=== PATIENT | female | born 1955 | race Caucasian/White ===

== ENCOUNTER 2020-07-07 05:54 | Emergency (ER) | payer OTHER, SELFPAY ==
[2020-07-07 06:03] VITALS: BP 133/83; PULSE 80; RESP 16; TEMP 36.9; O2SAT 100; BMI 29.0
--- NOTE | 2020-07-07 06:27 | ED.WEAKNESS ---
HPI - Weakness General Chief complaint: Weakness Stated complaint: Weakness Time Seen by Provider: 07/07/20 06:27 Source: patient Mode of arrival: ambulatory Limitations: no limitations History of Present Illness HPI Narrative: 64 yo female with hx of gastric bypass 3.5 years ago was treated for ulcer on carafate/protonix for 6 weeks notes during that time she feels weak and shaky and constantly thirsty - she does not she did well with carafate but did cheat with foods and coffee has appointment at 345pm with bariatric service MD Complaint: generalized weakness and lack of energy Onset (ago): week(s) (6) Duration: constant Location: generalized Migration: none Severity: moderate Quality: dull Relieving factors: movement and exertion Exacerbating factors: none Context: recent illness Associated symptoms: other (polydipsia, weakness, shaking chills) Related Data Home Medications Medication Instructions Recorded Confirmed alprazolam 0.5 mg tablet 0.5 mg PO BID 03/09/20 04/13/20 ascorbate calcium (vitamin C) 500 500 mg PO DAILY 03/09/20 04/13/20 mg tablet brexpiprazole 0.5 mg tablet 0.5 mg PO DAILY 03/09/20 04/13/20 desvenlafaxine succinate 100 mg 100 mg PO DAILY 03/09/20 04/13/20 tablet,extended release 24 hr diclofenac potassium 25 mg capsule 25 mg PO DAILY cap 03/09/20 04/13/20 lamotrigine 150 mg tablet 75 mg PO BID 03/09/20 04/13/20 linaclotide 145 mcg capsule 145 mcg PO DAILY 03/09/20 04/13/20 multivitamin 1 tab PO DAILY 03/09/20 04/13/20 trazodone 50 mg tablet 50 mg PO BEDTIME PRN 03/09/20 04/13/20 Previous Rx's Medication Instructions Recorded calcium carbonate-vitamin D3 600 1 tab PO BID #60 tab 01/08/20 mg (1,500 mg)-800 unit tablet hydrocodone 10 mg-acetaminophen 1 tab PO BID PRN 10 Days #20 tab 03/09/20 300 mg tablet doxycycline hyclate 100 mg tablet 100 mg PO BID 5 Days #10 tab 04/11/20 pantoprazole 40 mg tablet,delayed 40 mg PO DAILY #90 tab 04/13/20 release sucralfate 100 mg/mL oral 10 ml PO BID #420 ml 05/26/20 suspension ciprofloxacin HCl 500 mg tablet 500 mg PO BID 5 Days #10 tab 05/27/20 sucralfate 100 mg/mL oral 10 ml PO QID 30 Days #1200 ml 06/08/20 suspension Allergies Allergy/AdvReac Type Severity Reaction Status Date / Time vancomycin [VANCOMYCIN] Allergy Severe ITCHING Verified 07/07/20 06:13 SEVERE, pruritus clindamycin [CLINDAMYCIN] Allergy Intermediate ITCHING Verified 07/07/20 06:13 Penicillins [PENICILLINS] Allergy Intermediate HIVES Verified 07/07/20 06:13 Sulfa (Sulfonamide Allergy Intermediate RASH/SWELLING, Verified 07/07/20 06:13 Antibiotics) rash, swelling ibuprofen Allergy Unknown abdominal Verified 07/07/20 06:13 pain nitrofurantoin Allergy Unknown abdominal Verified 07/07/20 06:13 pain penicillin V Allergy Unknown vomiting, Verified 07/07/20 06:13 hives venlafaxine [From EFFEXOR] AdvReac Severe WORSENING Verified 07/07/20 06:13 DEPRESSION STEROID INJECTIONS Allergy Severe ANGER AND Uncoded 12/19/19 17:06 AGGITATION Butrans patch Allergy Unknown depression Uncoded 10/30/19 00:00 clindamycin Allergy Unknown severe Uncoded 10/31/19 00:00 itching Herbal medicines/teas Allergy Unknown headaches, Uncoded 10/31/19 00:00 stuffiness PCN Allergy Unknown rash/projectile Uncoded 10/31/19 00:00 vomiting steroids Allergy Unknown hot Uncoded 10/31/19 00:00 flashes, anger/anxiety sulfa Allergy Unknown rash/hives Uncoded 10/31/19 00:00 vancomycin Allergy Unknown itching, Uncoded 10/31/19 00:00 oral itching HERBAL MEDICATIONS AdvReac Intermediate SINUS Uncoded 12/19/19 17:06 HEADACHES SOME HERBAL TEAS AdvReac Intermediate SINUS Uncoded 12/19/19 17:06 HEADACHES Review of Systems Review of Systems: Constitutional : No Weight loss, No Fever, No Chills, pos Fatigue, pos Malaise ENT/Mouth : No sore throat, No Rhinorrhea Eyes: No Eye Pain, No Swelling, No Redness Cardiovascular : No Chest Pain, No SOB, No Dyspnea on Exertion, No Orthopnea, No Edema, No Palpitations Respiratory : No Cough, No Sputum, No Wheezing Gastrointestinal : No Nausea, No Vomiting, No Diarrhea, No Constipation, No abdominal Pain, No Hematochezia, No Melena Genitourinary : No Dysuria, No Urinary Frequency, No Hematuria, Musculoskeletal : No joint pain, No Myalgias, No Joint Swelling Skin : No Skin Lesions, No rash Neuro : pos Weakness, No Numbness, No Dizziness, No Headache Psych : No Anxiety/Panic, No Depression Heme/Lymph: No Bruising, No Bleeding,No Lymphadenopathy Endocrine : No Polyuria, pos Polydipsia All other systems reviewed and are negative [facility] Past Medical History Attestation statement: The following information was validated with the patient. Medical History Arthritis Chronic GERD Neck pain Sciatica Surgical History History of pubovaginal sling History of sleeve gastrectomy Hx of bilateral oophorectomy Hx of breast lump removal Hx of cholecystectomy Hx of colonoscopy Hx of cystostomy Hx of hernia repair Hx of tubal ligation Family History Family History Father Heart disease Mother Diabetes mellitus Brother Prostate cancer Pancreatic cancer BRCA positive Sister Breast cancer BRCA positive Son No problems noted. Social History Social History Household Members: Significant Other Housing: House Are you a primary nurse healthcare manager to a significant other at home: No Do you presently have visiting nurse or other home services: No Alcohol intake: never Smoking Status: Never smoker Substance Use Type: Marijuana Substance Use Frequency: Occasionally Have you been hit, kicked, punched, or otherwise hurt by someone within the past year? If so, by whom?: No Do you feel safe in your current relationship?: Yes Is there a partner from a previous relationship who is making you feel unsafe now?: No Are you made to feel afraid or neglected: No Advance Directives: No Access to Firearms: No Do you have thoughts of harming others: None Do you have a plan to hurt others: No Plan Do you have the means to hurt others: No Physical Exam Vital Signs: Vital Signs: Last Vital Signs Temp 98.4 F 07/07/20 06:03 Pulse 70 07/07/20 07:03 Resp 14 07/07/20 07:03 BP 115/67 07/07/20 07:03 Pulse Ox 98 07/07/20 07:03 Body Mass Index 29.0 Appearance: Alert. Oriented X3. No acute distress. Eyes: Pupils equal, round and reactive to light. ENT: Pharynx normal. Neck: Normal inspection. Neck supple. CVS: Normal heart rate and rhythm. Pulses normal. Respiratory: No respiratory distress. Breath sounds normal. Abdomen: Soft and nontender. Skin: Skin warm and dry. Normal skin color. Normal skin turgor. Extremities: No lower extremity edema. No calf ttp Neuro: Oriented X 3. No motor deficit. No sensory deficit. Course Course Course Narrative: weakness x 6 weeks with normal labs other than Vit D - she has Rx at home, has appointment with bariatric surgery wants to leave prior to results, no abdominal pain no headaches to suggest mass no weight loss, protein is fine, has close outpatient follow up MDM - Weakness MDM Narrative Medical decision making narrative: 64 yo female s/p bariatric surgery here with 6 weeks of weakness, malaise, polyuria after being on antibiotics for tooth infection then possibly resulting in ulcer that responded well to protonix and carafate - did cheat during that time with foods and stopped taking her vitamins at this time c/o multiple vague symptoms - labs, lytes ordered as well as EKG and fluids, has close follow up today with bariatric surgery if no significant acute findings given duration will DC to outpatient follow up. Lab Data Result diagrams: 07/07/20 07:29 07/07/20 07:29 Labs: Lab Results 07/07/20 07/07/20 07/07/20 Range/Units 06:27 07:29 07:29 WBC 5.8 (4.8-10.8) X10*3/uL RBC 4.27 (4.20-5.50) X10*6/uL Hgb 12.9 (12.0-16.0) g/dl Hct 39.9 (37-47) % MCV 93.4 (80-98) fL MCH 30.2 (27.0-33.0) pg MCHC 32.3 (31.0-35.0) g/dl RDW 12.1 (11.0-16.0) % Plt Count 359 (160-400) X10*3/uL MPV 9.9 (9.4-12.3) fL Immature Gran % (Auto) 0.3 (0.0-0.4) % Neut % (Auto) 68.5 (45-73) % Lymph % (Auto) 21.8 (20-40) % [place] % (Auto) 6.7 (2-11) % Eos % (Auto) 1.7 (0-4) % Baso % (Auto) 1.0 (0-2) % Lymph # (Auto) 1.3 (1.2-4.9) X10*3/uL [place] # (Auto) 0.4 (0.1-1.2) X10*3/uL Eos # (Auto) 0.1 (0.0-0.4) X10*3/uL Baso # (Auto) 0.1 (0.0-0.2) X10*3/uL Abs Immat Gran (auto) 0.02 (0.00-0.03) X10*3/uL Absolute Neuts (auto) 4.0 (2.0-8.3) X10*3/uL Absolute Nucleated RBC 0.000 (0.0-0.012) X10*3/uL Nucleated RBC % (auto) 0.0 (0.0-0.2) /100WBC Hold Blue Top SEE NOTE Sodium (135-145) mmol/L Potassium (3.3-5.1) mmol/L Chloride (96-108) mmol/L Carbon Dioxide (22-29) mmol/L Anion Gap (12-20) BUN (9-16) mg/dL Creatinine (0.5-1.4) mg/dL Estim Creat Clear Calc Estimated GFR Random Glucose (60-115) mg/dL Calcium (8.4-10.2) mg/dL Magnesium (1.6-2.6) mg/dL Total Bilirubin (0.0-1.0) mg/dL Direct Bilirubin (0.0-0.5) mg/dL AST (5-31) U/L ALT (0-31) U/L Alkaline Phosphatase (39-117) U/L Total Protein (6.5-8.0) g/dL Albumin (3.5-5.0) g/dL Lipase (8-78) U/L 25-OH Vitamin D Total (>30) ng/mL Urine Color YELLOW Urine Appearance CLEAR Urine pH 5.5 (5.0-8.0) Ur Specific [place] 1.010 (1.005-1.025) Urine Protein NEG (NEG-TRACE) MG/DL Urine Glucose (UA) NEG (NEG) MG/DL Urine Ketones NEG (NEG) MG/DL Urine Blood TRACE (NEG) Urine Nitrite NEG (NEG) Ur Leukocyte Esterase NEG (NEG) Urine RBC 0-2 (0) /HPF Urine WBC 0-2 (0-4) /HPF Ur Squamous Epith Cells TRACE /LPF Urine Bacteria NONE /LPF Urine Mucus TRACE /LPF 07/07/20 07/07/20 Range/Units 07:29 07:29 WBC (4.8-10.8) X10*3/uL RBC (4.20-5.50) X10*6/uL Hgb (12.0-16.0) g/dl Hct (37-47) % MCV (80-98) fL MCH (27.0-33.0) pg MCHC (31.0-35.0) g/dl RDW (11.0-16.0) % Plt Count (160-400) X10*3/uL MPV (9.4-12.3) fL Immature Gran % (Auto) (0.0-0.4) % Neut % (Auto) (45-73) % Lymph % (Auto) (20-40) % [place] % (Auto) (2-11) % Eos % (Auto) (0-4) % Baso % (Auto) (0-2) % Lymph # (Auto) (1.2-4.9) X10*3/uL [place] # (Auto) (0.1-1.2) X10*3/uL Eos # (Auto) (0.0-0.4) X10*3/uL Baso # (Auto) (0.0-0.2) X10*3/uL Abs Immat Gran (auto) (0.00-0.03) X10*3/uL Absolute Neuts (auto) (2.0-8.3) X10*3/uL Absolute Nucleated RBC (0.0-0.012) X10*3/uL Nucleated RBC % (auto) (0.0-0.2) /100WBC Hold Blue Top Sodium 141 (135-145) mmol/L Potassium 4.0 (3.3-5.1) mmol/L Chloride 107 (96-108) mmol/L Carbon Dioxide 25 (22-29) mmol/L Anion Gap 13 (12-20) BUN 17 H (9-16) mg/dL Creatinine 0.95 (0.5-1.4) mg/dL Estim Creat Clear Calc 58.5 Estimated GFR 59 Random Glucose 82 (60-115) mg/dL Calcium 9.2 (8.4-10.2) mg/dL Magnesium 2.7 H (1.6-2.6) mg/dL Total Bilirubin 0.5 (0.0-1.0) mg/dL Direct Bilirubin 0.2 (0.0-0.5) mg/dL AST 17 (5-31) U/L ALT 14 (0-31) U/L Alkaline Phosphatase 108 (39-117) U/L Total Protein 7.3 (6.5-8.0) g/dL Albumin 4.2 (3.5-5.0) g/dL Lipase 42 (8-78) U/L 25-OH Vitamin D Total 14.9 Cancelled (>30) ng/mL Urine Color Urine Appearance Urine pH (5.0-8.0) Ur Specific [place] (1.005-1.025) Urine Protein (NEG-TRACE) MG/DL Urine Glucose (UA) (NEG) MG/DL Urine Ketones (NEG) MG/DL Urine Blood (NEG) Urine Nitrite (NEG) Ur Leukocyte Esterase (NEG) Urine RBC (0) /HPF Urine WBC (0-4) /HPF Ur Squamous Epith Cells /LPF Urine Bacteria /LPF Urine Mucus /LPF ECG Data Attestation: I personally reviewed and interpreted this ECG as follows: ECG interpretation date: 07/07/20 ECG interpretation time: 07:07 Interpretation: Rate: 73 Rhythm: NSR [place]: left, LVH Normal P waves. Normal SOTERO. Normal QRS complex. ST T wave : normal no KALYN qTC: normal prior studies: no acute ischemia The study has been interpreted contemporaneously by me. . Discharge Plan Discharge Clinical Impression: Weakness, Vitamin D deficiency Patient Disposition: Home, Self-Care Instructions: Vitamin D Deficiency (ED), Weakness (ED) Additional Instructions: return to ED for any worsening symptoms or concerns please take your vitamin D follow up at your appointment today, your hemoglobin A1C will be resulted by then Prescriptions: No Action calcium carbonate-vitamin D3 600 mg(1,500mg) -800 unit tablet 1 tab PO BID Qty: 60 RF: 11 doxycycline hyclate 100 mg tablet 100 mg PO BID 5 Days Qty: 10 RF: 0 sucralfate 100 mg/mL suspension 10 ml PO BID Qty: 420 RF: 2 ciprofloxacin HCl [Cipro] 500 mg tablet 500 mg PO BID 5 Days Qty: 10 RF: 0 sucralfate [Carafate] 100 mg/mL suspension 10 ml PO QID 30 Days Qty: 1200 RF: 1 pantoprazole 40 mg tablet,delayed release (DR/EC) 40 mg PO DAILY Qty: 90 RF: 8 multivitamin Tablet 1 tab PO DAILY RF: 0 diclofenac potassium 25 mg capsule 25 mg PO DAILY RF: 0 ascorbate calcium (vitamin C) 500 mg tablet 500 mg PO DAILY RF: 0 lamotrigine 150 mg tablet 75 mg PO BID RF: 0 desvenlafaxine succinate [Pristiq] 100 mg tablet extended release 24 hr 100 mg PO DAILY RF: 0 alprazolam [Xanax] 0.5 mg tablet 0.5 mg PO BID RF: 0 trazodone 50 mg tablet 50 mg PO BEDTIME PRNRF: 0 Rexulti 0.5 mg tablet 0.5 mg PO DAILY RF: 0 Linzess 145 mcg capsule 145 mcg PO DAILY RF: 0 hydrocodone-acetaminophen [Vicodin HP] 10-300 mg tablet 1 tab PO BID PRN (Reason: pain) 10 Days Qty: 20 RF: 0
[2020-07-07 06:39] LABS: Glucose Urine UA NEG (NEG); Leukocyte Esterase Urine NEG (NEG); Nitrite Urine NEG (NEG); PH 5.5 (5.0-8.0); Urine Blood TRACE (NEG); Urine Ketones NEG (NEG); Urine Protein NEG (NEG-TRACE)
--- NOTE | 2020-07-07 06:41 | ECG_ITS ---
Test Reason : WEAKNESS Blood Pressure : / mmHG Vent. Rate : 073 BPM Atrial Rate : 073 BPM P-R Int : 158 ms QRS Dur : 074 ms QT Int : 408 ms P-R-T Axes : 043 -13 002 degrees QTc Int : 449 ms Normal sinus rhythm Minimal voltage criteria for LVH, may be normal variant Borderline ECG No previous ECGs available Referred By: Naz Leal Electronically Signed By:ELENITA SHELLEY MD
[2020-07-07 06:47] LABS: Appearance Urine CLEAR; Color Urine YELLOW
[2020-07-07 06:51] LABS: Mucus Urine TRACE /LPF; RBC Urine 0-2 /HPF (0); Squamous Epithelial Cell Urine TRACE /LPF; WBC Urine 0-2 /HPF (0-4)
[2020-07-07 07:03] VITALS: BP 115/67; PULSE 70; RESP 14; O2SAT 98
[2020-07-07 07:32] LABS: MANUAL DIFF FLAG NO
[2020-07-07 07:36] LABS: Basophils Absolute Auto 0.1 X10*3/uL (0.0-0.2); Eosinophils Absolute Auto 0.1 X10*3/uL (0.0-0.4); Eosinophils Percent Auto 1.7 % (0-4); Hematocrit 39.9 % (37-47); Hemoglobin 12.9 g/dl (12.0-16.0); Imm Gran Abs Auto 0.02 X10*3/uL (0.00-0.03); Imm Gran Pct Auto 0.3 % (0.0-0.4); Lymphocytes Absolute Auto 1.3 X10*3/uL (1.2-4.9); Lymphocytes Percent Auto 21.8 % (20-40); Mean Corpuscular HGB Conc 32.3 g/dl (31.0-35.0); Mean Corpuscular Hemoglobin 30.2 pg (27.0-33.0); Mean Corpuscular Volume 93.4 fL (80-98); Mean Platelet Volume 9.9 fL (9.4-12.3); Monocytes Absolute Auto 0.4 X10*3/uL (0.1-1.2); Monocytes Percent Auto 6.7 % (2-11); Neutrophils Percent Auto 68.5 % (45-73); Platelet Count 359 X10*3/uL (160-400); Red Blood Count 4.27 X10*6/uL (4.20-5.50); Red Cell Distribution Width 12.1 % (11.0-16.0); White Blood Count 5.8 X10*3/uL (4.8-10.8)
[2020-07-07] MEDS: 0.9 % Sodium Chloride 1,000 ML 999 ML IVCONT (07:45)
[2020-07-07 08:00] LABS: Alanine Aminotransferase 14 U/L (0-31); Albumin Level 4.2 g/dL (3.5-5.0); Alkaline Phosphatase 108 U/L (39-117); Anion Gap 13 (12-20); Aspartate Amino Transferase 17 U/L (5-31); Bilirubin Direct 0.2 mg/dL (0.0-0.5); Bilirubin Total 0.5 mg/dL (0.0-1.0); Blood Urea Nitrogen 17 mg/dL (9-16); Calcium 9.2 mg/dL (8.4-10.2); Carbon Dioxide 25 mmol/L (22-29); Chloride 107 mmol/L (96-108); Creatinine Clr Calc Pharmacy 58.5; Estimated Glomerular Filt Rate 59; Glucose Random 82 mg/dL (60-115); Lipase 42 U/L (8-78); Magnesium 2.7 mg/dL (1.6-2.6); Sodium 141 mmol/L (135-145); Total Protein 7.3 g/dL (6.5-8.0)
[2020-07-07 08:19] LABS: Vitamin D 25-OH Total 14.9 ng/mL (>30)
[2020-07-07 08:31] LABS: Estimated Average Glucose 97 mg/dL
[2020-07-07 09:16] VITALS: BP 138/83; PULSE 104; RESP 14; TEMP 36.5; O2SAT 98
== END 2020-07-07 09:17 | disposition home or self-care (01) ==
PROVIDERS: Emergency Provider Emergency Medicine; PCP Internal Medicine
DX: E55.9 Vitamin D deficiency, unspecified (principal); R53.1 Weakness; Z79.899 Other long term (current) drug therapy
CPT/HCPCS: 36415; 80048; 80076; 81001; 82306; 83036; 83690; 83735; 85025; 93005; 96360; 99212; 99283; 99284

== ENCOUNTER → 2020-07-14 12:23 | Outpatient (BNVA) | payer OTHER, SELFPAY | PROVIDERS: PCP Internal Medicine; Visit Provider Dietitian, Registered ==

== ENCOUNTER 2020-07-15 10:45 | Outpatient (REF) | payer OTHER, SELFPAY ==
--- NOTE | ~2020-07-15 | MM_ITS ---
EXAMINATION: MM DIAGNOSTIC DIGITAL BREAST TOMOSYNTHESIS, BILATERAL CLINICAL INFORMATION: Due for yearly. Prior history bilateral breast cancer, right 2012 and left 2004. Also follow-up probable benign calcifications right breast. COMPARISON: Mammography: 10/08/2019, 10/03/2019 (BI-RADS 0), 07/12/2018, 05/24/2017. TECHNIQUE: Digital breast tomosynthesis is performed in both the craniocaudal and mediolateral oblique views along with computer-aided detection (CAD). Synthesized 2D images are generated from the tomosynthesis. Additional magnification right CC and magnification right ML views are obtained. FINDINGS: There are scattered areas of fibroglandular density (ACR BI-RADS breast composition Category b). There is minor bilateral scarring similar to prior studies consistent with the prior bilateral breast surgeries. There is no developing density or interval mass or architectural abnormality. Surgical clips again noted right anterior breast and right axilla. There are scattered bilateral benign coarse calcifications. The finding calcifications suggested on screening 2019 are not clearly visualized on the magnification views. Given the prior breast cancer history, continued follow-up will be performed with right magnification views at next bilateral annual mammography in one year to conclude long-term surveillance. Results are provided to the patient at time of visit by the technologist. MM/MM tomosynthesis diagnostic BI IMPRESSION: No significant changes from prior studies. No suspicious calcifications. ASSESSMENT: BI-RADS 3: Probably Benign RECOMMENDATION: Diagnostic mammography at time of next annual exam, due in 12 months. This patient's information was entered into a reminder system with a target due date for their next mammogram.
== END 2020-07-15 10:46 | disposition home or self-care (01) ==
LOC: HO.MAMMO 10:45
PROVIDERS: Visit Provider Internal Medicine
DX: R92.1 Mammographic calcification found on diagnostic imaging of breast (principal)
CPT/HCPCS: 77062; 77066

== ENCOUNTER → 2020-08-19 14:08 | Outpatient (BNVA) | payer OTHER, SELFPAY | PROVIDERS: PCP Internal Medicine; Visit Provider Physician Assistant ==

== ENCOUNTER 2020-09-04 11:45 | Outpatient (RCR) | payer OTHER, SELFPAY ==
[2020-08-21 11:47] VITALS: BMI 27.4
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
[2020-08-21 13:05] VITALS: BMI 27.4
--- NOTE | 2020-08-21 13:27 | PC.ADMIT ---
Patient is a 64 year old female who self referred to the [facility] program d/t increased depression and mood dis regulation. Patient reports depression with passive SI wishing she was however denied plan or intent to kill herself. Patient reports she relapsed after 8 years sobriety on Adderall starting last February up until 2 weeks ago when she stopped. Reports she was taking 30mg tab or 60 mg tab a few times a month. Patient feeling guilty and ashamed about use. Patient reports that she is planning on telling her prescriber Meli during her next appointment with her as she wants to tell her in person. Patient is alert and oriented x4. Presents with depressed mood and anxious affect. Denied current SI or thoughts to harm herself. Reports that she has had thoughts wishing she was however denied plan or intent. Patient gave verbal permission to email her a copy of her safety plan. Medications reconciled with patient and patient's pharmacy.
--- NOTE | 2020-08-24 15:03 | PC.NURSE ---
case opened in treatment team
--- NOTE | 2020-08-26 14:44 | HO.PHPPROGNO ---
Subjective Subjective Date of Service: 08/26/20 Reason For Visit: PTSD,MDD, Bipolar II Interim History: NO SHOW Diagnostics Vital Signs (24Hr): Body Mass Index 27.4 Assessment & Plan Assessment & Plan (1) Mood disorder: Status: Acute Code(s): F39 - Unspecified mood [affective] disorder Assessment and Plan: no show Certification I certify that partial hospital treatment is medically necessary due to the symptoms and problems resulting from the patient's mental illness and the failure to treat the patient at the partial hospital level of care would likely result in the patient requiring inpatient psychiatric care which could not be prevented at a less intensive level of care. Greater than 50% of the session was spent on counseling and/or coordination of care Discharge Plan Discharge Attending provider: Yovany Burgos Primary Care Provider: Rabia Sim Medications: No Action calcium carbonate-vitamin D3 600 mg(1,500mg) -800 unit tablet 1 tab PO BID Qty: 60 RF: 11 lamotrigine 150 mg Tablet 150 mg PO BID RF: 0 topiramate 50 mg Tablet 50 mg PO BEDTIME RF: 0 topiramate [Topamax] 50 mg Tablet 100 mg PO DAILY RF: 0 multivitamin Tablet 1 tab PO DAILY RF: 0 diclofenac potassium 25 mg capsule 25 mg PO DAILY RF: 0 desvenlafaxine succinate [Pristiq] 100 mg tablet extended release 24 hr 100 mg PO DAILY RF: 0 alprazolam [Xanax] 0.5 mg tablet 0.5 - 1 mg PO BEDTIME PRN (Reason: Insomnia) RF: 0 trazodone 50 mg tablet 50 - 100 mg PO BEDTIME PRN (Reason: Insomnia) RF: 0 Referrals: Rabia Sim MD [Primary Care Provider] - 1 Week
--- NOTE | 2020-08-27 12:15 | PC.NURSE ---
Patient left message on my voice mail stating she is taking the rest of the day off from the program as she is unable to sit anymore as she is having bilateral pain in her legs d/t sciatica. Stated she is going to lay down and take a nap to relieve the pain and has Physical Therapy tonight. Plans on returning the the program tomorrow. Staff is aware.
--- NOTE | 2020-08-27 14:25 | PC.NURSE ---
The client called and stated that she is experiencing severe back pain and needs to take to rest of the day off. She states that she will be in tomorrow
--- NOTE | 2020-09-01 16:48 | HO.PHPPROGNO ---
Subjective Subjective Date of Service: 09/01/20 Reason For Visit: PTSD,MDD, Bipolar II Medical Problems Affecting Mental Status: No Interim History: Patient reports current med regimen working well. She reports she discussed her topiramate dosing with outpatient provider, and it was increased by 50mg daily, ith it now being ordered as 100mg in am, 50mg at night. This increase was due to her assessment last week with Dr. Burgos, and his suggestion that topirimate can also assist with cravings. She reports she has experienced cravings of adderall, and hopes that this dose increase will help to alleviate them. Currently have increased sciatica pain, has contacted her medical provider, to ask for a musle relaxant. She is awaiting a call back. She states that the PHP program is helping, and she feels she is learning from the program. She is working on setting boundaries. Medication Compliance: Yes Side effects from medications: No Attending Groups: Yes Review of Systems Review of Systems Yes all other systems are reviewed and are negative Musculoskeletal: Reports back pain Comments: sciatica pain Mental Status Exam Mental Status Exam Narrative: Patient alert and oriented, no mood lability or constriction noted. Patient Appearance: Well Grooomed and Appropriate Patient Orientation: Person, Place, Time and Situation Level of Consciousness: Awake Patient Behavior: Appropriate and Cooperative Mood Description: Appropriate Affect Description: Appropriate Patient Cognition Impaired: No Ability to Follow Directions: Excellent Speech Pattern: Clear Memory Description: Intact Hallucinations: None Delusions: Not Present Thought Content: positive for Intact Depressive Symptoms: Diff. Making Decisions and Feelings of Guilt Judgement: Good Diagnostics Vital Signs (24Hr): Body Mass Index 27.4 Assessment & Plan Patient educated on: diagnosis, medication risk/benefits and substance abuse Reason for contiued partial hosp. stay Substantial Risk for: inability to function Certification I certify that partial hospital treatment is medically necessary due to the symptoms and problems resulting from the patient's mental illness and the failure to treat the patient at the partial hospital level of care would likely result in the patient requiring inpatient psychiatric care which could not be prevented at a less intensive level of care. Greater than 50% of the session was spent on counseling and/or coordination of care Discharge Plan Discharge Attending provider: Yovany Burgos Primary Care Provider: Rabia Sim Medications: No Action calcium carbonate-vitamin D3 600 mg(1,500mg) -800 unit tablet 1 tab PO BID Qty: 60 RF: 11 tizanidine 4 mg tablet 4 mg PO BEDTIME PRN (Reason: muscle spasticity) 14 Days Qty: 14 RF: 0 lamotrigine 150 mg Tablet 150 mg PO BID RF: 0 topiramate 50 mg Tablet 50 mg PO BEDTIME RF: 0 topiramate [Topamax] 50 mg Tablet 100 mg PO DAILY RF: 0 multivitamin Tablet 1 tab PO DAILY RF: 0 diclofenac potassium 25 mg capsule 25 mg PO DAILY RF: 0 desvenlafaxine succinate [Pristiq] 100 mg tablet extended release 24 hr 100 mg PO DAILY RF: 0 alprazolam [Xanax] 0.5 mg tablet 0.5 - 1 mg PO BEDTIME PRN (Reason: Insomnia) RF: 0 trazodone 50 mg tablet 50 - 100 mg PO BEDTIME PRN (Reason: Insomnia) RF: 0 Referrals: Rabia Sim MD [Primary Care Provider] - 1 Week Telehealth Telehealth Location of provider rendering services: practice address Location of patient: address on file Patient Identification confirmed using: Name, : Yes Telehealth method: video Patient verbally consented to treatment: Yes Patient verbally consented to billing insurance company: Yes Patient informed of any privacy concerns related to visit: Yes Time spent with patient (mins): 25
--- NOTE | 2020-09-02 07:36 | PC.NURSE ---
Client called out because she is experiencing severe back pain that prevents her from sitting for long periods.
--- NOTE | 2020-09-07 09:42 | PC.NURSE ---
Patient having issues with her computer this morning and unable to work her camera. Plans on calling her son to help her fix it and if fixed will attend groups on Monday. Staff is aware.
--- NOTE | 2020-09-08 08:36 | PC.NURSE ---
Client called to say that she couldn't continue tx because she does not have a camera and no means to get one. We went over her discharge plans
--- NOTE | 2020-09-08 14:18 | PC.NURSE ---
I called and spoke with Mary Patton to inform her of clients discharge
--- NOTE | 2020-09-10 12:57 | PC.NURSE ---
Patient discharged from the program as she was having computer issues thus unable to complete the program. Left messages with patient to call me back to review medications however we were not able to connect until today. Reviewed patient medication list with patient. Patient reports taking medications as prescribed. Stated she stopped Tizanidine after 3 days as she did not like the way the medication made her feel.
== END 2020-09-09 07:30 | disposition home or self-care (01) ==
LOC: HO.PHPA 11:45
PROVIDERS: PCP Internal Medicine; Visit Provider Psychiatry & Neurology Psychiatry
DX: F32.9 Major depressive disorder, single episode, unspecified (principal); F31.81 Bipolar II disorder; F43.10 Post-traumatic stress disorder, unspecified; Z79.899 Other long term (current) drug therapy
CPT/HCPCS: 90791; 90853; 99213

== ENCOUNTER 2020-09-17 18:09 | Outpatient (REF) | payer OTHER, SELFPAY ==
--- NOTE | ~2020-09-17 | MR_ITS ---
EXAMINATION: MR LUMBAR SPINE WITHOUT CONTRAST CLINICAL INFORMATION: Radiculopathy, lumbar region. COMPARISON: Lumbar spine MRI 08/12/2016. TECHNIQUE: MRI of the lumbar spine was obtained using routine sequences without contrast. FINDINGS: The lumbar vertebral bodies maintain normal heights. There is mild retrolisthesis of L3 on L4 and grade 1 anterolisthesis of L4 on L5 and L5 on S1. The alignment appears stable compared with 2017. No significant disc height loss is noted. The distal spinal cord appears normal. Conus medullaris terminates normally at the L1-L2 level. The visualized paraspinal muscles and intra-abdominal and pelvic contents are within normal limits. SPINAL LEVELS: L1-L2: Left subarticular protrusion. No spinal canal or neural foraminal stenosis. No change. L2-L3: No posterior disc abnormality. Mild facet arthropathy. No spinal canal or neural foraminal stenosis. No change. L3-L4: Disc bulging with ligamentum flavum infolding and moderate to severe facet arthropathy. Progressive mild to moderate right more than left neural foraminal stenosis with mild mass effect on the exiting right L3 nerve root. No spinal canal stenosis. L4-L5: Postoperative findings of right hemilaminectomy. Disc bulging with severe facet arthropathy. Central annular fissuring again seen. No spinal canal stenosis. Mild to moderate left and moderate right neural foraminal stenosis with mild mass effect on the exiting right L4 nerve root, similar to prior. L5-S1: Disc bulging with severe facet arthropathy. No spinal canal stenosis. No foraminal nerve root compression. MR/MR lumbar spine wo con IMPRESSION: Multilevel degenerative spondylotic changes again demonstrated. At L3-L4 there is progressive mild to moderate right more than left neural foraminal stenosis with mild mass effect on the exiting right L3 nerve root. At L4-L5 there is stable grade 1 anterolisthesis related to severe facet arthropathy resulting in mild to moderate left and moderate right neural foraminal stenosis with mild mass effect on the exiting right L4 nerve root.
== END 2020-09-17 18:10 | disposition home or self-care (01) ==
LOC: HO.MRI 18:09
PROVIDERS: Visit Provider Internal Medicine
DX: M54.16 Radiculopathy, lumbar region (principal)
CPT/HCPCS: 72148

== ENCOUNTER 2020-09-26 06:00 | Emergency (ER) | payer OTHER, SELFPAY ==
[2020-09-26 06:04] VITALS: BP 114/67; PULSE 90; RESP 20; TEMP 37; O2SAT 95; BMI 30.9
--- NOTE | 2020-09-26 06:35 | ED.BACK ---
HPI - Back Pain/Injury General Chief Complaint: Back Pain/Injury Stated Complaint: CHRONIC BACK PAIN Time Seen by Provider: 09/26/20 06:35 Source: patient and EMS Mode of arrival: EMS Limitations: no limitations History of Present Illness MD elicited complaint: back pain Pertinent past history: prior back pain Onset (ago): month(s) Timing: progressively worsening Severity: moderate Similar Symptoms Previously: Yes Quality: aching, spasming and throbbing Location: lumbar spine Radiation: none Exacerbating factors: movement Relieving factors: immobilization Context: unknown Associated symptoms: denies other symptoms Treatments prior to arrival: other medications and prescription analgesics Work related injury: No Related Data Home Medications Medication Instructions Recorded Confirmed alprazolam 0.5 mg tablet 0.5 - 1 mg PO BEDTIME PRN 03/09/20 08/21/20 desvenlafaxine succinate 100 mg 100 mg PO DAILY 03/09/20 08/21/20 tablet,extended release 24 hr multivitamin 1 tab PO DAILY 03/09/20 08/21/20 trazodone 50 mg tablet 50 - 100 mg PO BEDTIME PRN 03/09/20 08/21/20 lamotrigine 150 mg PO BID 08/21/20 08/21/20 topiramate 50 mg PO BEDTIME 08/24/20 08/24/20 topiramate [Topamax] 100 mg PO DAILY 08/24/20 08/24/20 Previous Rx's Medication Instructions Recorded calcium carbonate-vitamin D3 600 1 tab PO BID #60 tab 01/08/20 mg (1,500 mg)-800 unit tablet gabapentin 100 mg capsule 200 mg PO BEDTIME 30 Days #60 cap 09/21/20 gabapentin 300 mg PO BID 30 Days #60 cap 09/26/20 hydrocodone-acetaminophen 1 tab PO Q6H PRN #12 tab 09/26/20 Allergies Allergy/AdvReac Type Severity Reaction Status Date / Time vancomycin [VANCOMYCIN] Allergy Severe ITCHING Verified 09/26/20 06:18 SEVERE, pruritus clindamycin [CLINDAMYCIN] Allergy Intermediate ITCHING Verified 09/26/20 06:18 ibuprofen Allergy Intermediate abdominal Verified 09/26/20 06:18 pain nitrofurantoin Allergy Intermediate abdominal Verified 09/26/20 06:18 pain Penicillins [PENICILLINS] Allergy Intermediate HIVES Verified 09/26/20 06:18 Sulfa (Sulfonamide Allergy Intermediate RASH/SWELLING, Verified 09/26/20 06:18 Antibiotics) rash, swelling venlafaxine [From EFFEXOR] AdvReac Severe WORSENING Verified 09/26/20 06:18 DEPRESSION Butrans patch Allergy Severe depression Uncoded 09/26/20 06:18 STEROID INJECTIONS Allergy Severe ANGER AND Uncoded 09/26/20 06:18 AGGITATION Herbal medicines/teas Allergy Intermediate headaches, Uncoded 09/26/20 06:18 stuffiness Review of Systems Review of Systems: Constitutional : No Weight loss, No Fever, No Chills, ENT/Mouth : No Hearing loss, No Ear Pain, No Nasal Congestion, No Sinus Pain, No Hoarseness, No sore throat, No Rhinorrhea, No Swallowing Difficulty Cardiovascular : No Chest Pain, No SOB Respiratory : No Cough, No Dyspnea Gastrointestinal : No Nausea, No Vomiting, No Diarrhea, No abdominal Pain, No Hematochezia, No Melena Genitourinary : No Dysuria, No Urinary Frequency, No Hematuria, No Urinary Incontinence, Musculoskeletal : positive back pain Skin : No Skin Lesions, No rash Neuro : No Weakness, No Numbness, No Paresthesias, no loss of bowel or bladder incontinence, no saddle anesthesia PMFSH Past Medical History Attestation statement: The following information was validated with the patient. Medical History Arthritis Back pain BRCA gene mutation positive Chronic constipation Chronic GERD Depression Fatigue Herniated disc History of bronchitis History of left breast cancer History of right breast cancer Irritable bowel syndrome Left sided sciatica Lumbar radiculopathy Neck pain PTSD (post-traumatic stress disorder) Retinal lesion Sciatica Urine incontinence Surgical History History of esophagogastroduodenoscopy (EGD) History of pubovaginal sling History of repair of hiatal hernia History of Lashay-en-Y gastric bypass History of sinus surgery Hx of bilateral oophorectomy Hx of breast lump removal Hx of cholecystectomy Hx of colonoscopy Hx of cystostomy Hx of hernia repair Hx of tubal ligation Family History Family History Father Heart disease Mother Diabetes mellitus Brother Prostate cancer Pancreatic cancer BRCA positive Sister Breast cancer BRCA positive Son No problems noted. Social History Social History Household Members: Significant Other Housing: House Are you a primary animal care service worker to a significant other at home: No Do you presently have visiting nurse or other home services: No Alcohol intake: never Substance Use Type: Marijuana Advance Directives: No Advance Directives Information Provided: No Patient : No Current occupational status: disabled Physical Exam Vital Signs: Vital Signs: Last Vital Signs Temp 98.6 F 09/26/20 06:04 Pulse 90 09/26/20 06:04 Resp 20 09/26/20 06:04 BP 114/67 09/26/20 06:04 Pulse Ox 95 09/26/20 06:04 Body Mass Index 30.9 Appearance: Alert. Oriented X3. No acute distress. able to rotate in bed and stand up on her own without much difficulty at all Eyes: Pupils equal, round and reactive to light. ENT: Pharynx normal. Neck: Normal inspection. Neck supple. CVS: Normal heart rate and rhythm. Pulses normal. Respiratory: No respiratory distress. Breath sounds normal. Abdomen: Soft and nontender. normal rectal tone Skin: Skin warm and dry. Normal skin color. Normal skin turgor. Extremities: No lower extremity edema. No calf ttp Neuro: Oriented X 3. No motor deficit. No sensory deficit. SILT inner thigh Course Course Course Narrative: patient refusing medications in the ED and now wants to go home, up and walking in the ED MDM - Back Pain/Injury MDM Narrative Medical decision making narrative: 64 yo female with a hx of chronic back pain had recent MRI which showed compression of L3/L4 nerve roots, she is not on AC therapy, has no saddle anesthesia, she is NV intact on exam today, no incontinence at this time, she is moving around quite well on the bed rotating without issue then standing up, she is requesting if we can increase her gabapentin from 100mg - will increase to 300mg BID and give very limited narcotic Rx for the weekend, she plans to see Dr. Melgar Discharge Plan Discharge Clinical Impression: Lumbar radiculopathy Patient Disposition: Home, Self-Care Instructions: Lumbar Radiculopathy (ED) Additional Instructions: return to ED for any worsening symptoms or concerns please keep your appointment with neurosurgery, return for numbness in your genital area or loss of bowel/bladder control that is new Prescriptions: New gabapentin 300 mg capsule 300 mg PO BID 30 Days Qty: 60 RF: 0 hydrocodone-acetaminophen 5-325 mg tablet 1 tab PO Q6H PRN (Reason: pain) Qty: 12 RF: 0 No Action calcium carbonate-vitamin D3 600 mg(1,500mg) -800 unit tablet 1 tab PO BID Qty: 60 RF: 11 gabapentin 100 mg capsule 200 mg PO BEDTIME 30 Days Qty: 60 RF: 0 lamotrigine 150 mg Tablet 150 mg PO BID RF: 0 topiramate 50 mg Tablet 50 mg PO BEDTIME RF: 0 topiramate [Topamax] 50 mg Tablet 100 mg PO DAILY RF: 0 multivitamin Tablet 1 tab PO DAILY RF: 0 desvenlafaxine succinate [Pristiq] 100 mg tablet extended release 24 hr 100 mg PO DAILY RF: 0 alprazolam [Xanax] 0.5 mg tablet 0.5 - 1 mg PO BEDTIME PRN (Reason: Insomnia) RF: 0 trazodone 50 mg tablet 50 - 100 mg PO BEDTIME PRN (Reason: Insomnia) RF: 0
--- NOTE | 2020-09-26 07:07 | PC.NURSE ---
PT REFUSING ORDERED MEDS, STS ILL BE TOO SLEEPY . PT REPOSITIONING SELF IN STRETCHER EASILY W NO ASSISTANCE, AMBULATING IN ROOM W STEADY GAIT, NAD.
== END 2020-09-26 07:07 | disposition home or self-care (01) ==
PROVIDERS: Emergency Provider Emergency Medicine; PCP Internal Medicine
DX: M54.16 Radiculopathy, lumbar region (principal)
CPT/HCPCS: 99283

== ENCOUNTER 2020-09-27 12:10 | Emergency (ER) | payer OTHER, SELFPAY ==
[2020-09-27 12:25] VITALS: BP 125/77; PULSE 73; RESP 16; TEMP 36.6; O2SAT 97; BMI 28.3
--- NOTE | 2020-09-27 13:23 | ED.BACK ---
HPI - Back Pain/Injury General Chief Complaint: Dental/Oral Stated Complaint: DENTAL PAIN Time Seen by Provider: 09/27/20 13:13 Source: patient Mode of arrival: ambulatory Limitations: no limitations History of Present Illness HPI Narrative: 64-year-old female with a past medical history of L3/L4 nerve roots confirmed by recent MRI presenting to the ED with complaints of acute on chronic lower back pain radiating to her anterior lower extremities bilaterally. Reports that she was seen here yesterday and her gabapentin was increased to 300 mg b.i.d. and she was given Vicodin although she is not having any symptomatic relief and is requesting higher dose pain medications. Reports she is also having left lower dental pain as well. Reports she has the follow-up with the neurosurgeon Dr. Melgar and a dentist soon. CHATMAN elicited complaint: back pain Pertinent past history: prior back pain Onset (ago): day(s) ( Few days worse today) Timing: constant and progressively worsening Severity: severe Pain scale (0-10): 10 Similar Symptoms Previously: Yes Quality: aching, spasming and throbbing Location: lumbar spine Radiation: left upper leg and right upper leg Exacerbating factors: movement, sitting upright and walking Relieving factors: immobilization and supine ( on abdomen) Associated symptoms: denies other symptoms Treatments prior to arrival: other ( has tried her gabapentin and Vicodin) Work related injury: No Related Data Home Medications Medication Instructions Recorded Confirmed alprazolam 0.5 mg tablet 0.5 - 1 mg PO BEDTIME PRN 03/09/20 08/21/20 desvenlafaxine succinate 100 mg 100 mg PO DAILY 03/09/20 08/21/20 tablet,extended release 24 hr multivitamin 1 tab PO DAILY 03/09/20 08/21/20 trazodone 50 mg tablet 50 - 100 mg PO BEDTIME PRN 03/09/20 08/21/20 lamotrigine 150 mg PO BID 08/21/20 08/21/20 topiramate 50 mg PO BEDTIME 08/24/20 08/24/20 topiramate [Topamax] 100 mg PO DAILY 08/24/20 08/24/20 Previous Rx's Medication Instructions Recorded calcium carbonate-vitamin D3 600 1 tab PO BID #60 tab 01/08/20 mg (1,500 mg)-800 unit tablet gabapentin 100 mg capsule 200 mg PO BEDTIME 30 Days #60 cap 09/21/20 gabapentin 300 mg PO BID 30 Days #60 cap 09/26/20 hydrocodone-acetaminophen 1 tab PO Q6H PRN #12 tab 09/26/20 acetaminophen [Tylenol Extra 1,000 mg PO QID PRN #14 tab 09/27/20 Strength] azithromycin See Rx Instructions .ROUTE 09/27/20 .COMPLEX #6 tab lidocaine HCl [Aspercreme 1 appl TOPICAL BID PRN #120 g 09/27/20 (lidocaine HCl)] oxycodone 5 mg PO BID PRN #15 tab 09/27/20 prednisone 40 mg PO DAILY 5 Days #10 tab 09/27/20 Allergies Allergy/AdvReac Type Severity Reaction Status Date / Time vancomycin [VANCOMYCIN] Allergy Severe ITCHING Verified 09/26/20 06:18 SEVERE, pruritus clindamycin [CLINDAMYCIN] Allergy Intermediate ITCHING Verified 09/26/20 06:18 ibuprofen Allergy Intermediate abdominal Verified 09/26/20 06:18 pain nitrofurantoin Allergy Intermediate abdominal Verified 09/26/20 06:18 pain Penicillins [PENICILLINS] Allergy Intermediate HIVES Verified 09/26/20 06:18 Sulfa (Sulfonamide Allergy Intermediate RASH/SWELLING, Verified 09/26/20 06:18 Antibiotics) rash, swelling venlafaxine [From EFFEXOR] AdvReac Severe WORSENING Verified 09/26/20 06:18 DEPRESSION Butrans patch Allergy Severe depression Uncoded 09/26/20 06:18 STEROID INJECTIONS Allergy Severe ANGER AND Uncoded 09/26/20 06:18 AGGITATION Herbal medicines/teas Allergy Intermediate headaches, Uncoded 09/26/20 06:18 stuffiness Review of Systems Review of Systems: Constitutional : No trauma, No Weight loss, No Fever, No Chills, ENT/Mouth : positive left lower dental pain, No Hearing loss, No Ear Pain, No Nasal Congestion, No Sinus Pain, No Hoarseness, No sore throat, No Rhinorrhea, No Swallowing Difficulty Cardiovascular : No Chest Pain, No SOB Respiratory : No Cough, No Dyspnea Gastrointestinal : No Nausea, No Vomiting, No Diarrhea, No abdominal Pain, No Hematochezia, No Melena Genitourinary : No Dysuria, No Urinary Frequency, No Hematuria, No Urinary or Bowel Incontinence/retention Musculoskeletal : Positive Back pain, No neck pain, No joint stiffness, No joint swelling Skin : No Skin Lesions, No rash or signs of infection Neuro : No Weakness, No radiation, No Numbness, No Paresthesias, No headache, no loss of bowel or bladder incontinence, no saddle anesthesia, Focal weakness, No radiation Denies history of IV drug usage. Yes all other systems are reviewed and are negative [facility] Past Medical History Attestation statement: The following information was validated with the patient. Medical History Arthritis Back pain BRCA gene mutation positive Chronic constipation Chronic GERD Depression Fatigue Herniated disc History of bronchitis History of left breast cancer History of right breast cancer Irritable bowel syndrome Left sided sciatica Lumbar radiculopathy Neck pain PTSD (post-traumatic stress disorder) Retinal lesion Sciatica Urine incontinence Surgical History History of esophagogastroduodenoscopy (EGD) History of pubovaginal sling History of repair of hiatal hernia History of Lashay-en-Y gastric bypass History of sinus surgery Hx of bilateral oophorectomy Hx of breast lump removal Hx of cholecystectomy Hx of colonoscopy Hx of cystostomy Hx of hernia repair Hx of tubal ligation Family History Family History Father Heart disease Mother Diabetes mellitus Brother Prostate cancer Pancreatic cancer BRCA positive Sister Breast cancer BRCA positive Son No problems noted. Social History Social History Household Members: Significant Other Housing: House Are you a primary child care assistant to a significant other at home: No Do you presently have visiting nurse or other home services: No Alcohol intake: never Substance Use Type: Marijuana Advance Directives: Yes Advance Directives Information Provided: Yes Advance Directives on File: No Patient : No Current occupational status: disabled Physical Exam Vital Signs: Vital Signs: Last Vital Signs Temp 98 F 09/27/20 12:25 Pulse 73 09/27/20 12:25 Resp 16 09/27/20 12:25 BP 125/77 09/27/20 12:25 Pulse Ox 97 09/27/20 12:25 Body Mass Index 28.3 vital signs have been reviewed as normal and appeared to be correct. Blood pressure normal. Heart rate normal. Respiration rate normal. Temperature normal. Oxygen saturation normal. Appearance: Alert. Oriented X3. No acute distress. Head: Normal external exam. Normocephalic. Atraumatic. No Núñez signs noted. No raccoon eyes noted Eyes: PERRLA. EOMI. Conjunctiva and sclera normal. Eyelids normal. ENT: EAC normal. TM's Normal. Pharynx normal. Uvula midline. Moist mucous membranes. No trismus noted. No drooling noted. No muffled voice noted. Dentition: Patient with poor dentition throughout with multiple old fractured teeth with multiple dental caries. Gingival within normal limits. No fluctuance. Not consistent with peritonsillar abscess. Not consistent with dental abscess. No salivary duct obstruction noted. Neck: Normal inspection. Neck supple. FROM. No adenopathy. Thyroid Normal. No meningeal signs. No neck mass noted. CVS: Normal heart rate and rhythm. Heart sound normal. No murmurs noted. Pulses normal throughout. Respiratory: No respiratory distress. Painless inspiration. Breath sounds normal. No wheezes/rales/rhonchi noted. Chest nontender. No accessory muscle usage noted or decreased air movement noted. Abdomen: Soft and nontender. Bowel sounds normal in all 4 quadrants. No distention noted. No organomegaly noted. No visible injury noted. Back: No CVA tenderness. Full range of motion noted. No obvious deformities, or edema. Mild para-spinal muscular tenderness from lumbar region to coccyx. Full ROM in back and lower extremities. 5/5 strength hip extension/flexion, abduction, adduction. Mild Lumbar pain with hip flexion against resistance. Straight leg raise test negative on right; Straight leg raise test negative on left; Reflexes normal ankle and knee bilaterally; EHL motor strength normal bilaterally. No rashes/lesion/induration/fluctuance or signs infection noted. Skin: Skin warm and dry. Normal skin color. Normal skin turgor. No rashes/lesions/lacerations noted. Extremities: No lower extremity edema. Extremities exhibit normal range of motion. Extremities nontender. Neuro: Oriented X 3. No motor deficit. No sensory deficit. Reflexes normal. Patient has a normal steady gait. Course Course Course Narrative: 64-year-old female with a past medical history of chronic back pain with recent MRI which showed compression of L3/L4 compression was presenting to the ED with complaints of acute on chronic lower back pain over the past few days worse today. Was seen here yesterday given increase in gabapentin and then Vicodin and no symptomatic relief. Also complaining of dental pain. Has follow-up with neurosurgeon and dentist by next month. Neuro exam shows no deficits. Not c/w AAA/epidural abscess/dissection.No high risk Hx (Incont, fever, immunosupp, recent surgery/LP, coag, signif trauma, wt loss, puls mass, hx/o Ca, TB, or IVDU) to warrant MRI/CT today. Not c/w Pyelo/UTI/kidney stone/spinal fx. Not cauda equina syndrome. Imaging not currently indicated. DC c meds and f/u MDM - Back Pain/Injury Medical Records Attestation: I reviewed the patient's medical records. Discharge Plan Discharge Clinical Impression: Lumbar radiculopathy, Toothache, Dental caries Patient Disposition: Home, Self-Care Instructions: Toothache (ED), Chronic Back Pain (DC), Lower Back Exercises (ED) Prescriptions: New azithromycin 250 mg tablet See Rx Instructions .ROUTE .COMPLEX Qty: 6 RF: 0 oxycodone 5 mg tablet 5 mg PO BID PRN (Reason: pain) Qty: 15 RF: 0 prednisone 20 mg tablet 40 mg PO DAILY 5 Days Qty: 10 RF: 0 acetaminophen [Tylenol Extra Strength] 500 mg tablet 1,000 mg PO QID PRN (Reason: fever or pain) Qty: 14 RF: 0 lidocaine HCl [Aspercreme (lidocaine HCl)] 4 % cream 1 appl topical BID PRN (Reason: pain) Qty: 120 RF: 0 No Action calcium carbonate-vitamin D3 600 mg(1,500mg) -800 unit tablet 1 tab PO BID Qty: 60 RF: 11 gabapentin 100 mg capsule 200 mg PO BEDTIME 30 Days Qty: 60 RF: 0 lamotrigine 150 mg Tablet 150 mg PO BID RF: 0 topiramate 50 mg Tablet 50 mg PO BEDTIME RF: 0 topiramate [Topamax] 50 mg Tablet 100 mg PO DAILY RF: 0 gabapentin 300 mg capsule 300 mg PO BID 30 Days Qty: 60 RF: 0 hydrocodone-acetaminophen 5-325 mg tablet 1 tab PO Q6H PRN (Reason: pain) Qty: 12 RF: 0 multivitamin Tablet 1 tab PO DAILY RF: 0 desvenlafaxine succinate [Pristiq] 100 mg tablet extended release 24 hr 100 mg PO DAILY RF: 0 alprazolam [Xanax] 0.5 mg tablet 0.5 - 1 mg PO BEDTIME PRN (Reason: Insomnia) RF: 0 trazodone 50 mg tablet 50 - 100 mg PO BEDTIME PRN (Reason: Insomnia) RF: 0 Referrals: Rabia Sim MD [Primary Care Provider] - 2 days Print Language: Irish
== END 2020-09-27 13:46 | disposition home or self-care (01) ==
PROVIDERS: Emergency Provider Emergency Medicine; PCP Internal Medicine
DX: M54.16 Radiculopathy, lumbar region (principal); K02.9 Dental caries, unspecified
CPT/HCPCS: 99283

== ENCOUNTER → 2020-10-02 06:49 | Outpatient (REF) | payer OTHER, SELFPAY ==
--- NOTE | 2020-10-02 06:56 | ECG_ITS ---
Test Reason : ANESTHESIA DENTAL Blood Pressure : / mmHG Vent. Rate : 086 BPM Atrial Rate : 086 BPM P-R Int : 162 ms QRS Dur : 078 ms QT Int : 394 ms P-R-T Axes : 053 -13 028 degrees QTc Int : 471 ms Normal sinus rhythm Normal ECG When compared with ECG of 07-JUL-2020 06:59, No significant change was found Referred By: Rabia Grider Electronically Signed By:ELENITA SHELLEY MD
== END ==
LOC: HO.CARD 06:49
PROVIDERS: PCP Internal Medicine; Visit Provider Internal Medicine
DX: Z01.818 Encounter for other preprocedural examination (principal)
CPT/HCPCS: 93005

== ENCOUNTER 2020-10-03 09:03 | Outpatient (REF) | payer OTHER, SELFPAY ==
[2020-10-03 09:38] LABS: MANUAL DIFF FLAG NO
[2020-10-03 09:44] LABS: Basophils Absolute Auto 0.1 X10*3/uL (0.0-0.2); Basophils Percent Auto 1.1 % (0-2); Eosinophils Absolute Auto 0.2 X10*3/uL (0.0-0.4); Eosinophils Percent Auto 3.4 % (0-4); Hematocrit 43.5 % (37-47); Imm Gran Abs Auto 0.02 X10*3/uL (0.00-0.03); Imm Gran Pct Auto 0.4 % (0.0-0.4); Lymphocytes Absolute Auto 1.5 X10*3/uL (1.2-4.9); Lymphocytes Percent Auto 26.9 % (20-40); Mean Corpuscular HGB Conc 32.2 g/dl (31.0-35.0); Mean Corpuscular Hemoglobin 30.8 pg (27.0-33.0); Mean Corpuscular Volume 95.8 fL (80-98); Mean Platelet Volume 10.2 fL (9.4-12.3); Monocytes Absolute Auto 0.3 X10*3/uL (0.1-1.2); Monocytes Percent Auto 6.2 % (2-11); Neutrophils Absolute Auto 3.4 X10*3/uL (2.0-8.3); Platelet Count 278 X10*3/uL (160-400); Red Blood Count 4.54 X10*6/uL (4.20-5.50); Red Cell Distribution Width 12.1 % (11.0-16.0); White Blood Count 5.5 X10*3/uL (4.8-10.8)
[2020-10-03 10:13] LABS: Alanine Aminotransferase 23 U/L (0-31); Alkaline Phosphatase 101 U/L (39-117); Anion Gap 15 (12-20); Aspartate Amino Transferase 23 U/L (5-31); Bilirubin Total 0.5 mg/dL (0.0-1.0); Blood Urea Nitrogen 10 mg/dL (9-16); Calcium 9.4 mg/dL (8.4-10.2); Carbon Dioxide 24 mmol/L (22-29); Chloride 106 mmol/L (96-108); Estimated Glomerular Filt Rate > 60; Glucose Fasting 93 mg/dL (60-99); Sodium 140 mmol/L (135-145); Total Protein 6.9 g/dL (6.5-8.0)
[2020-10-03 10:34] LABS: Free T4 (Free Thyroxine) 0.79 ng/dL (0.71-1.85); Thyroid Stimulating Hormone 1.26 uIU/mL (0.32-4.0)
[2020-10-07 21:06] LABS: Vitamin D 25-OH, D2 <4 ng/mL; Vitamin D 25-OH, D3 24 ng/mL; Vitamin D 25-OH, Total 24 ng/mL (30-100)
== END 2020-10-03 09:04 | disposition home or self-care (01) ==
LOC: HO.LAB 09:03
PROVIDERS: PCP Internal Medicine; Visit Provider Internal Medicine
DX: Z01.818 Encounter for other preprocedural examination (principal); R53.83 Other fatigue; E55.9 Vitamin D deficiency, unspecified; D64.9 Anemia, unspecified
CPT/HCPCS: 36415; 80053; 82306; 84439; 84443; 85025

== ENCOUNTER 2020-10-05 10:09 | Emergency (ER) | payer OTHER, SELFPAY ==
--- NOTE | ~2020-10-05 | CT_ITS ---
EXAMINATION: CT SOFT TISSUE NECK WITH CONTRAST CLINICAL INFORMATION: Throat swelling. Clinical concern for Дмитрий's angina. Possible pharyngeal abscess COMPARISON: None TECHNIQUE: Following the intravenous administration of 85 mL of Omnipaque 350 intravenous contrast, helical imaging was performed in the axial plane with generation of coronal and sagittal reformatted images. This CT examination was performed using dose optimization techniques as appropriate, variously including the following: *Automated exposure control *Adjustment of mA and/or kV according to patient size (this includes techniques or standardized protocols for targeted exams where dose is matched to indication/reason for exam; i.e. extremities or head) *Use of iterative reconstruction technique DLP: 379 mGy-cm FINDINGS: Dental metal artifact obscures the anatomy at the level of the oropharynx and limits the exam. There is no evidence of retropharyngeal abscess. The nasopharyngeal airway is patent. The fossae of Rosenmuller are well visualized and symmetric. There is no collection in the prevertebral soft tissues. Although there is marked artifact at the level of the oropharynx I suspect some edema in the region of the base of tongue and tonsillar pillars slightly greater on right than left. There is no convincing evidence of a drainable collection although dental metal artifact limits assessment. The parapharyngeal tissue planes are maintained. The epiglottis is not enlarged. The piriform sinuses and valleculae are partially aerated. There is no abnormality at the level of the vocal cords. The subglottic trachea is normal. There is no abnormality in the infratemporal fossae. The parotid glands are within normal limits. There is no enlargement or asymmetry of the submandibular glands. The thyroid is within normal limits. The jugular veins are patent. The carotids are patent. There is no significant cervical adenopathy. There is no abnormality in the visualized portions of the brain or orbits. Chronic opacification with wall thickening in a small left maxillary sinus. There is degenerative change in the visualized spine with some osteophytes. The lowest images include portions of the upper lungs. No dense consolidation or suspicious mass. CT/CT soft tissue neck w con IMPRESSION: There is no ectopic gas or drainable abscess. Dental metal artifact limits assessment of the oropharynx but I suspect at least some swelling/edema. The epiglottis is not enlarged
--- NOTE | ~2020-10-05 | CT_ITS ---
EXAMINATION: CT ABDOMEN AND PELVIS WITH CONTRAST CLINICAL INFORMATION: Epigastric pain. COMPARISON: CT of the abdomen and pelvis done on 12/23/2019. TECHNIQUE: Multidetector volumetric images were obtained from the superior aspect of the liver through the pubic symphysis following administration 85 mL of Omnipaque 350 intravenous contrast. Sagittal and coronal reformatted images were obtained on the technologist's workstation. Oral contrast: No This CT examination was performed using dose optimization techniques as appropriate, variously including the following: *Automated exposure control *Adjustment of mA and/or kV according to patient size (this includes techniques or standardized protocols for targeted exams where dose is matched to indication/reason for exam; i.e. extremities or head) *Use of iterative reconstruction technique DLP: 993.49 mGy-cm FINDINGS: LUNG BASES: Hypoventilatory changes are present at both lung bases. LIVER, GALLBLADDER, AND BILIARY TREE: Diffuse hepatic hypodensity consistent with hepatic steatosis is present. The left lobe of the liver is diminutive. No focal liver lesion. The gallbladder is surgically absent. PANCREAS: Unremarkable. SPLEEN: Unremarkable. ADRENAL GLANDS: Unremarkable. KIDNEYS AND URETERS: The kidneys are normal in size, shape, and attenuation. No hydronephrosis, hydroureter, or calculi seen. No perinephric stranding. BLADDER: Suboptimally distended. GASTROINTESTINAL TRACT: Previously documented colitis related changes involving the sigmoid colon and descending colon shows interval resolution. No new abnormalities. Postsurgical changes are noted at the GE junction in the form of gastric bypass, unchanged. The small bowel loops are decompressed. ABDOMINAL WALL: No significant hernia is appreciated. LYMPH NODES: Normal. VASCULAR: Unremarkable. PELVIC VISCERA: There is no pelvic mass present. There is no free fluid and/or free air present. OSSEOUS STRUCTURES: No suspicious focal lesion. CT/CT abdomen pelvis w con IMPRESSION: 1. Interval resolution of colitis involving the descending and sigmoid colon. 2. No other significant change since prior study dated 12/23/2019.
[2020-10-05 10:19] VITALS: BP 147/89; PULSE 86; RESP 16; TEMP 36.4; O2SAT 97; BMI 28.8
--- NOTE | 2020-10-05 10:39 | ECG_ITS ---
Test Reason : NAUSEA Blood Pressure : / mmHG Vent. Rate : 073 BPM Atrial Rate : 073 BPM P-R Int : 164 ms QRS Dur : 076 ms QT Int : 414 ms P-R-T Axes : 049 -15 014 degrees QTc Int : 456 ms Artifact in tracing Normal sinus rhythm Normal ECG When compared with ECG of 02-OCT-2020 07:00, No significant change was found Referred By: Avery Lomeli Electronically Signed By:RODRIGO BASHIR
--- NOTE | 2020-10-05 11:17 | ED_ITS ---
HPI - General Adult General Chief complaint: Nausea/Vomiting/Diarrhea Stated complaint: THORAT SWELLING SWEATS CHILLS NAUSEA Time Seen by Provider: 10/05/20 10:12 Source: patient Mode of arrival: ambulatory Limitations: no limitations History of Present Illness HPI narrative: Patient presents to ED sensation of tongue swelling and epigastric abdominal pain with burning acid sensation. Patient denies itchy sensation of throat, shortness of breath, drooling, coughing, fever, or chills. Patient admits nausea. Related Data Home Medications Medication Instructions Recorded Confirmed alprazolam 0.5 mg tablet 0.5 - 1 mg PO BEDTIME PRN 03/09/20 08/21/20 desvenlafaxine succinate 100 mg 100 mg PO DAILY 03/09/20 08/21/20 tablet,extended release 24 hr multivitamin 1 tab PO DAILY 03/09/20 08/21/20 trazodone 50 mg tablet 50 - 100 mg PO BEDTIME PRN 03/09/20 08/21/20 lamotrigine 150 mg PO BID 08/21/20 08/21/20 topiramate 50 mg PO BEDTIME 08/24/20 08/24/20 topiramate [Topamax] 100 mg PO DAILY 08/24/20 08/24/20 Previous Rx's Medication Instructions Recorded calcium carbonate-vitamin D3 600 1 tab PO BID #60 tab 01/08/20 mg (1,500 mg)-800 unit tablet gabapentin 100 mg capsule 200 mg PO BEDTIME 30 Days #60 cap 09/21/20 gabapentin 300 mg PO BID 30 Days #60 cap 09/26/20 hydrocodone-acetaminophen 1 tab PO Q6H PRN #12 tab 09/26/20 acetaminophen [Tylenol Extra 1,000 mg PO QID PRN #14 tab 09/27/20 Strength] azithromycin See Rx Instructions .ROUTE 09/27/20 .COMPLEX #6 tab lidocaine HCl [Aspercreme 1 appl TOPICAL BID PRN #120 g 09/27/20 (lidocaine HCl)] prednisone 40 mg PO DAILY 5 Days #10 tab 09/27/20 oxycodone 5 mg tablet 5 mg PO BID PRN #15 tab 10/01/20 lidocaine HCl [Lidocaine Viscous] 1 appl MUCOUS MEMBRANE BID PRN 5 10/05/20 Days #100 ml Allergies Allergy/AdvReac Type Severity Reaction Status Date / Time vancomycin [VANCOMYCIN] Allergy Severe ITCHING Verified 09/26/20 06:18 SEVERE, pruritus clindamycin [CLINDAMYCIN] Allergy Intermediate ITCHING Verified 09/26/20 06:18 ibuprofen Allergy Intermediate abdominal Verified 09/26/20 06:18 pain nitrofurantoin Allergy Intermediate abdominal Verified 09/26/20 06:18 pain Penicillins [PENICILLINS] Allergy Intermediate HIVES Verified 09/26/20 06:18 Sulfa (Sulfonamide Allergy Intermediate RASH/SWELLING, Verified 09/26/20 06:18 Antibiotics) rash, swelling venlafaxine [From EFFEXOR] AdvReac Severe WORSENING Verified 09/26/20 06:18 DEPRESSION Butrans patch Allergy Severe depression Uncoded 09/26/20 06:18 STEROID INJECTIONS Allergy Severe ANGER AND Uncoded 09/26/20 06:18 AGGITATION Herbal medicines/teas Allergy Intermediate headaches, Uncoded 09/26/20 06:18 stuffiness Review of Systems Review of Systems: Yes all other systems are reviewed and are negative Constitutional: Constitutional: Reports as per HPI and Reports no additional constitutional complaints Eyes: Eyes: Reports as per HPI and Reports no additional eye complaints ENT: Reports system reviewed and no additional complaints, except as documented and Reports as per HPI Comments: Tongue feels swollen and red. Cardiovascular: Cardiovascular: Reports as per HPI and Reports no additional cardiovascular complaints Respiratory: Respiratory: Reports as per HPI and Reports no additional respiratory complaints Gastrointestinal: Gastrointestinal: Reports as per HPI, Reports no additional gastrointestinal complaints, Reports abdominal pain ( Epigastric) and Reports nausea Genitourinary: Genitourinary: Reports no additional female genitourinary complaints and Reports as per HPI Musculoskeletal: Musculoskeletal: Reports no additional musculoskeletal complaints and Reports as per HPI Neurologic: Reports system reviewed and no additional complaints, except as documented and Reports as per HPI Psychiatric: Psychiatric: Reports no additional psychiatric complaints and Reports as per HPI PMFSH Past Medical History Medical History Arthritis Back pain BRCA gene mutation positive Chronic constipation Chronic GERD Depression Fatigue Herniated disc History of bronchitis History of left breast cancer History of right breast cancer Irritable bowel syndrome Left sided sciatica Lumbar radiculopathy Neck pain PTSD (post-traumatic stress disorder) Retinal lesion Sciatica Urine incontinence Surgical History History of esophagogastroduodenoscopy (EGD) History of pubovaginal sling History of repair of hiatal hernia History of Lashay-en-Y gastric bypass History of sinus surgery Hx of bilateral oophorectomy Hx of breast lump removal Hx of cholecystectomy Hx of colonoscopy Hx of cystostomy Hx of hernia repair Hx of tubal ligation Family History Family History Father Heart disease Mother Diabetes mellitus Brother Prostate cancer Pancreatic cancer BRCA positive Sister Breast cancer BRCA positive Son No problems noted. Social History Social History Household Members: Significant Other Housing: House Are you a primary career services coordinator to a significant other at home: No Do you presently have visiting nurse or other home services: No Alcohol intake: never Patient Tobacco Use Status: Never used Tobacco Use of substances other than those prescribed or required for medical reasons: No Substance Use Type: Marijuana Advance Directives: No Advance Directives Information Provided: No Patient : No Current occupational status: disabled Physical Exam Vital Signs: Vital Signs: Last Vital Signs Temp 98.0 F 10/05/20 12:58 Pulse 85 10/05/20 14:49 Resp 18 10/05/20 14:49 BP 149/87 H 10/05/20 14:49 Pulse Ox 97 10/05/20 14:49 Body Mass Index 28.8 Const: General: cooperative, healthy appearing, comfortable, no acute distress, well developed, alert, awake and Physically active Orientation/consciousness: patient oriented x3 HENMT: Other: negative for any signs of any oral abscess or tonsillitis. tongue negative for any swelling. Negative for uvular swelling. Tongue is red with papular lesions in the back. Indicating glossitis. * Head: Yes normal to inspection, Yes No palpable skull fracture present, Yes normocephalic and Yes atraumatic Throat image: 1. Tongue is red, but not be feel swollen. Uvula is not swollen. Patient is not drooling negative for any tooth infection 2. papular lesions. Neck: Other: Neck negative for swollen Neck: Yes normal visual inspection, Yes full ROM, Yes no lymphadenopathy, Yes no meningeal signs, Yes trachea midline, Yes supple, No anterior neck swelling and No tender Chest: Chest palpation & inspection: normal inspection of the chest and normal palpation of entire chest wall Resp: Effort & Inspection: normal respiratory effort and able to speak in complete sentences Auscultation: clear to auscultation bilaterally Cardio: Jugular venous distension: no JVD Heart sounds: S1 normal heart sound present and S2 normal heart sound present GI: Inspection: Yes normal to inspection and No abdominal wall ecchymosis Palpation (GI): Soft to palpation, not firm, Tenderness to palpation present (GI) in the epigastrum; not in the LLQ, not in the RLQ, not in the LUQ, not in the RUQ, not at McBurney's point, not periumbilically, not suprapubicly, Resendiz's sign negative, obturator sign negative, psoas sign negative, with no rebound tenderness and Rovsing's sign negative, no guarding and not rigid : General: No CVA tenderness and Yes no CVA tenderness Back/Spine/Pelvis: Back: no CVA tenderness, No CVA tenderness and No back tenderness Skin: General skin exam: no rashes or lesions noted and elasticity normal Neuro: General: patient oriented x3, gait normal, no meningeal signs and CN's II-XI intact bilaterally Cranial nerves: Yes CN's II-XII intact bilaterally Extrem: Other: Lower extremity negative for swelling, calf tenderness or pitting edema. General: Yes normal to inspection and Yes full ROM Course Course Course Narrative: Patient have a cardiac evaluation due to her state epigastric pain and sensation of acid burning going up to throat. oral exam indicate glossitis. Picture of oral cavity showed to Dr. Leal who states this is glossitis and patient had before in the past. Due to patient stating recent tooth infection and feeling her throat and tongue feels swollen patient will be sent for soft tissue neck to make sure there is no Carlos Enrique angina or retro pharyngeal abscess of althoug very unlikely. Patient speaking in full sentences negative for any drooling, change in voice,or hoarseness. Reevaluation(s) Reevaluation #1: EKG negative for STEMI. First troponin negative. Patient given GI cocktail of Pepcid. no need for allergic reaction meds. Tongue is not swollen, uvula is not swollen, negative for any rash or itchiness. Exam indicate glossitis as stated by Dr. Leal. plan is to repeat troponin and waiting for soft tissue neck CT results. Will also send patient for abdominal CT scan due to patient stating slight epigastric pain with history of gastric bypass surgery. Not suspect any PE. patient denies any chest pain or shortness of breath. Patient asks for sucralfate which she states helps with her great abdominal pain. Time: 17:06 Reevaluation #2: abdominal CT scan does not show any acute abdominal processes. Shows resolution of colitis. Soft tissue CT scan negative for any retropharyngeal abscess or carlos enrique infection. Epiglottitis normal. diagnosis glossitis. 2nd troponin negative. patient is not having angioedema. patient is not on any blood pressure medication. Patient is not having an allergic reaction. Patient just having glossitis. Patient discharged with lidocaine viscous and informed to use the smallest does for pain relief. Time: 17:27 Medical Decision Making MDM Narrative Medical decision making narrative: glossitis. GERD exacerbation Lab Data Result diagrams: 10/05/20 11:41 10/05/20 11:41 Labs: Lab Results 10/05/20 10/05/20 10/05/20 Range/Units 11:05 11:05 11:41 WBC 4.8 (4.8-10.8) X10*3/uL RBC 4.41 (4.20-5.50) X10*6/uL Hgb 13.6 (12.0-16.0) g/dl Hct 41.9 (37-47) % MCV 95.0 (80-98) fL MCH 30.8 (27.0-33.0) pg MCHC 32.5 (31.0-35.0) g/dl RDW 12.0 (11.0-16.0) % Plt Count 264 (160-400) X10*3/uL MPV 10.1 (9.4-12.3) fL Immature Gran % (Auto) 0.4 (0.0-0.4) % Neut % (Auto) 67.5 (45-73) % Lymph % (Auto) 22.8 (20-40) % Toombs % (Auto) 5.4 (2-11) % Eos % (Auto) 3.1 (0-4) % Baso % (Auto) 0.8 (0-2) % Lymph # (Auto) 1.1 L (1.2-4.9) X10*3/uL Toombs # (Auto) 0.3 (0.1-1.2) X10*3/uL Eos # (Auto) 0.2 (0.0-0.4) X10*3/uL Baso # (Auto) 0.0 (0.0-0.2) X10*3/uL Abs Immat Gran (auto) 0.02 (0.00-0.03) X10*3/uL Absolute Neuts (auto) 3.3 (2.0-8.3) X10*3/uL Absolute Nucleated RBC 0.000 (0.0-0.012) X10*3/uL Nucleated RBC % (auto) 0.0 (0.0-0.2) /100WBC PT (9.9-13.0) SEC INR (0.9-1.1) APTT (24.1-38.0) SEC Sodium (135-145) mmol/L Potassium (3.3-5.1) mmol/L Chloride (96-108) mmol/L Carbon Dioxide (22-29) mmol/L Anion Gap (12-20) BUN (9-16) mg/dL Creatinine (0.5-1.4) mg/dL Estim Creat Clear Calc Estimated GFR Random Glucose (60-115) mg/dL Calcium (8.4-10.2) mg/dL Total Bilirubin (0.0-1.0) mg/dL Direct Bilirubin (0.0-0.5) mg/dL AST (5-31) U/L ALT (0-31) U/L Alkaline Phosphatase (39-117) U/L Troponin I High Sens (<3.5-17.0) ng/L Total Protein (6.5-8.0) g/dL Albumin (3.5-5.0) g/dL Lipase (8-78) U/L Vitamin B12 (200-900) pg/mL Folate (> or = 4.0) ng/mL COVID-19 ([facility]IE) Negative (Negative) COVID-19 Clin Com See Note S. pyogenes GrpA ALKA Negative (Negative) 10/05/20 10/05/20 10/05/20 Range/Units 11:41 11:41 11:41 WBC (4.8-10.8) X10*3/uL RBC (4.20-5.50) X10*6/uL Hgb (12.0-16.0) g/dl Hct (37-47) % MCV (80-98) fL MCH (27.0-33.0) pg MCHC (31.0-35.0) g/dl RDW (11.0-16.0) % Plt Count (160-400) X10*3/uL MPV (9.4-12.3) fL Immature Gran % (Auto) (0.0-0.4) % Neut % (Auto) (45-73) % Lymph % (Auto) (20-40) % Toombs % (Auto) (2-11) % Eos % (Auto) (0-4) % Baso % (Auto) (0-2) % Lymph # (Auto) (1.2-4.9) X10*3/uL Toombs # (Auto) (0.1-1.2) X10*3/uL Eos # (Auto) (0.0-0.4) X10*3/uL Baso # (Auto) (0.0-0.2) X10*3/uL Abs Immat Gran (auto) (0.00-0.03) X10*3/uL Absolute Neuts (auto) (2.0-8.3) X10*3/uL Absolute Nucleated RBC (0.0-0.012) X10*3/uL Nucleated RBC % (auto) (0.0-0.2) /100WBC PT 10.8 (9.9-13.0) SEC INR 1.0 (0.9-1.1) APTT 35.1 (24.1-38.0) SEC Sodium 141 (135-145) mmol/L Potassium 4.3 (3.3-5.1) mmol/L Chloride 108 (96-108) mmol/L Carbon Dioxide 24 (22-29) mmol/L Anion Gap 13 (12-20) BUN 12 (9-16) mg/dL Creatinine 0.78 (0.5-1.4) mg/dL Estim Creat Clear Calc 71.1 Estimated GFR > 60 Random Glucose 83 (60-115) mg/dL Calcium 9.4 (8.4-10.2) mg/dL Total Bilirubin 0.5 (0.0-1.0) mg/dL Direct Bilirubin 0.2 (0.0-0.5) mg/dL AST 27 (5-31) U/L ALT 22 (0-31) U/L Alkaline Phosphatase 96 (39-117) U/L Troponin I High Sens < 3.5 (<3.5-17.0) ng/L Total Protein 7.1 (6.5-8.0) g/dL Albumin 4.1 (3.5-5.0) g/dL Lipase 119 H (8-78) U/L Vitamin B12 (200-900) pg/mL Folate (> or = 4.0) ng/mL COVID-19 ([facility]) (Negative) COVID-19 Clin Com S. pyogenes GrpA ALKA (Negative) 10/05/20 10/05/20 Range/Units 11:41 16:22 WBC (4.8-10.8) X10*3/uL RBC (4.20-5.50) X10*6/uL Hgb (12.0-16.0) g/dl Hct (37-47) % MCV (80-98) fL MCH (27.0-33.0) pg MCHC (31.0-35.0) g/dl RDW (11.0-16.0) % Plt Count (160-400) X10*3/uL MPV (9.4-12.3) fL Immature Gran % (Auto) (0.0-0.4) % Neut % (Auto) (45-73) % Lymph % (Auto) (20-40) % Toombs % (Auto) (2-11) % Eos % (Auto) (0-4) % Baso % (Auto) (0-2) % Lymph # (Auto) (1.2-4.9) X10*3/uL Toombs # (Auto) (0.1-1.2) X10*3/uL Eos # (Auto) (0.0-0.4) X10*3/uL Baso # (Auto) (0.0-0.2) X10*3/uL Abs Immat Gran (auto) (0.00-0.03) X10*3/uL Absolute Neuts (auto) (2.0-8.3) X10*3/uL Absolute Nucleated RBC (0.0-0.012) X10*3/uL Nucleated RBC % (auto) (0.0-0.2) /100WBC PT (9.9-13.0) SEC INR (0.9-1.1) APTT (24.1-38.0) SEC Sodium (135-145) mmol/L Potassium (3.3-5.1) mmol/L Chloride (96-108) mmol/L Carbon Dioxide (22-29) mmol/L Anion Gap (12-20) BUN (9-16) mg/dL Creatinine (0.5-1.4) mg/dL Estim Creat Clear Calc Estimated GFR Random Glucose (60-115) mg/dL Calcium (8.4-10.2) mg/dL Total Bilirubin (0.0-1.0) mg/dL Direct Bilirubin (0.0-0.5) mg/dL AST (5-31) U/L ALT (0-31) U/L Alkaline Phosphatase (39-117) U/L Troponin I High Sens < 3.5 (<3.5-17.0) ng/L Total Protein (6.5-8.0) g/dL Albumin (3.5-5.0) g/dL Lipase (8-78) U/L Vitamin B12 395 (200-900) pg/mL Folate 13.4 (> or = 4.0) ng/mL COVID-19 ([facility]) (Negative) COVID-19 Clin Com S. pyogenes GrpA ALKA (Negative) ECG Data Interpretation: normal sinus rhythm. Normal EKG. normal EKG. Ventricular rate 73. Pr interval 164 QRS 76. QTC 456. negative stemi Discharge Plan Discharge Clinical Impression: Glossitis, Gastroesophageal reflux disease Patient Disposition: Home, Self-Care Instructions: Gastroesophageal Reflux Disease (ED), Geographic Tongue (ED) Additional Instructions: CT scan of the neck was negative for any abscess in her throat or abscess in your oral cavity. Abdominal CT scan was negative for any acute abdominal processes. Please follow-up with your PCP or referred to ENT. Return to the ED immediately for sensation of shortness of breath, chest pain, profuse tongue swelling, sensation of throat closing, itchy rash, itchy skin, itchy sensation of throat, or any other concerning symptoms. Your EKG was normal. Blood test for your heart troponin were negative. The kidney function was normal. Prescriptions: New lidocaine HCl [Lidocaine Viscous] 2 % solution 1 appl mucous membrane BID PRN (Reason: pain) 5 Days Qty: 100 RF: 0 No Action calcium carbonate-vitamin D3 600 mg(1,500mg) -800 unit tablet 1 tab PO BID Qty: 60 RF: 11 gabapentin 100 mg capsule 200 mg PO BEDTIME 30 Days Qty: 60 RF: 0 oxycodone 5 mg tablet 5 mg PO BID PRN (Reason: pain) Qty: 15 RF: 0 lamotrigine 150 mg Tablet 150 mg PO BID RF: 0 topiramate 50 mg Tablet 50 mg PO BEDTIME RF: 0 topiramate [Topamax] 50 mg Tablet 100 mg PO DAILY RF: 0 gabapentin 300 mg capsule 300 mg PO BID 30 Days Qty: 60 RF: 0 hydrocodone-acetaminophen 5-325 mg tablet 1 tab PO Q6H PRN (Reason: pain) Qty: 12 RF: 0 azithromycin 250 mg tablet See Rx Instructions .ROUTE .COMPLEX Qty: 6 RF: 0 prednisone 20 mg tablet 40 mg PO DAILY 5 Days Qty: 10 RF: 0 acetaminophen [Tylenol Extra Strength] 500 mg tablet 1,000 mg PO QID PRN (Reason: fever or pain) Qty: 14 RF: 0 lidocaine HCl [Aspercreme (lidocaine HCl)] 4 % cream 1 appl topical BID PRN (Reason: pain) Qty: 120 RF: 0 multivitamin Tablet 1 tab PO DAILY RF: 0 desvenlafaxine succinate [Pristiq] 100 mg tablet extended release 24 hr 100 mg PO DAILY RF: 0 alprazolam [Xanax] 0.5 mg tablet 0.5 - 1 mg PO BEDTIME PRN (Reason: Insomnia) RF: 0 trazodone 50 mg tablet 50 - 100 mg PO BEDTIME PRN (Reason: Insomnia) RF: 0 Referrals: Garrison Caldwell [Physician] - 2 days ( Glossitis) Rabia Sim MD [Primary Care Provider] - 2 days ( Glossitis. GERD exacerbation. Troponin and EKG normal. Soft tissue CT scan negative for any retropharyngeal abscess or Carlos Enrique angina. Abdominal CT scan negative for any acute abdominal processes.) Interventions: ED Discharge Assessment Last Done: 10/05/20 18:05 Discharge Date/Time: 10/05/20 18:06 Print Language: Hebrew
[2020-10-05 11:37] LABS: IDNOW Serial# 08D9AD1C; Strep A Nucleic Acid Negative (Negative)
[2020-10-05] MEDS: Famotidine/PF 20 MG/2 ML VIAL IVPUSH (11:43)
[2020-10-05] MEDS: 0.9 % Sodium Chloride 1,000 ML 999 ML IV (11:43)
[2020-10-05 11:47] LABS: COVID-19 Test Negative (Negative)
[2020-10-05 11:49] LABS: MANUAL DIFF FLAG NO
[2020-10-05 11:52] LABS: Basophils Percent Auto 0.8 % (0-2); Eosinophils Absolute Auto 0.2 X10*3/uL (0.0-0.4); Eosinophils Percent Auto 3.1 % (0-4); Hematocrit 41.9 % (37-47); Hemoglobin 13.6 g/dl (12.0-16.0); Imm Gran Abs Auto 0.02 X10*3/uL (0.00-0.03); Imm Gran Pct Auto 0.4 % (0.0-0.4); Lymphocytes Absolute Auto 1.1 X10*3/uL (1.2-4.9); Lymphocytes Percent Auto 22.8 % (20-40); Mean Corpuscular HGB Conc 32.5 g/dl (31.0-35.0); Mean Corpuscular Hemoglobin 30.8 pg (27.0-33.0); Mean Platelet Volume 10.1 fL (9.4-12.3); Monocytes Absolute Auto 0.3 X10*3/uL (0.1-1.2); Monocytes Percent Auto 5.4 % (2-11); Neutrophils Absolute Auto 3.3 X10*3/uL (2.0-8.3); Neutrophils Percent Auto 67.5 % (45-73); Platelet Count 264 X10*3/uL (160-400); Red Blood Count 4.41 X10*6/uL (4.20-5.50); White Blood Count 4.8 X10*3/uL (4.8-10.8)
[2020-10-05 12:02] LABS: Prothrombin Time 10.8 SEC (9.9-13.0)
[2020-10-05 12:05] LABS: Partial Thromboplastin Time 35.1 SEC (24.1-38.0)
[2020-10-05 12:25] LABS: Alanine Aminotransferase 22 U/L (0-31); Albumin Level 4.1 g/dL (3.5-5.0); Alkaline Phosphatase 96 U/L (39-117); Anion Gap 13 (12-20); Aspartate Amino Transferase 27 U/L (5-31); Bilirubin Direct 0.2 mg/dL (0.0-0.5); Bilirubin Total 0.5 mg/dL (0.0-1.0); Blood Urea Nitrogen 12 mg/dL (9-16); Calcium 9.4 mg/dL (8.4-10.2); Carbon Dioxide 24 mmol/L (22-29); Chloride 108 mmol/L (96-108); Creatinine Clr Calc Pharmacy 71.1; Estimated Glomerular Filt Rate > 60; Glucose Random 83 mg/dL (60-115); Potassium 4.3 mmol/L (3.3-5.1); Sodium 141 mmol/L (135-145); Total Protein 7.1 g/dL (6.5-8.0)
[2020-10-05 12:26] LABS: Troponin-I High Sensitivity < 3.5 ng/L (<3.5-17.0)
[2020-10-05 12:37] LABS: Lipase 119 U/L (8-78)
[2020-10-05 12:55] LABS: Folate 13.4 ng/mL (> or = 4.0); Vitamin B12 395 pg/mL (200-900)
[2020-10-05 12:58] VITALS: BP 147/93; PULSE 69; RESP 18; TEMP 36.7
--- NOTE | 2020-10-05 14:00 | PC.NURSE ---
Pt alert and oriented x3, vss, LSCTA. Pt reports nausea and throat pain starting a few days ago. She states she is unsure of what started it and denies eating/drinking anything different from what she usually have. BS + x4, denies abd pain, no facial swelling noted, no facial swelling noted. IV line established, labs drawn, meds given as documented. Pt resting quietly, no apparent distress noted.
[2020-10-05] MEDS: Sucralfate Oral Suspension 1 GM/10 ML ORAL.SUSP PO (14:44)
[2020-10-05] MEDS: Lidocaine HCl Viscous 2 % 15 ML SOLUTION MUCOUS MEM (14:44)
[2020-10-05 14:49] VITALS: BP 149/87; PULSE 85; RESP 18; O2SAT 97
[2020-10-05] MEDS: iohexoL 350 MG/ML 100 ML INFUS..BTL IV (15:53)
[2020-10-05 17:05] LABS: Troponin-I High Sensitivity < 3.5 ng/L (<3.5-17.0)
== END 2020-10-05 18:06 | disposition home or self-care (01) ==
PROVIDERS: Physician Assistant; Emergency Provider Emergency Medicine; PCP Internal Medicine
DX: K14.0 Glossitis (principal); K21.9 Gastro-esophageal reflux disease without esophagitis; Z20.822 Contact with and (suspected) exposure to COVID-19
CPT/HCPCS: 36415; 70491; 74177; 80053; 80076; 82248; 82607; 82746; 83690; 84484; 85025; 85610; 85730; 87635; 87651; 93005; 96361; 96374; 99284; 99285; Q9967

== ENCOUNTER 2020-10-15 08:04 | Outpatient (REF) | payer OTHER, SELFPAY ==
--- NOTE | ~2020-10-15 | XR_ITS ---
EXAMINATION: XR LUMBAR SPINE XR HIP, LEFT CLINICAL INFORMATION: Instability. Mechanical testing. COMPARISON: Multiple priors, most recent CT abdomen/pelvis dated 10/05/2020. TECHNIQUE: AP, lateral, coned-down, flexion, and extension views of the lumbar spine. AP and frog-leg lateral views of the left hip. FINDINGS: Lumbar Spine: Grade 1 anterolisthesis of L4 on L5 is unchanged. No significant change in alignment with flexion or extension. Prominent bilateral facet arthropathy at L4-L5 and L5-S1. No loss of vertebral body or intervertebral disc height. No lytic or blastic osseous lesion. No abnormal soft tissue calcification. Left Hip: Severe superior joint space narrowing with subchondral sclerosis, subchondral cystic change, and prominent marginal osteophytes. No fracture or dislocation. Left pelvic surgical clips. XR/XR hip LT min 2V IMPRESSION: Lumbar Spine: Grade 1 anterolisthesis of L4 on L5 without and alignment on flexion or extension. Prominent bilateral facet arthropathy at L4-L5 and L5-S1. Left Hip: Severe osteoarthritis.
--- NOTE | ~2020-10-15 | XR_ITS ---
EXAMINATION: XR LUMBAR SPINE XR HIP, LEFT CLINICAL INFORMATION: Instability. Mechanical testing. COMPARISON: Multiple priors, most recent CT abdomen/pelvis dated 10/05/2020. TECHNIQUE: AP, lateral, coned-down, flexion, and extension views of the lumbar spine. AP and frog-leg lateral views of the left hip. FINDINGS: Lumbar Spine: Grade 1 anterolisthesis of L4 on L5 is unchanged. No significant change in alignment with flexion or extension. Prominent bilateral facet arthropathy at L4-L5 and L5-S1. No loss of vertebral body or intervertebral disc height. No lytic or blastic osseous lesion. No abnormal soft tissue calcification. Left Hip: Severe superior joint space narrowing with subchondral sclerosis, subchondral cystic change, and prominent marginal osteophytes. No fracture or dislocation. Left pelvic surgical clips. XR/XR lumbar spine 6V w bending IMPRESSION: Lumbar Spine: Grade 1 anterolisthesis of L4 on L5 without and alignment on flexion or extension. Prominent bilateral facet arthropathy at L4-L5 and L5-S1. Left Hip: Severe osteoarthritis.
== END 2020-10-15 08:05 | disposition home or self-care (01) ==
LOC: HO.XRAY 08:04
PROVIDERS: PCP Internal Medicine; Visit Provider Neurological Surgery
DX: M53.2X6 Spinal instabilities, lumbar region (principal); M25.352 Other instability, left hip
CPT/HCPCS: 72114; 73502

== ENCOUNTER 2020-11-11 07:16 | Outpatient (REF) | payer OTHER, SELFPAY ==
--- NOTE | 2020-11-11 07:26 | ECG_ITS ---
Test Reason : ANESTH HIP REPLACEME Blood Pressure : / mmHG Vent. Rate : 076 BPM Atrial Rate : 076 BPM P-R Int : 154 ms QRS Dur : 076 ms QT Int : 404 ms P-R-T Axes : 047 -11 008 degrees QTc Int : 454 ms Normal sinus rhythm Normal ECG When compared with ECG of 05-OCT-2020 11:03, No significant change was found Referred By: Rabia Grider Electronically Signed By:ELENITA SHELLEY MD
[2020-11-11 07:53] LABS: MANUAL DIFF FLAG NO
[2020-11-11 07:57] LABS: Basophils Absolute Auto 0.1 X10*3/uL (0.0-0.2); Basophils Percent Auto 0.9 % (0-2); Eosinophils Absolute Auto 0.2 X10*3/uL (0.0-0.4); Eosinophils Percent Auto 3.3 % (0-4); Hematocrit 40.1 % (37-47); Hemoglobin 12.8 g/dl (12.0-16.0); Imm Gran Abs Auto 0.01 X10*3/uL (0.00-0.03); Imm Gran Pct Auto 0.2 % (0.0-0.4); Lymphocytes Absolute Auto 1.1 X10*3/uL (1.2-4.9); Lymphocytes Percent Auto 19.6 % (20-40); Mean Corpuscular HGB Conc 31.9 g/dl (31.0-35.0); Mean Corpuscular Hemoglobin 30.8 pg (27.0-33.0); Mean Corpuscular Volume 96.4 fL (80-98); Mean Platelet Volume 9.6 fL (9.4-12.3); Monocytes Absolute Auto 0.6 X10*3/uL (0.1-1.2); Monocytes Percent Auto 10.2 % (2-11); Neutrophils Absolute Auto 3.6 X10*3/uL (2.0-8.3); Neutrophils Percent Auto 65.8 % (45-73); Platelet Count 257 X10*3/uL (160-400); Red Blood Count 4.16 X10*6/uL (4.20-5.50); White Blood Count 5.5 X10*3/uL (4.8-10.8)
[2020-11-11 08:22] LABS: Alanine Aminotransferase 16 U/L (0-31); Albumin Level 3.9 g/dL (3.5-5.0); Alkaline Phosphatase 96 U/L (39-117); Anion Gap 12 (12-20); Aspartate Amino Transferase 19 U/L (5-31); Bilirubin Total 0.3 mg/dL (0.0-1.0); Blood Urea Nitrogen 11 mg/dL (9-16); Carbon Dioxide 24 mmol/L (22-29); Chloride 110 mmol/L (96-108); Estimated Glomerular Filt Rate > 60; Glucose Fasting 87 mg/dL (60-99); Sodium 142 mmol/L (135-145); Total Protein 6.8 g/dL (6.5-8.0)
== END 2020-11-11 07:17 | disposition home or self-care (01) ==
LOC: HO.LAB 07:16
PROVIDERS: PCP Internal Medicine; Visit Provider Internal Medicine
DX: Z01.818 Encounter for other preprocedural examination (principal); D64.9 Anemia, unspecified; M16.12 Unilateral primary osteoarthritis, left hip
CPT/HCPCS: 36415; 80053; 85025; 93005

== ENCOUNTER 2020-11-28 09:21 | Outpatient (REF) | payer OTHER, SELFPAY ==
[2020-11-28 10:00] LABS: Glucose Urine UA NEG (NEG); Leukocyte Esterase Urine NEG (NEG); Nitrite Urine NEG (NEG); Specific Gravity - Urine 1.015 (1.005-1.025); Urine Blood NEG (NEG); Urine Ketones NEG (NEG); Urine Protein NEG (NEG-TRACE)
[2020-11-28 10:05] LABS: Appearance Urine CLEAR; Color Urine YELLOW
[2020-11-28 10:52] LABS: Estimated Average Glucose 97 mg/dL
== END 2020-11-28 09:22 | disposition home or self-care (01) ==
LOC: HO.LAB 09:21
PROVIDERS: PCP Internal Medicine; Visit Provider Orthopaedic Surgery Orthopaedic Trauma
DX: M16.12 Unilateral primary osteoarthritis, left hip (principal)
CPT/HCPCS: 36415; 81003; 83036

== ENCOUNTER → 2021-03-15 07:58 | Outpatient (BNVA) | payer OTHER, SELFPAY | PROVIDERS: PCP Internal Medicine; Visit Provider Physician Assistant Surgical ==

== ENCOUNTER 2021-05-12 12:09 | Emergency (ER) | payer OTHER, SELFPAY ==
--- NOTE | ~2021-05-12 | CT_ITS ---
EXAMINATION: CT ABDOMEN AND PELVIS WITH CONTRAST CLINICAL INFORMATION: Bilateral lower quadrant pain COMPARISON: Previous CT of the abdomen and pelvis October 2020 TECHNIQUE: Multidetector volumetric images were obtained from the superior aspect of the liver through the pubic symphysis following administration 85 mL of Omnipaque 350 intravenous contrast. Sagittal and coronal reformatted images were obtained on the technologist's workstation. Oral contrast: Yes This CT examination was performed using dose optimization techniques as appropriate, variously including the following: *Automated exposure control *Adjustment of mA and/or kV according to patient size (this includes techniques or standardized protocols for targeted exams where dose is matched to indication/reason for exam; i.e. extremities or head) *Use of iterative reconstruction technique DLP: 668 mGy-cm FINDINGS: LUNG BASES: The visualized lung bases are unremarkable. LIVER, GALLBLADDER, AND BILIARY TREE: The liver is normal in size, shape, and attenuation. No focal hepatic lesion or biliary ductal dilatation is present. The gallbladder has been removed. PANCREAS: Unremarkable. SPLEEN: Unremarkable. ADRENAL GLANDS: Unremarkable. KIDNEYS AND URETERS: There are left renal cysts. There is a small 4 mm fatty lesion in the lower pole right kidney probably representing a benign angiomyolipoma. There is cortical thinning or scarring in the lower pole of the left kidney. BLADDER: Unremarkable. GASTROINTESTINAL TRACT: There is diverticulosis of the colon. There is wall thickening of the sigmoid colon and stranding of the surrounding fat suggestive of mild sigmoid diverticulitis. No evidence of obstruction, perforation or abscess is seen. There is stool throughout the colon suggestive of constipation. The appendix is is not seen. No inflammatory changes are seen in the right lower quadrant. There are postsurgical changes to the stomach/Gastric bypass. ABDOMINAL WALL: No significant hernia is appreciated. LYMPH NODES: Normal. VASCULAR: Unremarkable. PELVIC VISCERA: Unremarkable. OSSEOUS STRUCTURES: There is a left hip replacement. There are degenerative changes of the spine. CT/CT abdomen pelvis w con IMPRESSION: Mild sigmoid diverticulitis. Constipation. Postsurgical changes from gastric bypass. Left renal cysts. 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 Fleischner guidelines were followed.
--- NOTE | 2021-05-12 12:13 | ED_ITS ---
HPI - Abdominal Pain General Chief Complaint: Abdominal Pain Stated Complaint: ABD PAIN Time Seen by Provider: 05/12/21 12:12 Source: patient, EMS and old records reviewed Mode of arrival: EMS Limitations: no limitations History of Present Illness HPI narrative: 65 y/o female with history of diverticulitis, GERD, IBS, gastritis, PTSD, Bipolar II, depression, lumbar radiculopathy w/ sciatica, hx cholecystectomy, hx oopherectomy, s/p tubal ligation who presents to the ER from home via EMS c/o LLQ abdominal pain for the last 5 days. She reports the pain was intermittent and started in the RLQ and now radiated and persisted in the LLQ. She last had a BM 4 days ago and it was loose, nonbloody diarrhea. She called her GI Dr. Lara who said they couldnt get her in for a CT scan for another week so they advised her to come to the ER for further evaluation. She denies nausea, vomiting, fever, chills or urinary symptoms aside from her chronic urinary frequency from stress incontinence. She reports last colonoscopy 2-3 years ago and she had polyps. MD elicited complaint: abdominal pain Pertinent past history: diverticulitis Onset (ago): day(s) (5) Pain Consistency: constant Location: LLQ Severity: moderate Pain scale (0-10): 7 Quality: stabbing Radiation: none Migration to: RLQ Exacerbating factors: nothing Relieving factors: nothing Context: history of similar episodes Associated symptoms: diarrhea and constipation Related Data Home Medications Medication Instructions Recorded Confirmed alprazolam 0.5 mg tablet (Xanax) 0.5 - 1 mg PO BEDTIME PRN 03/09/20 03/15/21 desvenlafaxine succinate 100 mg 100 mg PO DAILY 03/09/20 03/15/21 tablet,extended release 24 hr (Pristiq) trazodone 50 mg tablet 50 - 100 mg PO BEDTIME PRN 03/09/20 03/15/21 lamotrigine 150 mg tablet 150 mg PO BID 08/21/20 03/15/21 acetaminophen 500 mg tablet 500 mg PO QID PRN tab 01/06/21 03/15/21 (Tylenol Extra Strength) aspirin 81 mg tablet,delayed 81 mg PO tab 01/06/21 03/15/21 release ([place] Aspirin) sennosides 8.6 mg-docusate sodium tab PO 01/06/21 03/15/21 50 mg tablet (Stimulant Laxative Plus) Previous Rx's Medication Instructions Recorded pantoprazole 40 mg tablet,delayed 40 mg PO BID #60 tab 11/10/20 release calcium carbonate 600 mg-vitamin 1 tab PO BID #60 tab 01/14/21 D3 20 mcg (800 unit) tablet potassium chloride 20 mEq 20 meq PO DAILY #30 tab 01/14/21 tablet,extended release ciprofloxacin HCl 500 mg tablet 500 mg PO BID #20 tab 05/12/21 metronidazole 500 mg tablet 500 mg PO BID 10 Days #20 tab 05/12/21 tramadol 50 mg tablet 50 mg PO Q8H PRN #7 tab 05/12/21 Allergies Allergy/AdvReac Type Severity Reaction Status Date / Time vancomycin [VANCOMYCIN] Allergy Severe ITCHING Verified 02/03/21 11:36 SEVERE, pruritus clindamycin [CLINDAMYCIN] Allergy Intermediate ITCHING Verified 02/03/21 11:36 ibuprofen Allergy Intermediate abdominal Verified 02/03/21 11:36 pain nitrofurantoin Allergy Intermediate abdominal Verified 02/03/21 11:36 pain Penicillins [PENICILLINS] Allergy Intermediate HIVES Verified 02/03/21 11:36 Sulfa (Sulfonamide Allergy Intermediate RASH/SWELLING, Verified 02/03/21 11:36 Antibiotics) rash, swelling venlafaxine [From EFFEXOR] AdvReac Severe WORSENING Verified 02/03/21 11:36 DEPRESSION Butrans patch Allergy Severe depression Uncoded 02/03/21 11:36 STEROID INJECTIONS Allergy Severe ANGER AND Uncoded 02/03/21 11:36 AGGITATION Herbal medicines/teas Allergy Intermediate headaches, Uncoded 02/03/21 11:36 stuffiness Review of Systems Review of Systems Constitutional: No Fever, No Chills ENT/Mouth: No sore throat, No Rhinorrhea, No Swallowing Difficulty Cardiovascular: No Chest Pain, No SOB, No Orthopnea, No Edema Respiratory: No Cough, No Sputum, No Wheezing, No dyspnea Gastrointestinal: No Nausea, No Vomiting, + Diarrhea, + abdominal Pain, No Hematochezia, No Melena Genitourinary: No Dysuria, + Urinary Frequency, No Hematuria Musculoskeletal: No joint pain, No Myalgias Skin: No Skin Lesions, No rash Neuro: No Weakness, No Numbness, No Dizziness, No Headache Psych: No Anxiety/Panic, No Depression Heme/Lymph: No Bruising, No Lymphadenopathy Endocrine: No Polyuria, No Polydipsia Physical Exam Vital Signs: Vital Signs: Last Vital Signs Temp 98.5 F 05/12/21 12:28 Pulse 82 05/12/21 12:28 Resp 79 H 05/12/21 12:28 BP 154/86 H 05/12/21 12:28 Pulse Ox 97 05/12/21 12:28 BMI result Body Mass Index 26.9 Appearance: Alert. Oriented X3. No acute distress. Eyes: Pupils equal, round and reactive to light. ENT: Pharynx normal. Neck: Normal inspection. Neck supple. CVS: Normal heart rate and rhythm. Pulses normal. Respiratory: No respiratory distress. Breath sounds normal. Abdomen: Obese, well healed surgical scars in RUQ, Soft with LLQ tenderness and guarding, no rebound, normal +BS x4 Skin: Skin warm and dry. Normal skin color. Normal skin turgor. No rashes. Extremities: No lower extremity edema. Neuro: Oriented X 3. No motor deficit. No sensory deficit. Ambulates with steady gait Course Course Course Narrative: 65 y/o female presenting with LLQ pain x5 days. Concern for possible diverticulitis given her history and exam findings. Will get labs and CT scan for further evaluation. Reevaluation(s) Reevaluation #1: Labs show mild leukopenia 4.5. Other lab work is unremarkable. Her CT scan is showing mild diverticulitis without abscess or perforation. She also has constipation. Results were discussed with the patient. Her pain is improved after a dose of oral tramadol. She is comfortable with discharge home with oral antibiotics and oral pain medication. She will follow-up with her GI doctor. Return precautions were discussed. Diverticulitis diet reviewed. Stable for discharge home w/ close outpatient follow up. MDM - Abdominal Pain Lab Data Result diagrams: 05/12/21 13:23 05/12/21 13:23 Labs: Lab Results 05/12/21 05/12/21 05/12/21 Range/Units 13:22 13:23 13:23 WBC 4.5 L (4.8-10.8) X10*3/uL RBC 3.78 L (4.20-5.50) X10*6/uL Hgb 10.9 L (12.0-16.0) g/dl Hct 34.9 L (37.0-47.0) % MCV 92.3 (80.0-98.0) fL MCH 28.8 (27.0-33.0) pg MCHC 31.2 (31.0-35.0) g/dl RDW 14.9 (11.0-16.0) % Plt Count 240 (160-400) X10*3/uL MPV 10.5 (9.4-12.3) fL Immature Gran % (Auto) 0.2 (0.0-0.4) % Neut % (Auto) 63.2 (45-73) % Lymph % (Auto) 27.7 (20-40) % Letcher % (Auto) 6.4 (2-11) % Eos % (Auto) 1.8 (0-4) % Baso % (Auto) 0.7 (0-2) % Lymph # (Auto) 1.3 (1.2-4.9) X10*3/uL Letcher # (Auto) 0.3 (0.1-1.2) X10*3/uL Eos # (Auto) 0.1 (0.0-0.4) X10*3/uL Baso # (Auto) 0.0 (0.0-0.2) X10*3/uL Abs Immat Gran (auto) 0.01 (0.00-0.03) X10*3/uL Absolute Neuts (auto) 2.9 (2.0-8.3) x10*3/uL Absolute Nucleated RBC 0.000 (0.0-0.012) X10*3/uL Nucleated RBC % (auto) 0.0 (0.0-0.2) /100WBC Sodium 139 (135-145) mmol/L Potassium 4.2 (3.3-5.1) mmol/L Chloride 104 (96-108) mmol/L Carbon Dioxide 26 (22-29) mmol/L Anion Gap 13 (12-20) BUN 13 (9-16) mg/dL Creatinine 0.71 (0.5-1.4) mg/dL Estim Creat Clear Calc 74.5 Estimated GFR > 60 Random Glucose 81 (60-115) mg/dL Lactic Acid 1.1 (0.5-2.0) mmol/L Calcium 9.5 (8.4-10.2) mg/dL Magnesium 2.1 (1.6-2.6) mg/dL Total Bilirubin 0.6 (0.0-1.0) mg/dL Direct Bilirubin 0.2 (0.0-0.5) mg/dL AST 27 D (5-31) U/L ALT 21 (0-31) U/L Alkaline Phosphatase 79 (39-117) U/L Total Protein 7.0 (6.5-8.0) g/dL Albumin 4.0 (3.5-5.0) g/dL Urine Color Urine Appearance Urine pH (5.0-8.0) Ur Specific [place] (1.005-1.025) Urine Protein (NEG-TRACE) MG/DL Urine Glucose (UA) (NEG) MG/DL Urine Ketones (NEG) MG/DL Urine Blood (NEG) Urine Nitrite (NEG) Ur Leukocyte Esterase (NEG) Urine RBC (0) /HPF Urine WBC (0-4) /HPF Ur Squamous Epith Cells /LPF Urine Bacteria /LPF COVID-19 ([facility]) (Negative) COVID-19 Clin Com 05/12/21 05/12/21 Range/Units 13:24 13:25 WBC (4.8-10.8) X10*3/uL RBC (4.20-5.50) X10*6/uL Hgb (12.0-16.0) g/dl Hct (37.0-47.0) % MCV (80.0-98.0) fL MCH (27.0-33.0) pg MCHC (31.0-35.0) g/dl RDW (11.0-16.0) % Plt Count (160-400) X10*3/uL MPV (9.4-12.3) fL Immature Gran % (Auto) (0.0-0.4) % Neut % (Auto) (45-73) % Lymph % (Auto) (20-40) % Letcher % (Auto) (2-11) % Eos % (Auto) (0-4) % Baso % (Auto) (0-2) % Lymph # (Auto) (1.2-4.9) X10*3/uL Letcher # (Auto) (0.1-1.2) X10*3/uL Eos # (Auto) (0.0-0.4) X10*3/uL Baso # (Auto) (0.0-0.2) X10*3/uL Abs Immat Gran (auto) (0.00-0.03) X10*3/uL Absolute Neuts (auto) (2.0-8.3) x10*3/uL Absolute Nucleated RBC (0.0-0.012) X10*3/uL Nucleated RBC % (auto) (0.0-0.2) /100WBC Sodium (135-145) mmol/L Potassium (3.3-5.1) mmol/L Chloride (96-108) mmol/L Carbon Dioxide (22-29) mmol/L Anion Gap (12-20) BUN (9-16) mg/dL Creatinine (0.5-1.4) mg/dL Estim Creat Clear Calc Estimated GFR Random Glucose (60-115) mg/dL Lactic Acid (0.5-2.0) mmol/L Calcium (8.4-10.2) mg/dL Magnesium (1.6-2.6) mg/dL Total Bilirubin (0.0-1.0) mg/dL Direct Bilirubin (0.0-0.5) mg/dL AST (5-31) U/L ALT (0-31) U/L Alkaline Phosphatase (39-117) U/L Total Protein (6.5-8.0) g/dL Albumin (3.5-5.0) g/dL Urine Color YELLOW Urine Appearance CLEAR Urine pH 6.5 (5.0-8.0) Ur Specific [place] 1.010 (1.005-1.025) Urine Protein NEG (NEG-TRACE) MG/DL Urine Glucose (UA) NEG (NEG) MG/DL Urine Ketones NEG (NEG) MG/DL Urine Blood TRACE (NEG) Urine Nitrite NEG (NEG) Ur Leukocyte Esterase TRACE H (NEG) Urine RBC 0-2 (0) /HPF Urine WBC 1-4 (0-4) /HPF Ur Squamous Epith Cells 1+ /LPF Urine Bacteria NONE /LPF COVID-19 ([facility]) Negative (Negative) COVID-19 Clin Com See Note Discharge Plan Discharge Clinical Impression: Diverticulitis, Constipation Patient Disposition: Home, Self-Care Instructions: Diverticulitis (ED), Diverticulitis Diet (ED) Additional Instructions: Your CT scan today showed mild sigmoid diverticulitis. This can be treated with the prescribed antibiotics and pain medication See the attached diet for diverticulitis. Increase your oral hydration, drink plenty of water. Your CT scan also showed constipation. Recommend adding stool softener and [id number] MiraLax. Recommend following up with your GI doctor. If you develop new or worsening symptoms call 911 or come back to the ER for further evaluation. Prescriptions: New metronidazole 500 mg tablet 500 mg PO BID 10 Days Qty: 20 0RF ciprofloxacin HCl 500 mg tablet 500 mg PO BID Qty: 20 0RF tramadol 50 mg tablet 50 mg PO Q8H PRN (Reason: pain) Qty: 7 0RF No Action pantoprazole 40 mg tablet,delayed release (DR/EC) 40 mg PO BID Qty: 60 12RF calcium carbonate-vitamin D3 600 mg(1,500mg) -800 unit tablet 1 tab PO BID Qty: 60 1RF potassium chloride 20 mEq tablet extended release 20 meq PO DAILY Qty: 30 3RF lamotrigine 150 mg Tablet 150 mg PO BID 0RF desvenlafaxine succinate [Pristiq] 100 mg tablet extended release 24 hr 100 mg PO DAILY 0RF alprazolam [Xanax] 0.5 mg tablet 0.5 - 1 mg PO BEDTIME PRN (Reason: Insomnia) 0RF Rx Instructions: Xanax 1-2 tabs at HS PRN trazodone 50 mg tablet 50 - 100 mg PO BEDTIME PRN (Reason: Insomnia) 0RF Rx Instructions: take 1-2 tabs at HS PRN insomnia acetaminophen [Tylenol Extra Strength] 500 mg tablet 500 mg PO QID PRN (Reason: fever or pain) 0RF aspirin [[place] Aspirin] 81 mg tablet,delayed release (DR/EC) 81 mg PO 0RF sennosides-docusate sodium [Stimulant Laxative Plus] 8.6-50 mg tablet PO 0RF Referrals: Jamal Lara MD [Physician] - 1 week (Recurrent diverticulitis) [facility], [facility] Past Medical History Medical History Arthritis Back pain BRCA gene mutation positive Chronic constipation Chronic GERD Depression Ear discomfort Fatigue Glossitis Herniated disc History of bronchitis History of left breast cancer History of right breast cancer Irritable bowel syndrome Left sided sciatica Lumbar radiculopathy Neck pain Pre-op evaluation Primary osteoarthritis of left hip PTSD (post-traumatic stress disorder) Retinal lesion Sciatica Urine incontinence Surgical History History of esophagogastroduodenoscopy (EGD) History of pubovaginal sling History of repair of hiatal hernia History of Lashay-en-Y gastric bypass History of sinus surgery Hx of bilateral oophorectomy Hx of breast lump removal Hx of cholecystectomy Hx of colonoscopy Hx of cystostomy Hx of hernia repair Hx of tubal ligation Family History Family History Father Heart disease Mother Diabetes mellitus Brother Prostate cancer Pancreatic cancer BRCA positive Sister Breast cancer BRCA positive Son No problems noted. Social History Social History Household Members: Significant Other Housing: House Are you a primary post acute care nurse to a significant other at home: No Do you presently have visiting nurse or other home services: No Alcohol intake: never Patient Tobacco Use Status: Never used Tobacco e-Cigarette/Vaping Use: Never Used Second Hand Smoke Exposure: No Substance Use Type: Marijuana Advance Directives: Yes Advance Directives Information Provided: No Advance Directives on File: No service: No Current occupational status: disabled
[2021-05-12 12:28] VITALS: BP 154/86; PULSE 82; RESP 79; TEMP 36.9; O2SAT 97; BMI 26.9
[2021-05-12 13:30] LABS: MANUAL DIFF FLAG NO
[2021-05-12 13:32] LABS: Appearance Urine CLEAR; Color Urine YELLOW; Glucose Urine UA NEG (NEG); Leukocyte Esterase Urine TRACE (NEG); Nitrite Urine NEG (NEG); PH 6.5 (5.0-8.0); UACC Culture Trigger YES; Urine Blood TRACE (NEG); Urine Ketones NEG (NEG); Urine Protein NEG (NEG-TRACE)
[2021-05-12 13:38] LABS: Basophils Percent Auto 0.7 % (0-2); Eosinophils Absolute Auto 0.1 X10*3/uL (0.0-0.4); Eosinophils Percent Auto 1.8 % (0-4); Hematocrit 34.9 % (37.0-47.0); Hemoglobin 10.9 g/dl (12.0-16.0); Imm Gran Abs Auto 0.01 X10*3/uL (0.00-0.03); Imm Gran Pct Auto 0.2 % (0.0-0.4); Lymphocytes Absolute Auto 1.3 X10*3/uL (1.2-4.9); Lymphocytes Percent Auto 27.7 % (20-40); Mean Corpuscular HGB Conc 31.2 g/dl (31.0-35.0); Mean Corpuscular Hemoglobin 28.8 pg (27.0-33.0); Mean Corpuscular Volume 92.3 fL (80.0-98.0); Mean Platelet Volume 10.5 fL (9.4-12.3); Monocytes Absolute Auto 0.3 X10*3/uL (0.1-1.2); Monocytes Percent Auto 6.4 % (2-11); Neutrophils Absolute Auto 2.9 x10*3/uL (2.0-8.3); Neutrophils Percent Auto 63.2 % (45-73); Platelet Count 240 X10*3/uL (160-400); Red Blood Count 3.78 X10*6/uL (4.20-5.50); Red Cell Distribution Width 14.9 % (11.0-16.0); White Blood Count 4.5 X10*3/uL (4.8-10.8)
[2021-05-12 13:41] LABS: RBC Urine 0-2 /HPF (0); Squamous Epithelial Cell Urine 1+ /LPF
[2021-05-12 13:42] LABS: Lactic Acid 1.1 mmol/L (0.5-2.0)
[2021-05-12 13:48] LABS: COVID-19 Test Negative (Negative)
[2021-05-12 14:03] LABS: Alanine Aminotransferase 21 U/L (0-31); Alkaline Phosphatase 79 U/L (39-117); Anion Gap 13 (12-20); Aspartate Amino Transferase 27 U/L (5-31); Bilirubin Direct 0.2 mg/dL (0.0-0.5); Bilirubin Total 0.6 mg/dL (0.0-1.0); Carbon Dioxide 26 mmol/L (22-29); Chloride 104 mmol/L (96-108); Creatinine Clr Calc Pharmacy 74.5; Estimated Glomerular Filt Rate > 60; Glucose Random 81 mg/dL (60-115); Magnesium 2.1 mg/dL (1.6-2.6); Potassium 4.2 mmol/L (3.3-5.1); Sodium 139 mmol/L (135-145)
[2021-05-12] MEDS: iohexoL 350 MG/ML 100 ML INFUS..BTL IV (14:39)
[2021-05-12] MEDS: traMADoL HCL 50 MG TABLET 25 MG PO (14:46)
[2021-05-12 14:58] LABS: Blood Urea Nitrogen 13 mg/dL (9-16); Calcium 9.5 mg/dL (8.4-10.2)
== END 2021-05-12 15:46 | disposition home or self-care (01) ==
PROVIDERS: Physician Assistant; Emergency Provider Emergency Medicine; PCP Internal Medicine
DX: K57.92 Diverticulitis of intestine, part unspecified, without perforation or abscess without bleeding (principal); K59.00 Constipation, unspecified; Z20.822 Contact with and (suspected) exposure to COVID-19; Z90.49 Acquired absence of other specified parts of digestive tract; Z98.84 Bariatric surgery status; Z98.51 Tubal ligation status
CPT/HCPCS: 74177; 80048; 80076; 81001; 83605; 83735; 85025; 87086; 87088; 87186; 87635; 99283; 99284; Q9967

== ENCOUNTER 2021-05-27 13:46 | Outpatient (REF) | payer OTHER, SELFPAY ==
[2021-05-27 15:24] LABS: MANUAL DIFF FLAG NO
[2021-05-27 16:39] LABS: Basophils Absolute Auto 0.1 X10*3/uL (0.0-0.2); Basophils Percent Auto 1.2 % (0-2); Eosinophils Absolute Auto 0.1 X10*3/uL (0.0-0.4); Eosinophils Percent Auto 1.4 % (0-4); Hematocrit 41.9 % (37.0-47.0); Hemoglobin 13.1 g/dl (12.0-16.0); Imm Gran Abs Auto 0.01 X10*3/uL (0.00-0.03); Imm Gran Pct Auto 0.2 % (0.0-0.4); Lymphocytes Absolute Auto 1.5 X10*3/uL (1.2-4.9); Lymphocytes Percent Auto 29.8 % (20-40); Mean Corpuscular HGB Conc 31.3 g/dl (31.0-35.0); Mean Corpuscular Hemoglobin 29.2 pg (27.0-33.0); Mean Corpuscular Volume 93.5 fL (80.0-98.0); Mean Platelet Volume 10.9 fL (9.4-12.3); Monocytes Absolute Auto 0.3 X10*3/uL (0.1-1.2); Monocytes Percent Auto 6.9 % (2-11); Neutrophils Percent Auto 60.5 % (45-73); Platelet Count 344 X10*3/uL (160-400); Red Blood Count 4.48 X10*6/uL (4.20-5.50); Red Cell Distribution Width 15.1 % (11.0-16.0)
[2021-05-27 17:00] LABS: Iron 69 mcg/dL (30-160); Percent Iron Saturation 16 % (15-50); Total Iron Binding Capacity 425 mcg/dL (228-428); Unsaturated Iron Binding 356 ug/dL
[2021-05-27 17:18] LABS: Ferritin 21 ng/mL (10-250); Thyroid Stimulating Hormone 1.06 uIU/mL (0.32-4.0)
== END 2021-05-27 13:47 | disposition home or self-care (01) ==
LOC: HO.LAB 13:46
PROVIDERS: PCP Internal Medicine; Referring Provider Internal Medicine; Visit Provider Physician Assistant
DX: K57.92 Diverticulitis of intestine, part unspecified, without perforation or abscess without bleeding (principal); D64.9 Anemia, unspecified; K59.09 Other constipation; F32.9 Major depressive disorder, single episode, unspecified; R19.7 Diarrhea, unspecified; F39 Unspecified mood [affective] disorder
CPT/HCPCS: 36415; 82728; 83540; 84443; 85025; 99212

== ENCOUNTER 2021-07-09 08:18 | Outpatient (REF) | payer OTHER, SELFPAY ==
[2021-07-09 09:15] LABS: Iron 69 mcg/dL (30-160); Percent Iron Saturation 17 % (15-50); Total Iron Binding Capacity 403 mcg/dL (228-428); Unsaturated Iron Binding 334 ug/dL
[2021-07-09 09:30] LABS: Ferritin 23 ng/mL (10-250); Vitamin D 25-OH Total 21.2 ng/mL (>30)
[2021-07-09 09:48] LABS: Vitamin B12 327 pg/mL (200-900)
[2021-07-14 00:57] LABS: Zinc 74 mcg/dL (60-130)
[2021-07-15 16:16] LABS: Vitamin A 58 mcg/dL (38-98)
[2021-07-17 08:12] LABS: Vitamin B1 46 nmol/L (8-30)
== END 2021-07-09 08:19 | disposition home or self-care (01) ==
LOC: HO.LAB 08:18
PROVIDERS: Physician Assistant Surgical; PCP Internal Medicine; Visit Provider Internal Medicine
DX: E66.3 Overweight (principal); Z68.29 Body mass index [BMI] 29.0-29.9, adult; E53.8 Deficiency of other specified B group vitamins
CPT/HCPCS: 36415; 82306; 82607; 82728; 82746; 83540; 84425; 84590; 84630

== ENCOUNTER 2021-07-16 13:49 | Outpatient (REF) | payer OTHER, SELFPAY ==
--- NOTE | ~2021-07-16 | MM_ITS ---
EXAMINATION: MM DIAGNOSTIC DIGITAL BREAST TOMOSYNTHESIS, BILATERAL CLINICAL INFORMATION: Due for yearly. Prior history bilateral breast cancer, right 2012 and left 2004. Also follow-up probable benign calcifications right breast. COMPARISON: Mammography: 07/15/2020, 10/08/2019, 10/03/2019 (BI-RADS 0), 07/12/2018 TECHNIQUE: Digital breast tomosynthesis is performed in both the craniocaudal and mediolateral oblique views along with computer-aided detection (CAD). Synthesized 2D images are generated from the tomosynthesis. Additional views are provided: Right MLO, magnification right CC, magnification right ML x2. FINDINGS: There are scattered areas of fibroglandular density (ACR BI-RADS breast composition Category b). There is bilateral scarring consistent with the prior bilateral breast surgery similar to prior studies. There is no interval mass or architectural abnormality or developing density. There is surgical clips anterior right breast and right axilla. There are scattered bilateral benign coarse calcifications. The calcifications initially prompting recall and no longer clearly seen with certainty. There are no increasing calcifications or interval suspicious changes. The calcifications are now considered to be benign. Results are provided to the patient at time of visit by the technologist. MM/MM tomosynthesis diagnostic BI IMPRESSION: No mammographic evidence of malignancy. No significant changes from prior exams. ASSESSMENT: BI-RADS 2: Benign RECOMMENDATION: Routine annual mammography screening. This patient's information was entered into a reminder system with a target due date for their next mammogram.
== END 2021-07-16 13:50 | disposition home or self-care (01) ==
LOC: HO.MAMMO 13:49
PROVIDERS: Visit Provider Internal Medicine
DX: R92.1 Mammographic calcification found on diagnostic imaging of breast (principal)
CPT/HCPCS: 77062; 77066

== ENCOUNTER 2021-07-31 07:21 | Outpatient (REF) | payer OTHER, SELFPAY ==
[2021-07-31 07:57] LABS: Cholesterol 220 mg/dL; HDL Cholesterol 63 mg/dL; LDL Cholesterol Calculated 134 mg/dl; Triglycerides 117 mg/dL
== END 2021-07-31 07:22 | disposition home or self-care (01) ==
LOC: HO.LAB 07:21
PROVIDERS: PCP Internal Medicine; Visit Provider Internal Medicine
DX: E66.3 Overweight (principal)
CPT/HCPCS: 36415; 80061

== ENCOUNTER 2021-08-06 07:15 | Outpatient (REF) | payer OTHER, SELFPAY ==
--- NOTE | ~2021-08-06 | MR_ITS ---
EXAMINATION: MR ABDOMEN WITHOUT CONTRAST CLINICAL INFORMATION: Other specified diseases of pancreas. Slightly dilated main pancreatic duct on outside of the abdomen and pelvis July 2021 COMPARISON: Previous CT of the abdomen and pelvis most recent May and July 2021 TECHNIQUE: MR abdomen is performed without gadolinium contrast. MRCP sequences were performed. FINDINGS: LUNG BASES: The visualized lung bases are unremarkable. LIVER, GALLBLADDER, AND BILIARY TREE: The liver is normal in size, smooth in contour, and normal in signal. No focal hepatic lesion or biliary ductal dilatation is present. Common bile duct measures 3 mm. No filling defect is seen. The gallbladder has been removed. PANCREAS: There may be a bifid main pancreatic duct or persistent duct of Santorini. The main pancreatic duct is upper normal in size measuring 3 mm. There may be a tiny cyst in the tail of the pancreas adjacent to the main pancreatic duct measuring 3 mm. Pancreas is otherwise normal SPLEEN: Unremarkable. ADRENAL GLANDS: Unremarkable. KIDNEYS AND URETERS: The kidneys are normal in size and shape. There is a small probable cyst in the lower pole the left kidney. No hydronephrosis. No perinephric stranding. GASTROINTESTINAL TRACT: There are postsurgical changes to the stomach. No bowel obstruction. No ascites or fluid collection. ABDOMINAL WALL: No significant hernia is appreciated. LYMPH NODES: No lymphadenopathy. VASCULAR: Unremarkable. OSSEOUS STRUCTURES: Marrow signal normal. MR/MR MRCP IMPRESSION: Normal caliber main pancreatic duct. Small 3 mm cyst in the tail the pancreas adjacent to the main pancreatic duct. Probable small left renal cyst. Postsurgical changes to the stomach. Cholecystectomy.
== END 2021-08-06 07:16 | disposition home or self-care (01) ==
LOC: HO.MRI 07:15
PROVIDERS: Visit Provider Internal Medicine
DX: K86.89 Other specified diseases of pancreas (principal)
CPT/HCPCS: 74181

== ENCOUNTER → 2021-08-16 08:02 | Outpatient (BNVA) | payer OTHER, SELFPAY | PROVIDERS: PCP Internal Medicine; Visit Provider Physician Assistant Surgical | DX: K57.92 Diverticulitis of intestine, part unspecified, without perforation or abscess without bleeding (principal); E66.3 Overweight; Z68.27 Body mass index [BMI] 27.0-27.9, adult | CPT/HCPCS: 99202 ==

== ENCOUNTER 2021-12-18 16:46 | Outpatient (REF) | payer MEDICARE, MEDICAID, SELFPAY ==
[2021-12-18 16:54] LABS: Appearance Urine Clear; Color Urine Yellow; Glucose Urine UA Negative (Negative); Leukocyte Esterase Urine Negative (Negative); Nitrite Urine Negative (Negative); Specific Gravity - Urine <= 1.005 (1.005-1.025); Urine Blood Negative (Negative); Urine Ketones Negative (Negative); Urine Protein Negative (Neg-Trace)
== END 2021-12-18 16:47 | disposition home or self-care (01) ==
LOC: HO.LNP 16:46
PROVIDERS: Visit Provider Physician Assistant Medical
DX: R30.0 Dysuria (principal)
CPT/HCPCS: 81003

== ENCOUNTER 2022-10-29 07:29 | Outpatient (REF) | payer MEDICARE, MEDICAID, SELFPAY | END 2022-10-29 07:30 | disposition home or self-care (01) | LOC: HO.LAB 07:29 | PROVIDERS: PCP Internal Medicine; Visit Provider Internal Medicine | DX: Z13.89 Encounter for screening for other disorder (principal) ==

== ENCOUNTER 2022-11-08 07:09 | Outpatient (REF) | payer MEDICARE, MEDICAID, SELFPAY ==
[2022-11-08 07:30] LABS: MANUAL DIFF FLAG NO
[2022-11-08 09:01] LABS: Eosinophils Absolute Auto 0.2 X10*3/uL (0.0-0.4); Eosinophils Percent Auto 4.1 % (0-4); Hematocrit 41.5 % (37.0-47.0); Imm Gran Abs Auto 0.01 X10*3/uL (0.00-0.03); Imm Gran Pct Auto 0.2 % (0.0-0.4); Lymphocytes Absolute Auto 1.1 X10*3/uL (1.2-4.9); Lymphocytes Percent Auto 26.5 % (20-40); Mean Corpuscular HGB Conc 31.3 g/dl (31.0-35.0); Mean Corpuscular Hemoglobin 30.1 pg (27.0-33.0); Mean Corpuscular Volume 96.1 fL (80.0-98.0); Monocytes Absolute Auto 0.3 X10*3/uL (0.1-1.2); Monocytes Percent Auto 7.3 % (2-11); Neutrophils Absolute Auto 2.5 x10*3/uL (2.0-8.3); Neutrophils Percent Auto 60.9 % (45-73); Platelet Count 274 X10*3/uL (160-400); Red Blood Count 4.32 X10*6/uL (4.20-5.50); Red Cell Distribution Width 13.3 % (11.0-16.0); White Blood Count 4.1 X10*3/uL (4.8-10.8)
[2022-11-08 10:44] LABS: Alanine Aminotransferase 29 U/L (0-31); Alkaline Phosphatase 89 U/L (39-117); Anion Gap 12 (12-20); Aspartate Amino Transferase 36 U/L (5-31); Bilirubin Total 0.5 mg/dL (0.0-1.0); Blood Urea Nitrogen 10 mg/dL (9-16); Calcium 9.3 mg/dL (8.4-10.2); Carbon Dioxide 28 mmol/L (22-29); Chloride 104 mmol/L (96-108); Cholesterol 211 mg/dL; Estimated Glomerular Filt Rate > 60; Glucose Fasting 86 mg/dL (60-99); HDL Cholesterol 65 mg/dL; LDL Cholesterol Calculated 121 mg/dl; Potassium 4.3 mmol/L (3.3-5.1); Sodium 140 mmol/L (135-145); Total Protein 6.9 g/dL (6.5-8.0); Triglycerides 129 mg/dL
[2022-11-08 10:48] LABS: Vitamin D 25-OH Total 21.1 ng/mL (>30)
[2022-11-08 11:05] LABS: Folate 12.2 ng/mL (> or = 4.0); Vitamin B12 342 pg/mL (200-900)
== END 2022-11-08 07:10 | disposition home or self-care (01) ==
LOC: HO.LAB 07:09
PROVIDERS: PCP Internal Medicine; Visit Provider Internal Medicine
DX: G57.10 Meralgia paresthetica, unspecified lower limb (principal); E53.8 Deficiency of other specified B group vitamins; E55.9 Vitamin D deficiency, unspecified; E78.5 Hyperlipidemia, unspecified
CPT/HCPCS: 36415; 80053; 80061; 82306; 82607; 82746; 85025

== ENCOUNTER 2022-11-08 07:49 | Outpatient (AMB) | payer MEDICARE, MEDICAID, SELFPAY ==
[2022-11-08 08:37] VITALS: BP 124/82; PULSE 92; O2SAT 97; BMI 26.9
--- NOTE | 2022-11-08 08:37 | A.OFFPC_ITS ---
Vital Signs 11/08/22 08:37 Height 5 ft 3 in Weight 152 lb BMI 26.9 BP 124/82 Blood Pressure Location Lt brachial Position Sitting Pulse 92 Pulse Source Pulse Oximeter Pulse Oximetry (%) 97 Oxygen Delivery Method Room Air Intake Visit Reasons: Physical Exam Etl Data Architect Required: No Accompanied by: Self / Same As Patient Allergies vancomycin [VANCOMYCIN] Allergy (Severe, Verified 11/08/22 08:44) ITCHING SEVERE, pruritus clindamycin [CLINDAMYCIN] Allergy (Intermediate, Verified 11/08/22 08:44) ITCHING ibuprofen Allergy (Intermediate, Verified 11/08/22 08:44) abdominal pain nitrofurantoin Allergy (Intermediate, Verified 11/08/22 08:44) abdominal pain Penicillins [PENICILLINS] Allergy (Intermediate, Verified 11/08/22 08:44) HIVES Sulfa (Sulfonamide Antibiotics) Allergy (Intermediate, Verified 11/08/22 08:44) RASH/SWELLING, rash, swelling venlafaxine [From EFFEXOR] Adverse Reaction (Severe, Verified 11/08/22 08:44) WORSENING DEPRESSION Butrans patch Allergy (Severe, Uncoded 11/08/22 08:44) depression STEROID INJECTIONS Allergy (Severe, Uncoded 11/08/22 08:44) ANGER AND AGGITATION Herbal medicines/teas Allergy (Intermediate, Uncoded 11/08/22 08:44) headaches, stuffiness Medication List - Last Reconciled 11/08/22 by Rabia Grider MD acetaminophen (Tylenol Extra Strength) 500 mg PO QID PRN alprazolam (Xanax) 0.5 - 1 mg PO BEDTIME PRN bupropion HCl mg PO cetirizine 10 mg PO DAILY PRN 30 days desvenlafaxine succinate ER (Pristiq) 100 mg PO DAILY gabapentin 200 mg (2 x 100 mg) PO TID 30 days lamotrigine 150 mg PO BID methocarbamol 500 mg PO Q8H PRN 30 days nystatin 1 appl topical DAILY PRN 30 days omeprazole 20 mg PO DAILY 90 days ondansetron 8 mg PO Q12H PRN 30 days oxycodone 10 mg PO Q8H PRN 14 days polyethylene glycol 3350 (Miralax) 17 grams PO DAILY sennosides-docusate sodium 8.6-50 mg (Stimulant Laxative Plus) tabs PO sucralfate (Carafate) 10 mL PO BID PRN 30 days trazodone 50 - 100 mg PO BEDTIME PRN Tobacco use date assessed: 09/29/22 Fall risk assessment: No Falls in past year Last assessed Fall Risk: 11/08/22 Dental Screening Dental Screen Date: 11/08/22 Did you have a dental visit in the last 12 months?: Yes Did you have a dental problem in the last 6 months where you did not have access to dental care?: No Was dental information given to patient?: Patient has dentist HPI HPI Comments History of Present Illness Details This is a 66-year-old female with mild recurrent major depression and mood disorder that comes for her physical exam. Depression and mood disorder are follow by Psychiatry and has been stable. Last mammogram was 2020 and she will call [facility] to get another mammogram. She is BRCA positive. Last Pap smear was 2019 and was normal with HPV negative. Last colonoscopy was August 2022 at [facility] showing no polyps. Denies any chest pain or shortness of breath. Complains of chronic left hip pain aggravated by sitting control with opiates as needed. 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 PTSD (post-traumatic stress disorder) Retinal lesion Sciatica Urine incontinence Surgical History (Updated 11/08/22 @ 08:53 by Rabia Grider MD) History of esophagogastroduodenoscopy (EGD) History of pubovaginal sling History of repair of hiatal hernia History of Lashay-en-Y gastric bypass History of sinus surgery Hx of bilateral oophorectomy Hx of breast lump removal Hx of cholecystectomy Hx of colonoscopy Hx of cystostomy Hx of hernia repair Hx of tubal ligation Family History Father Heart disease Mother Diabetes mellitus Brother Prostate cancer Pancreatic cancer BRCA positive Sister Breast cancer BRCA positive Son No problems noted. Social History Household Members: Significant Other Housing: House Are you a primary personal care aide to a significant other at home: No Do you presently have visiting nurse or other home services: No Alcohol intake: never Patient Tobacco Use Status: Never used Tobacco e-Cigarette/Vaping Use: Never Used Second Hand Smoke Exposure: No Substance Use Type: Marijuana service: No Current occupational status: disabled Cognitive needs: No Hearing needs: No Vision needs: Yes Questionnaire PHQ-9 Over the last 2 weeks, how often have you been bothered by any of the following problems? 1. Little interest or pleasure in doing things: not at all 2. Feeling down, depressed, or hopeless: nearly every day 3. Trouble falling or staying asleep, or sleeping too much: not at all 4. Feeling tired or having little energy: not at all 5. Poor appetite or overeating: several days 6. Feeling bad about yourself - or that you are a failure or have let yourself or your family down: not at all 7. Trouble concentrating on things, such as reading the newspaper or watching television: not at all 8. Moving or speaking so slowly that other people could have noticed. Or the opposite - being so fidgety or restless that you have been moving around a lot more than usual: not at all 9. Thoughts that you would be better off or of hurting yourself in some way: not at all Total score: 4 Depression Screening Interpretation: Positive Depression Screening Follow-up: Existing condition and Community Mental Health Worker F/U 94853 - PHQ-9 Billing: Yes Source: Developed by Drs. Matt Diehl, Kulwinder Arredondo and colleagues, with an educational giovanna from [employer]. Thrive Questionnaire Date Thrive assessed: 09/29/22 AUDIT C Alcohol Use Questionnaire (AUDIT-C) 1. How often do you have a drink containing alcohol?: Never Total Score: 0 VIOLETA-7 AMB Questionnaire VIOLETA-7 Date VIOLETA - 7 assessed: 09/29/22 Source: Developed by Drs. Matt Diehl, Kulwinder Arredondo and colleagues, with an educational giovanna from [employer]. Review of Systems Const All systems reviewed & are unremarkable except as noted in HPI and below Eyes Reports no additional complaints, Denies change in vision and Denies other visual disturbances Card Denies chest pain at rest, Denies chest pain with activity, Denies edema, Denies irregular heart rhythm, Denies claudication, Denies dyspnea, Denies dyspnea on exertion, Denies orthopnea, Denies paroxysmal nocturnal dyspnea and Denies slow heart rate Resp Denies cough, Denies dyspnea and Denies dyspnea on exertion GI Denies abdominal pain, Denies change in bowel habits, Denies excessive flatus, Denies nausea and Denies vomiting Denies urinary incontinence, Denies urinary hesitancy and Denies urinary urgency Musc Denies abnormal gait, Reports back pain, Denies atrophy, Denies deformity, Reports arthralgias and Denies limited range of motion Skin/Breast Denies bleeding lesions, Denies changing lesions and Denies rash Neuro Denies abnormal gait and Denies lack of coordination Physical exam (Primary Care) Vital Signs: Last Vital Signs Pulse 92 11/08/22 08:37 BP 124/82 11/08/22 08:37 Pulse Ox 97 11/08/22 08:37 Oxygen Delivery Method Room Air 11/08/22 08:37 BMI result Body Mass Index 26.9 Tobacco/Smoking Status: Tobacco use Status Tobacco use date assessed 09/29/22 11/08/22 08:42 Patient Tobacco Use Status Never used Tobacco 11/08/22 08:42 e-Cigarette/Vaping Use Never Used 11/08/22 08:42 PHQ-9: PHQ-9 Score PHQ-9: Total score 4 11/08/22 08:42 Depression Screening Interpretation: Positive Depression Screening Follow-up: Existing condition and Community Mental Health Worker F/U Thrive Assessment: Date of Thrive Assessment Date Thrive assessed 09/29/22 11/08/22 08:42 Const Orientation/consciousness: patient oriented x3 HENMT Head: Yes normal to inspection, Yes normocephalic and Yes atraumatic Ears: external ears normal Eyes General: appearance normal, both eyes and all related structures Eyelids: Yes eyelids normal Conjunctivae: conjunctivae normal Neck Neck: Yes normal visual inspection and Yes supple Resp Effort & Inspection: normal respiratory effort Auscultation: clear to auscultation bilaterally Cardio Jugular venous distension: no JVD Rate: regular rate Rhythm: regular rhythm Heart sounds: S1 normal heart sound present and S2 normal heart sound present GI Inspection: Yes normal to inspection Palpation (GI): Soft to palpation and nontender Auscultation: normal bowel sounds Skin General skin exam: no rashes or lesions noted Neuro General: patient oriented x3 and no focal motor deficits Extrem General: Yes full ROM Psych Appearance: grossly normal Assessment and Plan Assessment & Plan (1) Physical exam: Code(s): Z00.00 - Encounter for general adult medical examination without abnormal findings Plan: Repeat in a year (2) Mild recurrent major depression: Code(s): F33.0 - Major depressive disorder, recurrent, mild Plan: Continue bupropion. Follow-up with psychiatry. (3) Mood disorder: Comment: ptsd, lonely, -no S/ H I- support offered. Details-lifes struggles-has live-in partner, who works-feels isolated at times Code(s): F39 - Unspecified mood [affective] disorder Plan: Continue Lamictal. Follow-up with psychiatry. Coding Level of Care Code Est Pt Prev Care >65y(57059) Diagnoses Physical exam Z00.00 Mild recurrent major depression F33.0 Mood disorder F39 Time Spent (min) 31
== END 2022-11-08 09:03 | disposition home or self-care (01) ==
PROVIDERS: Visit Provider Internal Medicine
DX: Z00.00 Encounter for general adult medical examination without abnormal findings (principal); F33.0 Major depressive disorder, recurrent, mild; F39 Unspecified mood [affective] disorder
CPT/HCPCS: 99397

== ENCOUNTER 2023-02-27 11:36 | Emergency (ER) | payer MEDICARE, MEDICAID, SELFPAY ==
--- NOTE | ~2023-02-27 | CT_ITS ---
EXAMINATION: CT HEAD WITHOUT CONTRAST CLINICAL INFORMATION: Seizure-like activity. Weakness. COMPARISON: Correlation made with CT soft tissue neck performed 10/05/2020 TECHNIQUE: Contiguous axial imaging was performed from the skull base to vertex without intravenous administration of contrast. This CT examination was performed using dose optimization techniques as appropriate, variously including the following: *Automated exposure control *Adjustment of mA and/or kV according to patient size (this includes techniques or standardized protocols for targeted exams where dose is matched to indication/reason for exam; i.e. extremities or head) *Use of iterative reconstruction technique DLP: 544 mGy-cm FINDINGS: The lateral, third and the fourth ventricles are normally outlined. The cortical sulci and basal cisterns are normally outlined as well. There is no acute territorial defect, hemorrhage or midline shift. The extra-axial spaces are unremarkable. Calvarium: Intact. Maxillofacial sinuses and mastoids: There is a partially imaged left maxillary sinus opacity with left maxillary sinus sclerosis. CT/CT head/brain wo IV con IMPRESSION: No acute intracranial pathology. Left maxillary sinus opacity likely chronic. Similar finding was seen on CT soft tissue neck performed 10/05/2022
[2023-02-27 11:41] VITALS: BP 154/85; BP 160/92; PULSE 76; PULSE 80; RESP 18; TEMP 37.1; O2SAT 96; O2SAT 97; BMI 23.7
--- NOTE | 2023-02-27 11:53 | ED_ITS ---
HPI - Weakness General Chief complaint: Weakness Stated complaint: FATIGUE,SHAKING X1 WK PER EMS Time Seen by Provider: 02/27/23 11:43 Source: patient and EMS Mode of arrival: EMS Limitations: no limitations History of Present Illness HPI Narrative: Patient comes in for weakness, dizziness and occaisional twitching that she feels is secondary to her medications. She is under a lot of family stress and is crying MD Complaint: generalized weakness and lack of energy Onset (ago): week(s) Duration: constant Related Data Home Medications Medication Instructions Recorded Confirmed desvenlafaxine succinate 100 mg 100 mg PO DAILY 03/09/20 11/08/22 tablet,extended release 24 hr (Pristiq) trazodone 50 mg tablet 50 - 100 mg PO BEDTIME PRN Insomnia 03/09/20 11/08/22 lamotrigine 150 mg tablet 150 mg PO BID 08/21/20 11/08/22 acetaminophen 500 mg tablet 500 mg PO QID PRN fever or pain 01/06/21 11/08/22 (Tylenol Extra Strength) sennosides 8.6 mg-docusate sodium tab PO 01/06/21 11/08/22 50 mg tablet (Stimulant Laxative Plus) polyethylene glycol 3350 17 17 g PO DAILY 05/14/21 11/08/22 gram/dose oral powder (Miralax) bupropion HCl 150 mg 24 hr tablet, mg PO 09/29/22 11/08/22 extended release Previous Rx's Medication Instructions Recorded omeprazole 20 mg capsule,delayed 20 mg PO DAILY 90 days #90 caps 09/29/22 release cetirizine 10 mg tablet 10 mg PO DAILY PRN allergy 10/17/22 symptoms 30 days #30 tabs ondansetron 8 mg disintegrating 8 mg PO Q12H PRN nausea and 10/23/22 tablet vomiting 30 days #60 tabs sucralfate 100 mg/mL oral 10 ml PO BID PRN abdominal pain 30 10/23/22 suspension (Carafate) days #420 mL nystatin 100,000 unit/gram topical 1 appl topical DAILY PRN rash 30 10/26/22 cream days #30 grams cholecalciferol (vitamin D3) 50 50 mcg PO .every other day 90 days 11/08/22 mcg (2,000 unit) tablet #45 tabs diclofenac sodium 1 % topical gel 2 g topical QID 30 days #100 grams 12/06/22 (Arthritis Pain (diclofenac)) methocarbamol 500 mg tablet 500 mg PO Q8H PRN muscle pain 30 12/08/22 days #90 tabs gabapentin 300 mg capsule 300 mg PO TID 30 days #90 caps 01/05/23 oxycodone 10 mg tablet 10 mg PO Q8H PRN pain 14 days #42 01/23/23 tabs ciprofloxacin HCl 500 mg tablet 500 mg PO BID 7 days #14 tabs 02/01/23 metronidazole 500 mg tablet 500 mg PO BID 7 days #14 tabs 02/01/23 alprazolam 0.5 mg tablet (Xanax) 0.5 - 1 mg (1 - 2 x 0.5 mg) PO 02/19/23 BEDTIME Insomnia 3 days #6 tabs Allergies Allergy/AdvReac Type Severity Reaction Status Date / Time vancomycin [VANCOMYCIN] Allergy Severe ITCHING Verified 02/27/23 11:50 SEVERE, pruritus clindamycin [CLINDAMYCIN] Allergy Intermediate ITCHING Verified 02/27/23 11:50 ibuprofen Allergy Intermediate abdominal Verified 02/27/23 11:50 pain nitrofurantoin Allergy Intermediate abdominal Verified 02/27/23 11:50 pain Penicillins [PENICILLINS] Allergy Intermediate HIVES Verified 02/27/23 11:50 Sulfa (Sulfonamide Allergy Intermediate RASH/SWELLING, Verified 02/27/23 11:50 Antibiotics) rash, swelling venlafaxine [From EFFEXOR] AdvReac Severe WORSENING Verified 02/27/23 11:50 DEPRESSION Butrans patch Allergy Severe depression Uncoded 02/27/23 11:50 STEROID INJECTIONS Allergy Severe ANGER AND Uncoded 02/27/23 11:50 AGGITATION Herbal medicines/teas Allergy Intermediate headaches, Uncoded 02/27/23 11:50 stuffiness Review of Systems 2 Review of Systems: Yes all other systems are reviewed and are negative Neurologic: Denies Sensory deficit (Neuro) PMFSH Past Medical History Medical History Meralgia paraesthetica Obese Obesity Hospital discharge follow-up Dilation of pancreatic duct B12 deficiency Mild recurrent major depression Left hip pain Diarrhea 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 Pre-op evaluation Glossitis Ear discomfort Lumbar radiculopathy Chronic constipation Urine incontinence Left sided sciatica Fatigue Back pain Herniated disc PTSD (post-traumatic stress disorder) History of right breast cancer History of left breast cancer BRCA gene mutation positive Retinal lesion History of bronchitis Depression Irritable bowel syndrome Sciatica Arthritis Chronic GERD Neck pain Surgical History History of sinus surgery History of repair of hiatal hernia History of Lashay-en-Y gastric bypass History of esophagogastroduodenoscopy (EGD) Hx of hernia repair Hx of cholecystectomy Hx of cystostomy Hx of tubal ligation Hx of colonoscopy History of pubovaginal sling Hx of breast lump removal Hx of bilateral oophorectomy Family History Family History Father Heart disease Mother Diabetes mellitus Brother Prostate cancer Pancreatic cancer BRCA positive Sister Breast cancer BRCA positive Son No problems noted. Social History Household Members: Significant Other Housing: House Are you a primary caregiver services home to a significant other at home: No Do you presently have visiting nurse or other home services: No Alcohol intake: never Patient Tobacco Use Status: Never used Tobacco e-Cigarette/Vaping Use: Never Used Second Hand Smoke Exposure: No Substance Use Type: Marijuana Advance Directives: No Advance Directives Information Provided: Yes service: No Current occupational status: disabled Cognitive needs: No Hearing needs: No Vision needs: Yes Physical Exam 2 Vital Signs: Vital Signs: Last Vital Signs Temp 98.2 F 02/27/23 13:56 Pulse 65 02/27/23 13:56 Resp 15 02/27/23 13:56 BP 140/77 H 02/27/23 13:56 Pulse Ox 98 02/27/23 13:56 O2 Del Method Room Air 02/27/23 13:56 BMI result Body Mass Index 23.7 Const: Other: anxious tearful Nutritional Appearance: average body habitus Orientation/consciousness: oriented to person and patient oriented x3 Limitations: no limitations HEENT: Head: Yes normal to inspection Ears: external ears normal General nose exam: Normal external nose present Mouth: Normal oral and palatal mucosa present and oropharynx normal Throat: Yes posterior oropharynx normal Eyes: General: appearance normal, both eyes and all related structures Neck: Other: supple Neck: Yes normal visual inspection Chest: Chest palpation & inspection: normal inspection of the chest Resp: Auscultation: clear to auscultation bilaterally Cardio: Jugular venous distension: no JVD Rate: regular rate Rhythm: r egular rhythm Heart sounds: S1 normal heart sound present and S2 normal heart sound present GI: Inspection: Yes normal to inspection Palpation (GI): Soft to palpation, nontender and No hepatosplenomegaly present Auscultation: normal bowel sounds : General: Yes no CVA tenderness Back/Spine/Pelvis: Back: no CVA tenderness Skin: General skin exam: no rashes or lesions noted Neuro: General: oriented to person and patient oriented x3 Cranial nerves: Yes CN's II-XII intact bilaterally Motor exam (neuro): 5/5 motor strength present throughout Sensory Exam: No Sensory deficit (Neuro) Extrem: General: Yes normal to inspection Psych: Other: anxious and tearful Course Reevaluation(s) Reevaluation #1: head CT and labs normal, will have patient reconcile her medication with her pMD Time: 14:44 Medical Decision Making Differential Diagnosis Differential Diagnoses: The differential diagnosis associated with the presentation includes (brain mass, MS, cerebral bleed, electrolyte abnormality were all considered) Admission/Observation Consideration of admission/observation: Escalation of care including admission/observation considered (upon arrival patient was considered for admission) Lab Data 02/27/23 12:55 02/27/23 12:55 Labs: Lab Results 02/27/23 Range/Units 12:55 WBC 3.9 L (4.8-10.8) X10*3/uL RBC 4.04 L (4.20-5.50) X10*6/uL Hgb 12.4 (12.0-16.0) g/dl Hct 39.3 (37.0-47.0) % MCV 97.3 (80.0-98.0) fL MCH 30.7 (27.0-33.0) pg MCHC 31.6 (31.0-35.0) g/dl RDW 12.0 (11.0-16.0) % Plt Count 224 (160-400) X10*3/uL MPV 10.0 (9.4-12.3) fL Immature Gran % (Auto) 0.3 (0.0-0.4) % Neut % (Auto) 60.4 (45-73) % Lymph % (Auto) 25.9 (20-40) % [place] % (Auto) 7.7 (2-11) % Eos % (Auto) 4.4 H (0-4) % Baso % (Auto) 1.3 (0-2) % Lymph # (Auto) 1.0 L (1.2-4.9) X10*3/uL [place] # (Auto) 0.3 (0.1-1.2) X10*3/uL Eos # (Auto) 0.2 (0.0-0.4) X10*3/uL Baso # (Auto) 0.1 (0.0-0.2) X10*3/uL Abs Immat Gran (auto) 0.01 (0.00-0.03) X10*3/uL Absolute Neuts (auto) 2.4 (2.0-8.3) x10*3/uL Absolute Nucleated RBC 0.000 (0.0-0.012) X10*3/uL Nucleated RBC % (auto) 0.0 (0.0-0.2) /100WBC Sodium 140 (135-145) mmol/L Potassium 5.0 (3.3-5.1) mmol/L Chloride 105 (96-108) mmol/L Carbon Dioxide 27 (22-29) mmol/L Anion Gap 13 (12-20) BUN 9 (9-16) mg/dL Creatinine 0.75 (0.5-1.4) mg/dL Estim Creat Clear Calc 69.0 Estimated GFR > 60 Random Glucose 82 (60-115) mg/dL Calcium 9.4 (8.4-10.2) mg/dL Magnesium 2.3 (1.6-2.6) mg/dL Total Bilirubin 0.4 (0.0-1.0) mg/dL AST 25 (5-31) U/L ALT 13 (0-31) U/L Alkaline Phosphatase 80 (39-117) U/L Total Protein 7.0 (6.5-8.0) g/dL Albumin 3.8 (3.5-5.0) g/dL Independent Interpretation I performed an independent interpretation of an: CT Scan (brain: no bleed, no mass no edema) Independent Historian Clinical information obtained from an independent historian. History obtained from or confirmed by: EMS Tests considered The following testing was considered but not selected: MRI of brain considered but CT negative and patient is non focal Chronic Conditions Patient?s care impacted by: Other (psychiatric) Discharge Plan Discharge Clinical Impression: Weakness Patient Disposition: Home, Self-Care Instructions: Weakness (ED) Prescriptions: No Action cetirizine 10 mg tablet 10 mg PO DAILY PRN (Reason: allergy symptoms) 30 Days Qty: 30 0RF sucralfate [Carafate] 100 mg/mL suspension 10 ml PO BID PRN (Reason: abdominal pain) 30 Days Qty: 420 0RF ondansetron 8 mg tablet,disintegrating 8 mg PO Q12H PRN (Reason: nausea and vomiting) 30 Days Qty: 60 0RF nystatin 100,000 unit/gram cream 1 appl topical DAILY PRN (Reason: rash) 30 Days Qty: 30 1RF cholecalciferol (vitamin D3) 50 mcg (2,000 unit) tablet 50 mcg PO .every other day 90 Days Qty: 45 3RF diclofenac sodium [Arthritis Pain (diclofenac)] 1 % gel 2 g topical QID 30 Days Qty: 100 0RF Rx Instructions: apply to single elbow, wrist or hand; for hand includes palm/fingers/back of hand methocarbamol 500 mg tablet 500 mg PO Q8H PRN (Reason: muscle pain) 30 Days Qty: 90 0RF gabapentin 300 mg capsule 300 mg PO TID 30 Days Qty: 90 1RF oxycodone 10 mg tablet 10 mg PO Q8H PRN (Reason: pain) 14 Days Qty: 42 0RF Rx Instructions: Partial Fill upon patient request. metronidazole 500 mg tablet 500 mg PO BID 7 Days Qty: 14 0RF ciprofloxacin HCl 500 mg tablet 500 mg PO BID 7 Days Qty: 14 0RF alprazolam [Xanax] 0.5 mg tablet 0.5 - 1 mg PO BEDTIME 3 Days Qty: 6 0RF Rx Instructions: Xanax 1-2 tabs at HS PRN lamotrigine 150 mg Tablet 150 mg PO BID desvenlafaxine succinate [Pristiq] 100 mg tablet extended release 24 hr 100 mg PO DAILY trazodone 50 mg tablet 50 - 100 mg PO BEDTIME PRN (Reason: Insomnia) Rx Instructions: take 1-2 tabs at HS PRN insomnia acetaminophen [Tylenol Extra Strength] 500 mg tablet 500 mg PO QID PRN (Reason: fever or pain) sennosides-docusate sodium [Stimulant Laxative Plus] 8.6-50 mg tablet PO polyethylene glycol 3350 [Miralax] 17 gram/dose powder 17 g PO DAILY bupropion HCl 150 mg tablet extended release 24 hr PO omeprazole 20 mg capsule,delayed release(DR/EC) 20 mg PO DAILY 90 Days Qty: 90 1RF Referrals: Rabia Sim MD [Primary Care Provider] - 3 days
--- OUTSIDE RECORDS SUMMARY | 2023-02-27 12:10 | XMS_ITS | Patient Health Record ---
Author Name Unknown Organization Matt Chino III, MD Address [address] [place] [place] [address] Care Team Providers Care Production Staff Worker Name Role Phone MARLENY CHATMAN, SHEYLA Primary Care Provider UnavailMatt Cueva Unavailable [phone] Julian CHATMAN, Sheyla Unavailable Unavailable ALLERGIES Allergen (clinical drug ingredient) Drug/Non Drug Allergy documented on EMR Reaction Allergy Type Onset Date Status sulfa rash Drug Allergy Active Penicillin nausea and vomiting Drug Allergy Active Cortisone rash Drug Allergy Active Vancocin HCl itch Drug Allergy Acti ve metformin Metformin HCl nausea Drug Allergy Act leticia REASON FOR REFERRAL No Information MEDICATIONS Medication SIG (Take, Route, Fr equency, Duration) Notes Start Date End Date Status Abilify 2 MG 1 tablet Orally Once a day Active Wellbutrin 300 MG 1 tablet Orally once a day Active Anastrozole 1 MG 1 tablet Orally Once a day Active PROzac 20 MG 1 capsule in the mor adriane Orally Once a day Active LaMICtal 200 MG 1 tablet Orally Once a day Active SOCIAL HISTORY Sex Assigned At : Social History Observation Description Sex Assigned At Unknown PROBLEMS Problem Type ICD Code Onset Dates Problem Status W/U Status Risk SNOMED Code Notes Problem mole (631.8) Active confirmed Problem Episodic low back pain (724.2) Active confirmed Low back pain (668759621) Problem Lobular carcinoma in situ (233.0) Active confirmed Lobular carcinoma in situ (04764461) No additional therapy is recommended for this diagnosis. Annual mammography will continue. 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 She is on adjuvant endocrine therapy with no relapse. 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 She continues on adjuvant endocrine therapy. Problem BRCA2 positive (V84.01) Active confirmed Problem Depression (311) Active confirmed Depression (798615933) Problem Obesity (278.00) Active confirmed Obesity (702072675) We discussed strategies for weight reduction and a healthy diet and regular exercise. PLAN OF TREATMENT Pending Test Test Name Order Date PROFILE, RANDOM (COMPREHENSIVE METABOLIC ) 10/14/2013 CBC w DIFF 10/14/2013 CA 27.29 10/14/2013 Insurance Providers Payer Name Payer Address Payer Phone Subscriber Number Group Number Insured Name Patient Relationship to Insured Coverage Start Date Coverage End Date [employer] [address] [address] [place] [address] [id number] CASSIE WARD Self - patient is the insured MEDICAL (GENERAL) HISTORY Medical History History ICD Code DCIS left breast DCIS, right breast LCIS left breast esophagitis hiatal hernia depression with anxiety molar low back pain last mammogram 06/2012 @ [facility] christine BRCA2 positive anastrozole quit date January 2018 Surgical History Surgery Date(Month/Year) tubal ligation breast biopsy breast biopsy, right 06/2012 bladder suspension lumbosacral spine surgery 2008 lumpectomy, sentinel node biopsy, dcis
[2023-02-27 13:01] LABS: MANUAL DIFF FLAG NO
[2023-02-27 13:05] LABS: Basophils Absolute Auto 0.1 X10*3/uL (0.0-0.2); Basophils Percent Auto 1.3 % (0-2); Eosinophils Absolute Auto 0.2 X10*3/uL (0.0-0.4); Eosinophils Percent Auto 4.4 % (0-4); Hematocrit 39.3 % (37.0-47.0); Hemoglobin 12.4 g/dl (12.0-16.0); Imm Gran Abs Auto 0.01 X10*3/uL (0.00-0.03); Imm Gran Pct Auto 0.3 % (0.0-0.4); Lymphocytes Percent Auto 25.9 % (20-40); Mean Corpuscular HGB Conc 31.6 g/dl (31.0-35.0); Mean Corpuscular Hemoglobin 30.7 pg (27.0-33.0); Mean Corpuscular Volume 97.3 fL (80.0-98.0); Monocytes Absolute Auto 0.3 X10*3/uL (0.1-1.2); Monocytes Percent Auto 7.7 % (2-11); Neutrophils Absolute Auto 2.4 x10*3/uL (2.0-8.3); Neutrophils Percent Auto 60.4 % (45-73); Platelet Count 224 X10*3/uL (160-400); Red Blood Count 4.04 X10*6/uL (4.20-5.50); White Blood Count 3.9 X10*3/uL (4.8-10.8)
[2023-02-27 13:38] LABS: Alanine Aminotransferase 13 U/L (0-31); Albumin Level 3.8 g/dL (3.5-5.0); Alkaline Phosphatase 80 U/L (39-117); Anion Gap 13 (12-20); Aspartate Amino Transferase 25 U/L (5-31); Bilirubin Total 0.4 mg/dL (0.0-1.0); Blood Urea Nitrogen 9 mg/dL (9-16); Calcium 9.4 mg/dL (8.4-10.2); Carbon Dioxide 27 mmol/L (22-29); Chloride 105 mmol/L (96-108); Estimated Glomerular Filt Rate > 60; Glucose Random 82 mg/dL (60-115); Magnesium 2.3 mg/dL (1.6-2.6); Sodium 140 mmol/L (135-145)
[2023-02-27 13:56] VITALS: BP 140/77; PULSE 65; RESP 15; TEMP 36.8; O2SAT 98
--- NOTE | 2023-02-27 15:25 | PC.NURSE ---
aox4.calm, coop. no distress. talks well. pt states can pick up driver from ER/getride from family member who lives near hospital. walked out w steady gait to [facility]. iv removed given sandwich/h20 on departure per request. declined bus pass
== END 2023-02-27 15:25 | disposition home or self-care (01) ==
PROVIDERS: Emergency Provider Emergency Medicine; PCP Internal Medicine
DX: R53.1 Weakness (principal); F33.9 Major depressive disorder, recurrent, unspecified; Z85.3 Personal history of malignant neoplasm of breast; Z79.899 Other long term (current) drug therapy
CPT/HCPCS: 36415; 70450; 80053; 83735; 85025; 99283; 99284

== ENCOUNTER 2023-03-21 14:23 | Outpatient (AMB) | payer MEDICARE, MEDICAID, SELFPAY ==
--- NOTE | 2023-03-21 14:34 | A.OFFPC_ITS ---
Vital Signs 03/21/23 14:39 Height 5 ft 3 in Weight 146 lb BMI 25.9 BP 126/82 Blood Pressure Location Lt brachial Position Sitting Intake Visit Reasons: depression,chronic pain Intake Note: Patient here for a follow up depression, chronic pain Pelletizer Tender Required: No Accompanied by: Self / Same As Patient Allergies vancomycin [VANCOMYCIN] Allergy (Severe, Verified 03/21/23 14:55) ITCHING SEVERE, pruritus clindamycin [CLINDAMYCIN] Allergy (Intermediate, Verified 03/21/23 14:55) ITCHING ibuprofen Allergy (Intermediate, Verified 03/21/23 14:55) abdominal pain nitrofurantoin Allergy (Intermediate, Verified 03/21/23 14:55) abdominal pain Penicillins [PENICILLINS] Allergy (Intermediate, Verified 03/21/23 14:55) HIVES Sulfa (Sulfonamide Antibiotics) Allergy (Intermediate, Verified 03/21/23 14:55) RASH/SWELLING, rash, swelling venlafaxine [From EFFEXOR] Adverse Reaction (Severe, Verified 03/21/23 14:55) WORSENING DEPRESSION Butrans patch Allergy (Severe, Uncoded 03/21/23 14:55) depression STEROID INJECTIONS Allergy (Severe, Uncoded 03/21/23 14:55) ANGER AND AGGITATION Herbal medicines/teas Allergy (Intermediate, Uncoded 03/21/23 14:55) headaches, stuffiness Medication List - Last Reconciled 03/21/23 by Rabia Grider MD acetaminophen (Tylenol Extra Strength) 500 mg PO QID PRN alprazolam (Xanax) 0.5 - 1 mg (1 - 2 x 0.5 mg) PO BEDTIME 3 days bupropion HCl 300 mg PO DAILY cholecalciferol (vitamin D3) 50 mcg PO .every other day 90 days desvenlafaxine succinate ER (Pristiq) 100 mg PO DAILY diclofenac sodium 1% (Arthritis Pain (diclofenac)) 2 grams topical QID 30 days gabapentin 300 mg PO .four times a day 30 days lamotrigine 150 mg PO BID nystatin 1 appl topical DAILY PRN 30 days omeprazole 20 mg PO DAILY 90 days polyethylene glycol 3350 (Miralax) 17 grams PO DAILY sennosides-docusate sodium 8.6-50 mg (Stimulant Laxative Plus) tabs PO trazodone 50 - 100 mg PO BEDTIME PRN Tobacco use date assessed: 09/29/22 Fall risk assessment: No Falls in past year Last assessed Fall Risk: 03/21/23 Dental Screening Dental Screen Date: 03/21/23 Did you have a dental visit in the last 12 months?: No Did you have a dental problem in the last 6 months where you did not have access to dental care?: No Was dental information given to patient?: Patient has dentist HPI HPI Comments History of Present Illness Details This is a 67-year-old female with chronic constipation, mild recurrent major depression, chronic GERD and mood disorder that comes today for follow-up on her conditions. She also has left sciatica on physical therapy and gabapentin for relieved. Constipation has been stable with medications. Still has depression with Pristiq and follows with psychiatry. GERD also stable with PPIs. Mood disorder well controlled with lamotrigine. No chest pain or shortness of breath. Walks without assistive device. [facility] Medical History (Updated 03/21/23 @ 15:08 by Rabia Grider MD) Meralgia paraesthetica Obese Obesity Hospital discharge follow-up Dilation of pancreatic duct B12 deficiency Mild recurrent major depression Left hip pain Diarrhea 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 Pre-op evaluation Glossitis Ear discomfort Lumbar radiculopathy Chronic constipation Urine incontinence Left sided sciatica Fatigue Back pain Herniated disc PTSD (post-traumatic stress disorder) History of right breast cancer History of left breast cancer BRCA gene mutation positive Retinal lesion History of bronchitis Depression Irritable bowel syndrome Sciatica Arthritis Chronic GERD Neck pain Surgical History History of sinus surgery History of repair of hiatal hernia History of Lashay-en-Y gastric bypass History of esophagogastroduodenoscopy (EGD) Hx of hernia repair Hx of cholecystectomy Hx of cystostomy Hx of tubal ligation Hx of colonoscopy History of pubovaginal sling Hx of breast lump removal Hx of bilateral oophorectomy Family History Father Heart disease Mother Diabetes mellitus Brother Prostate cancer Pancreatic cancer BRCA positive Sister Breast cancer BRCA positive Son No problems noted. Social History Household Members: Significant Other Housing: House Are you a primary foster care worker to a significant other at home: No Do you presently have visiting nurse or other home services: No Alcohol intake: never Patient Tobacco Use Status: Never used Tobacco e-Cigarette/Vaping Use: Never Used Second Hand Smoke Exposure: No Substance Use Type: Marijuana service: No Current occupational status: disabled Cognitive needs: No Hearing needs: No Vision needs: Yes Questionnaire Thrive Questionnaire Date Thrive assessed: 09/29/22 VIOLETA-7 AMB Questionnaire VIOLETA-7 Date VIOLETA - 7 assessed: 09/29/22 Source: Developed by Drs. Matt Diehl, Harriet Cardona, Kulwinder Martin and colleagues, with an educational giovanna from [employer]. Review of Systems Const All systems reviewed & are unremarkable except as noted in HPI and below Eyes Reports no additional complaints, Denies change in vision and Denies other visual disturbances Card Denies chest pain at rest, Denies chest pain with activity, Denies edema, Denies irregular heart rhythm, Denies claudication, Denies dyspnea, Denies dyspnea on exertion, Denies orthopnea, Denies paroxysmal nocturnal dyspnea and Denies slow heart rate Resp Denies cough, Denies dyspnea and Denies dyspnea on exertion GI Denies abdominal pain, Denies change in bowel habits, Denies excessive flatus, Denies nausea and Denies vomiting Denies urinary incontinence, Denies urinary hesitancy and Denies urinary urgency Musc Denies abnormal gait, Denies atrophy, Denies deformity and Denies limited range of motion Skin/Breast Denies bleeding lesions, Denies changing lesions and Denies rash Neuro Denies abnormal gait and Denies lack of coordination Physical exam (Primary Care) Vital Signs: Last Vital Signs BP 126/82 03/21/23 14:39 BMI result Body Mass Index 23.6 Tobacco/Smoking Status: Tobacco use Status Tobacco use date assessed 09/29/22 03/21/23 14:36 Patient Tobacco Use Status Never used Tobacco 03/21/23 14:36 e-Cigarette/Vaping Use Never Used 03/21/23 14:36 Thrive Assessment: Date of Thrive Assessment Date Thrive assessed 09/29/22 03/21/23 14:36 Eyes General: appearance normal, both eyes and all related structures Eyelids: Yes eyelids normal Conjunctivae: conjunctivae normal Neck Neck: Yes normal visual inspection and Yes supple Resp Effort & Inspection: normal respiratory effort Auscultation: clear to auscultation bilaterally Cardio Jugular venous distension: no JVD Rate: regular rate Rhythm: regular rhythm Heart sounds: S1 normal heart sound present and S2 normal heart sound present Extrem General: Yes full ROM Office Procedures Flu Questionnaire Does the patient have a severe egg allergy?: No Immunizations flu vacc [id number] 6mos up(PF) 60 mcg(15 mcgx4)/0.5 mL IM syringe Performing Provider: Rabia Grider MD [facility] Documented (not given) by: RAFAEL Olivares on 03/21/23 14:45 Reason Not Given: Patient Refused Assessment and Plan Assessment & Plan (1) Mild recurrent major depression: Code(s): F33.0 - Major depressive disorder, recurrent, mild Plan: Continue Pristiq. Follow-up with psychiatry (2) Mood disorder: Comment: ptsd, lonely, -no S/ H I- support offered. Details-lifes struggles-has live-in partner, who works-feels isolated at times Code(s): F39 - Unspecified mood [affective] disorder Plan: Continue lamotrigine. Follow-up with psychiatry. (3) Left sided sciatica: Code(s): M54.32 - Sciatica, left side Plan: Continue gabapentin. Continue physical therapy. (4) Chronic GERD: Comment: add new med; 20 min reviewing chart, evaluating patient and documenting Code(s): K21.9 - Gastro-esophageal reflux disease without esophagitis Plan: Continue PPIs. (5) Chronic constipation: Comment: Maintain high-fiber diet continue Linzess Code(s): K59.09 - Other constipation Plan: Continue senna as needed. Orders: Orders Influenza [id number] Immunization Today Z23 - Encounter for immunization XR DEXA axial skeleton Today N95.9 - Unspecified menopausal and perimenopausal disorder Referrals Urology Referral R82.90 - Unspecified abnormal findings in urine Coding Level of Care Code Est Pt Level 4 (35318) Diagnoses Mild recurrent major depression F33.0 Mood disorder F39 Left sided sciatica M54.32 Chronic GERD K21.9 Chronic constipation K59.09 Time Spent (min) 24
[2023-03-21 14:39] VITALS: BP 126/82; BMI 25.9
== END 2023-03-21 15:13 | disposition home or self-care (01) ==
PROVIDERS: PCP Internal Medicine; Visit Provider Internal Medicine
DX: K21.9 Gastro-esophageal reflux disease without esophagitis (principal); F39 Unspecified mood [affective] disorder; F33.0 Major depressive disorder, recurrent, mild; M54.32 Sciatica, left side; K59.09 Other constipation
CPT/HCPCS: 99214

== ENCOUNTER 2023-04-19 12:41 | Outpatient (REF) | payer MEDICARE, MEDICAID, SELFPAY ==
--- NOTE | ~2023-04-19 | MM_ITS ---
EXAMINATION: BONE DENSITOMETRY CLINICAL INDICATION: Unspecified menopausal and perimenopausal disorder. COMPARISON: Previous BD dated 08/01/2013, spine and baseline BD dated 08/01/2013. TECHNIQUE: Using a [employer] DXA System (software version: 13.1) manufactured by [employer], dual-energy x-ray absorptiometry was performed of the lumbar spine and right hip. The images are of good technical quality. Summary results are attached. FINDINGS: RIGHT FEMUR, NECK: Current: BMD 0.785 g/cm2, Z-score -0.3, T-score -1.8, osteopenia. Baseline: BMD 0.923 g/cm2. RIGHT FEMUR, TOTAL: Current: BMD 0.767 g/cm2, Z-score -0.7, T-score -1.9, osteopenia, 22.5% decrease from baseline (<5% change is not significant). Baseline: BMD 0.990 g/cm2. AP SPINE L1-L3 (excluding L4): The data of L1-L4 has been changed to exclude the L4 vertebral body, because degenerative sclerosis at this level may cause overestimation of lumbar spine density. Current: BMD 1.065 g/cm2, Z-score 0.7, T-score -0.9, normal, 11.5% decrease from previous, 14.6% decrease from baseline (<5% change is not significant). Prior: BMD 1.203 g/cm2. Baseline: BMD 1.247 g/cm2. IDENTIFIED RISK FACTORS: Early menopause, secondary osteoporosis, intestinal or bowel disease, bilateral oophorectomy, low calcium intake. HISTORY OF FRACTURE: None listed. MEDICATIONS: Vitamin D. MM/XR DEXA axial skeleton IMPRESSION: 1. DIAGNOSIS: Osteopenia based on the lowest T-score value of -1.9 in the total femur applying World Health Organization criteria. 2. 10-YEAR FRACTURE RISK PREDICTION, FRAX: Major osteoporotic fracture (clinical spine, forearm, hip or shoulder) 10.5%. Hip fracture 1.5%. 3. Treatment Recommendations: NOF guidelines recommend consideration for treatment in postmenopausal women and men age 50 and older presenting with the following: -A hip or vertebral (clinical or morphometric) fracture. -T-score less than or equal to -2.5 at the femoral neck or spine after appropriate evaluation to exclude secondary causes. -Low bone mass at the hip or spine and a 10-year fracture probability by FRAX of greater than or equal to 3% for hip fracture or greater than or equal to 20% for major osteoporotic fracture based on the [place] adapted WHO algorithm. 4. Other Recommendations: All treatment decisions require clinical judgment and consideration of individual patient factors, including patient preferences, comorbidities, previous drug use, risk factors not captured in the FRAX model (e.g. frailty, falls, vitamin D deficiency, increased bone turnover, interval significant decline in bone density) and possible under or overestimation of fracture risk by FRAX. Additional medical evaluation for secondary cause of low bone mineral density may be appropriate. FUTURE SCAN RECOMMENDATION: People with diagnosed cases of osteoporosis or at high risk for fracture should have regular bone mineral density tests. For patients eligible for Medicare, routine testing is allowed once every 2 years. The testing frequency can be increased to one year for patients who have rapidly progressing disease, those who are receiving or discontinuing medical therapy to restore bone mass, or have additional risk factors.
== END 2023-04-19 12:42 | disposition home or self-care (01) ==
LOC: HO.MAMMO 12:41
PROVIDERS: PCP Internal Medicine; Visit Provider Internal Medicine
DX: Z13.820 Encounter for screening for osteoporosis (principal); Z78.0 Asymptomatic menopausal state
CPT/HCPCS: 77080

== ENCOUNTER 2023-05-29 14:43 | Outpatient (REF) | payer MEDICARE, MEDICAID, SELFPAY | END 2023-05-29 14:44 | disposition home or self-care (01) | LOC: HO.LAB 14:43 | PROVIDERS: PCP Internal Medicine; Visit Provider Urology | DX: D17.71 Benign lipomatous neoplasm of kidney (principal); Q64.31 Congenital bladder neck obstruction; R32 Unspecified urinary incontinence; N28.1 Cyst of kidney, acquired | CPT/HCPCS: 81003; 87086; 99202 ==

== ENCOUNTER 2023-05-29 14:43 | Outpatient (AMB) | payer MEDICARE, MEDICAID, SELFPAY ==
--- NOTE | 2023-05-29 14:56 | A.OFFVIS_ITS ---
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 Intake Note: NEW Patient presents today to established treatment for urinary incontinence Meds- None Allergies to Antibiotic- Vancomycin,Clindamycin, Penicillins,Sulfa, Nitrofurantoin, Blood Thinner- None Bowl Sander Required: No Accompanied by: Self / Same As Patient Allergies vancomycin [VANCOMYCIN] Allergy (Severe, Verified 05/29/23 15:15) ITCHING SEVERE, pruritus clindamycin [CLINDAMYCIN] Allergy (Intermediate, Verified 05/29/23 15:15) ITCHING ibuprofen Allergy (Intermediate, Verified 05/29/23 15:15) abdominal pain nitrofurantoin Allergy (Intermediate, Verified 05/29/23 15:15) abdominal pain Penicillins [PENICILLINS] Allergy (Intermediate, Verified 05/29/23 15:15) HIVES Sulfa (Sulfonamide Antibiotics) Allergy (Intermediate, Verified 05/29/23 15:15) RASH/SWELLING, rash, swelling venlafaxine [From EFFEXOR] Adverse Reaction (Severe, Verified 05/29/23 15:15) WORSENING DEPRESSION Butrans patch Allergy (Severe, Uncoded 05/29/23 15:15) depression STEROID INJECTIONS Allergy (Severe, Uncoded 05/29/23 15:15) ANGER AND AGGITATION Herbal medicines/teas Allergy (Intermediate, Uncoded 05/29/23 15:15) headaches, stuffiness HPI HPI Comments History of Present Illness Details Nancy is a 67-year-old female who is here with complaints of having to push to empty as well as times where she has urgency and may leak. She denies leakage with coughing. She notes during intercourse she may leak. She denies recent urinary tract infections. The patient gives a history of bladder procedure for prolapse and incontinence at [facility] [place] about 20 years ago she states they placed a mesh at that time. History of lumbar radiculopathy, the patient states she notes that when her back is aggravated she tends to have more urine leakage. Patient states also has colitis which causes constipation and diarrhea intermittently. Examination--no significant prolapse noted, there was resistance in placing the 14 Barb[place] catheter. Catheterized PVR 60 mL No leakage with cough or Valsalva. I have discussed avoiding dietary bladder irritants, including to cut back on caffeine usage. I have reviewed chart she had a CT scan abdomen pelvis in May 12, 2021 noting left kidney cysts and a possible right kidney angiomyolipoma. 05/29/2023--Plan Discussed that symptoms of hesitancy may be due to urethral stenosis, discussed possible treatments to include an alpha-evelio, urethral dilation, as well as observe for now as she is emptying adequately. Discussed urine leakage episodes may be associated with bladder spasms, instructed to avoid dietary bladder irritants such as caffeinated beverages. Renal ultrasound to re-evaluate kidney cysts and angiomyolipoma [facility] Medical History Meralgia paraesthetica Obese Obesity Hospital discharge follow-up Dilation of pancreatic duct B12 deficiency Mild recurrent major depression Left hip pain Diarrhea 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 Pre-op evaluation Glossitis Ear discomfort Lumbar radiculopathy Chronic constipation Urine incontinence Left sided sciatica Fatigue Back pain Herniated disc PTSD (post-traumatic stress disorder) History of right breast cancer History of left breast cancer BRCA gene mutation positive Retinal lesion History of bronchitis Depression Irritable bowel syndrome Sciatica Arthritis Chronic GERD Neck pain Surgical History History of sinus surgery History of repair of hiatal hernia History of Lashay-en-Y gastric bypass History of esophagogastroduodenoscopy (EGD) Hx of hernia repair Hx of cholecystectomy Hx of cystostomy Hx of tubal ligation Hx of colonoscopy History of pubovaginal sling Hx of breast lump removal Hx of bilateral oophorectomy Family History Father Heart disease Mother Diabetes mellitus Brother Prostate cancer Pancreatic cancer BRCA positive Sister Breast cancer BRCA positive Son No problems noted. Social History Household Members: Significant Other Housing: House Are you a primary healthcare sales representative to a significant other at home: No Do you presently have visiting nurse or other home services: No Alcohol intake: never Patient Tobacco Use Status: Never used Tobacco e-Cigarette/Vaping Use: Never Used Second Hand Smoke Exposure: No Substance Use Type: Marijuana service: No Current occupational status: disabled Cognitive needs: No Hearing needs: No Vision needs: Yes Review of Systems Const All systems reviewed & are unremarkable except as noted in HPI and below Reports no additional complaints Eyes Reports no additional complaints ENT Reports no additional complaints Card Denies dyspnea Resp Denies cough and Denies dyspnea GI Reports no additional complaints Reports no additional complaints Musc Reports no additional complaints Skin/Breast Denies rash and Denies unusual bruising Neuro Reports no additional complaints Psych Reports no additional complaints Endo Reports no additional complaints Rubén/Lymph Reports no additional complaints Aller/Immun Reports no additional complaints Physical Exam Const General: cooperative, healthy appearing and no acute distress Orientation/consciousness: patient oriented x3 HEENT Head: Yes normal to inspection, Yes normocephalic and Yes atraumatic Eyes Conjunctivae: conjunctivae normal Neck Neck: Yes normal visual inspection and Yes trachea midline Chest Chest palpation & inspection: normal inspection of the chest Resp Effort & Inspection: normal respiratory effort Cardio Rate: regular rate GI Inspection: Yes normal to inspection Palpation (GI): Soft to palpation General: No no CVA tenderness External Female Exam: normal external appearance Speculum Exam - Vagina: vagina atrophic Back/Spine/Pelvis Back: No no CVA tenderness Skin General skin exam: no rashes or lesions noted Neuro General: patient oriented x3 Extrem General: No edema Psych Appearance: grossly normal Results AMB Urinalysis, Automated UA Leukoctes 0 Svitlana/uL Last Edit by Diana Matthews [facility] on 05/29/23 15 :11 UA Nitrite Negative Last Edit by Diana Matthewsjolanta Matthews [facility] on 05/29/23 15: 11 UA Urobilinogen 0.2 mg/dL Last Edit by Diana Matthewsjolanta Matthews CMA on 4 15:11 UA Protein 15 mg/dL Last Edit by Diana Matthewsjolanta Matthews [facility] on 05/29/23 15:1 1 UA pH 5.5 Last Edit by Diana Matthewsjolanta Matthews CMA on 05/29/23 15:11 UA Blood 0 Richard/uL Last Edit by Diana Matthews [facility] on 05/29/23 15:11 UA Specific [place] 1.030 Last Edit by Diana Matthews CMA on 15:11 UA Ketone Negative Last Edit by Diana Matthews CMA on 05/29/23 15:1 1 UA Bilirubin 0 mg/dL Last Edit by Diana Matthews CMA on 05/29/23 15: 11 UA Glucose 0 mg/dL Last Edit by Diana Matthews CMA on 05/29/23 15:11 Results Reviewed Results Reviewed: Laboratory Last Values Urine pH (Auto) 5.5 05/29/23 15:09 Specific [place] (Auto) 1.030 05/29/23 15:09 Urine Protein (Auto) 15 mg/dL 05/29/23 15:09 Glucose (UA)(Auto) 0 mg/dL 05/29/23 15:09 Urine Ketones (Auto) Negative 05/29/23 15:09 Urine Blood (Auto) 0 Richard/uL 05/29/23 15:09 Urine Nitrite (Auto) Negative 05/29/23 15:09 Urine Bilirubin (Auto) 0 mg/dL 05/29/23 15:09 Urine Urobilinogen (Auto) 0.2 mg/dL 05/29/23 15:09 Leukocyte Esterase (Auto) 0 Svitlana/uL 05/29/23 15:09 Date of Service: 05/12/21 EXAMINATION: CT ABDOMEN AND PELVIS WITH CONTRAST CLINICAL INFORMATION: Bilateral lower quadrant pain COMPARISON: Previous CT of the abdomen and pelvis October 2020 TECHNIQUE: Multidetector volumetric images were obtained from the superior aspect of the liver through the pubic symphysis following administration 85 mL of Omnipaque 350 intravenous contrast. Sagittal and coronal reformatted images were obtained on the technologist's workstation. Oral contrast: Yes This CT examination was performed using dose optimization techniques as appropriate, variously including the following: *Automated exposure control *Adjustment of mA and/or kV according to patient size (this includes techniques or standardized protocols for targeted exams where dose is matched to indication/reason for exam; i.e. extremities or head) *Use of iterative reconstruction technique DLP: 668 mGy-cm FINDINGS: LUNG BASES: The visualized lung bases are unremarkable. LIVER, GALLBLADDER, AND BILIARY TREE: The liver is normal in size, shape, and attenuation. No focal hepatic lesion or biliary ductal dilatation is present. The gallbladder has been removed. PANCREAS: Unremarkable. SPLEEN: Unremarkable. ADRENAL GLANDS: Unremarkable. KIDNEYS AND URETERS: There are left renal cysts. There is a small 4 mm fatty lesion in the lower pole right kidney probably representing a benign angiomyolipoma. There is cortical thinning or scarring in the lower pole of the left kidney. BLADDER: Unremarkable. GASTROINTESTINAL TRACT: There is diverticulosis of the colon. There is wall thickening of the sigmoid colon and stranding of the surrounding fat suggestive of mild sigmoid diverticulitis. No evidence of obstruction, perforation or abscess is seen. There is stool throughout the colon suggestive of constipation. The appendix is is not seen. No inflammatory changes are seen in the right lower quadrant. There are postsurgical changes to the stomach/Gastric bypass. ABDOMINAL WALL: No significant hernia is appreciated. LYMPH NODES: Normal. VASCULAR: Unremarkable. PELVIC VISCERA: Unremarkable. OSSEOUS STRUCTURES: There is a left hip replacement. There are degenerative changes of the spine. IMPRESSION: Mild sigmoid diverticulitis. Constipation. Postsurgical changes from gastric bypass. Left renal cysts. 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 Renal ultrasound to re-evaluate kidney cysts and angiomyolipoma Orders: Orders AMB Urinalysis Automated Today R33.9 - Retention of urine, unspecified Urine Culture Today N39.0 - Urinary tract infection, site not specified Patient Instructions: The patient had an opportunity to ask questions regarding treatment plan. All questions were answered. Imaging, Laboratory studies and physical exam results were discussed and reviewed in detail. No major barriers to understanding were identified. The patient expressed understanding and agreement with the above treatment plan. The patient is aware they should contact our office by phone for worsening of their current condition or the appearance of new symptoms. Compliance is encouraged with any medications and followup testing that is ordered. It is a privilege to be allowed the opportunity to participate in the urologic care of your patient. If you have any questions or concerns regarding treatment for the above conditions please do not hesitate to contact me. The office telephone contact is [phone]. This note is constructed in part using voice recognition software. While every effort has been made to ensure accuracy prosthodontist/owner errors may have been included. 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
== END 2023-05-29 16:19 | disposition home or self-care (01) ==
PROVIDERS: PCP Internal Medicine; Visit Provider Urology
DX: Q64.31 Congenital bladder neck obstruction (principal); R32 Unspecified urinary incontinence; N28.1 Cyst of kidney, acquired; D17.71 Benign lipomatous neoplasm of kidney; R33.9 Retention of urine, unspecified
CPT/HCPCS: 99204

== ENCOUNTER 2023-07-14 08:20 | Outpatient (REF) | payer MEDICARE, MEDICAID, SELFPAY ==
--- NOTE | ~2023-07-14 | US_ITS ---
EXAMINATION: US RETROPERITONEAL LIMITED (RENAL ONLY) CLINICAL INFORMATION: Cyst of kidney, acquired. COMPARISON: MRCP 08/06/2021. CT abdomen and pelvis 05/12/2021. X-ray KUB 01/11/2019. X-ray abdomen 06/14/2018. Ultrasound abdomen complete 10/27/2016. TECHNIQUE: Real-time imaging of the kidneys. FINDINGS: RIGHT KIDNEY: 11.5 x 4.6 x 4.5 cm (SAG x AP x TRV). The kidney is normal in size, contour, and echogenicity. Renal cortical thickness is normal. No hydronephrosis. At the lower pole, a 3 mm nonobstructing calculus is seen. At the lower pole, a 7 x 8 x 7 mm hyperechoic, circumscribed mass is seen. This is consistent with angiomyolipoma, as was seen on the CT abdomen and pelvis dated 05/12/2021 (5:39 4:344). LEFT KIDNEY: 10.6 x 4.9 x 4.1 cm (SAG x AP x TRV). The kidney is normal in size, contour, and echogenicity. There is focal interpolar and lower pole cortical thinning, consistent with CT findings (05/12/2021; 5:44). At the interpolar aspect, a 4 mm nonobstructing calculus is seen, with twinkle artifact. No hydronephrosis. At the lower pole, a 9 mm benign, simple exophytic cyst is seen, for which no imaging follow-up is recommended. US/US renal BI IMPRESSION: 1. There are nonobstructing bilateral renal calculi, as detailed. No hydronephrosis is seen. 2. An 8 mm benign right renal lower pole angiomyolipoma is redemonstrated. 3. There is again focal left renal interpolar and lower pole cortical thinning.
== END 2023-07-14 08:21 | disposition home or self-care (01) ==
LOC: HO.HMGCX 08:20
PROVIDERS: PCP Internal Medicine; Visit Provider Urology
DX: N28.1 Cyst of kidney, acquired (principal); D17.71 Benign lipomatous neoplasm of kidney; R82.90 Unspecified abnormal findings in urine
CPT/HCPCS: 76775

== ENCOUNTER 2023-07-24 14:07 | Outpatient (AMB) | payer MEDICARE, MEDICAID, SELFPAY ==
--- NOTE | 2023-07-24 14:09 | MHC.OFFVIS ---
Intake Visit Reasons: 8w/US Intake Note: Patient is Present for Follow Up Urology Medication: None Antibiotic Allergies: Vanomycin, Clindamycin, Nitrofuratoin, Penicillins, Sulfa Blood Thinners: None PVR: 56ml Allergies vancomycin [VANCOMYCIN] Allergy (Severe, Verified 08/09/23 15:16) ITCHING SEVERE, pruritus clindamycin [CLINDAMYCIN] Allergy (Intermediate, Verified 08/09/23 15:16) ITCHING ibuprofen Allergy (Intermediate, Verified 08/09/23 15:16) abdominal pain nitrofurantoin Allergy (Intermediate, Verified 08/09/23 15:16) abdominal pain Penicillins [PENICILLINS] Allergy (Intermediate, Verified 08/09/23 15:16) HIVES Sulfa (Sulfonamide Antibiotics) Allergy (Intermediate, Verified 08/09/23 15:16) RASH/SWELLING, rash, swelling venlafaxine [From EFFEXOR] Adverse Reaction (Severe, Verified 08/09/23 15:16) WORSENING DEPRESSION Butrans patch Allergy (Severe, Uncoded 08/09/23 15:16) depression STEROID INJECTIONS Allergy (Severe, Uncoded 08/09/23 15:16) ANGER AND AGGITATION Herbal medicines/teas Allergy (Intermediate, Uncoded 08/09/23 15:16) headaches, stuffiness HPI Comments Details: 07/24/2023--Nancy is a 67-year-old female, she has had urinary symptoms of hesitancy from urethral stenosis. She is here in follow-up to discuss renal ultrasound results. Reviewed results with the patient-07/12/2023-nonobstructing renal stone, subcentimeter lesion consistent with renal angiomyolipoma unchanged. Bladder scan PVR - 56 mL is acceptable. We will continue to monitor. Review of chart: 05/29/23--Nancy is a 67-year-old female who is here with complaints of having to push to empty as well as times where she has urgency and may leak. She denies leakage with coughing. She notes during intercourse she may leak. She denies recent urinary tract infections. The patient gives a history of bladder procedure for prolapse and incontinence at [facility] about 20 years ago she states they placed a mesh at that time. History of lumbar radiculopathy, the patient states she notes that when her back is aggravated she tends to have more urine leakage. Patient states also has colitis which causes constipation and diarrhea intermittently. Examination--no significant prolapse noted, there was resistance in placing the 14 Swiss catheter. Catheterized PVR 60 mL No leakage with cough or Valsalva. I have discussed avoiding dietary bladder irritants, including to cut back on caffeine usage. Discussed that symptoms of hesitancy may be due to urethral stenosis, discussed possible treatments to include an alpha-evelio, urethral dilation, as well as observe for now as she is emptying adequately. Discussed urine leakage episodes may be associated with bladder spasms, instructed to avoid dietary bladder irritants such as caffeinated beverages. Renal ultrasound to re-evaluate kidney cysts and angiomyolipoma CT scan abdomen pelvis in May 12, 2021 noting left kidney cysts and a possible right kidney angiomyolipoma. [facility] Medical History Meralgia paraesthetica Obese Obesity Hospital discharge follow-up Dilation of pancreatic duct B12 deficiency Mild recurrent major depression Left hip pain Diarrhea 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 Pre-op evaluation Glossitis Ear discomfort Lumbar radiculopathy Chronic constipation Urine incontinence Left sided sciatica Fatigue Back pain Herniated disc PTSD (post-traumatic stress disorder) History of right breast cancer History of left breast cancer BRCA gene mutation positive Retinal lesion History of bronchitis Depression Irritable bowel syndrome Sciatica Arthritis Chronic GERD Neck pain Surgical History History of sinus surgery History of repair of hiatal hernia History of Lashay-en-Y gastric bypass History of esophagogastroduodenoscopy (EGD) Hx of hernia repair Hx of cholecystectomy Hx of cystostomy Hx of tubal ligation Hx of colonoscopy History of pubovaginal sling Hx of breast lump removal Hx of bilateral oophorectomy Family History Father Heart disease Mother Diabetes mellitus Brother Prostate cancer Pancreatic cancer BRCA positive Sister Breast cancer BRCA positive Son No problems noted. Social History Household Members: Significant Other Housing: House Are you a primary manager progressive care to a significant other at home: No Do you presently have visiting nurse or other home services: No Alcohol intake: never Patient Tobacco Use Status: Never used Tobacco e-Cigarette/Vaping Use: Never Used Second Hand Smoke Exposure: No Substance Use Type: Marijuana service: No Current occupational status: disabled Cognitive needs: No Hearing needs: No Vision needs: Yes Review of Systems Const All systems reviewed & are unremarkable except as noted in HPI and below Reports no additional complaints Eyes Reports no additional complaints ENT Reports no additional complaints Card Reports no additional complaints Resp Reports no additional complaints GI Reports no additional complaints Reports as per HPI Musc Reports no additional complaints Skin/Breast Reports system reviewed and no additional complaints, except as documented Neuro Reports no additional complaints Psych Reports no additional complaints Endo Reports no additional complaints Rubén/Lymph Reports no additional complaints Aller/Immun Reports no additional complaints Office Procedures Post Void Residual Post Residual Void Post Void Residual (PVR): 56 [id number] Void Residual by ultrasound Results Reviewed Results Reviewed: Date of Service: 07/14/23 EXAMINATION: US RETROPERITONEAL LIMITED (RENAL ONLY) CLINICAL INFORMATION: Cyst of kidney, acquired. COMPARISON: MRCP 08/06/2021. CT abdomen and pelvis 05/12/2021. X-ray KUB 01/11/2019. X-ray abdomen 06/14/2018. Ultrasound abdomen complete 10/27/2016. TECHNIQUE: Real-time imaging of the kidneys. FINDINGS: RIGHT KIDNEY: 11.5 x 4.6 x 4.5 cm (SAG x AP x TRV). The kidney is normal in size, contour, and echogenicity. Renal cortical thickness is normal. No hydronephrosis. At the lower pole, a 3 mm nonobstructing calculus is seen. At the lower pole, a 7 x 8 x 7 mm hyperechoic, circumscribed mass is seen. This is consistent with angiomyolipoma, as was seen on the CT abdomen and pelvis dated 05/12/2021 (5:39 4:344). LEFT KIDNEY: 10.6 x 4.9 x 4.1 cm (SAG x AP x TRV). The kidney is normal in size, contour, and echogenicity. There is focal interpolar and lower pole cortical thinning, consistent with CT findings (05/12/2021; 5:44). At the interpolar aspect, a 4 mm nonobstructing calculus is seen, with twinkle artifact. No hydronephrosis. At the lower pole, a 9 mm benign, simple exophytic cyst is seen, for which no imaging follow-up is recommended. IMPRESSION: 1. There are nonobstructing bilateral renal calculi, as detailed. No hydronephrosis is seen. 2. An 8 mm benign right renal lower pole angiomyolipoma is redemonstrated. 3. There is again focal left renal interpolar and lower pole cortical thinning. Date of Service: 05/12/21 EXAMINATION: CT ABDOMEN AND PELVIS WITH CONTRAST CLINICAL INFORMATION: Bilateral lower quadrant pain COMPARISON: Previous CT of the abdomen and pelvis October 2020 TECHNIQUE: Multidetector volumetric images were obtained from the superior aspect of the liver through the pubic symphysis following administration 85 mL of Omnipaque 350 intravenous contrast. Sagittal and coronal reformatted images were obtained on the technologist's workstation. Oral contrast: Yes This CT examination was performed using dose optimization techniques as appropriate, variously including the following: *Automated exposure control *Adjustment of mA and/or kV according to patient size (this includes techniques or standardized protocols for targeted exams where dose is matched to indication/reason for exam; i.e. extremities or head) *Use of iterative reconstruction technique DLP: 668 mGy-cm FINDINGS: LUNG BASES: The visualized lung bases are unremarkable. LIVER, GALLBLADDER, AND BILIARY TREE: The liver is normal in size, shape, and attenuation. No focal hepatic lesion or biliary ductal dilatation is present. The gallbladder has been removed. PANCREAS: Unremarkable. SPLEEN: Unremarkable. ADRENAL GLANDS: Unremarkable. KIDNEYS AND URETERS: There are left renal cysts. There is a small 4 mm fatty lesion in the lower pole right kidney probably representing a benign angiomyolipoma. There is cortical thinning or scarring in the lower pole of the left kidney. BLADDER: Unremarkable. GASTROINTESTINAL TRACT: There is diverticulosis of the colon. There is wall thickening of the sigmoid colon and stranding of the surrounding fat suggestive of mild sigmoid diverticulitis. No evidence of obstruction, perforation or abscess is seen. There is stool throughout the colon suggestive of constipation. The appendix is is not seen. No inflammatory changes are seen in the right lower quadrant. There are postsurgical changes to the stomach/Gastric bypass. ABDOMINAL WALL: No significant hernia is appreciated. LYMPH NODES: Normal. VASCULAR: Unremarkable. PELVIC VISCERA: Unremarkable. OSSEOUS STRUCTURES: There is a left hip replacement. There are degenerative changes of the spine. IMPRESSION: Mild sigmoid diverticulitis. Constipation. Postsurgical changes from gastric bypass. Left renal cysts. 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 Renal ultrasound prior. Patient to call for change in urinary symptoms. 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
== END 2023-07-24 14:46 | disposition home or self-care (01) ==
LOC: HO.HUSH 14:07
PROVIDERS: PCP Internal Medicine; Visit Provider Urology
DX: Q64.31 Congenital bladder neck obstruction (principal); D17.71 Benign lipomatous neoplasm of kidney
CPT/HCPCS: 99213

== ENCOUNTER → 2023-07-24 14:07 | Outpatient (BNVA) | payer MEDICARE, MEDICAID, SELFPAY | PROVIDERS: PCP Internal Medicine; Visit Provider Urology | DX: R32 Unspecified urinary incontinence (principal); Q64.31 Congenital bladder neck obstruction; D17.71 Benign lipomatous neoplasm of kidney | CPT/HCPCS: 51798; 99212 ==

== ENCOUNTER 2023-08-09 15:11 | Outpatient (REF) | payer MEDICARE, MEDICAID, SELFPAY ==
[2023-08-18 02:24] LABS: HPV mRNA E6/E7 rflx Not Detected (Not Detected)
== END 2023-08-09 15:12 | disposition home or self-care (01) ==
LOC: HO.LNP 15:11
PROVIDERS: PCP Internal Medicine; Visit Provider Obstetrics & Gynecology
DX: Z01.419 Encounter for gynecological examination (general) (routine) without abnormal findings (principal); N76.0 Acute vaginitis; R68.82 Decreased libido; F32.A Depression, unspecified; Z79.899 Other long term (current) drug therapy
CPT/HCPCS: 87624; 88142; 99202

== ENCOUNTER 2023-08-09 15:11 | Outpatient (AMB) | payer MEDICARE, MEDICAID, SELFPAY ==
--- OUTSIDE RECORDS SUMMARY | 2023-08-09 15:14 | XMS_ITS | Patient Health Record ---
Author Organization Matt Chino III, MD Address [address] [place] [address] Care Team Providers Care Charge Loader Name Role Phone MARLENY CHATMAN, SHEYLA Primary Care Provider UnavailMatt Cueva Unavailable [phone] Julian CHATMAN, Sheyla Unavailable Unavailable ALLERGIES Allergen [...] pain (724.2) Active confirmed Low back pain (846814336) Problem Lobular carcinoma in situ (233.0) Active confirmed Lobular carcinoma in situ (98094356) No additional therapy is recommended for this diagnosis. Annual mammography will continue. 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 She is on adjuvant endocrine therapy with no relapse. 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 She continues on adjuvant endocrine therapy. Problem BRCA2 positive (V84.01) Active confirmed Problem Depression (311) Active confirmed Depression (095878537) Problem Obesity (278.00) Active confirmed Obesity (318576321) We discussed strategies for weight reduction and a healthy diet and regular exercise. PLAN OF TREATMENT Pending Test Test Name Order Date PROFILE, RANDOM (COMPREHENSIVE METABOLIC ) 10/14/2013 CBC w DIFF 10/14/2013 CA 27.29 10/14/2013 Insurance Providers Payer Name Payer Address Payer Phone Subscriber Number Group Number Insured Name Patient Relationship to Insured Coverage Start Date Coverage End Date [employer] [address] [address] [place] [address] [id number] CASSIE WARD Self - patient is the insured MEDICAL (GENERAL) HISTORY Medical History History ICD Code DCIS left breast DCIS, right breast LCIS left breast esophagitis hiatal hernia depression with anxiety molar low back pain last mammogram 06/2012 @ [facility] christine BRCA2 positive anastrozole quit date January 2018 Surgical History Surgery Date(Month/Year) tubal ligation breast biopsy breast biopsy, right 06/2012 bladder suspension lumbosacral spine surgery 2008 lumpectomy, sentinel node biopsy, dcis
--- OUTSIDE RECORDS SUMMARY | 2023-08-09 15:14 | XMS_ITS | Continuity of Care Document ---
Author Organization [facility] Address [address], [address] Floor, [address] [place] [address]- Care Team Providers Care Retort Loader Name Role Phone Clayton Grider MD, Rabia Mancini Primary Care Physician [phone] Encounter [facility] Date(s): 12/26/22 - 01/25/23 [facility] [address], [address], [address] [place] [id number] Allergies, Adverse Reactions, Alerts Substance Reaction Severity Status clindamycin SEVERE ITCHING Active sulfamethoxazole Active metFORMIN nausea and vomiting Active penicillin vomiting/hives Active vancomycin Active levothyroxine nausea Active sulfa drugs hives/swelling Active Immunizations Given and Recorded Vaccine Date Status Refusal Reason tetanus/diphtheria/pertussis, acel(Tdap) 1 11/21/11 Given FluLaval (oldterm) 2 02/09/10 Given Tetanus Toxoid Vaccine (oldterm) 04/03/04 Given 1Admin Note: vis given 2Admin Note: [employer] [facility] Medications Abilify 2 mg oral tablet 1 tablet = 2 mg, By Mouth, Daily, # 30 tablet, 0 Refills, Maintenance Start Date: 02/03/11 Status: Ordered acetaminophen-HYDROcodone 325 mg-5 mg oral tablet 1 tablet, By Mouth, Every 4 hours, PRN as needed for pain, 0 Refills, Maintenance, 02/13/22 15:15:00 EST, Tablet, Partial fill upon patient request if the prescription is for a schedule II opioid drug. Start Date: 02/13/22 Status: Ordered ALPRAZolam 0.5 mg oral tablet 0.5 mg, 1, tablet, By Mouth, 2 times a day, Refills 0, Maintenance, 02/13/22 15:15:00 EST, Partial fill upon patient request if the prescription is for a schedule II opioid drug. Start Date: 02/13/22 Status: Ordered Anastrozole = 1 mg, By Mouth, Daily, 0 Refills, Maintenance, 06/11/13 10:44:33 Start Date: 06/11/13 Status: Ordered Contour Next EZ Test Strips See Instructions, # 1 box, Refills 5, Tot. Refills 5, Maintenance, USE 3-4 S DAILY FOR LOW BLOOD SUGAR, 10/03/12 14:34:32 Start Date: 10/03/12 Stop Date: 04/01/13 Status: Ordered fluoxetine 20 mg oral capsule 1 capsule = 20 mg, By Mouth, Daily, # 14 capsule, 0 Refills, Maintenance, 07/18/13 10:57:04, Capsule, 1 capsule By Mouth Daily,x14 days Start Date: 07/18/13 Stop Date: 08/01/13 Status: Ordered Freestyle Lite Lancets See Instructions, # 200 each, Refills 5, Tot. Refills 5, Maintenance, TEST 3-4 X DAILY FOR LOW BLOOD SUGAR, 10/03/12 16:16:06 Start Date: 10/03/12 Stop Date: 04/01/13 Status: Ordered Freestyle Lite Monitor See Instructions, # 1 each, Refills 0, Tot. Refills 0, Maintenance, USE FOR LOW BLOOD SUGAR 3-4 X DAILY, 10/03/12 16:11:32 Start Date: 10/03/12 Stop Date: 04/01/13 Status: Ordered gabapentin 100 mg oral capsule 100 mg, 1, capsule, By Mouth, 3 times a day, # 90 capsule, Refills 5, Maintenance, 02/13/22 15:16:00 EST, Partial fill upon patient request if the prescription is for a schedule II opioid drug. Start Date: 02/13/22 Status: Ordered hydroxyzine hydrochloride 25 mg oral tablet 1 tablet = 25 mg, By Mouth, 4 times a day, PRN for anxiety, # 40 tablet, 0 Refills, Maintenance, 07/23/13 10:27:12, Tablet, 1 tablet By Mouth 4 times a day,PRN:for anxiety Start Date: 07/23/13 Status: Ordered Klonopin 0.5 mg oral tablet 1 tablet = 0.5 mg, By Mouth, Daily at bedtime, PRN Sleep, # 8 tablet, 0 Refills, Maintenance, 05/17/13 15:53:53, Tablet Start Date: 05/17/13 Status: Ordered lamotrigine 150 mg oral tablet 1 tablet = 150 mg, By Mouth, 2 times a day, # 180 tablet, 0 Refills, Maintenance, 02/13/22 15:15:00EST, Tablet, Partial fill upon patient request if the prescription is for a schedule II opioid drug. Start Date: 02/13/22 Status: Ordered lamotrigine 150 mg oral tablet By Mouth, Daily at bedtime, 0 Refills, Maintenance, 07/18/13 10:57:24, Tablet Start Date: 07/18/13 Status: Ordered Meloxicam By Mouth, Daily, 0 Refills, Maintenance, 06/11/13 10:41:38 Start Date: 06/11/13 Status: Ordered Vyvanse = 60 mg, By Mouth, Daily in AM, 0 Refills, Maintenance Start Date: 11/21/11 Status: Ordered Wellbutrin XL 300 mg/24 hours oral tablet, extended release 1 tablet = 300 mg, By Mouth, Every 24 hours, # 30 tablet, 0 Refills, Maintenance Start Date: 02/03/11 Status: Ordered Problem List Condition Confirmation Course Effective Dates Status H ealth Status Informant [D]Insomnia Confirmed 12/04/08 Active ADHD (attention deficit hyperactivity disorder) Confirmed Active Back pain Confirmed Active Bipolar Confirmed Active BRCA2 genetic carrier Confirmed Active Breast cancer Confirmed Active Cystocele Confirmed Active DCIS (ductal carcinoma in situ) of breast - right Confirmed Active Depression Confirmed Active Epigastric discomfort Confirmed Active Hyperlipidemia Confirmed Active HYPERTENSION Confirmed 12/04/08 Active IBS - Irritable bowel syndrome Confirmed Active Incontinence Confirmed Active Increased appetite Confirmed Active Lobular carcinoma in situ Confirmed Active Mixed Incontinence (Female) (Male) Confirmed Active Nausea Confirmed Active Obese class I Confirmed Active Seasonal allergic rhinitis Confirmed Active Spontaneous hypoglycemia Confirmed Active Patient Care team information Care Team Personnel Name: Clayton Grider MD , Rabia Mancini Position: Reference Physician Member Role: PCP Address: Address: [address] [place] [address]- Name: Annika PHILIP, Karolyn Kent Position: S Onco RN Member Role: Primary Care Nurse Care Team Related Persons Name: PRISCILLA WARD Address: home [address] [place] [id number] Name: ARTI SPANN Address: home [address] [place] [id number]
--- OUTSIDE RECORDS SUMMARY | 2023-08-09 15:14 | XMS_ITS | Continuity of Care Document ---
Author Organization [facility] ter Address [address] [place] [address]- Care Team Providers Care Ear Nose Throat Physician Name Role Phone Clayton Grider MD, Rabia Mancini Primary Care Physician Encounter [facility] [place] Date(s): 02/13/22 - 02/16/[address] [address]- Encounter Diagnosis Depression(Final) - 02/14/22 Hip pain(Final) - 02/14/22 Discharge Disposition: A-D/C Home Attending Physician: Any Jarvis MD Admitting Physician: Any Jarvis MD Referring Physician: Not on Staff, Referring MD Allergies, Adverse Reactions, Alerts Substance Reaction Severity Status clindamycin SEVERE ITCHING Active penicillin vomiting/hives Active sulfamethoxazole Active vancomycin Active levothyroxine nausea Active sulfa drugs hives/swelling Active metFORMIN nausea and vomiting Active Immunizations Given and Recorded Vaccine Date Status Refusal Reason tetanus/diphtheria/pertussis, acel(Tdap) 1 11/21/11 Given FluLaval (oldterm) 2 02/09/10 Given Tetanus Toxoid Vaccine (oldterm) 04/03/04 Given 1Admin Note: vis given 2Admin Note: [employer] [facility] Medications Abilify 2 mg oral tablet 1 [...] Status: Ordered gabapentin 100 mg oral capsule 200 mg, Capsule, By Mouth, 02/15/22 21:00:00 EST Start Date: 02/15/22 Stop Date: 02/15/22 Status: Completed gabapentin 100 mg oral capsule 100 mg, [...] 06/11/13 10:41:38 Start Date: 06/11/13 Status: Ordered oxyCODONE 5 mg oral tablet 5 mg, Tablet, By Mouth, 02/15/22 21:00:00 EST Start Date: 02/15/22 Stop Date: 02/15/22 Status: Completed Vyvanse = 60 mg, By Mouth, Daily [...] rhinitis Confirmed Active Spontaneous hypoglycemia Confirmed Active Vital Signs Most recent to oldest [Reference Range]: 1 2 3 Height 160 cm (02/15/22 7:31 PM) 160 cm (02/15/22 4:14 AM) 160 cm (02/14/22 12:11 AM) Weight 77 kg (02/15/22 7:31 PM) 77 kg (02/15/22 4:14 AM) 77 kg (02/14/22 12:11 AM) Oxygen Saturation [94-100 %] 98 % (02/15/22 7:31 PM) 98 % (02/15/22 11:47 AM) 96 % (02/15/22 4:14 AM) Pulse Rate [55-90 bpm] 88 bpm (02/15/22 7:31 PM) 90 bpm (02/15/22 11:47 AM) 91 bpm *H* (02/15/22 4:14 AM) Body Mass Index [18.5-24.99 kg/m2] 30.08 kg/m2 *>HHI* (02/15/22 7:31 PM) 30.08 kg/m2 *>HHI* (02/15/22 4:14 AM) 30.08 kg/m2 *>HHI* (02/14/22 12:11 AM) Blood Pressure [90-138/55-84 mm Hg] 135/76mm Hg (02/15/22 7:31 PM) 144/82mm Hg *H* (02/15/22 11:47 AM) 125/68mm Hg (02/15/22 4:14 AM) Respiratory Rate [16-30 br/min] 18 br/min (02/15/22 8:31 PM) 18 br/min (02/15/22 8:31 PM) 18 br/min (02/15/22 7:31 PM) Temperature [96.8-100.4 DegF] 97.9 DegF (02/15/22 7:31 PM) 98.3 DegF (02/15/22 11:47 AM) 98.5 DegF (02/14/22 8:29 PM) Mode of Delivery (Oxygen) Room air (02/15/22 7:31 PM) Room air (02/15/22 11:47 AM) Room air (02/15/22 4:14 AM) Blood pressure sites Arm, left (02/13/22 6:33 PM) Arm, left (02/13/22 6:28 PM) Arm, left (02/13/22 4:31 PM) Temperature Route Oral (02/15/22 7:31 PM) Oral (02/15/22 11:47 AM) Oral (02/14/22 8:29 PM) Dry Weight 77 kg (02/15/22 7:31 PM) 77 kg (02/15/22 4:14 AM) 77 kg (02/14/22 12:11 AM) Note * Bravo Harris DO: PERFORM, SIGN, VERIFY Event Display: Patient Education Handout Authored Date: [id number] * Bravo Harris DO: PERFORM Event Display: Patient Education Leaflets Authored Date: [id number] OUD Narcan Nasal Weir ?? 556 ? QUICK START GUIDE Opioid Overdose Response Instructions ?? Use NARCAN Nasal Weir (naloxone hydrochloride) for known or suspected opioid overdose in adults and children. Important: For use in the nose only. Do not remove or test the NARCAN Nasal Weir until ready to use. ?? 1 - Identify Opioid Overdose and Check for Response? -?? Ask person if he or she is okay and shout name.? - Shake shoulders and firmly rub the middle of their chest ? - Check for signs of opioid overdose: ? - Will not wake up or respond to your voice or touch ? - Breathing is very slow, irregular, or has stopped ? - Center part of their eye is very small, sometimes called ???pinpoint pupils? - Lay the person on their back to receive a dose of NARCAN Nasal Weir. ?? 2 - Give NARCAN Nasal Weir? - Remove NARCAN Nasal Weir from the box. ? - Peel back the tab with the galena to open the ?NARCAN Nasal Weir. ? - Hold the NARCAN nasal spray with your thumb on the bottom of the? plunger and your first and middle fingers on either side of the nozzle.? -?? Gently insert the tip of the nozzle into either nostril. ? - Tilt the person???s head back and provide support under the neck with your hand.? Gently insert the tip of the nozzle into one nostril, until your fingers ? on either side of the nozzle are against the bottom of the ? person???s nose. ? - Press the plunger firmly to give the dose of NARCAN Nasal Weir.? - Remove the NARCAN Nasal Weir from the nostril ? after giving the dose. ? 3 - Call for emergency medical help, Evaluate, and Support? - Get emergency medical help right away. ? - Move the person on their side (recovery position)? after giving NARCAN Nasal Weir. ? - Watch the person closely. ? - If the person does not respond by waking up, to voice or touch, or breathing normally ? another dose may be given. NARCAN Nasal Weir may be dosed every 2 to 3 minutes, ? if available. ? - Repeat Step 2 using a new NARCAN Nasal Weir to give another dose in the? other nostril . If additional NARCAN Nasal Sprays are available, repeat step 2 every2 ? to 3 minutes until the person responds or emergency medical help is received. ? Patient Care team information Care Team Personnel Name: Clayton Grider MD , Rabia Mancini Position: Reference Physician Member Role: PCP Address: Address: [address] [place] [address]- Name: Annika PHILIP, Karolyn Kent Position: [facility] Onco RN Member Role: Primary Care Nurse Name: *[facility], ED Attending Position: [facility] ED Attendings Patient Name: Simona CHATMAN, Any Lopez Position: [facility] ED Medicine MD Member Role: ED Attending Physician Address: Address: [address] [place] [address] [place] [address]- Name: Laurita PHILIP, Kashif Position: [facility] ED RN W/OE and Tasks Member Role: Patient Care Provider Name: Chiara Tran Position: [facility] ED TA [facility] Member Role: Compliance Spec Care Team Related Persons Name: NENAPRISCILLA HOLLAND Address: home [address] [place] [id number] Name: ARTI SPANN Address: home [address] [address]
[2023-08-09 15:15] VITALS: BP 122/74; BMI 23.4
--- NOTE | 2023-08-09 15:15 | MHC.OFFVIS ---
Vital Signs 08/09/23 15:15 Height 5 ft 3 in Weight 132 lb BMI 23.4 BP 122/74 Intake Visit Reasons: New patient Decreased libido Track Inspector Required: No Information Interpreted: non-clinical & clinical Director Special Education: Director Special Education Present (Anabel John RAFAEL) Accompanied by: Self / Same As Patient Allergies vancomycin [VANCOMYCIN] Allergy (Severe, Verified 08/09/23 15:16) ITCHING SEVERE, pruritus clindamycin [CLINDAMYCIN] Allergy (Intermediate, Verified 08/09/23 15:16) ITCHING ibuprofen Allergy (Intermediate, Verified 08/09/23 15:16) abdominal pain nitrofurantoin Allergy (Intermediate, Verified 08/09/23 15:16) abdominal pain Penicillins [PENICILLINS] Allergy (Intermediate, Verified 08/09/23 15:16) HIVES Sulfa (Sulfonamide Antibiotics) Allergy (Intermediate, Verified 08/09/23 15:16) RASH/SWELLING, rash, swelling venlafaxine [From EFFEXOR] Adverse Reaction (Severe, Verified 08/09/23 15:16) WORSENING DEPRESSION Butrans patch Allergy (Severe, Uncoded 08/09/23 15:16) depression STEROID INJECTIONS Allergy (Severe, Uncoded 08/09/23 15:16) ANGER AND AGGITATION Herbal medicines/teas Allergy (Intermediate, Uncoded 08/09/23 15:16) headaches, stuffiness Post menopausal: Yes HPI Comments Details: Presenting complaining of a long-term history of decreased libido started around the time of her diagnosis breast cancer and initiation of antidepressants for depression and exacerbated with atrophic vaginitis. The patient gives a history of dyspareunia on and off with vaginal dryness during intercourse Last co testing was more than 10 years ago [facility] Medical History Meralgia paraesthetica Obese Obesity Hospital discharge follow-up Dilation of pancreatic duct B12 deficiency Mild recurrent major depression Left hip pain Diarrhea 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 Pre-op evaluation Glossitis Ear discomfort Lumbar radiculopathy Chronic constipation Urine incontinence Left sided sciatica Fatigue Back pain Herniated disc PTSD (post-traumatic stress disorder) History of right breast cancer History of left breast cancer BRCA gene mutation positive Retinal lesion History of bronchitis Depression Irritable bowel syndrome Sciatica Arthritis Chronic GERD Neck pain Surgical History History of sinus surgery History of repair of hiatal hernia History of Lashay-en-Y gastric bypass History of esophagogastroduodenoscopy (EGD) Hx of hernia repair Hx of cholecystectomy Hx of cystostomy Hx of tubal ligation Hx of colonoscopy History of pubovaginal sling Hx of breast lump removal Hx of bilateral oophorectomy Family History Father Heart disease Mother Diabetes mellitus Brother Prostate cancer Pancreatic cancer BRCA positive Sister Breast cancer BRCA positive Son No problems noted. Social History Household Members: Significant Other Housing: House Are you a primary personal care service provider to a significant other at home: No Do you presently have visiting nurse or other home services: No Alcohol intake: never Patient Tobacco Use Status: Never used Tobacco e-Cigarette/Vaping Use: Never Used Second Hand Smoke Exposure: No Substance Use Type: Marijuana service: No Current occupational status: disabled Cognitive needs: No Hearing needs: No Vision needs: Yes Review of Systems Const All systems reviewed & are unremarkable except as noted in HPI and below Physical Exam Vital Signs: Last Vital Signs BP 122/74 08/09/23 15:15 BMI result Body Mass Index 23.4 General: Yes no CVA tenderness External Female Exam: normal external appearance and normal appearance of the urethra Speculum Exam - Vagina: normal appearance of the vagina, normal palpation, no lesions and no masses Speculum Exam - Cervix: normal appearance of the cervix, normal palpation, no lesions, no masses and nontender Bimanual exam- vagina & uterus: normal bimanual exam, normal palpation, uterine size normal, normal palpation, uterine shape normal, No Cervical tenderness present and non-tender Bimanual Exam- Adnexa, other: Other (Bilateral adnexa surgically absent, no pelvic masses) Back/Spine/Pelvis Back: no CVA tenderness Assessment & Plan Assessment & Plan (1) Decreased libido: Code(s): R68.82 - Decreased libido Category: Medical Plan: Co testing done. Discussed with the patient the possible cause of decreased libido including but not limited to atrophic vaginitis, urine incontinence, depression side effects of antidepressants, and others, recommended referral to a sexual dysfunction clinic at [facility], the patient will think about it and get back to us Coding Level of Care Code New Pt Level 3 (33394) Diagnoses Decreased libido R68.82
== END 2023-08-09 15:51 | disposition home or self-care (01) ==
LOC: HO.HWS 15:11
PROVIDERS: PCP Internal Medicine; Visit Provider Obstetrics & Gynecology
DX: R68.82 Decreased libido (principal)
CPT/HCPCS: 99203

== ENCOUNTER 2023-08-29 08:00 | Outpatient (AMB) | payer MEDICARE, MEDICAID, SELFPAY ==
--- NOTE | 2023-08-29 08:07 | MHC.PC.OV ---
Vital Signs 08/29/23 08:08 Height 5 ft 3 in Weight 144 lb BMI 25.5 BP 126/82 Blood Pressure Location Lt brachial Position Sitting Intake Visit Reasons: Pain in Neck, Shoulders Intake Note: Patient here c/o neck and shoulder pain Superintendent Transmission Required: No Accompanied by: Self / Same As Patient Allergies vancomycin [VANCOMYCIN] Allergy (Severe, Verified 08/29/23 08:32) ITCHING SEVERE, pruritus clindamycin [CLINDAMYCIN] Allergy (Intermediate, Verified 08/29/23 08:32) ITCHING ibuprofen Allergy (Intermediate, Verified 08/29/23 08:32) abdominal pain nitrofurantoin Allergy (Intermediate, Verified 08/29/23 08:32) abdominal pain Penicillins [PENICILLINS] Allergy (Intermediate, Verified 08/29/23 08:32) HIVES Sulfa (Sulfonamide Antibiotics) Allergy (Intermediate, Verified 08/29/23 08:32) RASH/SWELLING, rash, swelling venlafaxine [From EFFEXOR] Adverse Reaction (Severe, Verified 08/29/23 08:32) WORSENING DEPRESSION Butrans patch Allergy (Severe, Uncoded 08/29/23 08:32) depression STEROID INJECTIONS Allergy (Severe, Uncoded 08/29/23 08:32) ANGER AND AGGITATION Herbal medicines/teas Allergy (Intermediate, Uncoded 08/29/23 08:32) headaches, stuffiness Medication List - Last Reconciled 08/29/23 by Rabia Grider MD acetaminophen (Tylenol Extra Strength) 500 mg PO QID PRN alprazolam (Xanax) 0.5 - 1 mg (1 - 2 x 0.5 mg) PO BEDTIME 3 days bupropion HCl XL 300 mg PO DAILY cholecalciferol (vitamin D3) 50 mcg PO .every other day 90 days desvenlafaxine succinate ER (Pristiq) 100 mg PO DAILY gabapentin 300 mg PO .four times a day 30 days ibuprofen 600 mg PO Q8H PRN 30 days lamotrigine 150 mg PO BID methocarbamol 750 mg PO Q8H 30 days nystatin 1 appl topical DAILY PRN 30 days omeprazole 20 mg PO DAILY 90 days trazodone 50 - 100 mg PO BEDTIME PRN Tobacco use date assessed: 08/29/23 Fall risk assessment: No Falls in past year Last assessed Fall Risk: 08/29/23 Dental Screening Dental Screen Date: 08/29/23 Did you have a dental visit in the last 12 months?: Yes Did you have a dental problem in the last 6 months where you did not have access to dental care?: No Was dental information given to patient?: Patient has dentist HPI HPI Comments History of Present Illness Details This is a 67-year-old female with chronic constipation, chronic GERD, history of breast cancer in 2013 treated by lumpectomy in left breast, mild recurrent major depression and mood disorder that comes today complaining of neck pain that started few weeks ago radiating to both shoulders. She just started physical therapy for neck pain. Constipation somewhat stable with diet. GERD stable with PPIs. She does yearly mammograms faithfully. Depression is somewhat controlled with bupropion and Pristiq which is follow by psychiatrist and she will see her next week. Mood disorder stable with Lamictal. No chest pain or shortness on breath. [facility], [facility] Medical History (Updated 08/29/23 @ 10:37 by Rabia Grider MD) Meralgia paraesthetica Obese Obesity Hospital discharge follow-up Dilation of pancreatic duct B12 deficiency Mild recurrent major depression Left hip pain Diarrhea 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 Pre-op evaluation Glossitis Ear discomfort Lumbar radiculopathy Chronic constipation Urine incontinence Left sided sciatica Fatigue Back pain Herniated disc PTSD (post-traumatic stress disorder) History of right breast cancer History of left breast cancer BRCA gene mutation positive Retinal lesion History of bronchitis Depression Irritable bowel syndrome Sciatica Arthritis Chronic GERD Neck pain Surgical History History of sinus surgery History of repair of hiatal hernia History of Lashay-en-Y gastric bypass History of esophagogastroduodenoscopy (EGD) Hx of hernia repair Hx of cholecystectomy Hx of cystostomy Hx of tubal ligation Hx of colonoscopy History of pubovaginal sling Hx of breast lump removal Hx of bilateral oophorectomy Family History Father Heart disease Mother Diabetes mellitus Brother Prostate cancer Pancreatic cancer BRCA positive Sister Breast cancer BRCA positive Son No problems noted. Social History Household Members: Significant Other Housing: House Are you a primary residential child care counselor to a significant other at home: No Do you presently have visiting nurse or other home services: No Alcohol intake: never Patient Tobacco Use Status: Never used Tobacco e-Cigarette/Vaping Use: Never Used Second Hand Smoke Exposure: No Substance Use Type: Marijuana service: No Current occupational status: disabled Cognitive needs: No Hearing needs: No Vision needs: Yes Questionnaire PHQ-9 Over the last 2 weeks, how often have you been bothered by any of the following problems? 1. Little interest or pleasure in doing things: not at all 2. Feeling down, depressed, or hopeless: more than half the days 3. Trouble falling or staying asleep, or sleeping too much: not at all 4. Feeling tired or having little energy: not at all 5. Poor appetite or overeating: several days 6. Feeling bad about yourself - or that you are a failure or have let yourself or your family down: not at all 7. Trouble concentrating on things, such as reading the newspaper or watching television: not at all 8. Moving or speaking so slowly that other people could have noticed. Or the opposite - being so fidgety or restless that you have been moving around a lot more than usual: not at all 9. Thoughts that you would be better off or of hurting yourself in some way: not at all Total score: 3 Depression Screening Interpretation: Positive Depression Screening Follow-up: Existing condition and Follow-up Visit Requested Depression Screening Done: Yes 67378 - PHQ-9 Billing: Yes Source: Developed by Drs. Matt Diehl, Harriet Cardona, Kulwinder Martin and colleagues, with an educational giovanna from [employer]. Thrive Questionnaire Date Thrive assessed: 08/29/23 I am a: Patient What is your living situation today?: I have a steady place to live Within the past 12 months, did the food you bought not last and you didn't have the money to get more?: Never true Within the past 12 months, did you worry whether your food would run out before you got money to buy more?: Never true Do you have trouble paying for medicines?: No Do you have trouble getting transportation to medical appointments?: No Do you have trouble paying your heating and electricity bill?: No Do you have trouble taking care of your child, family member or friend?: No Do you have trouble with day-to-day activities such as bathing, preparing meals, shopping, managing finances, etc.?: No Are you currently unemployed and looking for a job?: No Are you interested in more education?: No Please select the resources that you would like help with: None Currently or been in a relationship where the following occur: no concerns reported THRIVE Score: 0 AUDIT C Alcohol Use Questionnaire (AUDIT-C) 1. How often do you have a drink containing alcohol?: Never Total Score: 0 Score Reviewed/Action Taken: No VIOLETA-7 AMB Questionnaire VIOLETA-7 Date VIOLETA - 7 assessed: 08/29/23 Feeling nervous, anxious, or on edge: 2 = More than half the days Not being able to stop or control worryin = Not at all Worrying too much about different things: 1 = Several days Trouble relaxin = Not at all Being so restless that it is hard to sit still: 0 = Not at all Becoming easily annoyed or irritable: 0 = Not at all Feeling afraid as if something awful might happen: 0 = Not at all Total VIOLETA-7 score (0-4 normal; 5-9 mild; 10-14 moderate; 15-21 severe): 3 Source: Developed by Drs. Matt Diehl, Harriet Cardona, Kulwinder Martin and colleagues, with an educational giovanna from [employer]. VIOLETA-7 Assessment Billing VIOLETA-7 Assessment Tool: VIOLETA-7 Assessment 07415 Review of Systems Const All systems reviewed & are unremarkable except as noted in HPI and below Eyes Reports no additional complaints, Denies change in vision and Denies other visual disturbances ENT Reports neck pain Card Denies chest pain at rest, Denies chest pain with activity, Denies edema, Denies irregular heart rhythm, Denies claudication, Denies dyspnea, Denies dyspnea on exertion, Denies orthopnea, Denies paroxysmal nocturnal dyspnea and Denies slow heart rate Resp Denies cough, Denies dyspnea and Denies dyspnea on exertion Musc Reports neck pain Physical exam (Primary Care) Vital Signs: Last Vital Signs BP 126/82 08/29/23 08:08 BMI result Body Mass Index 25.5 Tobacco/Smoking Status: Tobacco use Status Tobacco use date assessed 08/29/23 08/29/23 08:14 Patient Tobacco Use Status Never used Tobacco 08/29/23 08:14 e-Cigarette/Vaping Use Never Used 08/29/23 08:14 PHQ-9: PHQ-9 Score PHQ-9: Total score 3 08/29/23 08:39 Depression Screening Interpretation: Positive Depression Screening Follow-up: Existing condition and Follow-up Visit Requested Thrive Assessment: Date of Thrive Assessment Date Thrive assessed 08/29/23 08/29/23 08:14 Currently or been in a relationship where the following occur: no concerns reported Resp Effort & Inspection: normal respiratory effort Auscultation: clear to auscultation bilaterally Cardio Jugular venous distension: no JVD Rate: regular rate Rhythm: regular rhythm Heart sounds: S1 normal heart sound present and S2 normal heart sound present Extrem General: Yes full ROM Assessment and Plan Assessment & Plan (1) Mild recurrent major depression: Code(s): F33.0 - Major depressive disorder, recurrent, mild Plan: Continue bupropion and Pristiq. Follow-up with psychiatry and counseling. (2) Mood disorder: Comment: ptsd, lonely, -no S/ H I- support offered. Details-lifes struggles-has live-in partner, who works-feels isolated at times Code(s): F39 - Unspecified mood [affective] disorder Plan: Continue Lamictal. Follow-up with psychiatry and counseling. (3) Chronic constipation: Comment: Maintain high-fiber diet continue Linzess Code(s): K59.09 - Other constipation Plan: Continue high-fiber diet. (4) Chronic GERD: Comment: add new med; 20 min reviewing chart, evaluating patient and documenting Code(s): K21.9 - Gastro-esophageal reflux disease without esophagitis Plan: Continue PPIs as needed. (5) Breast cancer: Code(s): C50.919 - Malignant neoplasm of unspecified site of unspecified female breast Plan: Continue yearly mammograms. (6) Neck pain: Code(s): M54.2 - Cervicalgia Plan: Continue physical therapy. Orders: Orders Complete Blood Count Auto Diff Today D64.9 - Anemia, unspecified Vitamin D 25-OH Total Today E55.9 - Vitamin D deficiency, unspecified Lipid Panel Today E78.5 - Hyperlipidemia, unspecified IRON PROFILE Today D64.9 - Anemia, unspecified Comprehensive Sylvia. Panel Fast Today M54.16 - Radiculopathy, lumbar region Coding Level of Care Code Est Pt Level 4 (73457) Diagnoses Mild recurrent major depression F33.0 Mood disorder F39 Chronic constipation K59.09 Chronic GERD K21.9 Breast cancer C50.919 Neck pain M54.2 Additional Codes VIOLETA-7 Assessment Billing - VIOLETA-7 Assessment Tool: VIOLETA-7 Assessment 49032 ([id number]) Time Spent (min) 25
[2023-08-29 08:08] VITALS: BP 126/82; BMI 25.5
== END 2023-08-29 08:50 | disposition home or self-care (01) ==
PROVIDERS: PCP Internal Medicine; Visit Provider Internal Medicine
DX: M54.2 Cervicalgia (principal); K59.04 Chronic idiopathic constipation; F33.0 Major depressive disorder, recurrent, mild; F39 Unspecified mood [affective] disorder; K21.9 Gastro-esophageal reflux disease without esophagitis; Z85.3 Personal history of malignant neoplasm of breast
CPT/HCPCS: 99214

== ENCOUNTER → 2023-09-25 15:21 | Outpatient (AMB) | payer MEDICARE, MEDICAID, SELFPAY ==
[2023-09-25 15:23] VITALS: BP 122/74; PULSE 66; TEMP 36.6; O2SAT 97; BMI 25.5
--- NOTE | 2023-09-25 15:23 | MHC.OFFWIV ---
Intake Vital Signs 09/25/23 15:23 Height 5 ft 3 in Weight 144 lb BMI 25.5 BP 122/74 Blood Pressure Location Lt brachial Position Sitting Pulse 66 Pulse Source Pulse Oximeter Temp 97.8 F Temp Source Oral Pulse Oximetry (%) 97 Intake Visit Reasons: EP Hit head Monday Intake Note: pt is here for injury to head due to fall Patient Tobacco Use Status: Never used Tobacco Allergies vancomycin [VANCOMYCIN] Allergy (Severe, Verified 09/25/23 15:23) ITCHING SEVERE, pruritus clindamycin [CLINDAMYCIN] Allergy (Intermediate, Verified 09/25/23 15:23) ITCHING ibuprofen Allergy (Intermediate, Verified 09/25/23 15:23) abdominal pain nitrofurantoin Allergy (Intermediate, Verified 09/25/23 15:23) abdominal pain Penicillins [PENICILLINS] Allergy (Intermediate, Verified 09/25/23 15:23) HIVES Sulfa (Sulfonamide Antibiotics) Allergy (Intermediate, Verified 09/25/23 15:23) RASH/SWELLING, rash, swelling venlafaxine [From EFFEXOR] Adverse Reaction (Severe, Verified 09/25/23 15:23) WORSENING DEPRESSION Butrans patch Allergy (Severe, Uncoded 08/29/23 08:32) depression STEROID INJECTIONS Allergy (Severe, Uncoded 08/29/23 08:32) ANGER AND AGGITATION Herbal medicines/teas Allergy (Intermediate, Uncoded 08/29/23 08:32) headaches, stuffiness Do you need a note to return to daycare/school/sports/work: No HPI HPI Comments History of Present Illness Details 67 y/o female patient who presents to walk in clinic with c/o Headaches associated with Neck pain. Pt had a Fall at home Monday where she hit her head on Linoleum floor. Denies LOC, dizziness, nausea or vomiting. Pt has h/o chronic Neck pain and currently receiving PT and takes Acetaminophen and Ibuprofen for pain control plus Muscle relaxants. Pt states that nothing is working right now, pain 10/10 on pain scale. [facility] Medical History Meralgia paraesthetica Obese Obesity Hospital discharge follow-up Dilation of pancreatic duct B12 deficiency Mild recurrent major depression Left hip pain Diarrhea 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 Pre-op evaluation Glossitis Ear discomfort Lumbar radiculopathy Chronic constipation Urine incontinence Left sided sciatica Fatigue Back pain Herniated disc PTSD (post-traumatic stress disorder) History of right breast cancer History of left breast cancer BRCA gene mutation positive Retinal lesion History of bronchitis Depression Irritable bowel syndrome Sciatica Arthritis Chronic GERD Neck pain Surgical History History of sinus surgery History of repair of hiatal hernia History of Lashay-en-Y gastric bypass History of esophagogastroduodenoscopy (EGD) Hx of hernia repair Hx of cholecystectomy Hx of cystostomy Hx of tubal ligation Hx of colonoscopy History of pubovaginal sling Hx of breast lump removal Hx of bilateral oophorectomy Family History Father Heart disease Mother Diabetes mellitus Brother Prostate cancer Pancreatic cancer BRCA positive Sister Breast cancer BRCA positive Son No problems noted. Social History Household Members: Significant Other Housing: House Are you a primary critical care registered nurse to a significant other at home: No Do you presently have visiting nurse or other home services: No Alcohol intake: never Patient Tobacco Use Status: Never used Tobacco e-Cigarette/Vaping Use: Never Used Second Hand Smoke Exposure: No Substance Use Type: Marijuana service: No Current occupational status: disabled Cognitive needs: No Hearing needs: No Vision needs: Yes Review of Systems Const All systems reviewed & are unremarkable except as noted in HPI and below Physical Exam Vital Signs: Last Vital Signs Temp 97.8 F 09/25/23 15:23 Pulse 66 09/25/23 15:23 BP 122/74 09/25/23 15:23 Pulse Ox 97 09/25/23 15:23 BMI result Body Mass Index 25.5 Const General: no acute distress; No comfortable Orientation/consciousness: patient oriented x3 Neck Neck: Yes full ROM, Yes no lymphadenopathy, Yes tender (Midline neck tenderness, trapezius muscle) and Yes no JVD Resp Effort & Inspection: normal respiratory effort Cardio Rate: regular rate Rhythm: regular rhythm Skin General skin exam: no rashes or lesions noted Neuro General: patient oriented x3, gait normal and moves all extremities Psych Speech and movement: Normal speech and movement present Assessment & Plan Assessment & Plan (1) Neck pain: Code(s): M54.2 - Cervicalgia Plan: Advised Pt to go ED due to the Fall she suffered Monday. Advised she might need Head CT-Scan to r/o brain Bleed. Currently STable, neurologically intact no deficits. Coding Level of Care Code Est Pt Level 3 (66600) Diagnoses Neck pain M54.2 Time Spent (min) 15
--- OUTSIDE RECORDS SUMMARY | 2023-09-28 07:55 | XMS_ITS | Continuity of Care Document ---
Author Organization [facility] Address [address] [place] [id number]- Care Team Providers Care Mortgage Processor Name Role Phone Clayton Grider MD, Portia Primary Care Physician Encounter [facility] [place] [facility]CT [facility] [id number] Date(s): 01/05/22 - 02/04/22 [facility] [address] [place] [id number] Attending Physician: Benjamin Lyman Admitting Physician: Benjamin Lyman Referring Physician: AdmtrBenjamin Allergies, Adverse Reactions, Alerts Substance Reaction Severity Status clindamycin SEVERE ITCHING Active penicillin vomiting/hives Active sulfamethoxazole Active metFORMIN nausea and vomiting Active vancomycin Active levothyroxine nausea Active sulfa drugs hives/swelling Active Immunizations Given and Recorded Vaccine Date Status Refusal Reason tetanus/diphtheria/pertussis, acel(Tdap) 1 11/21/11 Given FluLaval (oldterm) 2 02/09/10 Given Tetanus Toxoid Vaccine (oldterm) 04/03/04 Given 1Admin Note: vis given 2Admin Note: [facility] Medications Abilify 2 mg oral tablet 1 tablet = 2 mg, By Mouth, Daily, # 30 tablet, 0 Refills, Maintenance Start Date: 02/03/11 Status: Ordered Anastrozole = 1 mg, By [...] Date: 10/03/12 Stop Date: 04/01/13 Status: Ordered hydroxyzine hydrochloride 25 mg oral [...] (Female) (Male) Confirmed Active Nausea Confirmed Active Seasonal allergic rhinitis Confirmed Active Spontaneous hypoglycemia Confirmed Active Patient Care team information Personnel Name: Clayton Grider MD , Rabia Mancini Address: Address: [address] [place] [id number]
--- OUTSIDE RECORDS SUMMARY | 2023-09-28 07:55 | XMS_ITS | Patient Health Record ---
Author Organization Matt Chino III, MD Address [address] [place] [address] Care Team Providers Care Relocation Services Specialist Name Role Phone MARLENY CHATMAN, SHEYLA Primary Care Provider UnavailMatt Cueva Unavailable [phone] Julian CHATMAN, Sheyla Unavailable Unavailable ALLERGIES Allergen [...] pain (724.2) Active confirmed Low back pain (632738516) Problem Lobular carcinoma in situ (233.0) Active confirmed Lobular carcinoma in situ (87469735) No additional therapy is recommended for this diagnosis. Annual mammography will continue. 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 She is on adjuvant endocrine therapy with no relapse. 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 She continues on adjuvant endocrine therapy. Problem BRCA2 positive (V84.01) Active confirmed Problem Depression (311) Active confirmed Depression (977786799) Problem Obesity (278.00) Active confirmed Obesity (294112350) We discussed strategies for weight reduction and a healthy diet and regular exercise. PLAN OF TREATMENT Pending Test Test Name Order Date PROFILE, RANDOM (COMPREHENSIVE METABOLIC ) 10/14/2013 CBC w DIFF 10/14/2013 CA 27.29 10/14/2013 Insurance Providers Payer Name Payer Address Payer Phone Subscriber Number Group Number Insured Name Patient Relationship to Insured Coverage Start Date Coverage End Date [employer] [address] [address] [place] [address] [id number] CASSIE WARD Self - patient is the insured MEDICAL (GENERAL) HISTORY Medical History History ICD Code DCIS left breast DCIS, right breast LCIS left breast esophagitis hiatal hernia depression with anxiety molar low back pain last mammogram 06/2012 @ [facility] christine BRCA2 positive anastrozole quit date January 2018 Surgical History Surgery Date(Month/Year) tubal ligation breast biopsy breast biopsy, right 06/2012 bladder suspension lumbosacral spine surgery 2008 lumpectomy, sentinel node biopsy, dcis
== END ==
PROVIDERS: PCP Internal Medicine; Visit Provider Nurse Practitioner Family
DX: M54.2 Cervicalgia (principal)
CPT/HCPCS: 99213

== ENCOUNTER 2023-09-27 14:05 | Outpatient (AMB) | payer MEDICARE, MEDICAID, SELFPAY ==
[2023-09-27 14:12] VITALS: BP 144/92; PULSE 76; O2SAT 95; BMI 25.9
--- NOTE | 2023-09-27 14:12 | A.OFFPC_ITS ---
Vital Signs 09/27/23 14:12 Height 5 ft 3 in Weight 146 lb BMI 25.9 BP 144/92 H Blood Pressure Location Lt brachial Position Sitting Pulse 76 Pulse Source Pulse Oximeter Pulse Oximetry (%) 95 Oxygen Delivery Method Room Air Intake Visit Reasons: Fall,NeckPain Intake Note: Dr. Arnold's patient is here for a follow-up appointment at the walk-in clinic. Supervisor Special Services Required: No Accompanied by: Self / Same As Patient Allergies vancomycin [VANCOMYCIN] Allergy (Severe, Verified 09/27/23 14:27) ITCHING SEVERE, pruritus clindamycin [CLINDAMYCIN] Allergy (Intermediate, Verified 09/27/23 14:27) ITCHING ibuprofen Allergy (Intermediate, Verified 09/27/23 14:27) abdominal pain nitrofurantoin Allergy (Intermediate, Verified 09/27/23 14:27) abdominal pain Penicillins [PENICILLINS] Allergy (Intermediate, Verified 09/27/23 14:27) HIVES Sulfa (Sulfonamide Antibiotics) Allergy (Intermediate, Verified 09/27/23 14:27) RASH/SWELLING, rash, swelling venlafaxine [From EFFEXOR] Adverse Reaction (Severe, Verified 09/27/23 14:27) WORSENING DEPRESSION Butrans patch Allergy (Severe, Uncoded 09/27/23 14:27) depression STEROID INJECTIONS Allergy (Severe, Uncoded 09/27/23 14:27) ANGER AND AGGITATION Herbal medicines/teas Allergy (Intermediate, Uncoded 09/27/23 14:27) headaches, stuffiness Medication List - Last Reconciled 09/27/23 by Danny Mcclain PA-C acetaminophen (Tylenol Extra Strength) 500 mg PO QID PRN alprazolam (Xanax) 0.5 - 1 mg (1 - 2 x 0.5 mg) PO BEDTIME 3 days bupropion HCl XL 300 mg PO DAILY cholecalciferol (vitamin D3) 50 mcg PO .every other day 90 days desvenlafaxine succinate ER (Pristiq) 100 mg PO DAILY gabapentin 300 mg PO .four times a day 30 days ibuprofen 600 mg PO Q8H PRN 30 days lamotrigine 150 mg PO BID methocarbamol 750 mg PO Q8H 30 days nystatin 1 appl topical DAILY PRN 30 days omeprazole 20 mg PO DAILY 90 days trazodone 50 - 100 mg PO BEDTIME PRN Tobacco use date assessed: 08/29/23 Dental Screening Dental Screen Date: 08/29/23 HPI Fall,NeckPain HPI Details Patient is a 67-year-old female here today for a walk-in clinic follow- up. Has been having neck pain that she reports as 10 on 10 time. Has been using NSAIDs and muscle relaxers without much relief. Has been doing PT for a few weeks which she report has been somewhat helpful. Unfortunately well giving her dog a bath in the bathroom she report falling and hitting her head. She was then seen at the urgent care clinic for symptoms as above advised to go to the ER though she has not interested in being evaluated at the ER due to long wait times. [facility] Medical History Meralgia paraesthetica Obese Obesity Hospital discharge follow-up Dilation of pancreatic duct B12 deficiency Mild recurrent major depression Left hip pain Diarrhea 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 Pre-op evaluation Glossitis Ear discomfort Lumbar radiculopathy Chronic constipation Urine incontinence Left sided sciatica Fatigue Back pain Herniated disc PTSD (post-traumatic stress disorder) History of right breast cancer History of left breast cancer BRCA gene mutation positive Retinal lesion History of bronchitis Depression Irritable bowel syndrome Sciatica Arthritis Chronic GERD Neck pain Surgical History History of sinus surgery History of repair of hiatal hernia History of Lashay-en-Y gastric bypass History of esophagogastroduodenoscopy (EGD) Hx of hernia repair Hx of cholecystectomy Hx of cystostomy Hx of tubal ligation Hx of colonoscopy History of pubovaginal sling Hx of breast lump removal Hx of bilateral oophorectomy Family History Father Heart disease Mother Diabetes mellitus Brother Prostate cancer Pancreatic cancer BRCA positive Sister Breast cancer BRCA positive Son No problems noted. Social History Household Members: Significant Other Housing: House Are you a primary animal care supervisor to a significant other at home: No Do you presently have visiting nurse or other home services: No Alcohol intake: never Patient Tobacco Use Status: Never used Tobacco e-Cigarette/Vaping Use: Never Used Second Hand Smoke Exposure: No Substance Use Type: Marijuana service: No Current occupational status: disabled Cognitive needs: No Hearing needs: No Vision needs: Yes Questionnaire Thrive Questionnaire Date Thrive assessed: 08/29/23 VIOLETA-7 AMB Questionnaire VIOLETA-7 Date VIOLETA - 7 assessed: 08/29/23 Source: Developed by Drs. Matt Diehl, Harriet Cardona, Kulwinder Martin and colleagues, with an educational giovanna from [employer]. Review of Systems Const Denies headache(s) Eyes Denies loss of vision ENT Denies vertigo, Denies dizziness, Denies headache(s) and Denies sore throat Card Denies chest pain, Denies leg edema and Denies lightheadedness Resp Denies cough, Denies hemoptysis and Denies wheezing GI Denies abdominal pain, Denies melena, Denies constipation, Denies diarrhea and Denies vomiting Denies urinary frequency, Denies dysuria and Denies urinary urgency Musc Denies arthralgias, Denies joint swelling, Denies numbness and Denies tingling Neuro Denies Abnormal speech present, Denies behavioral changes, Denies vertigo, Denies dizziness, Denies headache(s), Denies loss of vision, Denies memory loss, Denies numbness and Denies tingling Psych Denies anxiety, Denies behavioral changes, Denies depression, Denies memory loss and Denies panic attacks Rubén/Lymph Denies easy bleeding and Denies easy bruising Aller/Immun Denies wheezing Physical exam (Primary Care) Vital Signs: Last Vital Signs Pulse 76 09/27/23 14:12 BP 144/92 H 09/27/23 14:12 Pulse Ox 95 09/27/23 14:12 Oxygen Delivery Method Room Air 09/27/23 14:12 BMI result Body Mass Index 25.9 Tobacco/Smoking Status: Tobacco use Status Tobacco use date assessed 08/29/23 09/27/23 14:13 Patient Tobacco Use Status Never used Tobacco 09/27/23 14:13 e-Cigarette/Vaping Use Never Used 09/27/23 14:13 Thrive Assessment: Date of Thrive Assessment Date Thrive assessed 08/29/23 09/27/23 14:13 Const General: healthy appearing, no acute distress, alert and awake Nutritional Appearance: well nourished Orientation/consciousness: oriented to person, oriented to place and oriented to time HENMT Ears: TM's normal bilaterally General nose exam: Normal nasal mucous membranes and turbinates present Eyes Conjunctivae: conjunctivae normal Sclerae: sclerae normal Pupils: Equal, round and reactive pupils present Neck Other: LIMITED FLEXION OF THE NECK. GOOD ROTATIONAL RANGE OF MOTION. NEW NOTABLE NUCHAL RIGIDITY NOTABLE KYPHOSIS AT THE BASE OF THE CERVICAL SPINE Neck: Yes no lymphadenopathy and Yes no JVD Thyroid: Thyroid normal Carotids: no bruits Resp Effort & Inspection: normal respiratory effort and not tachypneic Auscultation: no crackles, no rales, no rhonchi and no wheezes Cardio Rate: regular rate Rhythm: regular rhythm Heart sounds: no murmurs and normal S1 and S2 GI Palpation (GI): Soft to palpation, nontender, no hepatomegaly and no splenomegaly Auscultation: normal bowel sounds Skin General skin exam: no rashes or lesions noted and dry skin Neuro General: oriented to person, oriented to place and oriented to time Cranial nerves: Yes Equal, round and reactive pupils present Speech: No Abnormal speech present Gait exam (Neuro): Normal gait present Motor exam (neuro): no tremor noted Extrem Right upper extremity: full ROM Left upper extremity: full ROM Right lower extremity: full ROM; no edema Left lower extremity: full ROM; no edema Psych Mental Status: mental status grossly normal Speech and movement: Normal speech and movement present Affect: normal affect Attitude: cooperative Thought process: Normal thought process present Assessment and Plan Assessment & Plan (1) Cervical radiculitis: Code(s): M54.12 - Radiculopathy, cervical region Plan: Patient seems she is dealing with cervical myelopathy/radiculitis. She does report falling in her bathroom and hitting the back of her head. She is apprehensive on getting any imaging at this time. Offered CT head and neck though declines. She has not interested in any imaging at this time. She continues with NSAIDs, muscle relaxers and gabapentin without any significant relief. She is in physical therapy which she reports is giving her some relief. Of note she does have an obvious kyphosis deformity at the base of her cervical spine which may be a reason for chronic neck pain lordotic Medications: New tramadol 50 mg PO BID PRN 10 tabs 0RF pain 5 days M54.12 - Radiculopathy, cervical region Coding Level of Care Code Est Pt Level 3 (02098) Diagnoses Cervical radiculitis M54.12
== END 2023-09-27 14:48 | disposition home or self-care (01) ==
PROVIDERS: PCP Internal Medicine; Visit Provider Physician Assistant
DX: M54.12 Radiculopathy, cervical region (principal)
CPT/HCPCS: 99213

== ENCOUNTER 2023-09-30 13:55 | Emergency (ER) | payer MEDICARE, MEDICAID, SELFPAY ==
--- NOTE | ~2023-09-30 | CT_ITS ---
EXAMINATION: CT head/brain wo IV con CT cervical spine wo IV con INDICATION INFORMATION: fall 1 week worsening chronic LYONS neck pain, fall, acute on chronic COMPARISON: CT head 02/27/2023, CT soft tissue neck 10/05/2020 TECHNIQUE: Separate noncontrast CT examinations of the head and cervical spine were performed. Coronal and sagittal reformats were obtained at the acquisition workstation. This CT examination was performed using dose optimization techniques as appropriate, variously including the following: * Automated exposure control * Adjustment of mA and/or kV according to patient size (this includes techniques or standardized protocols for targeted exams where dose is matched to indication/reason for exam; i.e. extremities or head) * Use of iterative reconstruction technique DLP: 888 mGy-cm FINDINGS: HEAD: There is no evidence of acute intracranial hemorrhage or territorial infarction. Burgess to white matter differentiation is well preserved. No abnormal mass effect or midline shift is seen. No extra-axial fluid collections are identified. No hydrocephalus. Mild additional bilateral basal ganglia. No significant volume loss. Patchy periventricular and deep white matter hypoattenuation is consistent with mild small vessel ischemic changes. The cerebellar tonsils are well positioned. No acute osseous or soft tissue abnormality. Visualized portions of the orbits are unremarkable. Chronic left maxillary sinusitis with wall thickening, sinus atrophy and near complete occlusion of the sinus. The remaining visualized paranasal sinuses and mastoid air cells are well-aerated. CERVICAL SPINE: No evidence of acute fracture or traumatic subluxation of the cervical spine. There is straightening of the normal cervical curvature with otherwise maintained sagittal alignment. Vertebral body heights are maintained. Degenerative disc disease at C5-C6 with loss of intervertebral disc height and marginal osteophytes. Otherwise, intervertebral disc heights are maintained. Moderate atlantodental spondylosis. The atlantoaxial and atlantooccipital articulations are intact. No prevertebral soft tissue swelling. There is no cervical lymphadenopathy. The visualized thyroid gland is unremarkable. The visualized lung apices are clear. CT/CT cervical spine wo IV con IMPRESSION: 1. No acute intracranial pathology. 2. No acute osseous abnormality within the cervical spine. 3. Chronic left maxillary sinusitis.
--- NOTE | 2023-09-30 14:24 | ED.HA ---
HPI - Headache General Chief Complaint: Headache Stated Complaint: headache, on and off for a few months Time Seen by Provider: 09/30/23 19:49 Source: patient Mode of arrival: ambulatory Limitations: no limitations History of Present Illness ED Provider: Dr. Olya Rodriguez HPI Narrative: Patient comes to the emergency room complaining acute on chronic back muscle spasms. Patient states that for several months she has been having a combination of facial neck pain and upper back pain spasms. Patient has not her primary care physician for this, she is currently undergoing physical therapy. Patient states that about a week ago she had a fall, did not lose consciousness, not on blood thinners. Patient states that the pain exacerbated since then. Patient states that this is not a migraine, it is just muscular pain. Related Data Home Medications ?Medication ?Instructions ?Recorded ?Confirmed desvenlafaxine succinate 100 mg 100 mg PO DAILY 03/09/20 09/27/23 tablet,extended release 24 hr (Pristiq) trazodone 50 mg tablet 50 - 100 mg PO BEDTIME PRN Insomnia 03/09/20 09/27/23 lamotrigine 150 mg tablet 150 mg PO BID 08/21/20 09/27/23 acetaminophen 500 mg tablet 500 mg PO QID PRN fever or pain 01/06/21 09/27/23 (Tylenol Extra Strength) bupropion HCl 300 mg 24 hr tablet, 300 mg PO DAILY 03/21/23 09/27/23 extended release Previous Rx's ?Medication ?Instructions ?Recorded cholecalciferol (vitamin D3) 50 50 mcg PO .every other day 90 days 11/08/22 mcg (2,000 unit) tablet #45 tabs alprazolam 0.5 mg tablet (Xanax) 0.5 - 1 mg (1 - 2 x 0.5 mg) PO 02/19/23 BEDTIME Insomnia 3 days #6 tabs nystatin 100,000 unit/gram topical 1 appl topical DAILY PRN rash 30 04/04/23 cream days #30 grams omeprazole 20 mg capsule,delayed 20 mg PO DAILY 90 days #90 caps 05/08/23 release gabapentin 300 mg capsule 300 mg PO .four times a day 30 07/23/23 days #120 caps ibuprofen 600 mg tablet 600 mg PO Q8H PRN pain 30 days #90 08/24/23 tabs methocarbamol 750 mg tablet 750 mg PO Q8H 30 days #90 tabs 08/30/23 tramadol 50 mg tablet 50 mg PO BID PRN pain 5 days #10 09/27/23 tabs Allergies Allergy/AdvReac Type Severity Reaction Status Date / Time vancomycin [VANCOMYCIN] Allergy Severe ITCHING Verified 09/30/23 14:29 SEVERE, pruritus clindamycin [CLINDAMYCIN] Allergy Intermediate ITCHING Verified 09/30/23 14:29 ibuprofen Allergy Intermediate abdominal Verified 09/30/23 14:29 pain nitrofurantoin Allergy Intermediate abdominal Verified 09/30/23 14:29 pain Penicillins [PENICILLINS] Allergy Intermediate HIVES Verified 09/30/23 14:29 Sulfa (Sulfonamide Allergy Intermediate RASH/SWELLING, Verified 09/30/23 14:29 Antibiotics) rash, swelling venlafaxine [From EFFEXOR] AdvReac Severe WORSENING Verified 09/30/23 14:29 DEPRESSION Butrans patch Allergy Severe depression Uncoded 09/27/23 14:27 STEROID INJECTIONS Allergy Severe ANGER AND Uncoded 09/27/23 14:27 AGGITATION Herbal medicines/teas Allergy Intermediate headaches, Uncoded 09/27/23 14:27 stuffiness Review of Systems Review of Systems: Constitutional : No Weight loss, No Fever, No Chills, No Night Sweats, No Fatigue, No Malaise ENT/Mouth : No Hearing loss, No Ear Pain, No Nasal Congestion, No Sinus Pain, No Hoarseness, No sore throat, No Rhinorrhea, No Swallowing Difficulty Eyes: No Eye Pain, No Swelling, No Redness, No Foreign Body, No Discharge, No Vision Changes Cardiovascular : No Chest Pain, No SOB, No Dyspnea on Exertion, No Orthopnea, No Edema, No Palpitations Respiratory : No Cough, No Sputum, No Wheezing, No Smoke Exposure, No Dyspnea Gastrointestinal : No Nausea, No Vomiting, No Diarrhea, No Constipation, No abdominal Pain, No Hematochezia, No Melena Genitourinary : no irregular bleeding, No Dysuria, No Urinary Frequency, No Hematuria, No Urinary Incontinence, No Urgency, No Flank Pain, No Urinary Flow Changes, No Hesitancy Musculoskeletal : Patient complaining of chronic muscle spasms from the back of the neck on the right side towards the scalp towards the upper back Skin : No Skin Lesions, No rash Neuro : No Weakness, No Numbness, No Paresthesias, No Loss of Consciousness, No Dizziness, No Headache Psych : No Anxiety/Panic, No Depression, No SI/HI/AH/VH, No Social Issues, Heme/Lymph: No Bruising, No Bleeding,No Lymphadenopathy Endocrine : No Polyuria, No Polydipsia, No Temperature Intolerance [facility] Past Medical History Medical History Meralgia paraesthetica Obese Obesity Hospital discharge follow-up Dilation of pancreatic duct B12 deficiency Mild recurrent major depression Left hip pain Diarrhea 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 Pre-op evaluation Glossitis Ear discomfort Lumbar radiculopathy Chronic constipation Urine incontinence Left sided sciatica Fatigue Back pain Herniated disc PTSD (post-traumatic stress disorder) History of right breast cancer History of left breast cancer BRCA gene mutation positive Retinal lesion History of bronchitis Depression Irritable bowel syndrome Sciatica Arthritis Chronic GERD Neck pain Surgical History History of sinus surgery History of repair of hiatal hernia History of Lashay-en-Y gastric bypass History of esophagogastroduodenoscopy (EGD) Hx of hernia repair Hx of cholecystectomy Hx of cystostomy Hx of tubal ligation Hx of colonoscopy History of pubovaginal sling Hx of breast lump removal Hx of bilateral oophorectomy Family History Family History Father Heart disease Mother Diabetes mellitus Brother Prostate cancer Pancreatic cancer BRCA positive Sister Breast cancer BRCA positive Son No problems noted. Social History Social History Household Members: Significant Other Housing: House Are you a primary childcare provider to a significant other at home: No Do you presently have visiting nurse or other home services: No Alcohol intake: never Patient Tobacco Use Status: Never used Tobacco e-Cigarette/Vaping Use: Never Used Second Hand Smoke Exposure: No Substance Use Type: Marijuana Advance Directives: No Advance Directives Information Provided: No Do you have a plan to hurt others: No Plan service: No Current occupational status: disabled Cognitive needs: No Hearing needs: No Vision needs: Yes Physical Exam Vital Signs: Vital Signs: Last Vital Signs Temp 97.9 F 09/30/23 22:00 Pulse 74 06/29/24 22:00 Resp 18 09/30/23 22:00 BP 146/79 H 09/30/23 22:00 Pulse Ox 96 09/30/23 22:00 O2 Del Method Room Air 09/30/23 22:00 BMI result Body Mass Index 25.6 Const: Other: Appearance: Alert. Oriented X3. No acute distress. Eyes: Pupils equal, round and reactive to light. ENT: Pharynx normal. Neck: Normal inspection. Neck supple. No lymph nodes noted. No crepitus CVS: Normal heart rate and rhythm. Pulses normal. Normal S1 and S2 Respiratory: No respiratory distress. Breath sounds normal. No Wheezing. No rales Abdomen: Soft and nontender. No rigidity. No distention. Musculoskeletal. No obvious muscle spasms Skin: Skin warm and dry. Normal skin color. Normal skin turgor. Extremities: No lower extremity edema. No Lacerations. No Rash Neuro: Oriented X 3. No motor deficit. No sensory deficit. Moving all extremities. No slurred speech. CN 2 through 12 grossly intact Psych: calm, cooperative, normal affect Course Course Course Narrative: This is a Rapid Medical Examination (RME) performed by Ene Reed PA-C in triage. Full HPI, ROS, assessment and treatment plan per primary provider in the Main ED. 67 yo female hx of diverticulitis, CAD, IBS, gastritis, PTSD, bipolar 2 disorder, depression, lumbar radiculopathy here for eval of acute on chronic occipital migraines since last night. reports migraine extending from posterior head to frontal region which began last night. has had migraines for 2 months, states this feels like her typical. follows with PCP for this and is taking motrin 600mg, methocarbamol and tramadol without relief. denies other symptoms at this time. exam non focal. perrla. ambulating w/ steady gait. Plan: labs +/- imaging per primary provider Medications Administered Discontinued Medications Generic Name Dose Route Start Last Admin Trade Name Freq PRN Reason Stop Dose Admin Diazepam 2 mg 09/30/23 19:56 09/30/23 20:28 Diazepam 2 Mg Tablet PO 09/30/23 19:57 Not Given ONCE ONE Medical Decision Making Medical Decision Making MDM Narrative: -patient complaining of spasms, pain, headache, all chronic. -patient agreed to get CT scans of the head and neck. -patient was offered diazepam. Patient declined, of tramadol, declined. Patient states that she already takes tramadol and methocarbamol at home, declined ibuprofen -my interpretation of CT scan of the head and neck, no obvious abnormality. -before I was able to share the results with the patient, I was informed by the patient's nurse that the patient walked out Differential Diagnosis Differential Diagnoses: The differential diagnosis associated with the presentation includes (Chronic muscle spasms, chronic radiculopathy, neuropathy) Lab Data MDM Lab Attestation statement: I reviewed the patient's lab results. 09/30/23 15:06 09/30/23 15:06 Labs: Lab Results 09/30/23 Range/Units 15:06 WBC 4.8 (4.8-10.8) X10*3/uL RBC 3.82 L (4.20-5.50) X10*6/uL Hgb 12.1 (12.0-16.0) g/dl Hct 37.6 (37.0-47.0) % MCV 98.4 H (80.0-98.0) fL MCH 31.7 (27.0-33.0) pg MCHC 32.2 (31.0-35.0) g/dl RDW 11.5 (11.0-16.0) % Plt Count 293 D (160-400) X10*3/uL MPV 9.4 (9.4-12.3) fL Immature Gran % (Auto) 0.4 (0.0-0.4) % Neut % (Auto) 68.2 (45-73) % Lymph % (Auto) 19.9 L (20-40) % Wilbarger % (Auto) 7.5 (2-11) % Eos % (Auto) 2.7 (0-4) % Baso % (Auto) 1.3 (0-2) % Lymph # (Auto) 1.0 L (1.2-4.9) X10*3/uL Wilbarger # (Auto) 0.4 (0.1-1.2) X10*3/uL Eos # (Auto) 0.1 (0.0-0.4) X10*3/uL Baso # (Auto) 0.1 (0.0-0.2) X10*3/uL Abs Immat Gran (auto) 0.02 (0.00-0.03) X10*3/uL Absolute Neuts (auto) 3.3 (2.0-8.3) x10*3/uL Absolute Nucleated RBC 0.000 (0.0-0.012) X10*3/uL Nucleated RBC % (auto) 0.0 (0.0-0.2) /100WBC Sodium 142 (135-145) mmol/L Potassium 4.2 (3.3-5.1) mmol/L Chloride 109 H (96-108) mmol/L Carbon Dioxide 25 (22-29) mmol/L Anion Gap 12 (12-20) BUN 18 H (9-16) mg/dL Creatinine 0.77 (0.5-1.4) mg/dL Estim Creat Clear Calc 65.4 Estimated GFR > 60 Random Glucose 78 (60-115) mg/dL Calcium 9.0 (8.4-10.2) mg/dL Magnesium 2.6 (1.6-2.6) mg/dL Total Bilirubin 0.2 (0.0-1.0) mg/dL AST 23 (5-31) U/L ALT 16 (0-31) U/L Alkaline Phosphatase 87 (39-117) U/L Total Protein 6.5 (6.5-8.0) g/dL Albumin 3.7 (3.5-5.0) g/dL Discharge Plan Discharge Clinical Impression: Musculoskeletal pain Patient Disposition: Left W/O Completing Treatment Prescriptions: No Action cholecalciferol (vitamin D3) 50 mcg (2,000 unit) tablet 50 mcg PO .every other day 90 Days Qty: 45 3RF alprazolam [Xanax] 0.5 mg tablet 0.5 - 1 mg PO BEDTIME 3 Days Qty: 6 0RF Rx Instructions: Xanax 1-2 tabs at HS PRN nystatin 100,000 unit/gram cream 1 appl topical DAILY PRN (Reason: rash) 30 Days Qty: 30 1RF omeprazole 20 mg capsule,delayed release(DR/EC) 20 mg PO DAILY 90 Days Qty: 90 1RF gabapentin 300 mg capsule 300 mg PO .four times a day 30 Days Qty: 120 2RF ibuprofen 600 mg tablet 600 mg PO Q8H PRN (Reason: pain) 30 Days Qty: 90 0RF methocarbamol 750 mg tablet 750 mg PO Q8H 30 Days Qty: 90 0RF lamotrigine 150 mg Tablet 150 mg PO BID desvenlafaxine succinate [Pristiq] 100 mg tablet extended release 24 hr 100 mg PO DAILY trazodone 50 mg tablet 50 - 100 mg PO BEDTIME PRN (Reason: Insomnia) Rx Instructions: take 1-2 tabs at HS PRN insomnia acetaminophen [Tylenol Extra Strength] 500 mg tablet 500 mg PO QID PRN (Reason: fever or pain) bupropion HCl 300 mg tablet extended release 24 hr 300 mg PO DAILY tramadol 50 mg tablet 50 mg PO BID PRN (Reason: pain) 5 Days Qty: 10 0RF Print Language: Comoran
[2023-09-30 14:25] VITALS: BP 139/76; PULSE 81; RESP 20; TEMP 36.7; O2SAT 95; BMI 25.6
[2023-09-30 15:11] LABS: MANUAL DIFF FLAG NO
--- OUTSIDE RECORDS SUMMARY | 2023-09-30 15:11 | XMS_ITS | Patient Health Record ---
Author Organization Matt Chino III, MD Address [address] [address] Care Team Providers Care Type Disk Quality Control Supervisor Name Role Phone MARLENY CHATMAN, SHEYLA Primary Care Provider UnavailMatt Cueva Unavailable [phone] Julian CHATMAN, Sheyla Unavailable Unavailable ALLERGIES Allergen [...] pain (724.2) Active confirmed Low back pain (211424549) Problem Lobular carcinoma in situ (233.0) Active confirmed Lobular carcinoma in situ (82685998) No additional therapy is recommended for this diagnosis. Annual mammography will continue. 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 She is on adjuvant endocrine therapy with no relapse. 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 She continues on adjuvant endocrine therapy. Problem BRCA2 positive (V84.01) Active confirmed Problem Depression (311) Active confirmed Depression (633021056) Problem Obesity (278.00) Active confirmed Obesity (242029916) We discussed strategies for weight reduction and a healthy diet and regular exercise. PLAN OF TREATMENT Pending Test Test Name Order Date PROFILE, RANDOM (COMPREHENSIVE METABOLIC ) 10/14/2013 CBC w DIFF 10/14/2013 CA 27.29 10/14/2013 Insurance Providers Payer Name Payer Address Payer Phone Subscriber Number Group Number Insured Name Patient Relationship to Insured Coverage Start Date Coverage End Date [employer] [address] [address] [place] [address] [id number] CASSIE WARD Self - patient is the insured MEDICAL (GENERAL) HISTORY Medical History History ICD Code DCIS left breast DCIS, right breast LCIS left breast esophagitis hiatal hernia depression with anxiety molar low back pain last mammogram 06/2012 @ [facility] christine BRCA2 positive anastrozole quit date January 2018 Surgical History Surgery Date(Month/Year) tubal ligation breast biopsy breast biopsy, right 06/2012 bladder suspension lumbosacral spine surgery 2008 lumpectomy, sentinel node biopsy, dcis
[2023-09-30 15:14] LABS: Basophils Absolute Auto 0.1 X10*3/uL (0.0-0.2); Basophils Percent Auto 1.3 % (0-2); Eosinophils Absolute Auto 0.1 X10*3/uL (0.0-0.4); Eosinophils Percent Auto 2.7 % (0-4); Hematocrit 37.6 % (37.0-47.0); Hemoglobin 12.1 g/dl (12.0-16.0); Imm Gran Abs Auto 0.02 X10*3/uL (0.00-0.03); Imm Gran Pct Auto 0.4 % (0.0-0.4); Lymphocytes Percent Auto 19.9 % (20-40); Mean Corpuscular HGB Conc 32.2 g/dl (31.0-35.0); Mean Corpuscular Hemoglobin 31.7 pg (27.0-33.0); Mean Corpuscular Volume 98.4 fL (80.0-98.0); Mean Platelet Volume 9.4 fL (9.4-12.3); Monocytes Absolute Auto 0.4 X10*3/uL (0.1-1.2); Monocytes Percent Auto 7.5 % (2-11); Neutrophils Absolute Auto 3.3 x10*3/uL (2.0-8.3); Neutrophils Percent Auto 68.2 % (45-73); Platelet Count 293 X10*3/uL (160-400); Red Blood Count 3.82 X10*6/uL (4.20-5.50); Red Cell Distribution Width 11.5 % (11.0-16.0); White Blood Count 4.8 X10*3/uL (4.8-10.8)
[2023-09-30 15:35] LABS: Alanine Aminotransferase 16 U/L (0-31); Albumin Level 3.7 g/dL (3.5-5.0); Alkaline Phosphatase 87 U/L (39-117); Anion Gap 12 (12-20); Aspartate Amino Transferase 23 U/L (5-31); Bilirubin Total 0.2 mg/dL (0.0-1.0); Blood Urea Nitrogen 18 mg/dL (9-16); Carbon Dioxide 25 mmol/L (22-29); Chloride 109 mmol/L (96-108); Creatinine Clr Calc Pharmacy 65.4; Estimated Glomerular Filt Rate > 60; Glucose Random 78 mg/dL (60-115); Magnesium 2.6 mg/dL (1.6-2.6); Potassium 4.2 mmol/L (3.3-5.1); Sodium 142 mmol/L (135-145); Total Protein 6.5 g/dL (6.5-8.0)
[2023-09-30 18:32] VITALS: BP 152/83; PULSE 74; RESP 16; TEMP 36.6; O2SAT 97
[2023-09-30 20:42] VITALS: BP 173/84; PULSE 65; RESP 17; TEMP 36.7; O2SAT 96
--- NOTE | 2023-09-30 20:55 | MHC.EDTECH ---
This tech took over care of patient at 1900,hourly rounds and vitals completed,BP is elevated RN Jacklyn made aware.
[2023-09-30 22:00] VITALS: BP 146/79; PULSE 74; RESP 18; TEMP 36.6; O2SAT 96
--- NOTE | 2023-09-30 22:01 | MHC.EDTECH ---
Hourly rounds and vitals completed,call kincaid in reach
--- NOTE | 2023-09-30 23:05 | PC.NURSE ---
pt left without discharge paperwork
== END 2023-09-30 23:06 | disposition left against medical advice (07) ==
PROVIDERS: Physician Assistant Medical; Emergency Provider Emergency Medicine; PCP Internal Medicine
DX: M79.18 Myalgia, other site (principal); R51.9 Headache, unspecified; Z85.3 Personal history of malignant neoplasm of breast; Z79.899 Other long term (current) drug therapy
CPT/HCPCS: 36415; 70450; 72125; 80053; 83735; 85025; 99284

== ENCOUNTER 2023-10-08 12:10 | Emergency (ER) | payer MEDICARE, MEDICAID, SELFPAY ==
[2023-10-08] VITALS (10 sets, daily range): BP systolic 114–159; BP diastolic 70–83; PULSE 66–84; RESP 16–18; TEMP 36.6–36.8; O2SAT 96–99; BMI 25.8
--- NOTE | ~2023-10-08 | CT_ITS ---
EXAMINATION: CT HEAD WITHOUT CONTRAST CT FACIAL BONES WITHOUT CONTRAST CT CERVICAL SPINE WITHOUT CONTRAST CLINICAL INFORMATION: Head strike. Dizziness. Fall. Neck pain. Facial pain. COMPARISON: CT head, CT cervical spine September 30, 2023 TECHNIQUE: Imaging was performed from the skull base to vertex without intravenous administration of contrast. In addition, helical noncontrast CT imaging was acquired through the cervical spine and facial bones and source images were reviewed along with axial reconstructions and sagittal and coronal MPRs. [This CT examination was performed using dose optimization techniques as appropriate, variously including the following: *Automated exposure control *Adjustment of mA and/or kV according to patient size (this includes techniques or standardized protocols for targeted exams where dose is matched to indication/reason for exam; i.e. extremities or head) *Use of iterative reconstruction technique] DLP: 1100 mGy-cm FINDINGS: HEAD: No intracranial mass, hemorrhage, or midline shift is visualized. The ventricles and sulci are proportional. No extra-axial collections are identified. FACIAL BONES: No acute abnormality. No fracture of facial bones. Orbits and retrobulbar structures are normal. The left maxillary sinus is hypoplastic. Lobular mucosal thickening and density partially opacifies the left maxillary sinus. The ostia to left maxillary sinus is partially occluded by the mucosal disease. The frontal sinuses are hypoplastic. There is normal aeration of the sphenoid, ethmoid and right maxillary sinus. The mastoid air cells and middle ear cavities are normally aerated. CERVICAL SPINE: There is no evidence of acute cervical spine fracture. Vertebral bodies remain normal in height. Degenerative disc height narrowing and vertebral endplate spurs C5-C6. No pre- or paravertebral soft tissue abnormality is identified. Limited assessment of the lung apices is unremarkable. CT/CT cervical spine wo IV con IMPRESSION: 1. No acute intracranial process or discrete facial bone fracture. 2. No acute cervical spine fracture or traumatic subluxation.
--- NOTE | 2023-10-08 13:38 | ED.NECK ---
HPI - Neck Pain/Injury General Chief Complaint: Neck Pain/Injury Stated Complaint: neck and head pain Time Seen by Provider: 10/08/23 13:38 Source: patient and RN notes reviewed Mode of arrival: ambulatory Limitations: no limitations History of Present Illness ED Provider: Whitney Pierre PA-C HPI Narrative: This is a 67-year-old female, with a history of chronic pain, who presents emergency department with complaints of head and neck pain. Patient was seen and evaluated on September 30, 2023 due to worsening neck pain after mechanical fall. Patient reports that while she was washing her dog in the bathtub she slipped on water and fell backwards striking her posterior head. No loss of consciousness. She was seen in the emergency room and had negative CT scans and she left without completing treatment. On Monday, patient reports she took her nighttime medications including Xanax and trazodone, and realized that she had one other medication to take at home, which was located in the kitchen. She states that she walked there and felt as though her nighttime medications was kicking in and she ultimately fell forward striking the left side of her face. Patient denies loss of consciousness. She denies any chest pain or shortness for breath prior to these falls. She states that she has had intermittent dizziness, worsening with positional changes. She states that since this fall and head strike her dizziness has since worsened, as she reports that it happens more often now. She reports chronic neck pain as well as dizziness during my examination today. No other complaints or concerns at this time. MD complaint: neck pain, neck injury and upper back pain Onset (ago): day(s) Place: home Radiation: head Severity: moderate Quality: aching Duration: constant Relieving factors: none Exacerbating factors: none Context: fall Associated symptoms: none Treatments prior to arrival: none Related Data Home Medications ?Medication ?Instructions ?Recorded ?Confirmed desvenlafaxine succinate 100 mg 100 mg PO DAILY 03/09/20 09/27/23 tablet,extended release 24 hr (Pristiq) trazodone 50 mg tablet 50 - 100 mg PO BEDTIME PRN Insomnia 03/09/20 09/27/23 lamotrigine 150 mg tablet 150 mg PO BID 08/21/20 09/27/23 acetaminophen 500 mg tablet 500 mg PO QID PRN fever or pain 01/06/21 09/27/23 (Tylenol Extra Strength) bupropion HCl 300 mg 24 hr tablet, 300 mg PO DAILY 03/21/23 09/27/23 extended release Previous Rx's ?Medication ?Instructions ?Recorded cholecalciferol (vitamin D3) 50 50 mcg PO .every other day 90 days 11/08/22 mcg (2,000 unit) tablet #45 tabs alprazolam 0.5 mg tablet (Xanax) 0.5 - 1 mg (1 - 2 x 0.5 mg) PO 02/19/23 BEDTIME Insomnia 3 days #6 tabs nystatin 100,000 unit/gram topical 1 appl topical DAILY PRN rash 30 04/04/23 cream days #30 grams omeprazole 20 mg capsule,delayed 20 mg PO DAILY 90 days #90 caps 05/08/23 release gabapentin 300 mg capsule 300 mg PO .four times a day 30 07/23/23 days #120 caps methocarbamol 750 mg tablet 750 mg PO Q8H 30 days #90 tabs 08/30/23 tramadol 50 mg tablet 50 mg PO BID PRN pain 5 days #10 09/27/23 tabs baclofen 10 mg tablet 10 mg PO TID 7 days #21 tabs 10/01/23 ibuprofen 600 mg tablet 600 mg PO Q8H PRN pain 30 days #90 10/01/23 tabs oxycodone 5 mg tablet 5 mg PO Q8H PRN pain 30 days #90 10/08/23 tabs Allergies Allergy/AdvReac Type Severity Reaction Status Date / Time vancomycin [VANCOMYCIN] Allergy Severe ITCHING Verified 10/08/23 12:25 SEVERE, pruritus clindamycin [CLINDAMYCIN] Allergy Intermediate ITCHING Verified 10/08/23 12:25 ibuprofen Allergy Intermediate abdominal Verified 10/08/23 12:25 pain nitrofurantoin Allergy Intermediate abdominal Verified 10/08/23 12:25 pain Penicillins [PENICILLINS] Allergy Intermediate HIVES Verified 10/08/23 12:25 Sulfa (Sulfonamide Allergy Intermediate RASH/SWELLING, Verified 10/08/23 12:25 Antibiotics) rash, swelling venlafaxine [From EFFEXOR] AdvReac Severe WORSENING Verified 10/08/23 12:25 DEPRESSION Butrans patch Allergy Severe depression Uncoded 09/27/23 14:27 STEROID INJECTIONS Allergy Severe ANGER AND Uncoded 09/27/23 14:27 AGGITATION Herbal medicines/teas Allergy Intermediate headaches, Uncoded 09/27/23 14:27 stuffiness Review of Systems Review of Systems: Yes all other systems are reviewed and are negative Constitutional: Constitutional: Reports as per [facility] Past Medical History Attestation statement: The following information was validated with the patient. Medical History Meralgia paraesthetica Obese Obesity Hospital discharge follow-up Dilation of pancreatic duct B12 deficiency Mild recurrent major depression Left hip pain Diarrhea 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 Pre-op evaluation Glossitis Ear discomfort Lumbar radiculopathy Chronic constipation Urine incontinence Left sided sciatica Fatigue Back pain Herniated disc PTSD (post-traumatic stress disorder) History of right breast cancer History of left breast cancer BRCA gene mutation positive Retinal lesion History of bronchitis Depression Irritable bowel syndrome Sciatica Arthritis Chronic GERD Neck pain Surgical History History of sinus surgery History of repair of hiatal hernia History of Lashay-en-Y gastric bypass History of esophagogastroduodenoscopy (EGD) Hx of hernia repair Hx of cholecystectomy Hx of cystostomy Hx of tubal ligation Hx of colonoscopy History of pubovaginal sling Hx of breast lump removal Hx of bilateral oophorectomy Family History Family History Father Heart disease Mother Diabetes mellitus Brother Prostate cancer Pancreatic cancer BRCA positive Sister Breast cancer BRCA positive Son No problems noted. Social History Social History Household Members: Significant Other Housing: House Are you a primary resident care supervisor to a significant other at home: No Do you presently have visiting nurse or other home services: No Alcohol intake: never Patient Tobacco Use Status: Never used Tobacco e-Cigarette/Vaping Use: Never Used Second Hand Smoke Exposure: No Substance Use Type: Marijuana Advance Directives: No Advance Directives Information Provided: Yes Do you have a plan to hurt others: No Plan service: No Current occupational status: disabled Cognitive needs: No Hearing needs: No Vision needs: Yes Physical Exam Vital Signs: Vital Signs: Last Vital Signs Temp 98 F 10/08/23 15:10 Pulse 74 10/08/23 18:49 Resp 18 10/08/23 15:10 BP 144/83 H 10/08/23 18:49 Pulse Ox 98 10/08/23 15:10 O2 Del Method Room Air 10/08/23 15:10 BMI result Body Mass Index 25.8 Const: General: cooperative, comfortable and no acute distress Orientation/consciousness: patient oriented x3 Limitations: no limitations HEENT: Head: Yes normal to inspection, Yes normocephalic and Yes atraumatic Ears: hearing grossly normal bilaterally General nose exam: Normal external nose present Face and sinus: Yes normal facial exam Mouth: Normal oral and palatal mucosa present, oropharynx normal and moist mucous membranes Throat: Yes posterior oropharynx normal Eyes: Other: Left orbital ecchymosis seen, with tenderness palpation to the inferior aspect of the left orbit. Conjunctiva is clear. No nystagmus noted bilaterally General: appearance normal, both eyes and all related structures Eyelids: Yes eyelids normal Conjunctivae: conjunctivae normal Sclerae: sclerae normal Pupils: Equal, round and reactive pupils present EOM: EOMs intact bilaterally Neck: Other: Tenderness palpation along the cervical paraspinous muscles, with full range of motion of the neck, no nuchal rigidity. Neck: Yes normal visual inspection, Yes full ROM and Yes no lymphadenopathy Lymphatic: no lymphadenopathy noted Chest: Chest palpation & inspection: normal inspection of the chest Resp: Effort & Inspection: normal respiratory effort and able to speak in complete sentences Auscultation: clear to auscultation bilaterally, no crackles, no rales, no rhonchi and no wheezes Cardio: Rate: regular rate Rhythm: regular rhythm Heart sounds: S1 normal heart sound present and S2 normal heart sound present GI: Inspection: Yes normal to inspection Skin: General skin exam: no rashes or lesions noted Trauma: no lacerations or abrasions Wounds: no wounds Neuro: General: patient oriented x3 and moves all extremities Cranial nerves: Yes CN's II-XII intact bilaterally and Yes Equal, round and reactive pupils present Cognition (Neuro): normal cognition Gait exam (Neuro): Normal gait present Motor exam (neuro): 5/5 motor strength present throughout and Pronator motor function not present Coordination: [id number] test normal and [id number] test normal Romberg Test: Negative Extrem: General: Yes normal to inspection Right upper extremity: normal to inspection Left upper extremity: normal to inspection Right lower extremity: normal to inspection Left lower extremity: normal to inspection Course Reevaluation(s) Reevaluation #1: Patient re-evaluated, complaining of headache pain, she is orthostatic therefore we are medicating her with IV fluids, and will re-evaluate. We will also order Toradol and Benadryl to see if this improves her symptoms. Will continue to monitor. Sign-out given to my colleague, Jennifer Merino pending re-eval and repeat orthos. Time: 16:07 Reevaluation #2: Received this patient on sign out from the morning DULCE. Patient's orthostatic vital signs improved dramatically after IV fluids. Patient cleared for discharge and encouraged to keep her upcoming pain management appointment. Time: 19:09 Medications Administered Discontinued Medications Generic Name Dose Route Start Last Admin Trade Name Rossq PRN Reason Stop Dose Admin Diphenhydramine HCl 25 mg 10/08/23 16:08 10/08/23 17:08 Diphenhydramine Hcl 50 Mg/Ml Vial IVPUSH 10/08/23 16:09 25 mg ONCE ONE Administration Sodium Chloride 1,000 mls @ 999 mls/hr 10/08/23 15:33 10/08/23 18:40 Ns IV 10/08/23 16:33 Infused .Q1H1M ONE Infusion Ketorolac Tromethamine 30 mg 10/08/23 16:08 10/08/23 17:09 Ketorolac Tromethamine 30 Mg/Ml Vial IVPUSH 10/08/23 16:09 30 mg ONCE ONE Administration Medical Decision Making Medical Decision Making MDM Narrative: This is a 67 year old female who presents emergency department with complaints of dizziness, headache and neck pain as well as facial pain. Patient has had it two mechanical falls over this past week. She states that the 1st 1 was after slipping and falling on water. She states that the 2nd fall occurred due to medication side effects. On arrival, patient is alert and oriented x4, she has no focal neurologic deficits on examination. Vital signs within normal limits. She has ecchymosis noted to the left orbital region with mild tenderness palpation. She also endorses dizziness. No nystagmus seen on examination. Plan: CT head, neck, face, labs, EKG, orthostatics Differential Diagnosis Differential Diagnoses: The differential diagnosis associated with the presentation includes Orthostatic hypotension, electrolyte derangement, ICH, SDH, facial bone fracture Admission/Observation Consideration of admission/observation: Escalation of care including admission/observation considered Escalation of care including admission/observation considered however given workup today not warranted at this time. Lab Data MDM Lab Attestation statement: I reviewed the patient's lab results. No leukocytosis, stable H&H, chemistry nondiagnostic, troponin less than 2.7, no need for repeat. 10/08/23 14:13 10/08/23 14:14 Labs: Lab Results 10/08/23 10/08/23 Range/Units 14:13 14:14 WBC 5.4 (4.8-10.8) X10*3/uL RBC 3.81 L (4.20-5.50) X10*6/uL Hgb 12.1 (12.0-16.0) g/dl Hct 37.9 (37.0-47.0) % MCV 99.5 H (80.0-98.0) fL MCH 31.8 (27.0-33.0) pg MCHC 31.9 (31.0-35.0) g/dl RDW 11.4 (11.0-16.0) % Plt Count 275 (160-400) X10*3/uL MPV 9.6 (9.4-12.3) fL Immature Gran % (Auto) 0.2 (0.0-0.4) % Neut % (Auto) 58.7 (45-73) % Lymph % (Auto) 27.0 (20-40) % Blanco % (Auto) 7.6 (2-11) % Eos % (Auto) 5.2 H (0-4) % Baso % (Auto) 1.3 (0-2) % Lymph # (Auto) 1.5 (1.2-4.9) X10*3/uL Blanco # (Auto) 0.4 (0.1-1.2) X10*3/uL Eos # (Auto) 0.3 (0.0-0.4) X10*3/uL Baso # (Auto) 0.1 (0.0-0.2) X10*3/uL Abs Immat Gran (auto) 0.01 (0.00-0.03) X10*3/uL Absolute Neuts (auto) 3.2 (2.0-8.3) x10*3/uL Absolute Nucleated RBC 0.000 (0.0-0.012) X10*3/uL Nucleated RBC % (auto) 0.0 (0.0-0.2) /100WBC Sodium 142 (135-145) mmol/L Potassium 4.0 (3.3-5.1) mmol/L Chloride 107 (96-108) mmol/L Carbon Dioxide 26 (22-29) mmol/L Anion Gap 13 (12-20) BUN 16 (9-16) mg/dL Creatinine 0.83 (0.5-1.4) mg/dL Estim Creat Clear Calc 60.9 Estimated GFR > 60 Random Glucose 79 (60-115) mg/dL Calcium 9.0 (8.4-10.2) mg/dL Magnesium 2.7 H (1.6-2.6) mg/dL Total Bilirubin 0.2 (0.0-1.0) mg/dL Direct Bilirubin < 0.2 (0.0-0.5) mg/dL AST 24 (5-31) U/L ALT 16 (0-31) U/L Alkaline Phosphatase 84 (39-117) U/L Total Creatine Kinase 87 (26-140) U/L Troponin I High Sens < 2.7 (<3.5-17.0) ng/L Total Protein 6.6 (6.5-8.0) g/dL Albumin 3.8 (3.5-5.0) g/dL Independent Interpretation I performed an independent interpretation of an: EKG Interpretation: Normal sinus rhythm at a ventricular rate of 62 beats per minute, no ST elevation or depression. QT QTC 428/434 Radiology Impression Discussion of test interpretation with radiology: I have reviewed the radiologist's reading. Radiologist Impression: CT/CT head/brain wo IV con IMPRESSION: 1. No acute intracranial process or discrete facial bone fracture. 2. No acute cervical spine fracture or traumatic subluxation. Dictated By: Aj Pierre MD Discharge Plan Discharge Clinical Impression: Neck pain, Orthostatic hypotension Patient Disposition: Home, Self-Care Instructions: Hypotension (ED), Dizziness (ED), Neck Pain (ED) Additional Instructions: You were seen in the emergency department after a fall as well as dizziness and neck pain. Your CT of your neck facial bones and head do not show any new abnormalities. You do have degenerative changes in your neck which was seen previously on your previous CT scan. We also medicated you with a medication called Toradol and Benadryl. We also gave you IV fluids as your blood pressure was dropping causing you to have dizziness spells. If any new or worsening symptoms occur including but not limited to chest pain, shortness of breath, head strike, or worsening pain, please return for re-evaluation. Prescriptions: No Action cholecalciferol (vitamin D3) 50 mcg (2,000 unit) tablet 50 mcg PO .every other day 90 Days Qty: 45 3RF alprazolam [Xanax] 0.5 mg tablet 0.5 - 1 mg PO BEDTIME 3 Days Qty: 6 0RF Rx Instructions: Xanax 1-2 tabs at HS PRN nystatin 100,000 unit/gram cream 1 appl topical DAILY PRN (Reason: rash) 30 Days Qty: 30 1RF omeprazole 20 mg capsule,delayed release(DR/EC) 20 mg PO DAILY 90 Days Qty: 90 1RF gabapentin 300 mg capsule 300 mg PO .four times a day 30 Days Qty: 120 2RF methocarbamol 750 mg tablet 750 mg PO Q8H 30 Days Qty: 90 0RF ibuprofen 600 mg tablet 600 mg PO Q8H PRN (Reason: pain) 30 Days Qty: 90 0RF baclofen 10 mg tablet 10 mg PO TID 7 Days Qty: 21 0RF oxycodone 5 mg tablet 5 mg PO Q8H PRN (Reason: pain) 30 Days Qty: 90 0RF Rx Instructions: Partial Fill upon patient request. lamotrigine 150 mg Tablet 150 mg PO BID desvenlafaxine succinate [Pristiq] 100 mg tablet extended release 24 hr 100 mg PO DAILY trazodone 50 mg tablet 50 - 100 mg PO BEDTIME PRN (Reason: Insomnia) Rx Instructions: take 1-2 tabs at HS PRN insomnia acetaminophen [Tylenol Extra Strength] 500 mg tablet 500 mg PO QID PRN (Reason: fever or pain) bupropion HCl 300 mg tablet extended release 24 hr 300 mg PO DAILY tramadol 50 mg tablet 50 mg PO BID PRN (Reason: pain) 5 Days Qty: 10 0RF Print Language: Marshallese
--- NOTE | 2023-10-08 13:58 | ECG_ITS ---
Test Reason : DIZNESS Blood Pressure : / mmHG Vent. Rate : 062 BPM Atrial Rate : 062 BPM P-R Int : 148 ms QRS Dur : 076 ms QT Int : 428 ms P-R-T Axes : 079 012 039 degrees QTc Int : 434 ms Normal sinus rhythm Normal ECG When compared with ECG of 11-NOV-2020 07:37, T wave amplitude has increased in Anterolateral leads Referred By: Whitney Pierre Electronically Signed By:Abe Meza
[2023-10-08 14:18] LABS: MANUAL DIFF FLAG NO
[2023-10-08 14:20] LABS: Basophils Absolute Auto 0.1 X10*3/uL (0.0-0.2); Basophils Percent Auto 1.3 % (0-2); Eosinophils Absolute Auto 0.3 X10*3/uL (0.0-0.4); Eosinophils Percent Auto 5.2 % (0-4); Hematocrit 37.9 % (37.0-47.0); Hemoglobin 12.1 g/dl (12.0-16.0); Imm Gran Abs Auto 0.01 X10*3/uL (0.00-0.03); Imm Gran Pct Auto 0.2 % (0.0-0.4); Lymphocytes Absolute Auto 1.5 X10*3/uL (1.2-4.9); Mean Corpuscular HGB Conc 31.9 g/dl (31.0-35.0); Mean Corpuscular Hemoglobin 31.8 pg (27.0-33.0); Mean Corpuscular Volume 99.5 fL (80.0-98.0); Mean Platelet Volume 9.6 fL (9.4-12.3); Monocytes Absolute Auto 0.4 X10*3/uL (0.1-1.2); Monocytes Percent Auto 7.6 % (2-11); Neutrophils Absolute Auto 3.2 x10*3/uL (2.0-8.3); Neutrophils Percent Auto 58.7 % (45-73); Platelet Count 275 X10*3/uL (160-400); Red Blood Count 3.81 X10*6/uL (4.20-5.50); Red Cell Distribution Width 11.4 % (11.0-16.0); White Blood Count 5.4 X10*3/uL (4.8-10.8)
[2023-10-08 14:36] LABS: Alanine Aminotransferase 16 U/L (0-31); Albumin Level 3.8 g/dL (3.5-5.0); Alkaline Phosphatase 84 U/L (39-117); Anion Gap 13 (12-20); Aspartate Amino Transferase 24 U/L (5-31); Bilirubin Direct < 0.2 mg/dL (0.0-0.5); Bilirubin Total 0.2 mg/dL (0.0-1.0); Blood Urea Nitrogen 16 mg/dL (9-16); Carbon Dioxide 26 mmol/L (22-29); Chloride 107 mmol/L (96-108); Creatinine Clr Calc Pharmacy 60.9; Estimated Glomerular Filt Rate > 60; Glucose Random 79 mg/dL (60-115); Magnesium 2.7 mg/dL (1.6-2.6); Sodium 142 mmol/L (135-145); Total Protein 6.6 g/dL (6.5-8.0)
[2023-10-08 14:44] LABS: Troponin-I High Sensitivity < 2.7 ng/L (<3.5-17.0)
[2023-10-08] MEDS: 0.9 % Sodium Chloride 1,000 ML 999 ML IV (17:07)
[2023-10-08] MEDS: diphenhydrAMINE HCL 50 MG/ML VIAL 25 MG IVPUSH (17:08)
[2023-10-08] MEDS: Ketorolac Tromethamine 30 MG/ML VIAL IVPUSH (17:09)
== END 2023-10-08 19:31 | disposition home or self-care (01) ==
PROVIDERS: Physician Assistant Medical; Emergency Provider Emergency Medicine; PCP Internal Medicine
DX: I95.1 Orthostatic hypotension (principal); M54.2 Cervicalgia; S09.90XA Unspecified injury of head, initial encounter; W01.0XXA Fall on same level from slipping, tripping and stumbling without subsequent striking against object, initial encounter; Y93.K3 Activity, grooming and shearing an animal; Y92.9 Unspecified place or not applicable; Y99.9 Unspecified external cause status; R51.9 Headache, unspecified; R29.6 Repeated falls; K21.9 Gastro-esophageal reflux disease without esophagitis; E53.8 Deficiency of other specified B group vitamins; Z79.899 Other long term (current) drug therapy
CPT/HCPCS: 36415; 70450; 70486; 72125; 80048; 80076; 82550; 83735; 84484; 85025; 93005; 96361; 96374; 96375; 99284; J1200; J1885

== ENCOUNTER → 2023-10-08 13:58 | Outpatient (BNV) | payer MEDICARE, MEDICAID, SELFPAY | PROVIDERS: Emergency Provider Emergency Medicine; PCP Internal Medicine; Visit Provider Internal Medicine Cardiovascular Disease | DX: R42 Dizziness and giddiness (principal) | CPT/HCPCS: 93010 ==

== ENCOUNTER 2023-10-12 09:04 | Outpatient (AMB) | payer MEDICARE, MEDICAID, SELFPAY ==
--- NOTE | 2023-10-12 09:10 | MHC.OFFVIS ---
Vital Signs 10/12/23 09:20 Height 5 ft 3 in Weight 144 lb 8 oz BMI 25.6 BP 122/58 L Blood Pressure Location Lt brachial Position Sitting Respiration 14 Pulse 86 Pulse Source Pulse Oximeter Pulse Oximetry (%) 95 Oxygen Delivery Method Room Air Intake Visit Reasons: Cervical/Lumbar Radiculopathy Intake Note: Patient comes in for initial visit was referred by primary care. Reports she has done four weeks of physical therapy, has fallen twice within the past three weeks. Today pain level is 6/10. Allergies vancomycin [VANCOMYCIN] Allergy (Severe, Verified 10/12/23 09:23) ITCHING SEVERE, pruritus clindamycin [CLINDAMYCIN] Allergy (Intermediate, Verified 10/12/23 09:23) ITCHING ibuprofen Allergy (Intermediate, Verified 10/12/23 09:23) abdominal pain nitrofurantoin Allergy (Intermediate, Verified 10/12/23 09:23) abdominal pain Penicillins [PENICILLINS] Allergy (Intermediate, Verified 10/12/23 09:23) HIVES Sulfa (Sulfonamide Antibiotics) Allergy (Intermediate, Verified 10/12/23 09:23) RASH/SWELLING, rash, swelling venlafaxine [From EFFEXOR] Adverse Reaction (Severe, Verified 10/12/23 09:23) WORSENING DEPRESSION Butrans patch Allergy (Severe, Uncoded 09/27/23 14:27) depression STEROID INJECTIONS Allergy (Severe, Uncoded 09/27/23 14:27) ANGER AND AGGITATION Herbal medicines/teas Allergy (Intermediate, Uncoded 09/27/23 14:27) headaches, stuffiness HPI Comments Details: Nancy is very pleasant 67 years old female who presents in my office with complains on pain in the back of her neck with radiation to the occipital top of the head and forehead 10 sometimes even into the face. She reports that this pain started 4 months ago. It was bothering her on and off, however 1 month ago she slipped and fell on the floor in her house and after injury of the head and neck her pain became constant. She reports her pain is very severe the pain range between 6-10 out of 10. She reports that any position in any movements of the neck aggravate her pain flexing forward and flexing backwards aggravates her pain. She can not sleep normally because of her pain can not do activities of daily living she can take care of herself but she can not function normally. She is on permanent disability since 1998 due to depression PTSD and anxiety. She is self mobile. Movements aggravate her pain. The pain bothers her without variation all day long exacerbations are in the morning and at night. In terms of tissue damage he reports her pain as pulsing and pounding, pinching and crushing, tugging and wrenching, tiring and exhausting, sickening and suffocating, spreading, radiating, piercing. She went for scan of the cervical spine when she fell on the ground and CT scan results are dictated as below. She is prescribed currently by her primary care physician gabapentin 300 mg 4 times a day methocarbamol 750 3 times a day ibuprofen 600 mg 1-2 3 times a day and oxycodone 5 mg twice a day to help her pain. She is currently in physical therapy. The motion exercises aggravates her pain however the massage therapy she receives at physical therapy helps her pain little bit. In the very distant past she reported that she for the lower back pain received epidural steroid injection and that resulted in allergic reaction. She does not remember name of the practice, does not remember name of the medicine, she remembers that the reaction was redness of the face and dizziness. 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 She had gastric bypass in 2017. Lost 140 lb. She several times was admitted for exacerbation of diverticulosis diverticulitis and she had laminectomy with decompression L4-5 20 years ago. She denies smoking cigarettes she stopped drinking alcohol 15 years ago she drinks 2-3 cups of coffee a day currently she denies recreational drugs but she was addicted to Adderall. [facility] Medical History Meralgia paraesthetica Obese Obesity Hospital discharge follow-up Dilation of pancreatic duct B12 deficiency Mild recurrent major depression Left hip pain Diarrhea 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 Pre-op evaluation Glossitis Ear discomfort Lumbar radiculopathy Chronic constipation Urine incontinence Left sided sciatica Fatigue Back pain Herniated disc PTSD (post-traumatic stress disorder) History of right breast cancer History of left breast cancer BRCA gene mutation positive Retinal lesion History of bronchitis Depression Irritable bowel syndrome Sciatica Arthritis Chronic GERD Neck pain Surgical History History of sinus surgery History of repair of hiatal hernia History of Lashay-en-Y gastric bypass History of esophagogastroduodenoscopy (EGD) Hx of hernia repair Hx of cholecystectomy Hx of cystostomy Hx of tubal ligation Hx of colonoscopy History of pubovaginal sling Hx of breast lump removal Hx of bilateral oophorectomy Family History Father Heart disease Mother Diabetes mellitus Brother Prostate cancer Pancreatic cancer BRCA positive Sister Breast cancer BRCA positive Son No problems noted. Social History Household Members: Significant Other Housing: House Are you a primary direct support professional caregiver to a significant other at home: No Do you presently have visiting nurse or other home services: No Alcohol intake: never Patient Tobacco Use Status: Never used Tobacco e-Cigarette/Vaping Use: Never Used Second Hand Smoke Exposure: No Substance Use Type: Marijuana service: No Current occupational status: disabled Cognitive needs: No Hearing needs: No Vision needs: Yes Review of Systems Const All systems reviewed & are unremarkable except as noted in HPI and below Reports no additional complaints ENT Reports Normal hearing present Card Reports no additional complaints Resp Reports no additional complaints GI Reports as per HPI Reports no additional complaints Musc Reports as per HPI Neuro Reports no additional complaints, Reports Normal hearing present, Denies Abnormal speech present, Denies confusion and Denies Sensory deficit (Neuro) Psych Reports as per HPI and Denies confusion Endo Reports no additional complaints Physical Exam Vital Signs: Last Vital Signs Pulse 86 10/12/23 09:20 Resp 14 10/12/23 09:20 BP 122/58 L 10/12/23 09:20 Pulse Ox 95 10/12/23 09:20 Oxygen Delivery Method Room Air 10/12/23 09:20 BMI result Body Mass Index 25.6 Const General: no acute distress; No confusion Orientation/consciousness: patient oriented x3 and No confusion Eyes General: appearance normal, both eyes and all related structures Pupils: Equal, round and reactive pupils present EOM: EOMs intact bilaterally Neck Other: Limited range of motion of the cervical spine. Severe tenderness on palpation starting from C1 going all the way down to T3 vertebra. Paraspinal palpation also very tender. Axial compression aggravates patient's pain but Lhermitte is negative. Spurling test is also negative. Valsalva maneuver is negative. 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 Neck: No full ROM Chest Chest palpation & inspection: normal inspection of the chest Resp Effort & Inspection: normal respiratory effort, able to speak in complete sentences, normal respiratory pattern, no audible wheezes and no cough Cardio Jugular venous distension: no JVD GI Inspection: Yes normal to inspection Neuro General: patient oriented x3, gait normal and No confusion Cranial nerves: Yes CN's II-XII intact bilaterally, Yes Equal, round and reactive pupils present, Yes Normal hearing present and Yes Ability to bilaterally elevate shoulders present Speech: No Abnormal speech present Gait exam (Neuro): Normal gait present Motor exam (neuro): 5/5 motor strength present throughout Sensory Exam: No Sensory deficit (Neuro) Extrem General: No pedal edema Psych Speech and movement: Normal speech and movement present Affect: normal affect Attitude: cooperative Thought process: Normal thought process present Thought content: Normal thought content present Insight: Good insight present (Psych) Judgement: Good judgement present (Psych) Results Reviewed Results Reviewed: CT of the cervical spine 10/08/2023. findings: Head: No intracranial mass hemorrhage or midline shift is visualized. The ventricles and sulci are proportionate. No extra-axial collection are identified. Facial bones no acute abnormality. Orbits and retrobulbar structures are normal. No fracture facial bones. The left maxillary sinus is hypoplastic. Lobar mucosal thickening and density partially opacified left maxillary sinus. The ostia to the left maxillary sinus is partially occluded by the mucosal disease. The frontal sinus are hypoplastic. There is normal aeration of the sphenoid ethmoid and right maxillary sinus. The mastoid air cells and middle ear cavities are normal. Cervical spine: There is no evidence of acute cervical fracture. Vertebral bodies remain normal in height. Degenerative disc height narrowing and vertebral endplate spur C5-C6. No pre or upper or vertebral soft tissue abnormality is identified. Patient reported today herself that she went for DEXA scan bone density test and she reported that she was diagnose with osteopenia but not osteoporosis. Assessment & Plan Assessment & Plan (1) Spondylosis of cervical region without myelopathy or radiculopathy: Code(s): M47.812 - Spondylosis without myelopathy or radiculopathy, cervical region Category: Medical (2) Breast cancer: Code(s): C50.919 - Malignant neoplasm of unspecified site of unspecified female breast Category: Medical (3) Occipital neuralgia: Code(s): M54.81 - Occipital neuralgia Category: Medical (4) Osteopenia: Code(s): M85.80 - Other specified disorders of bone density and structure, unspecified site Category: Medical Plan It seemed to me that this patient is suffering from facet arthropathy of the upper cervical spine. I offered her to perform diagnostic C2-C3 C4 medial branch block bilateral. This will be 1st step in attempt to treat her pain. She was requesting me about prescription of opioids. In my opinion history of Adderall abuse, history of depression, anxiety, PTSD- her risk of opioid addiction will be at least severe and therefore I would not be very comfortable admitting her to chronic opioid therapy. If she feels it is necessary for her to continue chronic opioids which were prescribed to her by primary care physician for a month or 2 until we will sort out the most appropriate treatment of her condition in the neck she is certainly welcome to go to primary care physician and request those short scripts to be prescribed to her. I will see this patient immediately after the injection in her neck. Coding Level of Care Code New Pt Level 3 (30566) Diagnoses Spondylosis of cervical region without myelopathy or radiculopathy M47.812 Breast cancer C50.919 Occipital neuralgia M54.81 Osteopenia M85.80
[2023-10-12 09:20] VITALS: BP 122/58; PULSE 86; RESP 14; O2SAT 95; BMI 25.6
== END 2023-10-12 09:48 | disposition home or self-care (01) ==
PROVIDERS: PCP Internal Medicine; Referring Provider Internal Medicine; Visit Provider Anesthesiology
DX: M47.812 Spondylosis without myelopathy or radiculopathy, cervical region (principal); C50.919 Malignant neoplasm of unspecified site of unspecified female breast; M54.81 Occipital neuralgia; M85.80 Other specified disorders of bone density and structure, unspecified site
CPT/HCPCS: 99203

== ENCOUNTER → 2023-10-12 09:04 | Outpatient (BNVA) | payer MEDICARE, MEDICAID, SELFPAY | PROVIDERS: PCP Internal Medicine; Referring Provider Internal Medicine; Visit Provider Anesthesiology | DX: M47.812 Spondylosis without myelopathy or radiculopathy, cervical region (principal); M54.81 Occipital neuralgia; M85.80 Other specified disorders of bone density and structure, unspecified site; C50.919 Malignant neoplasm of unspecified site of unspecified female breast | CPT/HCPCS: 99202 ==

== ENCOUNTER 2023-10-23 | Outpatient (REF) | payer MEDICARE, MEDICAID, SELFPAY ==
[2023-10-24 12:52] LABS: Amphetamine Screen Urine POSITIVE (Not Detect); Barbiturates, Urine Not Detected (Not Detect); Benzodiazepines Screen Urine POSITIVE (Not Detect); Buprenorphine Scr Not Detected (Not Detect); Cannabinoid Screen Urine Not Detected (Not Detect); Cocaine Screen Urine Not Detected (Not Detect); Fentanyl, urine Not Detected (Not Detect); Methadone Screen, Urine Not Detected (Not Detect); Opiate Screen Urine Not Detected (Not Detect); Oxycodone Screen Urine Not Detected (Not Detect); Phencyclidine Screen Urine Not Detected (Not Detect)
== END 2023-10-23 00:01 | disposition home or self-care (01) ==
LOC: HO.LNP
PROVIDERS: Visit Provider Internal Medicine
DX: M54.12 Radiculopathy, cervical region (principal)
CPT/HCPCS: 80307

== ENCOUNTER 2023-10-23 09:04 | Outpatient (AMB) | payer MEDICARE, MEDICAID, SELFPAY ==
--- NOTE | 2023-10-23 09:10 | A.OFFPC_ITS ---
Vital Signs 10/23/23 09:11 Height 5 ft 3 in Weight 145 lb BMI 25.7 BP 140/90 H Blood Pressure Location Lt brachial Position Sitting Int[place]asons[place] [facility] [place] on and off for months Laboratory Assistant Required: No Accompanied by: Self / Same As Patient Allergies vancomycin [VANCOMYCIN] Allergy (Severe, Verified 10/23/23 09:24) ITCHING SEVERE, pruritus clindamycin [CLINDAMYCIN] Allergy (Intermediate, Verified 10/23/23 09:24) ITCHING ibuprofen Allergy (Intermediate, Verified 10/23/23 09:24) abdominal pain nitrofurantoin Allergy (Intermediate, Verified 10/23/23 09:24) abdominal pain Penicillins [PENICILLINS] Allergy (Intermediate, Verified 10/23/23 09:24) HIVES Sulfa (Sulfonamide Antibiotics) Allergy (Intermediate, Verified 10/23/23 09:24) RASH/SWELLING, rash, swelling venlafaxine [From EFFEXOR] Adverse Reaction (Severe, Verified 10/23/23 09:24) WORSENING DEPRESSION Butrans patch Allergy (Severe, Uncoded 10/23/23 09:24) depression STEROID INJECTIONS Allergy (Severe, Uncoded 10/23/23 09:24) ANGER AND AGGITATION Herbal medicines/teas Allergy (Intermediate, Uncoded 10/23/23 09:24) headaches, stuffiness Medication List - Last Reconciled 10/23/23 by Rabia Grider MD acetaminophen (Tylenol Extra Strength) 500 mg PO QID PRN alprazolam (Xanax) 0.5 - 1 mg (1 - 2 x 0.5 mg) PO BEDTIME 3 days bupropion HCl XL 300 mg PO DAILY cholecalciferol (vitamin D3) 50 mcg PO .every other day 90 days desvenlafaxine succinate ER (Pristiq) 100 mg PO DAILY gabapentin 300 mg PO .four times a day 30 days ibuprofen 600 mg PO Q8H PRN 30 days lamotrigine 150 mg PO BID meclizine 12.5 mg PO TID PRN methocarbamol 750 mg PO Q8H 30 days nystatin 1 appl topical DAILY PRN 30 days oxycodone 5 mg PO BID PRN 7 days trazodone 50 - 100 mg PO BEDTIME PRN Tobacco use date assessed: 08/29/23 Fall risk assessment: No Falls in past year Last assessed Fall Risk: 10/23/23 Dental Screening Dental Screen Date: 08/29/23 HPI HPI Comments History of Present Illness Details This is a 67-year-old female with mild recurrent major depression, anxiety and mood disorder that comes today complaining of neck pain that has been present for years. She had 2 falls recently and hurt her neck. Went to ER at the beginning of the month due to this matter and head and neck CT were negative. The neck pain radiates to both shoulders cause limited range of motion. Pain management contract was signed today due to oxycodone being controlled substance. Currently receiving physical therapy. Depression with anxiety and mood disorder are follow by Psychiatry. [facility] Medical History (Updated 10/23/23 @ 11:58 by Rabia Grider MD) Meralgia paraesthetica Obese Obesity Hospital discharge follow-up Dilation of pancreatic duct B12 deficiency Mild recurrent major depression Left hip pain Diarrhea 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 Pre-op evaluation Glossitis Ear discomfort Lumbar radiculopathy Chronic constipation Urine incontinence Left sided sciatica Fatigue Back pain Herniated disc PTSD (post-traumatic stress disorder) History of right breast cancer History of left breast cancer BRCA gene mutation positive Retinal lesion History of bronchitis Depression Irritable bowel syndrome Sciatica Arthritis Chronic GERD Neck pain Surgical History History of sinus surgery History of repair of hiatal hernia History of Lashay-en-Y gastric bypass History of esophagogastroduodenoscopy (EGD) Hx of hernia repair Hx of cholecystectomy Hx of cystostomy Hx of tubal ligation Hx of colonoscopy History of pubovaginal sling Hx of breast lump removal Hx of bilateral oophorectomy Family History Father Heart disease Mother Diabetes mellitus Brother Prostate cancer Pancreatic cancer BRCA positive Sister Breast cancer BRCA positive Son No problems noted. Social History Household Members: Significant Other Housing: House Are you a primary child care provider to a significant other at home: No Do you presently have visiting nurse or other home services: No Alcohol intake: never Patient Tobacco Use Status: Never used Tobacco e-Cigarette/Vaping Use: Never Used Second Hand Smoke Exposure: No Substance Use Type: Marijuana service: No Current occupational status: disabled Cognitive needs: No Hearing needs: No Vision needs: Yes Questionnaire Thrive Questionnaire Date Thrive assessed: 08/29/23 VIOLETA-7 AMB Questionnaire VIOELTA-7 Date VIOLETA - 7 assessed: 08/29/23 Source: Developed by Drs. Matt Diehl, Harriet Cardona, Kulwinder Martin and colleagues, with an educational giovanna from [employer]. Review of Systems Const All systems reviewed & are unremarkable except as noted in HPI and below ENT Reports neck pain Card Denies chest pain at rest, Denies chest pain with activity, Denies edema, Denies irregular heart rhythm, Denies claudication, Denies dyspnea, Denies dyspnea on exertion, Denies orthopnea, Denies paroxysmal nocturnal dyspnea and Denies slow heart rate Resp Denies cough, Denies dyspnea and Denies dyspnea on exertion Musc Reports back pain, Reports muscle weakness and Reports neck pain Physical exam (Primary Care) Vital Signs: Last Vital Signs BP 140/90 H 10/23/23 09:11 BMI result Body Mass Index 25.7 Tobacco/Smoking Status: Tobacco use Status Tobacco use date assessed 08/29/23 10/23/23 09:11 Patient Tobacco Use Status Never used Tobacco 10/23/23 09:11 e-Cigarette/Vaping Use Never Used 10/23/23 09:11 Thrive Assessment: Date of Thrive Assessment Date Thrive assessed 08/29/23 10/23/23 09:11 Neck Other: Limited lateral neck movements Neck: Yes normal visual inspection and Yes supple Resp Effort & Inspection: normal respiratory effort Auscultation: clear to auscultation bilaterally Cardio Jugular venous distension: no JVD Rate: regular rate Rhythm: regular rhythm Heart sounds: S1 normal heart sound present and S2 normal heart sound present Extrem General: Yes full ROM Assessment and Plan Assessment & Plan (1) Cervical radiculopathy: Comment: pain management contract signed 10/23/23 Code(s): M54.12 - Radiculopathy, cervical region Plan: Continue oxycodone as needed. Follow-up with pain management. (2) Mild recurrent major depression: Code(s): F33.0 - Major depressive disorder, recurrent, mild Plan: Continue Pristiq. Follow-up with psychiatry. (3) Mood disorder: Comment: ptsd, lonely, -no S/ H I- support offered. Details-lifes struggles-has live-in partner, who works-feels isolated at times Code(s): F39 - Unspecified mood [affective] disorder Plan: Continue Lamictal. (4) VIOLETA (generalized anxiety disorder): Code(s): F41.1 - Generalized anxiety disorder Plan: Continue Pristiq. Follow-up with psychiatry. Continue benzodiazepines as needed. Orders: Orders Microalbumin, Random (w Creat) Today E11.9 - Type 2 diabetes mellitus without complications Comprehensive [place]. Panel Fast Today M54.16 - Radiculopathy, lumbar region Drug Screen Urine Today M54.12 - Radiculopathy, cervical region Lipid Panel Today E78.5 - Hyperlipidemia, unspecified Vitamin D 25-OH Total Today E55.9 - Vitamin D deficiency, unspecified Coding Level of Care Code Est Pt Level 4 (27447) Complex EM visit Add On G2211 Diagnoses Cervical radiculopathy M54.12 Mild recurrent major depression F33.0 Mood disorder F39 VIOLETA (generalized anxiety disorder) F41.1 Time Spent (min) 22
[2023-10-23 09:11] VITALS: BP 140/90; BMI 25.7
== END 2023-10-23 09:56 | disposition home or self-care (01) ==
PROVIDERS: PCP Internal Medicine; Visit Provider Internal Medicine
DX: M54.12 Radiculopathy, cervical region (principal); F33.0 Major depressive disorder, recurrent, mild; F39 Unspecified mood [affective] disorder; F41.1 Generalized anxiety disorder
CPT/HCPCS: 99214; G2211

== ENCOUNTER 2023-11-13 08:10 | Outpatient (AMB) | payer MEDICARE, MEDICAID, SELFPAY ==
[2023-11-13 08:18] VITALS: BP 128/80; BMI 26.0
--- NOTE | 2023-11-13 08:18 | A.OFFPC_ITS ---
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 Accompanied by: Self / Same As Patient Allergies vancomycin [VANCOMYCIN] Allergy (Severe, Verified 11/13/23 08:38) ITCHING SEVERE, pruritus clindamycin [CLINDAMYCIN] Allergy (Intermediate, Verified 11/13/23 08:38) ITCHING ibuprofen Allergy (Intermediate, Verified 11/13/23 08:38) abdominal pain nitrofurantoin Allergy (Intermediate, Verified 11/13/23 08:38) abdominal pain Penicillins [PENICILLINS] Allergy (Intermediate, Verified 11/13/23 08:38) HIVES Sulfa (Sulfonamide Antibiotics) Allergy (Intermediate, Verified 11/13/23 08:38) RASH/SWELLING, rash, swelling venlafaxine [From EFFEXOR] Adverse Reaction (Severe, Verified 11/13/23 08:38) WORSENING DEPRESSION Butrans patch Allergy (Severe, Uncoded 11/13/23 08:38) depression STEROID INJECTIONS Allergy (Severe, Uncoded 11/13/23 08:38) ANGER AND AGGITATION Herbal medicines/teas Allergy (Intermediate, Uncoded 11/13/23 08:38) headaches, stuffiness Medication List - Last Reconciled 11/13/23 by Rabia Grider MD acetaminophen (Tylenol Extra Strength) 500 mg PO QID PRN alprazolam (Xanax) 0.5 - 1 mg (1 - 2 x 0.5 mg) PO BEDTIME 3 days bupropion HCl XL 300 mg PO DAILY cholecalciferol (vitamin D3) 50 mcg PO .every other day 90 days desvenlafaxine succinate ER (Pristiq) 100 mg PO DAILY gabapentin 300 mg PO .four times a day 30 days ibuprofen 600 mg PO Q8H PRN 30 days lamotrigine 150 mg PO BID meclizine 12.5 mg PO TID PRN methocarbamol 750 mg PO Q8H 30 days nystatin 1 appl topical DAILY PRN 30 days oxycodone 5 mg PO BID PRN 7 days trazodone 50 - 100 mg PO BEDTIME PRN Tobacco use date assessed: 08/29/23 Fall risk assessment: No Falls in past year Last assessed Fall Risk: 11/13/23 Dental Screening Dental Screen Date: 08/29/23 [facility] Medical History Meralgia paraesthetica Obese Obesity Hospital discharge follow-up Dilation of pancreatic duct B12 deficiency Mild recurrent major depression Left hip pain Diarrhea 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 Pre-op evaluation Glossitis Ear discomfort Lumbar radiculopathy Chronic constipation Urine incontinence Left sided sciatica Fatigue Back pain Herniated disc PTSD (post-traumatic stress disorder) History of right breast cancer History of left breast cancer BRCA gene mutation positive Retinal lesion History of bronchitis Depression Irritable bowel syndrome Sciatica Arthritis Chronic GERD Neck pain Surgical History History of sinus surgery History of repair of hiatal hernia History of Lashay-en-Y gastric bypass History of esophagogastroduodenoscopy (EGD) Hx of hernia repair Hx of cholecystectomy Hx of cystostomy Hx of tubal ligation Hx of colonoscopy History of pubovaginal sling Hx of breast lump removal Hx of bilateral oophorectomy Family History Father Heart disease Mother Diabetes mellitus Brother Prostate cancer Pancreatic cancer BRCA positive Sister Breast cancer BRCA positive Son No problems noted. Social History Household Members: Significant Other Housing: House Are you a primary child care assistant to a significant other at home: No Do you presently have visiting nurse or other home services: No Alcohol intake: never Patient Tobacco Use Status: Never used Tobacco e-Cigarette/Vaping Use: Never Used Second Hand Smoke Exposure: No Substance Use Type: Marijuana service: No Current occupational status: disabled Cognitive needs: No Hearing needs: No Vision needs: Yes Questionnaire Thrive Questionnaire Date Thrive assessed: 08/29/23 VIOLETA-7 AMB Questionnaire VIOLETA-7 Date VIOLETA - 7 assessed: 08/29/23 Source: Developed by Drs. Matt Diehl, Harriet Cardona, Kulwinder Martin and colleagues, with an educational giovanna from [employer]. Physical exam (Primary Care) Vital Signs: Last Vital Signs BP 128/80 11/13/23 08:18 BMI result Body Mass Index 26.0 Tobacco/Smoking Status: Tobacco use Status Tobacco use date assessed 08/29/23 11/13/23 08:31 Patient Tobacco Use Status Never used Tobacco 11/13/23 08:31 e-Cigarette/Vaping Use Never Used 11/13/23 08:31 Thrive Assessment: Date of Thrive Assessment Date Thrive assessed 08/29/23 11/13/23 08:31 Coding
--- NOTE | 2023-11-13 08:44 | A.OFFVIS_ITS ---
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: No Accompanied by: Self / Same As Patient Allergies vancomycin [VANCOMYCIN] Allergy (Severe, Verified 11/13/23 08:49) ITCHING SEVERE, pruritus clindamycin [CLINDAMYCIN] Allergy (Intermediate, Verified 11/13/23 08:49) ITCHING ibuprofen Allergy (Intermediate, Verified 11/13/23 08:49) abdominal pain nitrofurantoin Allergy (Intermediate, Verified 11/13/23 08:49) abdominal pain Penicillins [PENICILLINS] Allergy (Intermediate, Verified 11/13/23 08:49) HIVES Sulfa (Sulfonamide Antibiotics) Allergy (Intermediate, Verified 11/13/23 08:49) RASH/SWELLING, rash, swelling venlafaxine [From EFFEXOR] Adverse Reaction (Severe, Verified 11/13/23 08:49) WORSENING DEPRESSION Butrans patch Allergy (Severe, Uncoded 11/13/23 08:49) depression STEROID INJECTIONS Allergy (Severe, Uncoded 11/13/23 08:49) ANGER AND AGGITATION Herbal medicines/teas Allergy (Intermediate, Uncoded 11/13/23 08:49) headaches, stuffiness Medication List - Last Reconciled 11/13/23 by Rabia Grider MD acetaminophen (Tylenol Extra Strength) 500 mg PO QID PRN alprazolam (Xanax) 0.5 - 1 mg (1 - 2 x 0.5 mg) PO BEDTIME 3 days bupropion HCl XL 300 mg PO DAILY cholecalciferol (vitamin D3) 50 mcg PO .every other day 90 days desvenlafaxine succinate ER (Pristiq) 100 mg PO DAILY gabapentin 300 mg PO .four times a day 30 days ibuprofen 600 mg PO Q8H PRN 30 days lamotrigine 150 mg PO BID meclizine 12.5 mg PO TID PRN methocarbamol 750 mg PO Q8H 30 days nystatin 1 appl topical DAILY PRN 30 days oxycodone 5 mg PO BID PRN 7 days trazodone 50 - 100 mg PO BEDTIME PRN HPI HPI Comments History of Present Illness Details This is a 67-year-old female with mood disorder that comes for her Medicare wellness exam. Mood disorder follow by Psychiatry. She has history of breast cancer and I will order a mammogram. DEXA scan shows osteopenia and he was done 2023. Colonoscopy done 2022. She declines pneumococcal vaccine. Pap smear also done recently. Ppp handed to patient. [place] of care was done and scan. [facility] Medical History (Updated 11/13/23 @ 09:56 by Rabia Grider MD) Meralgia paraesthetica Obese Obesity Hospital discharge follow-up Dilation of pancreatic duct B12 deficiency Mild recurrent major depression Left hip pain Diarrhea 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 Pre-op evaluation Glossitis Ear discomfort Lumbar radiculopathy Chronic constipation Urine incontinence Left sided sciatica Fatigue Back pain Herniated disc PTSD (post-traumatic stress disorder) History of right breast cancer History of left breast cancer BRCA gene mutation positive Retinal lesion History of bronchitis Depression Irritable bowel syndrome Sciatica Arthritis Chronic GERD Neck pain Surgical History History of sinus surgery History of repair of hiatal hernia History of Lashay-en-Y gastric bypass History of esophagogastroduodenoscopy (EGD) Hx of hernia repair Hx of cholecystectomy Hx of cystostomy Hx of tubal ligation Hx of colonoscopy History of pubovaginal sling Hx of breast lump removal Hx of bilateral oophorectomy Family History Father Heart disease Mother Diabetes mellitus Brother Prostate cancer Pancreatic cancer BRCA positive Sister Breast cancer BRCA positive Son No problems noted. Social History Household Members: Significant Other Housing: House Are you a primary direct care provider to a significant other at home: No Do you presently have visiting nurse or other home services: No Alcohol intake: never Patient Tobacco Use Status: Never used Tobacco e-Cigarette/Vaping Use: Never Used Second Hand Smoke Exposure: No Substance Use Type: Marijuana service: No Current occupational status: disabled Cognitive needs: No Hearing needs: No Vision needs: Yes Questionnaire Medicare Wellness Checkup [age] What gender do you identify with?: female During the past 4 weeks, how much have you been bothered by emotional problems such as feeling anxious, depressed, irritable, sad or downhearted, and blue?: moderately During the past 4 weeks, has your physical & emotional health limited your social activities with family, friends, neighbors, or groups?: quite a bit During the past 4 weeks, how much bodily pain have you generally had?: severe pain During the past 4 weeks, was someone available to help you if you needed & wanted help?: yes, some During the past 4 weeks, what was the hardest physical activity you could do for at least 2 minutes?: moderate Can you get to places out of walking distance without help? (For eg., can you travel alone on buses, taxis or drive your car?): Yes Can you go shopping for groceries or clothes without someone's help?: No Can you prepare your own meals?: No Can you do your housework without help?: No Because of any health problems, do you need the help of another person with your personal care needs such as eating, bathing, dressing or getting around the house?: Yes Can you handle your own money without help?: Yes During the past 4 weeks, how would you rate your health in general?: poor During the past 4 weeks how have things been going for you?: good & bad parts about equal Are you having difficulties driving your car?: sometimes Do you always fasten your seat belt when you are in a car?: yes, usually During past 4 weeks, have you been bothered by the following: seldom: Trouble eating well? and Problems using the telephone?, sometimes: Falling or dizzy when standing up, often: Teeth or denture problems? and always: Sexual problems? and Tiredness or fatigue? Have you fallen 2 or more times in the past year?: Yes Are you afraid of falling?: Yes Are you a smoker?: no During the past 4 weeks, how many drinks of wine, beer, or other alcoholic beverages did you have?: no alcohol at all Do you exercise for about 20 minutes 3 or more times a week?: yes, some of the time Have you been given information to help with the following?: yes: Hazards in your house that might hurt you? and yes: Keeping track of your medications? How often do you have trouble taking medicines the way you have been told to take them?: I always take medicine as prescribed How confident are you that you can control & manage most of your health problems?: somewhat confident What is your race?: White Mini Mental State Exam (MMSE) Orientation What is the (year) (season) (date) (day) (month)?: year, season, date, day and month Where are we (state) (county) (town or city) (hospital) (floor)?: state, county, town or city, hospital/clinic and floor Registration Name of 3 unrelated objects clearly and slowly, then ask patient to repeat all 3 of them. (1st repeat determines score. Make sure they can repeat all three): object 1, object 2 and object 3 Attention & Calculation (CHOOSE ONE) Spell WORLD backwards (DLROW): 5 letters Recall Ask patient to repeat the 3 items from question #3.: object 1 and object 2 Language Show patient a wristwatch & ask what it is. Repeat for pencil.: watch and pencil Ask the patient to repeat the phrase 'No ifs, ands, or buts' after you.: correct Ask the patient to 'take a piece of paper with their right hand' 'fold paper in half' 'place paper on floor': take paper in right hand, fold paper in half and place paper on floor Print the sentence 'CLOSE YOUR EYES' on a piece. If patient actually closes eyes then score.: followed written direction Give patient a blank piece of paper & ask to write a sentence. Score if it contains a noun & verb.: sentence contains subject and verb Ask patient to copy figure of intersecting pentagons exactly. Score if all 10 angles & 2 intersects are included.: all 10 angles present & 2 are intersected Score Score: 29 Activity of Daily Living Bathing - sponge bath, tub bath or shower: receives no assistance (gets in/out by self, if usual bathing means Dressing - getting clothes from closets & drawers, including inner/outer garments & fasteners.: gets clothes & gets completely dressed without help Toileting - going to the 'toilet room' for urine/bowel elimination & cleaning self/arranging clothes: goes to toilet room, cleans self, arranges clothes without help Transfer: moves in & out of bed and chair without help (may use support object) Continence: has occasional 'accidents' Feeding: feeds self without help Total Score: 0 Information obtained from: patient Using telephone: independent Traveling: independent Shopping: independent Preparing meals: independent Housework: dependent Taking medicine: independent Managing money: independent PHQ-9 Over the last 2 weeks, how often have you been bothered by any of the following problems? 1. Little interest or pleasure in doing things: more than half the days 2. Feeling down, depressed, or hopeless: more than half the days 3. Trouble falling or staying asleep, or sleeping too much: several days 4. Feeling tired or having little energy: several days 5. Poor appetite or overeating: nearly every day 6. Feeling bad about yourself - or that you are a failure or have let yourself or your family down: more than half the days 7. Trouble concentrating on things, such as reading the newspaper or watching television: several days 8. Moving or speaking so slowly that other people could have noticed. Or the opposite - being so fidgety or restless that you have been moving around a lot more than usual: several days 9. 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 Matt Diehl, Harriet Cardona, Kulwinder Martin and colleagues, with an educational giovanna from [employer]. AUDIT C Alcohol Use Questionnaire (AUDIT-C) 1. How often do you have a drink containing alcohol?: Never Total Score: 0 Score Reviewed/Action Taken: No Thrive Questionnaire Date Thrive assessed: 11/13/23 I am a: Patient What is your living situation today?: I have a steady place to live Within the past 12 months, did the food you bought not last and you didn't have the money to get more?: Never true Within the past 12 months, did you worry whether your food would run out before you got money to buy more?: Never true Do you have trouble paying for medicines?: No Do you have trouble getting transportation to medical appointments?: No Do you have trouble paying your heating and electricity bill?: No Do you have trouble taking care of your child, family member or friend?: No Do you have trouble with day-to-day activities such as bathing, preparing meals, shopping, managing finances, etc.?: No Are you currently unemployed and looking for a job?: No Are you interested in more education?: No Please select the resources that you would like help with: None Currently or been in a relationship where the following occur: No concerns reported THRIVE Score: 0 Fall Risk Assessment Fall Risk Assessment Fall risk assessment: 2 + Falls in past year VIOLETA-7 AMB Questionnaire VIOLETA-7 Date VIOLETA - 7 assessed: 11/13/23 Feeling nervous, anxious, or on edge: 2 = More than half the days Not being able to stop or control worryin = Not at all Worrying too much about different things: 1 = Several days Trouble relaxin = Several days Being so restless that it is hard to sit still: 0 = Not at all Becoming easily annoyed or irritable: 1 = Several days Feeling afraid as if something awful might happen: 1 = Several days Total VIOLETA-7 score (0-4 normal; 5-9 mild; 10-14 moderate; 15-21 severe): 6 Source: Developed by Drs. Matt Diehl, Harriet Cardona, Kulwinder Martin and colleagues, with an educational giovanna from [employer]. VIOLETA-7 Assessment Billing VIOLETA-7 Assessment Tool: VIOLETA-7 Assessment 19323 Review of Systems Const All systems reviewed & are unremarkable except as noted in HPI and below Card Denies chest pain at rest, Denies chest pain with activity, Denies edema, Denies irregular heart rhythm, Denies claudication, Denies dyspnea, Denies dyspnea on exertion, Denies orthopnea, Denies paroxysmal nocturnal dyspnea and Denies slow heart rate Resp Denies cough, Denies dyspnea and Denies dyspnea on exertion Neuro Denies confusion and Denies lack of coordination Psych Denies confusion Physical Exam Vital Signs: Last Vital Signs BP 128/80 11/13/23 08:18 BMI result Body Mass Index 26.0 Const General: No confusion Orientation/consciousness: patient oriented x3 and No confusion Neuro General: patient oriented x3, no focal motor deficits and No confusion Gait exam (Neuro): Normal gait present Romberg Test: Negative Extrem General: Yes full ROM Assessment & Plan Assessment & Plan (1) Encounter for Medicare annual wellness exam: Code(s): Z00.00 - Encounter for general adult medical examination without abnormal findings Plan: Repeat in a year. (2) Mood disorder: Comment: ptsd, lonely, -no S/ H I- support offered. Details-lifes struggles-has live-in partner, who works-feels isolated at times Code(s): F39 - Unspecified mood [affective] disorder Plan: Follow-up with psychiatry. Orders: Orders Vitamin B12 and Folate Today E53.8 - Deficiency of other specified B group vitamins Lipid Panel Today E78.5 - Hyperlipidemia, unspecified MM screening mammo BI Today Z12.31 - Encounter for screening mammogram for malignant neoplasm of breast Vitamin D 25-OH Total Today E55.9 - Vitamin D deficiency, unspecified Complete Blood Count Auto Diff Today D64.9 - Anemia, unspecified IRON PROFILE Today D64.9 - Anemia, unspecified Comprehensive [place]. Panel Fast Today M54.12 - Radiculopathy, cervical region Medications: New loperamide 2 mg PO Q6H PRN 20 caps 0RF loose stool 5 days Refilled oxycodone Partial Fill upon patient request. 5 mg PO BID PRN 14 tabs 0RF pain 7 days Quality Reporting (2019) Fall Risk Screening ([facility] 139) Fall risk assessment: 2 + Falls in past year Depression/Bipolar (159/160/161/177) PHQ-9: Total score: 13 Coding Level of Care Code Medicare First (G0438) Diagnoses Encounter for Medicare annual wellness exam Z00.00 Mood disorder F39 Additional Codes VIOLETA-7 Assessment Billing - VIOLETA-7 Assessment Tool: VIOLETA-7 Assessment 69180 ([id number]) Time Spent (min) 35 Advance Care Planning Did not discuss due to Cultural/Spiritual beliefs: Yes
== END 2023-11-13 09:09 | disposition home or self-care (01) ==
PROVIDERS: PCP Internal Medicine; Visit Provider Internal Medicine
DX: Z00.00 Encounter for general adult medical examination without abnormal findings (principal); F39 Unspecified mood [affective] disorder
CPT/HCPCS: G0438

== ENCOUNTER 2023-11-20 07:39 | Outpatient (REF) | payer MEDICARE, MEDICAID, SELFPAY ==
[2023-11-20 07:52] LABS: MANUAL DIFF FLAG NO
[2023-11-20 08:23] LABS: Basophils Absolute Auto 0.1 X10*3/uL (0.0-0.2); Basophils Percent Auto 1.5 % (0-2); Eosinophils Absolute Auto 0.4 X10*3/uL (0.0-0.4); Eosinophils Percent Auto 6.7 % (0-4); Hematocrit 37.6 % (37.0-47.0); Hemoglobin 11.8 g/dl (12.0-16.0); Imm Gran Abs Auto 0.02 X10*3/uL (0.00-0.03); Imm Gran Pct Auto 0.4 % (0.0-0.4); Lymphocytes Absolute Auto 1.3 X10*3/uL (1.2-4.9); Lymphocytes Percent Auto 23.8 % (20-40); Mean Corpuscular HGB Conc 31.4 g/dl (31.0-35.0); Mean Corpuscular Hemoglobin 30.2 pg (27.0-33.0); Mean Corpuscular Volume 96.2 fL (80.0-98.0); Mean Platelet Volume 9.8 fL (9.4-12.3); Monocytes Absolute Auto 0.4 X10*3/uL (0.1-1.2); Monocytes Percent Auto 7.5 % (2-11); Neutrophils Absolute Auto 3.3 x10*3/uL (2.0-8.3); Neutrophils Percent Auto 60.1 % (45-73); Platelet Count 354 X10*3/uL (160-400); Red Blood Count 3.91 X10*6/uL (4.20-5.50); Red Cell Distribution Width 11.6 % (11.0-16.0); White Blood Count 5.5 X10*3/uL (4.8-10.8)
[2023-11-20 08:49] LABS: Creatinine Urine 129.44 mg/dL; Microalbum/Creatinine Ratio Ur 25.4 ug/mg cr (<30)
[2023-11-20 08:52] LABS: Alanine Aminotransferase 11 U/L (0-31); Albumin Level 3.9 g/dL (3.5-5.0); Alkaline Phosphatase 74 U/L (39-117); Anion Gap 13 (12-20); Aspartate Amino Transferase 20 U/L (5-31); Bilirubin Total 0.3 mg/dL (0.0-1.0); Blood Urea Nitrogen 10 mg/dL (9-16); Calcium 9.6 mg/dL (8.4-10.2); Carbon Dioxide 28 mmol/L (22-29); Chloride 105 mmol/L (96-108); Cholesterol 220 mg/dL (<200); Estimated Glomerular Filt Rate > 60; Glucose Fasting 80 mg/dL (60-99); HDL Cholesterol 67 mg/dL (>40); Iron 53 mcg/dL (30-160); LDL Cholesterol Calculated 133 mg/dL (<100); Percent Iron Saturation 17 % (15-50); Potassium 4.2 mmol/L (3.3-5.1); Sodium 142 mmol/L (135-145); Total Iron Binding Capacity 313 mcg/dL (228-428); Triglycerides 102 mg/dL (<150); Unsaturated Iron Binding 260 ug/dL
[2023-11-20 09:08] LABS: Vitamin D 25-OH Total 27.9 ng/mL (>30)
[2023-11-20 09:21] LABS: Folate 13.3 ng/mL (> or = 4.0); Vitamin B12 205 pg/mL (200-900)
== END 2023-11-20 07:40 | disposition home or self-care (01) ==
LOC: HO.LAB 07:39
PROVIDERS: PCP Internal Medicine; Visit Provider Internal Medicine
DX: D64.9 Anemia, unspecified (principal); E55.9 Vitamin D deficiency, unspecified; E78.5 Hyperlipidemia, unspecified; E11.9 Type 2 diabetes mellitus without complications; M54.16 Radiculopathy, lumbar region; E53.8 Deficiency of other specified B group vitamins
CPT/HCPCS: 36415; 80053; 80061; 82043; 82306; 82570; 82607; 82746; 83540; 85025

== ENCOUNTER 2024-01-30 09:32 | Outpatient (AMB) | payer MEDICARE, MEDICAID, SELFPAY ==
[2024-01-30 09:33] VITALS: BP 116/70; BMI 25.3
--- NOTE | 2024-01-30 09:33 | MHC.OFFVIS ---
Vital Signs 01/30/24 09:33 Height 5 ft 3 in Weight 143 lb BMI 25.3 BP 116/70 Blood Pressure Location Lt brachial Position Sitting Intake Visit Reasons: pain during intercourse Allergies vancomycin [VANCOMYCIN] Allergy (Severe, Verified 01/30/24 09:41) ITCHING SEVERE, pruritus clindamycin [CLINDAMYCIN] Allergy (Intermediate, Verified 01/30/24 09:41) ITCHING ibuprofen Allergy (Intermediate, Verified 01/30/24 09:41) abdominal pain nitrofurantoin Allergy (Intermediate, Verified 01/30/24 09:41) abdominal pain Penicillins [PENICILLINS] Allergy (Intermediate, Verified 01/30/24 09:41) HIVES Sulfa (Sulfonamide Antibiotics) Allergy (Intermediate, Verified 01/30/24 09:41) RASH/SWELLING, rash, swelling venlafaxine [From EFFEXOR] Adverse Reaction (Severe, Verified 01/30/24 09:41) WORSENING DEPRESSION Butrans patch Allergy (Severe, Uncoded 01/30/24 09:41) depression STEROID INJECTIONS Allergy (Severe, Uncoded 01/30/24 09:41) ANGER AND AGGITATION Herbal medicines/teas Allergy (Intermediate, Uncoded 01/30/24 09:41) headaches, stuffiness HPI Comments Details: Presenting complaining of painful intercourse over the last month upon deep penetration with no associated lack of lubrication no urinary or GI symptoms no vaginal discharge or bleeding. [facility] Medical History Meralgia paraesthetica Obese Obesity Hospital discharge follow-up Dilation of pancreatic duct B12 deficiency Mild recurrent major depression Left hip pain Diarrhea 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 Pre-op evaluation Glossitis Ear discomfort Lumbar radiculopathy Chronic constipation Urine incontinence Left sided sciatica Fatigue Back pain Herniated disc PTSD (post-traumatic stress disorder) History of right breast cancer History of left breast cancer BRCA gene mutation positive Retinal lesion History of bronchitis Depression Irritable bowel syndrome Sciatica Arthritis Chronic GERD Neck pain Surgical History History of sinus surgery History of repair of hiatal hernia History of Lashay-en-Y gastric bypass History of esophagogastroduodenoscopy (EGD) Hx of hernia repair Hx of cholecystectomy Hx of cystostomy Hx of tubal ligation Hx of colonoscopy History of pubovaginal sling Hx of breast lump removal Hx of bilateral oophorectomy Family History Father Heart disease Mother Diabetes mellitus Brother Prostate cancer Pancreatic cancer BRCA positive Sister Breast cancer BRCA positive Son No problems noted. Social History Household Members: Significant Other Housing: House Are you a primary day care supervisor to a significant other at home: No Do you presently have visiting nurse or other home services: No Alcohol intake: never Patient Tobacco Use Status: Never used Tobacco e-Cigarette/Vaping Use: Never Used Second Hand Smoke Exposure: No Substance Use Type: Marijuana service: No Current occupational status: disabled Cognitive needs: No Hearing needs: No Vision needs: Yes Review of Systems Const All systems reviewed & are unremarkable except as noted in HPI and below Physical Exam Vital Signs: Last Vital Signs BP 116/70 01/30/24 09:33 BMI result Body Mass Index 25.3 General: Yes no CVA tenderness External Female Exam: normal external appearance and normal appearance of the urethra Speculum Exam - Vagina: normal appearance of the vagina, normal palpation, no lesions and no masses Speculum Exam - Cervix: normal appearance of the cervix, normal palpation, no lesions, no masses and nontender Bimanual exam- vagina & uterus: normal bimanual exam, normal palpation, uterine size normal, normal palpation, uterine shape normal, No Cervical tenderness present and non-tender Back/Spine/Pelvis Back: no CVA tenderness Results AMB Urinalysis, Automated UA Leukoctes 0 Svitlana/uL Last Edit by Ivania Nascimento CMA on 01/30/24 10:19 UA Nitrite Negative Last Edit by Ivania Nascimento CMA on 01/30/24 10:19 UA Urobilinogen 3.5 mg/dL Last Edit by Ivania Nascimento CMA on 01/30/24 10:19 UA Protein 1 mg/dL Last Edit by Ivania Nascimento CMA on 01/30/24 10:19 UA pH 6.0 Last Edit by Ivania Nascimento CMA on 01/30/24 10:19 UA Blood 0 Richard/uL Last Edit by Ivania Nascimento CMA on 01/30/24 10:19 UA Specific Loa 1.025 Last Edit by Ivania Nascimento CMA on 01/30/24 10:19 UA Ketone Positive Last Edit by Ivania Nascimento CMA on 01/30/24 10:19 UA Bilirubin 0 mg/dL Last Edit by Ivania Nascimento CMA on 01/30/24 10:19 UA Glucose 0 mg/dL Last Edit by Ivania Nascimento CMA on 01/30/24 10:19 Assessment & Plan Assessment & Plan (1) Dyspareunia, female: Code(s): N94.10 - Unspecified dyspareunia Category: Medical Plan: GC/CT collected, urine dip done in the office was negative, pelvic ultrasound ordered. Instructions given the patient to schedule ultrasound follow-up appointment within 2 weeks. All questions answered, the patient verbalized understanding Orders: Orders CT NG by PCR Today N94.10 - Unspecified dyspareunia US pelvic and transvaginal Today N94.10 - Unspecified dyspareunia Coding Level of Care Code Est Pt Level 3 (05910) Diagnoses Dyspareunia, female N94.10
--- OUTSIDE RECORDS SUMMARY | 2024-01-30 09:35 | XMS_ITS | Patient Health Record ---
Author Organization Matt Chino III, MD Address [address] [place] [address] Care Team Providers Care Geological Technical Officer Name Role Phone MARLENY CHATMAN, SHEYLA Primary Care Provider UnavailMatt Cueva Unavailable [phone] Julian CHATMAN, Sheyla Unavailable Unavailable Allergies Allergen (clinical drug ingredient) Drug/Non Drug Allergy documented on EMR Reaction Allergy Type Onset Date Status sulfa rash Drug Allergy Active Penicillin nausea and vomiting Drug Allergy Active Cortisone rash Drug Allergy Active Vancocin HCl itch Drug Allergy Acti ve metformin Metformin HCl nausea Drug Allergy Act leticia Reason For Referral No Information Medications Medication SIG (Take, Route, Fr equency, Duration) [...] 1 tablet Orally Once a day Active Problems Problem Type SNOMED Code ICD Code Onset Dates Problem Status W/U Status Risk Notes Problem Obesity (236084268) Obesity (278.00) Active confirmed We discussed strategies for weight reduction and a healthy diet and regular exercise. 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 She continues on adjuvant endocrine therapy. Problem Lobular carcinoma in situ (61483402) Lobular carcinoma in situ (233.0) Active confirmed No additional therapy is recommended for this diagnosis. Annual mammography will continue. 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 She is on adjuvant endocrine therapy with no relapse. Problem BRCA2 gene mutation detected (finding) (292488433) BRCA2 positive (V84.01) Active confirmed Plan Of Treatment Pending Test Test Name Order Date PROFILE, RANDOM (COMPREHENSIVE METABOLIC ) 10/14/2013 CBC w DIFF 10/14/2013 CA 27.29 10/14/2013 Insurance Providers Payer Name Payer Address Payer Phone Subscriber Number Group Number Insured Name Patient Relationship to Insured Coverage Start Date Coverage End Date [employer] [address] [address] [place] [address] [id number] CASSIE WARD Self - patient is the insured Medical (General) History Medical History History ICD Code DCIS left breast DCIS, right breast LCIS left breast esophagitis hiatal hernia depression with anxiety molar low back pain last mammogram 06/2012 @ [facility] BRCA2 positive anastrozole quit date January 2018 Surgical History Surgery Date(Month/Year) tubal ligation breast biopsy breast biopsy, right 06/2012 bladder suspension lumbosacral spine surgery 2008 lumpectomy, sentinel node biopsy, dcis
== END 2024-01-30 10:34 | disposition home or self-care (01) ==
LOC: HO.HWS 09:32
PROVIDERS: PCP Internal Medicine; Visit Provider Obstetrics & Gynecology
DX: N94.10 Unspecified dyspareunia (principal)
CPT/HCPCS: 99213

== ENCOUNTER 2024-01-30 09:32 | Outpatient (REF) | payer MEDICARE, MEDICAID, SELFPAY ==
[2024-01-31 03:04] LABS: CT PCR NOT DETECTED (Not Detect.); NG PCR NOT DETECTED (Not Detect.)
== END 2024-01-30 09:33 | disposition home or self-care (01) ==
LOC: HO.LNP 09:32
PROVIDERS: PCP Internal Medicine; Visit Provider Obstetrics & Gynecology
DX: N94.10 Unspecified dyspareunia (principal)
CPT/HCPCS: 81003; 87491; 87591; 99212

== ENCOUNTER 2024-02-13 12:53 | Outpatient (REF) | payer MEDICARE, MEDICAID, SELFPAY | END 2024-02-13 12:54 | disposition home or self-care (01) | LOC: HO.HMGCX 12:53 | PROVIDERS: PCP Internal Medicine; Visit Provider Obstetrics & Gynecology | DX: N94.10 Unspecified dyspareunia (principal) | CPT/HCPCS: 76830; 76856 ==

== ENCOUNTER 2024-02-28 13:24 | Outpatient (AMB) | payer MEDICARE, MEDICAID, SELFPAY ==
--- OUTSIDE RECORDS SUMMARY | 2024-02-28 13:26 | XMS_ITS | Patient Health Record ---
Author Organization Matt Chino III, MD Address [address] [place] [address] Care Team Providers Care Manufacturing Assistant Name Role Phone MARLENY CHATMAN, SHEYLA Primary Care Provider UnavailMatt Cueva Unavailable [phone] Julian CHATMAN, Sheyla Unavailable Unavailable Allergies Allergen [...] Status W/U Status Risk Notes Problem Obesity (113077036) Obesity (278.00) Active confirmed We discussed strategies for weight reduction and a healthy diet and regular exercise. 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 She continues on adjuvant endocrine therapy. Problem Lobular carcinoma in situ (58976720) Lobular carcinoma in situ (233.0) Active confirmed No additional therapy is recommended for this diagnosis. Annual mammography will continue. 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 She is on adjuvant endocrine therapy with no relapse. Problem BRCA2 gene mutation detected (finding) (974696960) BRCA2 positive (V84.01) Active confirmed Plan Of Treatment Pending Test Test Name Order Date PROFILE, RANDOM (COMPREHENSIVE METABOLIC ) 10/14/2013 CBC w DIFF 10/14/2013 CA 27.29 10/14/2013 Insurance Providers Payer Name Payer Address Payer Phone Subscriber Number Group Number Insured Name Patient Relationship to Insured Coverage Start Date Coverage End Date [employer] [address] [address] [place] [address] [id number] CASSIE WARD Self - patient is the insured Medical (General) History Medical History History ICD Code DCIS left breast DCIS, right breast LCIS left breast esophagitis hiatal hernia depression with anxiety molar low back pain last mammogram 06/2012 @ [facility] BRCA2 positive anastrozole quit date January 2018 Surgical History Surgery Date(Month/Year) tubal ligation breast biopsy breast biopsy, right 06/2012 bladder suspension lumbosacral spine surgery 2008 lumpectomy, sentinel node biopsy, dcis
--- NOTE | 2024-02-28 13:47 | MHC.OFFWIV ---
Intake Vital Signs 02/28/24 13:55 Height 5 ft 3 in Weight 143 lb BMI 25.3 BP 120/82 Blood Pressure Location Rt brachial Position Sitting Pulse 90 Pulse Source Pulse Oximeter Temp 98.2 F Temp Source Oral Pulse Oximetry (%) 99 Oxygen Delivery Method Room Air Intake Visit Reasons: EP ?UTI Intake Note: Patient here for urge to pee but unable to urinate since yesterday. Patient Tobacco Use Status: Never used Tobacco Allergies vancomycin [VANCOMYCIN] Allergy (Severe, Verified 02/28/24 13:56) ITCHING SEVERE, pruritus clindamycin [CLINDAMYCIN] Allergy (Intermediate, Verified 02/28/24 13:56) ITCHING ibuprofen Allergy (Intermediate, Verified 02/28/24 13:56) abdominal pain nitrofurantoin Allergy (Intermediate, Verified 02/28/24 13:56) abdominal pain Penicillins [PENICILLINS] Allergy (Intermediate, Verified 02/28/24 13:56) HIVES Sulfa (Sulfonamide Antibiotics) Allergy (Intermediate, Verified 02/28/24 13:56) RASH/SWELLING, rash, swelling venlafaxine [From EFFEXOR] Adverse Reaction (Severe, Verified 02/28/24 13:56) WORSENING DEPRESSION Butrans patch Allergy (Severe, Uncoded 02/28/24 13:56) depression STEROID INJECTIONS Allergy (Severe, Uncoded 02/28/24 13:56) ANGER AND AGGITATION Herbal medicines/teas Allergy (Intermediate, Uncoded 02/28/24 13:56) headaches, stuffiness Do you need a note to return to daycare/school/sports/work: No HPI HPI Comments History of Present Illness Details The patient is a 68-year-old female presenting with urinary retention and suspected urinary tract infection. The patient reports having last urinated a small amount in the afternoon of the previous day, requiring multiple attempts to achieve this outcome, which she describes as a typical symptom for her. She denies experiencing burning, pain, hematuria, fever, or back pain. The patient indicates intermittent flank pain localized in one area. She notes that these symptoms often occur with a urinary tract infection but denies any history of kidney stones. The patient recalls a past episode at a similar time but had been able to urinate by 4 PM yesterday. Previous episodes have been managed as urinary tract infections. No treatments have been initiated in the current episode before the clinical visit. [facility] Medical History Meralgia paraesthetica Obese Obesity Hospital discharge follow-up Dilation of pancreatic duct B12 deficiency Mild recurrent major depression Left hip pain Diarrhea 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 Pre-op evaluation Glossitis Ear discomfort Lumbar radiculopathy Chronic constipation Urine incontinence Left sided sciatica Fatigue Back pain Herniated disc PTSD (post-traumatic stress disorder) History of right breast cancer History of left breast cancer BRCA gene mutation positive Retinal lesion History of bronchitis Depression Irritable bowel syndrome Sciatica Arthritis Chronic GERD Neck pain Surgical History History of sinus surgery History of repair of hiatal hernia History of Lashay-en-Y gastric bypass History of esophagogastroduodenoscopy (EGD) Hx of hernia repair Hx of cholecystectomy Hx of cystostomy Hx of tubal ligation Hx of colonoscopy History of pubovaginal sling Hx of breast lump removal Hx of bilateral oophorectomy Family History Father Heart disease Mother Diabetes mellitus Brother Prostate cancer Pancreatic cancer BRCA positive Sister Breast cancer BRCA positive Son No problems noted. Social History Household Members: Significant Other Housing: House Are you a primary care aide to a significant other at home: No Do you presently have visiting nurse or other home services: No Alcohol intake: never Patient Tobacco Use Status: Never used Tobacco e-Cigarette/Vaping Use: Never Used Second Hand Smoke Exposure: No Substance Use Type: Marijuana service: No Current occupational status: disabled Cognitive needs: No Hearing needs: No Vision needs: Yes Review of Systems Const All systems reviewed & are unremarkable except as noted in HPI and below Physical Exam Vital Signs: Last Vital Signs Temp 98.2 F 02/28/24 13:55 Pulse 90 02/28/24 13:55 BP 120/82 02/28/24 13:55 Pulse Ox 99 02/28/24 13:55 Oxygen Delivery Method Room Air 02/28/24 13:55 BMI result Body Mass Index 25.3 Const General: cooperative, healthy appearing, comfortable and no acute distress Orientation/consciousness: patient oriented x3 HEENT Head: Yes normal to inspection Ears: hearing grossly normal bilaterally General nose exam: Normal external nose present Face and sinus: Yes normal facial exam Neck Neck: Yes normal visual inspection, Yes trachea midline and Yes supple Resp Effort & Inspection: normal respiratory effort and able to speak in complete sentences GI Inspection: Yes normal to inspection Palpation (GI): Soft to palpation and Tenderness to palpation present (GI) suprapubicly General: Yes no CVA tenderness Back/Spine/Pelvis Back: no CVA tenderness Skin General skin exam: no rashes or lesions noted Neuro General: patient oriented x3 Psych Appearance: grossly normal Speech and movement: Normal speech and movement present Attitude: cooperative Thought process: Normal thought process present Insight: Good insight present (Psych) Judgement: Good judgement present (Psych) Assessment & Plan Assessment & Plan (1) UTI (urinary tract infection): Code(s): N39.0 - Urinary tract infection, site not specified Qualifiers: Urinary tract infection type: acute cystitis Hematuria presence: without hematuria Qualified Code(s): N30.00 - Acute cystitis without hematuria Plan: For the suspected urinary tract infection and urinary retention, I recommend starting the patient on antibiotics with the prescription sent to her pharmacy for immediate initiation. Additionally, I will provide a prescription for Phenazopyridine for symptomatic relief. I have instructed the patient to seek evaluation at the Emergency Room if she continues not to urinate by tonight, to assess for potential complications such as kidney stones. The patient should also be monitored for new symptoms such as fever or back pain. Patient was informed and verbally consented to the use of an ambient scribe for clinic note documentation during this visit. Medications: New doxycycline hyclate 100 mg PO BID 10 tabs 0RF phenazopyridine 200 mg (2 x 100 mg) PO Q8H PRN 6 tabs 0RF Pain Coding Level of Care Code Est Pt Level 3 (91396) Diagnoses Acute cystitis without hematuria N30.00 Urinary tract infection type: acute cystitis Hematuria presence: without hematuria
[2024-02-28 13:55] VITALS: BP 120/82; PULSE 90; TEMP 36.8; O2SAT 99; BMI 25.3
== END 2024-02-28 14:34 | disposition home or self-care (01) ==
PROVIDERS: PCP Internal Medicine; Visit Provider Physician Assistant
DX: N30.00 Acute cystitis without hematuria (principal)

== ENCOUNTER → 2024-02-28 13:24 | Outpatient (BNVA) | payer MEDICARE, MEDICAID, SELFPAY | PROVIDERS: PCP Internal Medicine; Visit Provider Physician Assistant | DX: N30.00 Acute cystitis without hematuria (principal) | CPT/HCPCS: 99212 ==

== ENCOUNTER → 2024-03-08 11:35 | Outpatient (BNVA) | payer MEDICARE, MEDICAID, SELFPAY | PROVIDERS: PCP Internal Medicine ==

== ENCOUNTER 2024-04-09 12:54 | Outpatient (AMB) | payer MEDICARE, MEDICAID, SELFPAY ==
[2024-04-09 13:09] VITALS: BMI 25.3
--- NOTE | 2024-04-09 13:09 | MHC.OFFVIS ---
Vital Signs 04/09/24 13:09 Height 5 ft 3 in Weight 143 lb BMI 25.3 Intake Visit Reasons: Ultrasound follow up Allergies vancomycin [VANCOMYCIN] Allergy (Severe, Verified 02/28/24 13:56) ITCHING SEVERE, pruritus clindamycin [CLINDAMYCIN] Allergy (Intermediate, Verified 02/28/24 13:56) ITCHING ibuprofen Allergy (Intermediate, Verified 02/28/24 13:56) abdominal pain nitrofurantoin Allergy (Intermediate, Verified 02/28/24 13:56) abdominal pain Penicillins [PENICILLINS] Allergy (Intermediate, Verified 02/28/24 13:56) HIVES Sulfa (Sulfonamide Antibiotics) Allergy (Intermediate, Verified 02/28/24 13:56) RASH/SWELLING, rash, swelling venlafaxine [From EFFEXOR] Adverse Reaction (Severe, Verified 02/28/24 13:56) WORSENING DEPRESSION Butrans patch Allergy (Severe, Uncoded 02/28/24 13:56) depression STEROID INJECTIONS Allergy (Severe, Uncoded 02/28/24 13:56) ANGER AND AGGITATION Herbal medicines/teas Allergy (Intermediate, Uncoded 02/28/24 13:56) headaches, stuffiness HPI Comments Details: Presenting for pelvic ultrasound follow-up done on 02/13/2024, read on 03/30/2024, report showed the following: UTERUS: The uterus is anteverted. Size: 4.2 x 2.3 x 2.9 cm. Uterine mass: There is no uterine mass. Cervix: Grossly unremarkable. Endometrium: No ultrasound evidence of endometrial lesion. endometrial thickness measures 0.3 ADNEXA: Ovaries not visualized might be atrophic or obscured by bowel gas. FREE FLUID: Trace amount of free fluid. OTHER FINDINGS: None Last visit urine dip was negative GC/CT collected to were negative [facility] Medical History Meralgia paraesthetica Obese Obesity Hospital discharge follow-up Dilation of pancreatic duct B12 deficiency Mild recurrent major depression Left hip pain Diarrhea 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 Pre-op evaluation Glossitis Ear discomfort Lumbar radiculopathy Chronic constipation Urine incontinence Left sided sciatica Fatigue Back pain Herniated disc PTSD (post-traumatic stress disorder) History of right breast cancer History of left breast cancer BRCA gene mutation positive Retinal lesion History of bronchitis Depression Irritable bowel syndrome Sciatica Arthritis Chronic GERD Neck pain Surgical History History of sinus surgery History of repair of hiatal hernia History of Lashay-en-Y gastric bypass History of esophagogastroduodenoscopy (EGD) Hx of hernia repair Hx of cholecystectomy Hx of cystostomy Hx of tubal ligation Hx of colonoscopy History of pubovaginal sling Hx of breast lump removal Hx of bilateral oophorectomy Family History Father Heart disease Mother Diabetes mellitus Brother Prostate cancer Pancreatic cancer BRCA positive Sister Breast cancer BRCA positive Son No problems noted. Social History Household Members: Significant Other Housing: House Are you a primary long term care phlebotomist to a significant other at home: No Do you presently have visiting nurse or other home services: No Alcohol intake: never Patient Tobacco Use Status: Never used Tobacco e-Cigarette/Vaping Use: Never Used Second Hand Smoke Exposure: No Substance Use Type: Marijuana service: No Current occupational status: disabled Cognitive needs: No Hearing needs: No Vision needs: Yes Review of Systems Const All systems reviewed & are unremarkable except as noted in HPI and below Reports as per HPI and Reports no additional complaints Card Reports as per HPI and Reports no additional complaints Resp Reports as per HPI and Reports no additional complaints GI Reports no additional complaints Reports no additional complaints Physical Exam Vital Signs: BMI result Body Mass Index 25.3 Const General: cooperative, healthy appearing and comfortable Assessment & Plan Assessment & Plan (1) Dyspareunia, female: Code(s): N94.10 - Unspecified dyspareunia Category: Medical Plan: Discussed with the patient the results of the workup done including negative GC/chlamydia, urine dip and pelvic ultrasound. Discussed with the patient the most likely cause of her painful in her causes atrophic vaginitis but since the patient has history of breast cancer is a contraindication to estrogen treatment and safety of ospemifene has not been established in patients with breast cancer. All questions answered, the patient verbalized understanding. Coding Level of Care Code Est Pt Level 3 (43462) Diagnoses Dyspareunia, female N94.10
== END 2024-04-09 14:09 | disposition home or self-care (01) ==
PROVIDERS: PCP Internal Medicine; Visit Provider Obstetrics & Gynecology
DX: N94.10 Unspecified dyspareunia (principal)
CPT/HCPCS: 99213

== ENCOUNTER → 2024-04-09 12:54 | Outpatient (BNVA) | payer MEDICARE, MEDICAID, SELFPAY | PROVIDERS: PCP Internal Medicine; Visit Provider Obstetrics & Gynecology | DX: N94.10 Unspecified dyspareunia (principal) | CPT/HCPCS: 99212 ==

== ENCOUNTER 2024-05-15 08:20 | Outpatient (AMB) | payer MEDICARE, MEDICAID, SELFPAY ==
--- NOTE | 2024-05-15 08:25 | MHC.PC.OV ---
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 Accompanied by: Self / Same As Patient Allergies vancomycin [VANCOMYCIN] Allergy (Severe, Verified 05/15/24 08:41) ITCHING SEVERE, pruritus clindamycin [CLINDAMYCIN] Allergy (Intermediate, Verified 05/15/24 08:41) ITCHING ibuprofen Allergy (Intermediate, Verified 05/15/24 08:41) abdominal pain nitrofurantoin Allergy (Intermediate, Verified 05/15/24 08:41) abdominal pain Penicillins [PENICILLINS] Allergy (Intermediate, Verified 05/15/24 08:41) HIVES Sulfa (Sulfonamide Antibiotics) Allergy (Intermediate, Verified 05/15/24 08:41) RASH/SWELLING, rash, swelling venlafaxine [From EFFEXOR] Adverse Reaction (Severe, Verified 05/15/24 08:41) WORSENING DEPRESSION Butrans patch Allergy (Severe, Uncoded 05/15/24 08:41) depression STEROID INJECTIONS Allergy (Severe, Uncoded 05/15/24 08:41) ANGER AND AGGITATION Herbal medicines/teas Allergy (Intermediate, Uncoded 05/15/24 08:41) headaches, stuffiness Medication List - Last Reconciled 05/15/24 by Rabia Grider MD acetaminophen (Tylenol Extra Strength) 500 mg PO QID PRN alprazolam (Xanax) 0.5 - 1 mg (1 - 2 x 0.5 mg) PO BEDTIME 3 days amlodipine 10 mg PO DAILY 90 days bupropion HCl XL 300 mg PO DAILY desvenlafaxine succinate ER (Pristiq) 200 mg PO DAILY gabapentin 300 mg PO TID 30 days ibuprofen 600 mg PO Q8H PRN 30 days lamotrigine 150 mg PO BID loperamide 2 mg PO Q6H PRN 5 days nystatin 1 appl topical DAILY PRN 30 days omeprazole 20 mg PO DAILY 90 days oxycodone 5 mg PO BID PRN 14 days sucralfate (Carafate) 10 mL PO BID 30 days trazodone 50 - 100 mg PO BEDTIME PRN Tobacco use date assessed: 05/15/24 Fall risk assessment: No Falls in past year Last assessed Fall Risk: 05/15/24 Dental Screening Dental Screen Date: 05/15/24 Did you have a dental visit in the last 12 months?: Yes Did you have a dental problem in the last 6 months where you did not have access to dental care?: No Was dental information given to patient?: Patient has dentist HPI HPI Comments History of Present Illness Details The patient is a 68-year-old female presenting for a follow up on hypertension, depression, anxiety and chroinic low back pain on opiates. The patient reports a history of major depressive disorder, which is well-controlled with a PHQ-9 score of 5. Her depression symptoms are managed with prescribed medication regimens that include Bupropion 300 mg and Pristiq 200 mg daily. She reports an increase in dosage of Pristiq, which she is tolerating well. The patient is taking Xanax, prescribed by her nurse practitioner for mild anxiety. She also has mood disorder follow by nurse Psychiatry which prescribed Lamictal for her. She has been experiencing abdominal pain associated with Ibuprofen use but reports it as a tolerable side effect. There have been past episodes of abdominal pain linked to Nitrofurantoin use. The patient denies any recent symptoms of reflux, but she uses Omeprazole as needed to manage her GERD. The patient reports urinary incontinence, managed with Loperamide as needed. Her essential hypertension is managed with Amlodipine 10 mg daily, maintaining blood pressure levels around 120/84 mmHg. The patient notes her participation in regular therapies appears to positively coincide with her blood pressure control. Additionally, she has a history of insomnia for which she takes Trazodone to aid sleep and occasionally uses Oxycodone. She has a history of numerous allergies to medications, presenting as rash, hives, worsening depression, and gastrointestinal disturbances [facility] Medical History (Updated 05/15/24 @ 09:07 by Rabia Grider MD) Breast cancer Meralgia paraesthetica Obese Obesity Hospital discharge follow-up Dilation of pancreatic duct B12 deficiency Mild recurrent major depression Left hip pain Diarrhea 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 Pre-op evaluation Glossitis Ear discomfort Lumbar radiculopathy Chronic constipation Urine incontinence Left sided sciatica Fatigue Back pain Herniated disc PTSD (post-traumatic stress disorder) History of right breast cancer History of left breast cancer BRCA gene mutation positive Retinal lesion History of bronchitis Depression Irritable bowel syndrome Sciatica Arthritis Chronic GERD Neck pain Surgical History History of sinus surgery History of repair of hiatal hernia History of Lashay-en-Y gastric bypass History of esophagogastroduodenoscopy (EGD) Hx of hernia repair Hx of cholecystectomy Hx of cystostomy Hx of tubal ligation Hx of colonoscopy History of pubovaginal sling Hx of breast lump removal Hx of bilateral oophorectomy Family History Father Heart disease Mother Diabetes mellitus Brother Prostate cancer Pancreatic cancer BRCA positive Sister Breast cancer BRCA positive Son No problems noted. Social History Household Members: Significant Other Housing: House Are you a primary career development coordinator/teacher to a significant other at home: No Do you presently have visiting nurse or other home services: No Alcohol intake: never Patient Tobacco Use Status: Never used Tobacco e-Cigarette/Vaping Use: Never Used Second Hand Smoke Exposure: No Substance Use Type: Marijuana service: No Current occupational status: disabled Cognitive needs: No Hearing needs: No Vision needs: Yes Questionnaire PHQ-9 Over the last 2 weeks, how often have you been bothered by any of the following problems? 1. Little interest or pleasure in doing things: several days 2. Feeling down, depressed, or hopeless: several days 3. Trouble falling or staying asleep, or sleeping too much: several days 4. Feeling tired or having little energy: several days 5. Poor appetite or overeating: several days 6. Feeling bad about yourself - or that you are a failure or have let yourself or your family down: not at all 7. Trouble concentrating on things, such as reading the newspaper or watching television: not at all 8. Moving or speaking so slowly that other people could have noticed. Or the opposite - being so fidgety or restless that you have been moving around a lot more than usual: not at all 9. Thoughts that you would be better off or of hurting yourself in some way: not at all Total score: 5 Depression Screening Interpretation: Positive Depression Screening Follow-up: Existing condition, In treatment, Community Mental Health Worker F/U and Follow-up Visit Requested Depression Screening Done: Yes 39587 - PHQ-9 Billing: Yes Source: Developed by Drs. Matt Diehl, Kulwinder Arredondo and colleagues, with an educational giovanna from [employer]. Thrive Questionnaire Date Thrive assessed: 05/15/24 I am a: Patient What is your living situation today?: I have a steady place to live Within the past 12 months, did the food you bought not last and you didn't have the money to get more?: Never true Within the past 12 months, did you worry whether your food would run out before you got money to buy more?: Never true Do you have trouble paying for medicines?: No Do you have trouble getting transportation to medical appointments?: No Do you have trouble paying your heating and electricity bill?: No Do you have trouble taking care of your child, family member or friend?: No Do you have trouble with day-to-day activities such as bathing, preparing meals, shopping, managing finances, etc.?: No Are you currently unemployed and looking for a job?: No Are you interested in more education?: No Please select the resources that you would like help with: None Currently or been in a relationship where the following occur: No concerns reported THRIVE Score: 0 AUDIT C Alcohol Use Questionnaire (AUDIT-C) 1. How often do you have a drink containing alcohol?: Never Total Score: 0 Score Reviewed/Action Taken: No VIOLETA-7 AMB Questionnaire VIOLETA-7 Date VIOLETA - 7 assessed: 05/15/24 Feeling nervous, anxious, or on edge: 1 = Several days Not being able to stop or control worryin = Several days Worrying too much about different things: 1 = Several days Trouble relaxin = Several days Being so restless that it is hard to sit still: 0 = Not at all Becoming easily annoyed or irritable: 1 = Several days Feeling afraid as if something awful might happen: 1 = Several days Total VIOLETA-7 score (0-4 normal; 5-9 mild; 10-14 moderate; 15-21 severe): 6 Source: Developed by Drs. Matt Diehl, Kulwinder Arredondo and colleagues, with an educational giovanna from [employer]. VIOLETA-7 Assessment Billing VIOLETA-7 Assessment Tool: VIOLETA-7 Assessment 19841 Review of Systems Const All systems reviewed & are unremarkable except as noted in HPI and below Card Denies chest pain at rest, Denies chest pain with activity, Denies edema, Denies irregular heart rhythm, Denies claudication, Denies dyspnea, Denies dyspnea on exertion, Denies orthopnea, Denies paroxysmal nocturnal dyspnea and Denies slow heart rate Resp Denies cough, Denies dyspnea and Denies dyspnea on exertion GI Denies abdominal pain, Denies change in bowel habits, Denies excessive flatus, Denies nausea and Denies vomiting Physical exam (Primary Care) Vital Signs: Last Vital Signs BP 120/84 05/15/24 08:27 BMI result Body Mass Index 25.2 Tobacco/Smoking Status: Tobacco use Status Tobacco use date assessed 05/15/24 05/15/24 08:39 Patient Tobacco Use Status Never used Tobacco 05/15/24 08:39 e-Cigarette/Vaping Use Never Used 05/15/24 08:39 PHQ-9: PHQ-9 Score PHQ-9: Total score 5 05/15/24 08:49 Depression Screening Interpretation: Positive Depression Screening Follow-up: Existing condition, In treatment, Community Mental Health Worker F/U and Follow-up Visit Requested Thrive Assessment: Date of Thrive Assessment Date Thrive assessed 05/15/24 05/15/24 08:39 Currently or been in a relationship where the following occur: No concerns reported Resp Effort & Inspection: normal respiratory effort Auscultation: clear to auscultation bilaterally Cardio Jugular venous distension: no JVD Rate: regular rate Rhythm: regular rhythm Heart sounds: S1 normal heart sound present and S2 normal heart sound present Extrem General: Yes full ROM Immunizations pneumoc 20-rufina conj-dip cr(PF) 0.5 mL IM syringe Performing Provider: Rabia Grider MD [facility] Administered by: RAFAEL Olivares on 05/15/24 09:04 Dose Route Admin Location Dispensed Lot Number Expiration Date [facility] Warp Hauler 0.5 mL IM Left Deltoid 0.5 mL [id number] 07/02/25 3825-5823-28 WYETH/PFIZER VIS Given Date VIS Provided VIS Publication Date 05/15/24 Single Vaccine 21 Eligibility Eligibility Date Funding Source Not [facility] Eligible 05/15/24 Private Coding Level of Care Code Est Pt Level 4 (04594) Complex EM visit Add On G2211 Diagnoses Essential hypertension I10 VIOLETA (generalized anxiety disorder) F41.1 Mild recurrent major depression F33.0 Mood disorder F39 Lumbar radiculopathy M54.16 Additional Codes PHQ-9 - 32532 - PHQ-9 Billing: Yes ([id number]) VIOLETA-7 Assessment Billing - VIOLETA-7 Assessment Tool: VIOLETA-7 Assessment 23809 ([id number]) Time Spent (min) 24 Assessment & Plan Assessment & Plan (1) Essential hypertension: Code(s): I10 - Essential (primary) hypertension Category: Medical (2) VIOLETA (generalized anxiety disorder): Code(s): F41.1 - Generalized anxiety disorder Category: Medical (3) Mild recurrent major depression: Code(s): F33.0 - Major depressive disorder, recurrent, mild Category: Medical (4) Mood disorder: Comment: ptsd, lonely, -no S/ H I- support offered. Details-lifes struggles-has live-in partner, who works-feels isolated at times Code(s): F39 - Unspecified mood [affective] disorder Category: Medical (5) Lumbar radiculopathy: Code(s): M54.16 - Radiculopathy, lumbar region Category: Medical Plan - Administer pneumonia vaccine today, as patient consented. - Follow up on fasting blood work results in November. - Encourage continued use of current medications for depression, hypertension, and GERD management. - Verify compliance to the current medication regimen and monitor for adverse reactions due to allergies. - Suggest continuation of mental health support and follow-up with the current psychiatric nurse practitioner. Patient was informed and verbally consented to the use of an ambient scribe for clinic note documentation during this visit. I reviewed the patient's management plans for her depression, hypertension, and GERD. The PHQ-9 score indicated well-controlled depression, which I discussed as encouraging in mental health management. I obtained consent for the pneumonia vaccination. We also touched on the importance of following up on lab work results, which are scheduled for November, to ensure comprehensive health monitoring. I reiterated the need for vigilance regarding potential allergic reactions to medications, given the patient's extensive list of allergies, and to report any significant side effects promptly. I provided anticipatory guidance on the importance of mental health support typically offered by her nurse practitioner specializing in cyclothymic conditions. Orders: Orders Lipid Panel 6 Months I10 - Essential (primary) hypertension Complete Blood Count Auto Diff Today M54.12 - Radiculopathy, cervical region Vitamin D 25-OH Total 6 Months E55.9 - Vitamin D deficiency, unspecified Comprehensive [place]. Panel Fast 6 Months I10 - Essential (primary) hypertension Patient Instructions: - Receive pneumonia vaccine today. - Continue prescribed medications for depression, hypertension, insomnia, and GERD. - Maintain awareness of potential allergic reactions to medications and notify us of any changes. - Follow up with fasting blood work in November. - Continue mental health support with your psychiatric nurse practitioner. - Keep regular checkups to manage health-related issues. - Practice safety measures during times of high influenza activity.
[2024-05-15 08:27] VITALS: BP 120/84; BMI 25.2
--- OUTSIDE RECORDS SUMMARY | 2024-05-15 08:54 | XMS_ITS | Clinical Summary ---
Author Organization [facility] Address [address] [place] [address] Care Team Providers Care Photographic Supervisor Name Role Phone Rabia Grider MD Primary Care Provider [phone] Surgical History Surgery Date Site/Laterality Comments BREAST LUMPECTOMY Bilateral PROCEDURE: HISTORICAL BREAST LUMPECTOMY OTHER SURGICAL HISTORY PROCEDURE: IA LAPS GSTR RSTCV PX W/BYP DARRELL-EN-Y LIMB <150 CM CHOLECYSTECTOMY N/A PROCEDURE: [place] CHOLECYSTECTOMY HIP ARTHROPLASTY 12/01/2020 Left PROCEDURE: HISTORICAL HIP REPLACEMENT; COMMENT: Dr. Bains Medical History Medical History Date Comments Anxiety DX:Anxiety Depression DX:Depression History of breast cancer DX:Hist ory of breast cancer; COMMENT: EARLY [facility] BL BREAST IBS (irritable bowel syndrome) D X:IBS (irritable bowel syndrome) Lumbar spine pain DX:Lumbar spin e pain Encounter for tubal ligation DX: Encounter for tubal ligation Social History Tobacco Use Types Packs/Day Years Used Date Smoking Tobacco: Never Smokeless Tobacco: Never Alcohol Use Standard Drinks/Week Comments Never 0 (1 standard drink = 0.6 oz pur e alcohol) Comments Unknown Sex and Gender Information Value Date Recorded Sex Assigned at Not on file Legal Sex Female 3:28 PM EST Gender Identity Not on file Sexual Orientation Not on file Obstetrics History Plan of Treatment Health Maintenance Due Date Last Done Comments Breast Cancer Screening 1955 DTaP,Tdap,and Td Vaccines (1 - Tdap) 12/17/1975 Pneumococcal Vaccine: 50+ Ye ars (1 of 1 - PCV) 2006 Zoster Vaccines (1 of 2) 2006 Colorectal Cancer Screening: Colonoscopy 03/02/2022 Depression Screening 03/02/2022 Falls Risk Assessment 03/02/2022 Hepatitis C Screening 03/02/2022 Osteoporosis Screening (Bone Density Screening) 03/02/2022 Social Influencers of Health Screening 03/02/2022 COVID-19 Vaccine ( - 2023-2 5 season) 2023 Influenza Vaccine (#1) 2023 RSV Immunization Patients 60 + Years Old (1 - 1-dose 75+ series) 12/17/2031 HIB Vaccines Aged Out No longer eligi ble based on patient's age to complete this topic HPV Vaccines Aged Out No longer eligi ble based on patient's age to complete this topic Hepatitis A Vaccines Aged Out No long er eligible based on patient's age to complete this topic Hepatitis B Vaccines Aged Out No long er eligible based on patient's age to complete this topic IPV Vaccines Aged Out No longer eligi ble based on patient's age to complete this topic MMR Vaccines Aged Out No longer eligi ble based on patient's age to complete this topic Meningococcal ACWY Vaccine Aged Out N o longer eligible based on patient's age to complete this topic Meningococcal B Vacine Aged Out No lo nger eligible based on patient's age to complete this topic RSV Immunization Patients Un jacob 20 months Aged Out No longer eligible b ased on patient's age to complete this topic Varicella Vaccines Aged Out No longer eligible based on patient's age to complete this topic Advance Directives Documents on File Type Date Recorded Patient Cash Checker Expl anation Health Care Decision (hx) 12/02/2020 AD STARR DIRECTIVE Health Care Decision (hx) 12/02/2020 AD STARR DIRECTIVE Health Care Decision (hx) 12/02/2020 AD STARR DIRECTIVE Health Care Decision (hx) 12/02/2020 AD STARR DIRECTIVE Care Teams Photographic Supervisor Relationship Specialty Start Date End Date Rabia Grider MD [address] [place] [address] , [address] Physician Associ D/B/A: [facility] PCP - General Internal Medicine 10/20/20
== END 2024-05-15 09:04 | disposition home or self-care (01) ==
PROVIDERS: PCP Internal Medicine; Visit Provider Internal Medicine
DX: I10 Essential (primary) hypertension (principal); F41.1 Generalized anxiety disorder; F33.0 Major depressive disorder, recurrent, mild; F39 Unspecified mood [affective] disorder; M54.16 Radiculopathy, lumbar region; Z23 Encounter for immunization

== ENCOUNTER → 2024-05-15 08:20 | Outpatient (BNVA) | payer MEDICARE, MEDICAID, SELFPAY | PROVIDERS: PCP Internal Medicine; Visit Provider Internal Medicine | DX: Z23 Encounter for immunization (principal); I10 Essential (primary) hypertension; F41.1 Generalized anxiety disorder; F33.0 Major depressive disorder, recurrent, mild; F39 Unspecified mood [affective] disorder; M54.16 Radiculopathy, lumbar region | CPT/HCPCS: 90471; 90677; 96127; 99212 ==

== ENCOUNTER 2024-06-05 12:33 | Outpatient (AMB) | payer MEDICARE, MEDICAID, SELFPAY ==
[2024-06-05 12:43] VITALS: BP 130/84; PULSE 85; TEMP 37.2; O2SAT 98
--- NOTE | 2024-06-05 12:43 | MHC.OFFWIV ---
Intake Vital Signs 06/05/24 12:43 Height 5 ft 3 in BP 130/84 Blood Pressure Location Lt brachial Position Sitting Pulse 85 Pulse Source Pulse Oximeter Temp 98.9 F Temp Source Oral Pulse Oximetry (%) 98 Oxygen Delivery Method Room Air Intake Visit Reasons: EP SOB/hard time getting air in lungs feeling Patient Tobacco Use Status: Never used Tobacco Allergies vancomycin [VANCOMYCIN] Allergy (Severe, Verified 06/05/24 12:46) ITCHING SEVERE, pruritus clindamycin [CLINDAMYCIN] Allergy (Intermediate, Verified 06/05/24 12:46) ITCHING ibuprofen Allergy (Intermediate, Verified 06/05/24 12:46) abdominal pain nitrofurantoin Allergy (Intermediate, Verified 06/05/24 12:46) abdominal pain Penicillins [PENICILLINS] Allergy (Intermediate, Verified 06/05/24 12:46) HIVES Sulfa (Sulfonamide Antibiotics) Allergy (Intermediate, Verified 06/05/24 12:46) RASH/SWELLING, rash, swelling venlafaxine [From EFFEXOR] Adverse Reaction (Severe, Verified 06/05/24 12:46) WORSENING DEPRESSION Butrans patch Allergy (Severe, Uncoded 05/15/24 08:41) depression STEROID INJECTIONS Allergy (Severe, Uncoded 05/15/24 08:41) ANGER AND AGGITATION Herbal medicines/teas Allergy (Intermediate, Uncoded 05/15/24 08:41) headaches, stuffiness Do you need a note to return to daycare/school/sports/work: No HPI HPI Comments History of Present Illness Details History of Present Illness The patient is a 68-year-old female presenting with shortness of breath a few weeks. - Symptoms started in late 2021 and exacerbated in March, worsening upon physical exertion. - Shortness of breath is accompanied by a history of anxiety, depression, and recent purposeful medication overdose. - she tells me she has been taking more than the prescribed amount of all of her antidepressants and her oxycodone because she thought it would help her feel less depressed. She tells me she did report this to her PCP and the nurse at her PCP's office and as a 3 days ago, she is currently taking the appropriate amount of medications - denies sweating, chest pain, arm pain/numbness/tingling, shoulder pain/numbness/tingling, neck pain beyond her baseline, back pain or abdominal pain that radiates to her back - denies upper respiratory symptoms other than a cough which is attributed to her GERD, switched to pantoprazole 3 days ago by her PCP - The patient is undergoing mental health treatment with esketamine and previous usage of Xanax, with ongoing monitoring of withdrawal symptoms. - Pain management included past use of oxycodone and physical therapy interventions for neck pain relief. Physical Exam General: Cooperative, healthy appearing, comfortable, no acute distress and well developed Orientation: Patient oriented x3 Limitations: No limitations Head: Normal to inspection Ears: Hearing grossly normal bilaterally Nose: Normal external nose present Face and sinus: Normal facial exam Eyes: Appearance normal, both eyes and all related structures Neck: Normal visual inspection and Yes full ROM Respiratory: Normal respiratory effort and able to speak in complete sentences. Clear to auscultation bilaterally Cardiovascular: Regular rate and rhythm. Normal S1 and S2. Skin: No rashes or lesions noted Neuro: Patient oriented x3 Extremities: Normal to inspection, no swelling in legs PFSH Medical History (Updated 06/05/24 @ 13:20 by Sheyla King PA-C) Breast cancer Meralgia paraesthetica Obese Obesity Hospital discharge follow-up Dilation of pancreatic duct B12 deficiency Mild recurrent major depression Left hip pain Diarrhea 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 Pre-op evaluation Glossitis Ear discomfort Lumbar radiculopathy Chronic constipation Urine incontinence Left sided sciatica Fatigue Back pain Herniated disc PTSD (post-traumatic stress disorder) History of right breast cancer History of left breast cancer BRCA gene mutation positive Retinal lesion History of bronchitis Depression Irritable bowel syndrome Sciatica Arthritis Chronic GERD Neck pain Surgical History History of sinus surgery History of repair of hiatal hernia History of Lashay-en-Y gastric bypass History of esophagogastroduodenoscopy (EGD) Hx of hernia repair Hx of cholecystectomy Hx of cystostomy Hx of tubal ligation Hx of colonoscopy History of pubovaginal sling Hx of breast lump removal Hx of bilateral oophorectomy Family History Father Heart disease Mother Diabetes mellitus Brother Prostate cancer Pancreatic cancer BRCA positive Sister Breast cancer BRCA positive Son No problems noted. Social History Household Members: Significant Other Housing: House Are you a primary md do resident urgent care to a significant other at home: No Do you presently have visiting nurse or other home services: No Alcohol intake: never Patient Tobacco Use Status: Never used Tobacco e-Cigarette/Vaping Use: Never Used Second Hand Smoke Exposure: No Substance Use Type: Marijuana service: No Current occupational status: disabled Cognitive needs: No Hearing needs: No Vision needs: Yes Review of Systems Const All systems reviewed & are unremarkable except as noted in HPI and below Physical Exam Vital Signs: Last Vital Signs Temp 98.9 F 06/05/24 12:43 Pulse 85 06/05/24 12:43 BP 130/84 06/05/24 12:43 Pulse Ox 98 06/05/24 12:43 Oxygen Delivery Method Room Air 06/05/24 12:43 Office Procedures EKG 21650-[id number], Complete Assessment & Plan Assessment & Plan (1) Anxiety: Code(s): F41.9 - Anxiety disorder, unspecified Plan: EKG NSR no acute ST or T wave changes. VSS, pt well appearing though appears stressed secondary to previous dx's of depression and PTSD coupled with a friends recently. Likely anxiety however I will perform an EKG to exclude any cardiac contribution to the patient?s reported shortness of breath, given her optimal lung examination and oxygenation. Shortness of breath aggravation upon exertion has been a concern for the patient, and obtaining a clear cardiac assessment will help in ruling out any potential underlying cardiac issues. The patient is currently on appropriate antidepressant dosages and no longer diverging from prescribed medication use, which previously was an issue. Patient was given red flag warning signs and when to seek emergent medical care. Patient was informed and verbally consented to the use of an ambient scribe for clinic note documentation during this visit. Coding Level of Care Code Est Pt Level 4 (29942) Diagnoses Anxiety F41.9 CPT Codes EKG - CPT: 64222-[id number], Complete ([id number])
--- OUTSIDE RECORDS SUMMARY | 2024-06-05 14:53 | XMS_ITS | Clinical Summary ---
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
== END 2024-06-05 13:43 | disposition home or self-care (01) ==
PROVIDERS: PCP Internal Medicine; Visit Provider Physician Assistant
DX: F41.9 Anxiety disorder, unspecified (principal)

== ENCOUNTER → 2024-06-05 12:33 | Outpatient (BNVA) | payer MEDICARE, MEDICAID, SELFPAY | PROVIDERS: PCP Internal Medicine; Visit Provider Physician Assistant | DX: F41.9 Anxiety disorder, unspecified (principal) | CPT/HCPCS: 93005; 99212 ==

== ENCOUNTER 2024-06-11 11:17 | Outpatient (REF) | payer MEDICARE, MEDICAID, SELFPAY ==
--- NOTE | ~2024-06-11 | US_ITS ---
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 COMPARISON: Comparison is made with the prior examination dated 07/14/2023. FINDINGS: Right kidney: The right kidney measures 10.8 x 5.4 x 5.5 cm. Renal parenchymal echotexture and thickness are normal. Again seen is a 7 x 9 x 7 mm echogenic lesion which likely represents an angiomyolipoma. There is no hydronephrosis or renal calculi. Left Kidney: The left kidney measures 10.4 x 5.4 x 5.1 cm. There is scarring at the lower pole. There are no masses. There is no hydronephrosis or renal calculi. 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 Left renal scarring. No acute abnormality is identified. Electronically signed by: Matt Pedraza MD 06/11/2024 02:40 PM EDT
--- OUTSIDE RECORDS SUMMARY | 2024-06-11 13:59 | XMS_ITS | Clinical Summary ---
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
== END 2024-06-11 11:18 | disposition home or self-care (01) ==
LOC: HO.HMGCX 11:17
PROVIDERS: PCP Internal Medicine; Visit Provider Urology
DX: Q64.31 Congenital bladder neck obstruction (principal); D17.71 Benign lipomatous neoplasm of kidney
CPT/HCPCS: 76775

== ENCOUNTER → 2024-06-11 11:19 | Outpatient (BNV) | payer MEDICARE, MEDICAID, SELFPAY | PROVIDERS: PCP Internal Medicine; Visit Provider Radiology Diagnostic Radiology | DX: Q64.31 Congenital bladder neck obstruction (principal); D17.71 Benign lipomatous neoplasm of kidney | CPT/HCPCS: 76775 ==

== ENCOUNTER 2024-06-24 11:04 | Outpatient (AMB) | payer MEDICARE, MEDICAID, SELFPAY ==
--- NOTE | 2024-06-24 10:58 | MHC.OFFVIS ---
Intake Visit Reasons: 11m/US Intake Note: Patient is Present for 11m Follow Up/US Urology Medication: None Antibiotic Allergies: Vanomycin, Clindamycin, Nitrofuratoin, Penicillins, Sulfa Blood Thinners: None Allergies vancomycin [VANCOMYCIN] Allergy (Severe, Verified 06/24/24 11:26) ITCHING SEVERE, pruritus clindamycin [CLINDAMYCIN] Allergy (Intermediate, Verified 06/24/24 11:26) ITCHING ibuprofen Allergy (Intermediate, Verified 06/24/24 11:26) abdominal pain nitrofurantoin Allergy (Intermediate, Verified 06/24/24 11:26) abdominal pain Penicillins [PENICILLINS] Allergy (Intermediate, Verified 06/24/24 11:26) HIVES Sulfa (Sulfonamide Antibiotics) Allergy (Intermediate, Verified 06/24/24 11:26) RASH/SWELLING, rash, swelling venlafaxine [From EFFEXOR] Adverse Reaction (Severe, Verified 06/24/24 11:26) WORSENING DEPRESSION Butrans patch Allergy (Severe, Uncoded 05/15/24 08:41) depression STEROID INJECTIONS Allergy (Severe, Uncoded 05/15/24 08:41) ANGER AND AGGITATION Herbal medicines/teas Allergy (Intermediate, Uncoded 05/15/24 08:41) headaches, stuffiness Medication List - Last Reconciled 06/24/24 by Michael Viramontes MD acetaminophen (Tylenol Extra Strength) 500 mg PO QID PRN alprazolam (Xanax) 0.5 - 1 mg (1 - 2 x 0.5 mg) PO BEDTIME 3 days amlodipine 10 mg PO DAILY 90 days bupropion HCl XL 300 mg PO DAILY desvenlafaxine succinate ER (Pristiq) 200 mg PO DAILY lamotrigine 150 mg PO BID loperamide 2 mg PO Q6H PRN 5 days nystatin 1 appl topical DAILY PRN 30 days oxcarbazepine mg PO oxycodone 5 mg PO BID PRN 14 days pantoprazole 40 mg PO DAILY 90 days sucralfate (Carafate) 10 mL PO BID 30 days trazodone 50 - 100 mg PO BEDTIME PRN HPI Comments Details: 06/24/24--Nancy is a 68-year-old female, she has had urinary symptoms of hesitancy from urethral stenosis. She is here in follow-up to discuss renal ultrasound results. Renal US--06/11/24--subcentimeter lesion consistent with renal angiomyolipoma unchanged. No renal calculi. Comparision renal US-07/12/2023-nonobstructing renal stone, subcentimeter lesion consistent with renal angiomyolipoma. She states urinary symptoms are unchanged, persistent hesitancy however, denies UTI symptoms, denies dysuria or hematuria. She wants to avoid medication, discussed urethral dilation is temporary and will require scheduled redilation due to scarring. She will hold on urethral dilation or medication at this time. H/o of gastric bypass, pt encouraged to drink adequate fluids. FU prn. 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 Left renal scarring. No renal calculi is identified. 07/24/2023--Nancy is a 67-year-old female, she has had urinary symptoms of hesitancy from urethral stenosis. She is here in follow-up to discuss renal ultrasound results. Reviewed results with the patient-07/12/2023-nonobstructing renal stone, subcentimeter lesion consistent with renal angiomyolipoma unchanged. Bladder scan PVR - 56 mL is acceptable. We will continue to monitor. 05/29/23--Nancy is a 67-year-old female who is here with complaints of having to push to empty as well as times where she has urgency and may leak. She denies leakage with coughing. She notes during intercourse she may leak. She denies recent urinary tract infections. The patient gives a history of bladder procedure for prolapse and incontinence at [facility] about 20 years ago she states they placed a mesh at that time. History of lumbar radiculopathy, the patient states she notes that when her back is aggravated she tends to have more urine leakage. Patient states also has colitis which causes constipation and diarrhea intermittently. Examination--no significant prolapse noted, there was resistance in placing the 14 Vietnamese catheter. Catheterized PVR 60 mL No leakage with cough or Valsalva. I have discussed avoiding dietary bladder irritants, including to cut back on caffeine usage. Discussed that symptoms of hesitancy may be due to urethral stenosis, discussed possible treatments to include an alpha-evelio, urethral dilation, as well as observe for now as she is emptying adequately. Discussed urine leakage episodes may be associated with bladder spasms, instructed to avoid dietary bladder irritants such as caffeinated beverages. Renal ultrasound to re-evaluate kidney cysts and angiomyolipoma CT scan abdomen pelvis in May 12, 2021 noting left kidney cysts and a possible right kidney angiomyolipoma. [facility] Medical History Breast cancer Meralgia paraesthetica Obese Obesity Hospital discharge follow-up Dilation of pancreatic duct B12 deficiency Mild recurrent major depression Left hip pain Diarrhea 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 Pre-op evaluation Glossitis Ear discomfort Lumbar radiculopathy Chronic constipation Urine incontinence Left sided sciatica Fatigue Back pain Herniated disc PTSD (post-traumatic stress disorder) History of right breast cancer History of left breast cancer BRCA gene mutation positive Retinal lesion History of bronchitis Depression Irritable bowel syndrome Sciatica Arthritis Chronic GERD Neck pain Surgical History History of sinus surgery History of repair of hiatal hernia History of Lashay-en-Y gastric bypass History of esophagogastroduodenoscopy (EGD) Hx of hernia repair Hx of cholecystectomy Hx of cystostomy Hx of tubal ligation Hx of colonoscopy History of pubovaginal sling Hx of breast lump removal Hx of bilateral oophorectomy Family History Father Heart disease Mother Diabetes mellitus Brother Prostate cancer Pancreatic cancer BRCA positive Sister Breast cancer BRCA positive Son No problems noted. Social History Household Members: Significant Other Housing: House Are you a primary health care / medical job titles to a significant other at home: No Do you presently have visiting nurse or other home services: No Alcohol intake: never Patient Tobacco Use Status: Never used Tobacco e-Cigarette/Vaping Use: Never Used Second Hand Smoke Exposure: No Substance Use Type: Marijuana service: No Current occupational status: disabled Cognitive needs: No Hearing needs: No Vision needs: Yes Review of Systems Const All systems reviewed & are unremarkable except as noted in HPI and below Reports no additional complaints Eyes Reports no additional complaints ENT Reports no additional complaints Card Reports no additional complaints Resp Reports no additional complaints GI Reports no additional complaints Reports as per HPI Musc Reports no additional complaints Skin/Breast Reports system reviewed and no additional complaints, except as documented Neuro Reports no additional complaints Psych Reports no additional complaints Endo Reports no additional complaints Rubén/Lymph Reports no additional complaints Aller/Immun Reports no additional complaints Telehealth Telehealth Telehealth Platform: Trellise Location of provider rendering services: practice address Location of patient: address on file Patient Identification confirmed using: Name, : Yes Telehealth method: video Patient verbally consented to treatment: Yes Patient verbally consented to billing insurance company: Yes Patient informed of any privacy concerns related to visit: Yes Results Reviewed Results Reviewed: Date of Service: 06/11/24 EXAMINATION: US KIDNEY BILATERAL HISTORY: 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 COMPARISON: Comparison is made with the prior examination dated 07/14/2023. FINDINGS: Right kidney: The right kidney measures 10.8 x 5.4 x 5.5 cm. Renal parenchymal echotexture and thickness are normal. Again seen is a 7 x 9 x 7 mm echogenic lesion which likely represents an angiomyolipoma. There is no hydronephrosis or renal calculi. Left Kidney: The left kidney measures 10.4 x 5.4 x 5.1 cm. There is scarring at the lower pole. There are no masses. There is no hydronephrosis or renal calculi. 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 Left renal scarring. No acute abnormality is identified. Date of Service: 07/14/23 EXAMINATION: US RETROPERITONEAL LIMITED (RENAL ONLY) CLINICAL INFORMATION: Cyst of kidney, acquired. COMPARISON: MRCP 08/06/2021. CT abdomen and pelvis 05/12/2021. X-ray KUB 01/11/2019. X-ray abdomen 06/14/2018. Ultrasound abdomen complete 10/27/2016. TECHNIQUE: Real-time imaging of the kidneys. FINDINGS: RIGHT KIDNEY: 11.5 x 4.6 x 4.5 cm (SAG x AP x TRV). The kidney is normal in size, contour, and echogenicity. Renal cortical thickness is normal. No hydronephrosis. At the lower pole, a 3 mm nonobstructing calculus is seen. At the lower pole, a 7 x 8 x 7 mm hyperechoic, circumscribed mass is seen. This is consistent with angiomyolipoma, as was seen on the CT abdomen and pelvis dated 05/12/2021 (5:39 4:344). LEFT KIDNEY: 10.6 x 4.9 x 4.1 cm (SAG x AP x TRV). The kidney is normal in size, contour, and echogenicity. There is focal interpolar and lower pole cortical thinning, consistent with CT findings (05/12/2021; 5:44). At the interpolar aspect, a 4 mm nonobstructing calculus is seen, with twinkle artifact. No hydronephrosis. At the lower pole, a 9 mm benign, simple exophytic cyst is seen, for which no imaging follow-up is recommended. IMPRESSION: 1. There are nonobstructing bilateral renal calculi, as detailed. No hydronephrosis is seen. 2. An 8 mm benign right renal lower pole angiomyolipoma is redemonstrated. 3. There is again focal left renal interpolar and lower pole cortical thinning. Date of Service: 05/12/21 EXAMINATION: CT ABDOMEN AND PELVIS WITH CONTRAST CLINICAL INFORMATION: Bilateral lower quadrant pain COMPARISON: Previous CT of the abdomen and pelvis October 2020 TECHNIQUE: Multidetector volumetric images were obtained from the superior aspect of the liver through the pubic symphysis following administration 85 mL of Omnipaque 350 intravenous contrast. Sagittal and coronal reformatted images were obtained on the technologist's workstation. Oral contrast: Yes This CT examination was performed using dose optimization techniques as appropriate, variously including the following: *Automated exposure control *Adjustment of mA and/or kV according to patient size (this includes techniques or standardized protocols for targeted exams where dose is matched to indication/reason for exam; i.e. extremities or head) *Use of iterative reconstruction technique DLP: 668 mGy-cm FINDINGS: LUNG BASES: The visualized lung bases are unremarkable. LIVER, GALLBLADDER, AND BILIARY TREE: The liver is normal in size, shape, and attenuation. No focal hepatic lesion or biliary ductal dilatation is present. The gallbladder has been removed. PANCREAS: Unremarkable. SPLEEN: Unremarkable. ADRENAL GLANDS: Unremarkable. KIDNEYS AND URETERS: There are left renal cysts. There is a small 4 mm fatty lesion in the lower pole right kidney probably representing a benign angiomyolipoma. There is cortical thinning or scarring in the lower pole of the left kidney. BLADDER: Unremarkable. GASTROINTESTINAL TRACT: There is diverticulosis of the colon. There is wall thickening of the sigmoid colon and stranding of the surrounding fat suggestive of mild sigmoid diverticulitis. No evidence of obstruction, perforation or abscess is seen. There is stool throughout the colon suggestive of constipation. The appendix is is not seen. No inflammatory changes are seen in the right lower quadrant. There are postsurgical changes to the stomach/Gastric bypass. ABDOMINAL WALL: No significant hernia is appreciated. LYMPH NODES: Normal. VASCULAR: Unremarkable. PELVIC VISCERA: Unremarkable. OSSEOUS STRUCTURES: There is a left hip replacement. There are degenerative changes of the spine. IMPRESSION: Mild sigmoid diverticulitis. Constipation. Postsurgical changes from gastric bypass. Left renal cysts. 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 No renal calculi. Comparision renal US-07/12/2023-nonobstructing renal stone, subcentimeter lesion consistent with renal angiomyolipoma. She states urinary symptoms are unchanged, persistent hesitancy however, denies UTI symptoms, denies dysuria or hematuria. She wants to avoid medication, discussed urethral dilation is temporary and will require scheduled redilation due to scarring. She will hold on urethral dilation or medication at this time. H/o of gastric bypass, pt encouraged to drink adequate fluids. FU prn. Patient Instructions: The patient had an opportunity to ask questions regarding treatment plan. The patient expressed understanding and agreement with the above treatment plan. The patient is aware they should contact our office by phone for worsening of their current condition or the appearance of new symptoms. Compliance is encouraged with any medications and followup testing that is ordered. It is a privilege to be allowed the opportunity to participate in the urologic care of your patient. If you have any questions or concerns regarding treatment for the above conditions please do not hesitate to contact me. The office telephone contact is [phone]. This note is constructed in part using voice recognition software. While every effort has been made to ensure accuracy pipe stress engineer errors may have been included. 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
== END 2024-06-24 13:24 | disposition home or self-care (01) ==
LOC: HO.HUSH 11:04
PROVIDERS: PCP Internal Medicine; Visit Provider Urology
DX: Q64.31 Congenital bladder neck obstruction (principal); D17.71 Benign lipomatous neoplasm of kidney; Z87.442 Personal history of urinary calculi
CPT/HCPCS: 99213

== ENCOUNTER → 2024-06-24 11:04 | Outpatient (BNVA) | payer MEDICARE, MEDICAID, SELFPAY | PROVIDERS: PCP Internal Medicine; Visit Provider Urology ==

== ENCOUNTER 2024-08-14 08:02 | Outpatient (AMB) | payer MEDICARE, MEDICAID, SELFPAY ==
--- OUTSIDE RECORDS SUMMARY | 2024-08-14 08:05 | XMS_ITS | Clinical Summary ---
Author Organization [facility] Address [address] [place] [address] Care Team Providers Care Service Technician Copier Name Role Phone Rabia Grider MD Primary Care Provider [phone] Surgical History Surgery Date Site/Laterality Comments BREAST LUMPECTOMY Bilateral PROCEDURE: HISTORICAL BREAST LUMPECTOMY OTHER SURGICAL HISTORY PROCEDURE: [place] LAPS GSTR RSTCV PX W/BYP DARRELL-EN-Y LIMB <150 CM CHOLECYSTECTOMY N/A PROCEDURE: [place] CHOLECYSTECTOMY HIP ARTHROPLASTY 12/01/2020 Left PROCEDURE: HISTORICAL [...] - 2023-2 5 season) 2023 Influenza Vaccine (Season Ended) 2024 RSV Immunization Adult Patie nts (1 - 1-dose 75+ series) 12/17/2031 HIB [...] age to complete this topic Meningococcal B Vaccine Aged Out No l onger eligible based on patient's age to complete this topic RSV Immunization Patients Un jacob 20 months Aged Out No longer eligible b ased on patient's age to complete this topic Varicella Vaccines Aged Out No longer eligible based on patient's age to complete this topic Advance Directives Documents on File Type Date Recorded 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
[2024-08-14 08:07] VITALS: BP 122/80; PULSE 92; TEMP 36.8; O2SAT 97; BMI 25.2
--- NOTE | 2024-08-14 08:07 | MHC.OFFWIV ---
Intake Vital Signs 08/14/24 08:07 Height 5 ft 3 in Weight 142 lb BMI 25.2 BP 122/80 Blood Pressure Location Rt brachial Position Sitting Pulse 92 Pulse Source Pulse Oximeter Temp 98.3 F Temp Source Oral Pulse Oximetry (%) 97 Intake Visit Reasons: EP-b/l eyes irritated Patient Tobacco Use Status: Never used Tobacco Allergies vancomycin [VANCOMYCIN] Allergy (Severe, Verified 08/14/24 08:08) ITCHING SEVERE, pruritus clindamycin [CLINDAMYCIN] Allergy (Intermediate, Verified 08/14/24 08:08) ITCHING ibuprofen Allergy (Intermediate, Verified 08/14/24 08:08) abdominal pain nitrofurantoin Allergy (Intermediate, Verified 08/14/24 08:08) abdominal pain Penicillins [PENICILLINS] Allergy (Intermediate, Verified 08/14/24 08:08) HIVES Sulfa (Sulfonamide Antibiotics) Allergy (Intermediate, Verified 08/14/24 08:08) RASH/SWELLING, rash, swelling venlafaxine [From EFFEXOR] Adverse Reaction (Severe, Verified 08/14/24 08:08) WORSENING DEPRESSION Butrans patch Allergy (Severe, Uncoded 05/15/24 08:41) depression STEROID INJECTIONS Allergy (Severe, Uncoded 05/15/24 08:41) ANGER AND AGGITATION Herbal medicines/teas Allergy (Intermediate, Uncoded 05/15/24 08:41) headaches, stuffiness Do you need a note to return to daycare/school/sports/work: No HPI HPI Comments History of Present Illness Details History of Present Illness - The patient is a 68-year-old female presenting with both eyes irritation and discomfort. - She reports persistent eye irritation, described as stinging and watery with a red appearance, actively hindering daily comfort. - Symptoms worsened after using [id number] eye drops, which initially aimed to relieve symptoms of suspected allergic conjunctivitis. - She has a history of mild allergy symptoms in the eyes but reports this incident as unusually severe, beginning prior to her outpatient treatment attempt. - Insurance impediments prevented access to initially prescribed Patadene drops, but these were not covered by insurance and not affordable. - No change in vision Physical Exam General: Cooperative, healthy appearing, comfortable, no acute distress and well developed Orientation: Patient oriented x3 Limitations: No limitations Head: Normal to inspection Ears: Hearing grossly normal bilaterally Nose: Normal External nose present Face and sinus: Normal facial exam Eyes: Bilateral corneal abrasions as per fluorescein eye exam (see below) Neck: Normal visual inspection and Yes full ROM Respiratory: Normal respiratory effort and able to speak in complete sentences. Skin: No rashes or lesions noted Neuro: Patient oriented x3 Extremities: Normal to inspection [facility] Medical History Breast cancer Meralgia paraesthetica Obese Obesity Hospital discharge follow-up Dilation of pancreatic duct B12 deficiency Mild recurrent major depression Left hip pain Diarrhea 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 Pre-op evaluation Glossitis Ear discomfort Lumbar radiculopathy Chronic constipation Urine incontinence Left sided sciatica Fatigue Back pain Herniated disc PTSD (post-traumatic stress disorder) History of right breast cancer History of left breast cancer BRCA gene mutation positive Retinal lesion History of bronchitis Depression Irritable bowel syndrome Sciatica Arthritis Chronic GERD Neck pain Surgical History History of sinus surgery History of repair of hiatal hernia History of Lashay-en-Y gastric bypass History of esophagogastroduodenoscopy (EGD) Hx of hernia repair Hx of cholecystectomy Hx of cystostomy Hx of tubal ligation Hx of colonoscopy History of pubovaginal sling Hx of breast lump removal Hx of bilateral oophorectomy Family History Father Heart disease Mother Diabetes mellitus Brother Prostate cancer Pancreatic cancer BRCA positive Sister Breast cancer BRCA positive Son No problems noted. Social History Household Members: Significant Other Housing: House Are you a primary foster care social worker to a significant other at home: No Do you presently have visiting nurse or other home services: No Alcohol intake: never Patient Tobacco Use Status: Never used Tobacco e-Cigarette/Vaping Use: Never Used Second Hand Smoke Exposure: No Substance Use Type: Marijuana service: No Current occupational status: disabled Cognitive needs: No Hearing needs: No Vision needs: Yes Review of Systems Const All systems reviewed & are unremarkable except as noted in HPI and below Physical Exam Vital Signs: Last Vital Signs Temp 98.3 F 08/14/24 08:07 Pulse 92 08/14/24 08:07 BP 122/80 08/14/24 08:07 Pulse Ox 97 08/14/24 08:07 BMI result Body Mass Index 25.2 Office Procedures Fluorescein eye exam Details: applied 2 drops tetracaine drops in each eye, dye and uncer fluorescein light, revealed left eye 0.75 linear corneal abrasion at noon; right eye 10 o'clock circular corneal abrasion Assessment & Plan Assessment & Plan (1) Bilateral corneal abrasions: Code(s): S05.01XA - Injury of conjunctiva and corneal abrasion without foreign body, right eye, initial encounter; S05.02XA - Injury of conjunctiva and corneal abrasion without foreign body, left eye, initial encounter Qualifiers: Encounter type: initial encounter Qualified Code(s): S05.01XA - Injury of conjunctiva and corneal abrasion without foreign body, right eye, initial encounter; S05.02XA - Injury of conjunctiva and corneal abrasion without foreign body, left eye, initial encounter Plan: The patient was diagnosed with both bilateral corneal abrasions and allergic conjunctivitis. Erythromycin ointment prescribed, explained how to apply properly. Patadene eye drops were recommended for managing allergic symptoms, noting insurance limitations might require seeking an alternative or generic option. Motrin was advised for associated discomfort. Patient education included eyewear protection to prevent further irritant exposure and the use of cool compresses as symptomatic measures. Assurance was given regarding the natural course of healing for corneal abrasions with advised treatment adherence. No indicators of conjunctivitis present as discharge was absent. Continued follow-up is necessitated if symptoms do not improve or exacerbate. Patient was informed and verbally consented to the use of an ambient scribe for clinic note documentation during this visit. Medications: New erythromycin Apply to each eye 4 times a day while awake 0.5 inches ophthalmic (eye) QID 7 days 7 grams 0RF Coding Level of Care Code Est Pt Level 4 (92662) Diagnoses Bilateral corneal abrasions, initial encounter S05.01XA; S05.02XA Encounter type: initial encounter
== END 2024-08-14 08:55 | disposition home or self-care (01) ==
PROVIDERS: PCP Internal Medicine; Visit Provider Physician Assistant
DX: S05.01XA Injury of conjunctiva and corneal abrasion without foreign body, right eye, initial encounter (principal); S05.02XA Injury of conjunctiva and corneal abrasion without foreign body, left eye, initial encounter

== ENCOUNTER → 2024-08-14 08:02 | Outpatient (BNVA) | payer MEDICARE, MEDICAID, SELFPAY | PROVIDERS: PCP Internal Medicine; Visit Provider Physician Assistant | DX: S05.01XA Injury of conjunctiva and corneal abrasion without foreign body, right eye, initial encounter (principal); S05.02XA Injury of conjunctiva and corneal abrasion without foreign body, left eye, initial encounter | CPT/HCPCS: 99212 ==

== ENCOUNTER 2024-08-27 08:02 | Outpatient (AMB) | payer MEDICARE, MEDICAID, SELFPAY ==
--- OUTSIDE RECORDS SUMMARY | 2024-08-27 08:04 | XMS_ITS | Clinical Summary ---
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
--- NOTE | 2024-08-27 08:10 | AM.OFFWIN_ITS ---
Intake Vital Signs 08/27/24 08:24 Height 5 ft 3 in Weight 142 lb BMI 25.2 BP 120/80 Blood Pressure Location Rt brachial Position Sitting Pulse 80 Pulse Source Pulse Oximeter Temp 98.4 F Temp Source Oral Pulse Oximetry (%) 98 Intake Visit Reasons: EP scratch the cornea on both eyes Patient Tobacco Use Status: Never used Tobacco Allergies vancomycin [VANCOMYCIN] Allergy (Severe, Verified 08/27/24 08:20) ITCHING SEVERE, pruritus clindamycin [CLINDAMYCIN] Allergy (Intermediate, Verified 08/27/24 08:20) ITCHING ibuprofen Allergy (Intermediate, Verified 08/27/24 08:20) abdominal pain nitrofurantoin Allergy (Intermediate, Verified 08/27/24 08:20) abdominal pain Penicillins [PENICILLINS] Allergy (Intermediate, Verified 08/27/24 08:20) HIVES Sulfa (Sulfonamide Antibiotics) Allergy (Intermediate, Verified 08/27/24 08:20) RASH/SWELLING, rash, swelling erythromycin base Allergy (Mild, Verified 08/27/24 08:22) Unknown venlafaxine [From EFFEXOR] Adverse Reaction (Severe, Verified 08/27/24 08:20) WORSENING DEPRESSION Butrans patch Allergy (Severe, Uncoded 05/15/24 08:41) depression STEROID INJECTIONS Allergy (Severe, Uncoded 05/15/24 08:41) ANGER AND AGGITATION Herbal medicines/teas Allergy (Intermediate, Uncoded 05/15/24 08:41) headaches, stuffiness Do you need a note to return to daycare/school/sports/work: No HPI HPI Comments History of Present Illness Details 68 y/o Female patient who presents to [facility] in clinic with c/o B/L eye irritation and Discomfort. Pt was evaluated and treated on 08/14 for B/L Corneal abrasions. Pt was prescribed Erythromycin eye drops - Pt did not use the medicine because she is allergic to it. She was subsequently seen and evaluated by her Angio Technologist who informed her the Abrasions resolved and prescribed eye drops to relieve dry eyes. She returns today with c/o Dry itchy and discomfort eyes, she has been using OTC allergy medications with no relief. [facility] Medical History Breast cancer Meralgia paraesthetica Obese Obesity Hospital discharge follow-up Dilation of pancreatic duct B12 deficiency Mild recurrent major depression Left hip pain Diarrhea 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 Pre-op evaluation Glossitis Ear discomfort Lumbar radiculopathy Chronic constipation Urine incontinence Left sided sciatica Fatigue Back pain Herniated disc PTSD (post-traumatic stress disorder) History of right breast cancer History of left breast cancer BRCA gene mutation positive Retinal lesion History of bronchitis Depression Irritable bowel syndrome Sciatica Arthritis Chronic GERD Neck pain Surgical History History of sinus surgery History of repair of hiatal hernia History of Lashay-en-Y gastric bypass History of esophagogastroduodenoscopy (EGD) Hx of hernia repair Hx of cholecystectomy Hx of cystostomy Hx of tubal ligation Hx of colonoscopy History of pubovaginal sling Hx of breast lump removal Hx of bilateral oophorectomy Family History Father Heart disease Mother Diabetes mellitus Brother Prostate cancer Pancreatic cancer BRCA positive Sister Breast cancer BRCA positive Son No problems noted. Social History Household Members: Significant Other Housing: House Are you a primary care transition coordinator to a significant other at home: No Do you presently have visiting nurse or other home services: No Alcohol intake: never Patient Tobacco Use Status: Never used Tobacco e-Cigarette/Vaping Use: Never Used Second Hand Smoke Exposure: No Substance Use Type: Marijuana service: No Current occupational status: disabled Cognitive needs: No Hearing needs: No Vision needs: Yes Review of Systems Const All systems reviewed & are unremarkable except as noted in HPI and below Physical Exam Vital Signs: Last Vital Signs Temp 98.4 F 08/27/24 08:24 Pulse 80 08/27/24 08:24 BP 120/80 08/27/24 08:24 Pulse Ox 98 08/27/24 08:24 BMI result Body Mass Index 25.2 Const General: no acute distress Nutritional Appearance: well nourished Orientation/consciousness: patient oriented x3 Eyes Eyelids: Yes eyelids normal Conjunctivae: conjunctivae normal Corneas: corneas abnormal (Mild abrasions B/L Eyes) Pupils: Equal, round and reactive pupils present EOM: EOMs intact bilaterally Neuro General: patient oriented x3, gait normal and moves all extremities Cranial nerves: Yes Equal, round and reactive pupils present Psych Speech and movement: Normal speech and movement present Assessment & Plan Assessment & Plan (1) Bilateral corneal abrasions: Code(s): S05.01XA - Injury of conjunctiva and corneal abrasion without foreign body, right eye, initial encounter; S05.02XA - Injury of conjunctiva and corneal abrasion without foreign body, left eye, initial encounter Qualifiers: Encounter type: initial encounter Qualified Code(s): S05.01XA - Injury of conjunctiva and corneal abrasion without foreign body, right eye, initial encounter; S05.02XA - Injury of conjunctiva and corneal abrasion without foreign body, left eye, initial encounter Plan: Ordered Cipro drops. Pt to call her Angio Technologist for a f/u appointment. Double the Claritin dose for few days. Continue using Dry eyes Drops. Medications: New ciprofloxacin HCl 0.3% put 1-2 drps in affected eyes every 2hr up to 8 times/day for 2 days; then 4 times/day for 5 days. 2.5 mL 0RF S05.01XA - Injury of conjunctiva and corneal abrasion without foreign body, right eye, initial encounter, S05.02XA - Injury of conjunctiva and corneal abrasion without foreign body, left eye, initial encounter Coding Level of Care Code Est Pt Level 4 (18722) Diagnoses Bilateral corneal abrasions, initial encounter S05.01XA; S05.02XA Encounter type: initial encounter Time Spent (min) 20
[2024-08-27 08:24] VITALS: BP 120/80; PULSE 80; TEMP 36.9; O2SAT 98; BMI 25.2
== END 2024-08-27 08:46 | disposition home or self-care (01) ==
PROVIDERS: PCP Internal Medicine; Visit Provider Nurse Practitioner Family
DX: S05.01XA Injury of conjunctiva and corneal abrasion without foreign body, right eye, initial encounter (principal); S05.02XA Injury of conjunctiva and corneal abrasion without foreign body, left eye, initial encounter

== ENCOUNTER → 2024-08-27 08:02 | Outpatient (BNVA) | payer MEDICARE, MEDICAID, SELFPAY | PROVIDERS: PCP Internal Medicine; Visit Provider Nurse Practitioner Family | DX: S05.01XA Injury of conjunctiva and corneal abrasion without foreign body, right eye, initial encounter (principal); S05.02XA Injury of conjunctiva and corneal abrasion without foreign body, left eye, initial encounter | CPT/HCPCS: 99212 ==

== ENCOUNTER 2024-11-19 06:53 | Outpatient (REF) | payer MEDICARE, MEDICAID, SELFPAY ==
--- OUTSIDE RECORDS SUMMARY | 2024-11-19 06:56 | XMS_ITS | Clinical Summary ---
Author Organization [facility] Address [address] [place] [address] Care Team Providers Care Prestressed Concrete Laborer Name Role Phone Rabia Grider MD Primary Care Provider [phone] Surgical History Surgery Date Site/Laterality Comments BREAST LUMPECTOMY Bilateral PROCEDURE: HISTORICAL BREAST LUMPECTOMY OTHER SURGICAL HISTORY PROCEDURE: [place] LAPS GSTR RSTCV PX W/BYP DARRELL-EN-Y LIMB <150 CM CHOLECYSTECTOMY N/A PROCEDURE: [place] CHOLECYSTECTOMY HIP ARTHROPLASTY 12/01/2020 Left PROCEDURE: HISTORICAL [...] 2) 2006 Colorectal Cancer Screening: Colonoscopy 03/02/2022 Falls Risk Assessment 03/02/2022 Hepatitis C Screening 03/02/2022 Osteoporosis Screening (Bone Density Screening) 03/02/2022 Social Influencers of Health Screening 03/02/2022 COVID-19 Vaccine (1 - 2023-2 5 season) 2023 Depression Screening 04/03/2024 Influenza Vaccine (#1) 2024 RSV Immunization Adult Patie nts (1 [...] Documents on File Type Date Recorded 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
--- OUTSIDE RECORDS SUMMARY | 2024-11-19 06:56 | XMS_ITS | Encounter Summary ---
Author Organization [facility] Address [address] [place] [id number] Phone Care Team Providers Care Day Care Home Provider Name Role Phone Rabia Sim MD Primary Care Provid er Encounter Details Date Type Department Care Team (Late st Contact Info) Description 08/25/2021 Procedure Pass [address] [place] [address] Social History Tobacco Use Types Packs/Day Years Used Date Smoking Tobacco: Never Smokeless Tobacco: Never Alcohol Use Standard Drinks/Week Comments Not Currently 0 (1 standard drink = 0.6 oz pur e alcohol) Comments Unknown Sex and Gender Information Value Date Recorded Sex Assigned at Female 07/24/2021 7:56 AM EDT Legal Sex Female 10:35 PM EDT Gender Identity Female 07/24/2021 7:56 AM EDT Sexual Orientation Straight 07/24/2021 7: 56 AM EDT documented as of this encounter Plan of Treatment Upcoming Encounters Date Type Department Care Team (Late st Contact Info) Description 01/08/2026 10:10 AM EDT Office Visit [facility] Rheumatology [address] [place] [address] Zeina Perales MD, MPH [address] [facility], [address] [place] [address] [email or web address] documented as of this encounter Visit Diagnoses Not on filedocumented in this encounter Additional Health Concerns Infection Onset Date Last Indicated Resolved Time CoV-Risk 01/01/2023 01/01/2023 01/12/2023 1:22 AM EDT documented as of this encounter Care Teams Day Care Home Provider Relationship Specialty Start Date End Date Rabia Sim MD [address] [place] [address] PCP - General 01/17/17 documented as of this encounter Additional Source Comments The information contained in this document represents components of the legal health record. It is not the complete legal health record.[facility]
[2024-11-19 07:08] LABS: MANUAL DIFF FLAG NO
[2024-11-19 07:20] LABS: Hematocrit 33.7 % (37.0-47.0); Hemoglobin 10.3 g/dl (12.0-16.0); Imm Gran Abs Auto 0.02 X10*3/uL (0.00-0.03); Imm Gran Pct Auto 0.4 % (0.0-0.4); Lymphocytes Absolute Auto 1.4 X10*3/uL (1.2-4.9); Mean Corpuscular HGB Conc 30.6 g/dl (31.0-35.0); Mean Corpuscular Hemoglobin 25.5 pg (27.0-33.0); Mean Corpuscular Volume 83.4 fL (80.0-98.0); NRBC Abs Auto 0.000 X10*3/uL (0.0-0.012); NRBC Pct Auto 0.0 /100WBC (0.0-0.2); Platelet Count 288 X10*3/uL (160-400); Red Blood Count 4.04 X10*6/uL (4.20-5.50); White Blood Count 5.1 X10*3/uL (4.8-10.8)
[2024-11-19 07:55] LABS: Alanine Aminotransferase 25 U/L (0-31); Albumin Level 4.2 g/dL (3.5-5.0); Alkaline Phosphatase 98 U/L (39-117); Anion Gap 12 (12-20); Aspartate Amino Transferase 28 U/L (5-31); Blood Urea Nitrogen 10 mg/dL (9-16); Calcium 8.9 mg/dL (8.4-10.2); Carbon Dioxide 25 mmol/L (22-29); Chloride 101 mmol/L (96-108); Cholesterol 229 mg/dL (<200); Estimated Glomerular Filt Rate > 60; HDL Cholesterol 77 mg/dL (>40); Iron 35 mcg/dL (30-160); Percent Iron Saturation 9 % (15-50); Potassium 4.2 mmol/L (3.3-5.1); Sodium 134 mmol/L (135-145); Total Iron Binding Capacity 406 mcg/dL (228-428); Total Protein 6.9 g/dL (6.5-8.0); Triglycerides 141 mg/dL (<150); Unsaturated Iron Binding 371 ug/dL
[2024-11-19 08:10] LABS: Thyroid Stimulating Hormone 1.23 uIU/mL (0.32-4.0)
[2024-11-19 08:21] LABS: Folate 9.9 ng/mL (> or = 4.0); Vitamin B12 257 pg/mL (200-900)
== END 2024-11-19 06:54 | disposition home or self-care (01) ==
LOC: HO.LAB 06:53
PROVIDERS: PCP Internal Medicine; Visit Provider Internal Medicine
DX: I10 Essential (primary) hypertension (principal); M54.12 Radiculopathy, cervical region; E53.8 Deficiency of other specified B group vitamins; E78.5 Hyperlipidemia, unspecified; E55.9 Vitamin D deficiency, unspecified; D64.9 Anemia, unspecified
CPT/HCPCS: 36415; 80053; 80061; 82306; 82607; 82746; 83540; 84443; 85025

== ENCOUNTER 2024-11-20 08:31 | Outpatient (AMB) | payer MEDICARE, MEDICAID, SELFPAY ==
[2024-11-20 08:38] VITALS: BP 124/80; PULSE 95; O2SAT 99; BMI 27.5
--- NOTE | 2024-11-20 08:38 | AM.OFFVISMDC ---
Intake Vital Signs 11/20/24 08:38 Height 5 ft 3 in Weight 155 lb 6 oz BMI 27.5 BP 124/80 Blood Pressure Location Lt brachial Position Sitting Pulse 95 Pulse Source Pulse Oximeter Pulse Oximetry (%) 99 Oxygen Delivery Method Room Air Intake Visit Reasons: wellness Humane Agent Required: No Accompanied by: Self / Same As Patient Allergies vancomycin (VANCOMYCIN) Allergy (Severe, Verified 11/20/24 08:49) ITCHING SEVERE, pruritus clindamycin (CLINDAMYCIN) Allergy (Intermediate, Verified 11/20/24 08:49) ITCHING ibuprofen Allergy (Intermediate, Verified 11/20/24 08:49) abdominal pain nitrofurantoin Allergy (Intermediate, Verified 11/20/24 08:49) abdominal pain Penicillins (PENICILLINS) Allergy (Intermediate, Verified 11/20/24 08:49) HIVES Sulfa (Sulfonamide Antibiotics) Allergy (Intermediate, Verified 11/20/24 08:49) RASH/SWELLING, rash, swelling erythromycin base Allergy (Mild, Verified 11/20/24 08:49) Unknown venlafaxine (From EFFEXOR) Adverse Reaction (Severe, Verified 11/20/24 08:49) WORSENING DEPRESSION Butrans patch Allergy (Severe, Uncoded 11/20/24 08:49) depression STEROID INJECTIONS Allergy (Severe, Uncoded 11/20/24 08:49) ANGER AND AGGITATION Herbal medicines/teas Allergy (Intermediate, Uncoded 11/20/24 08:49) headaches, stuffiness Medication List - Last Reconciled 11/20/24 by Rabia Grider MD acetaminophen (Tylenol Extra Strength) 500 mg PO QID PRN alprazolam (Xanax) 0.5 - 1 mg (1 - 2 x 0.5 mg) PO BEDTIME 3 days amlodipine 10 mg PO DAILY 90 days bupropion HCl XL 300 mg PO DAILY cetirizine (All Day Allergy (cetirizine)) 10 mg PO DAILY PRN 90 days cholecalciferol (vitamin D3) 25 mcg PO DAILY 90 days ciprofloxacin HCl 0.3% put 1-2 drps in affected eyes every 2hr up to 8 times/day for 2 days; then 4 times/day for 5 days. desvenlafaxine succinate ER (Pristiq) 200 mg PO DAILY gabapentin 300 mg PO BID 30 days nystatin 1 appl topical DAILY PRN 30 days oxcarbazepine mg PO BID oxycodone 5 mg PO BID PRN 3 days pantoprazole 40 mg PO DAILY 90 days sucralfate (Carafate) 10 mL PO BID 30 days trazodone 50 - 100 mg PO BEDTIME PRN Do you need a note to return to daycare/school/sports/work: No HPI HPI Comments History of Present Illness Details The patient is a 68-year-old female presenting for a Medicare wellness exam. The patient has a history of osteopenia and osteoarthritis, with the last bone density test indicating osteopenia in 2023. She is scheduled for a follow-up bone density test in 2025. The patient reports a history of depression, for which she is receiving ketamine treatment at [facility]. She follows up with a psychiatrist and is on multiple medications including bupropion and Pristiq. The patient has anemia with a hemoglobin level of 10.3, which is contributing to her fatigue and tiredness. She is advised to see a bookkeeping clerks supervisor for further evaluation due to concerns about absorption issues post-gastric bypass surgery. The patient has a vitamin D deficiency, which may be contributing to her joint pain and fatigue. She is prescribed vitamin D supplementation at 50 mcg daily due to her deficiency level being less than 20. The patient has a BRCA gene mutation, with a family history of breast and ovarian cancer. She has undergone prophylactic surgeries including oophorectomy and lumpectomy. The patient is undergoing pain management and has been prescribed a Butrans patch as an alternative to oxycodone. She reports that the patch does not worsen her depression compared to other opioids. [facility] Medical History (Updated 11/20/24 @ 11:54 by Rabia Grider MD) Breast cancer Meralgia paraesthetica Obese Obesity Hospital discharge follow-up Dilation of pancreatic duct B12 deficiency Mild recurrent major depression Left hip pain Diarrhea 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 Pre-op evaluation Glossitis Ear discomfort Lumbar radiculopathy Chronic constipation Urine incontinence Left sided sciatica Fatigue Back pain Herniated disc PTSD (post-traumatic stress disorder) History of right breast cancer History of left breast cancer BRCA gene mutation positive Retinal lesion History of bronchitis Depression Irritable bowel syndrome Sciatica Arthritis Chronic GERD Neck pain Surgical History History of sinus surgery History of repair of hiatal hernia History of Lashay-en-Y gastric bypass History of esophagogastroduodenoscopy (EGD) Hx of hernia repair Hx of cholecystectomy Hx of cystostomy Hx of tubal ligation Hx of colonoscopy History of pubovaginal sling Hx of breast lump removal Hx of bilateral oophorectomy Family History (Updated 11/20/24 @ 09:00 by Rabia Grider MD) Father Heart disease Mother Diabetes mellitus Brother Prostate cancer Pancreatic cancer Sister Breast cancer BRCA positive Son No problems noted. Social History Household Members: Significant Other Housing: House Are you a primary rn care transition to a significant other at home: No Do you presently have visiting nurse or other home services: No Alcohol intake: never Patient Tobacco Use Status: Never used Tobacco e-Cigarette/Vaping Use: Never Used Second Hand Smoke Exposure: No Substance Use Type: Marijuana service: No Current occupational status: disabled Cognitive needs: No Hearing needs: No Vision needs: Yes Questionnaire Medicare Wellness Checkup [age] 65-70 What gender do you identify with?: female During the past 4 weeks, how much have you been bothered by emotional problems such as feeling anxious, depressed, irritable, sad or downhearted, and blue?: moderately During the past 4 weeks, has your physical & emotional health limited your social activities with family, friends, neighbors, or groups?: quite a bit During the past 4 weeks, how much bodily pain have you generally had?: severe pain During the past 4 weeks, was someone available to help you if you needed & wanted help?: yes, quite a bit During the past 4 weeks, what was the hardest physical activity you could do for at least 2 minutes?: moderate Can you get to places out of walking distance without help? (For eg., can you travel alone on buses, taxis or drive your car?): Yes Can you go shopping for groceries or clothes without someone's help?: No Can you prepare your own meals?: No Can you do your housework without help?: No Because of any health problems, do you need the help of another person with your personal care needs such as eating, bathing, dressing or getting around the house?: No Can you handle your own money without help?: Yes During the past 4 weeks, how would you rate your health in general?: poor During the past 4 weeks how have things been going for you?: good & bad parts about equal Are you having difficulties driving your car?: sometimes Do you always fasten your seat belt when you are in a car?: yes, usually During past 4 weeks, have you been bothered by the following: never: Problems using the telephone?, seldom: Falling or dizzy when standing up, often: Teeth or denture problems? and always: Sexual problems?, Trouble eating well? and Tiredness or fatigue? Have you fallen 2 or more times in the past year?: No Are you afraid of falling?: No Are you a smoker?: no During the past 4 weeks, how many drinks of wine, beer, or other alcoholic beverages did you have?: no alcohol at all Do you exercise for about 20 minutes 3 or more times a week?: yes, most of the time Have you been given information to help with the following?: yes: Keeping track of your medications? and no: Hazards in your house that might hurt you? How often do you have trouble taking medicines the way you have been told to take them?: I always take medicine as prescribed How confident are you that you can control & manage most of your health problems?: somewhat confident What is your race?: White Mini Mental State Exam (MMSE) Orientation What is the (year) (season) (date) (day) (month)?: year, season, date, day and month Where are we (state) (county) (town or city) (hospital) (floor)?: state, county, town or city, hospital/clinic and floor Registration Name of 3 unrelated objects clearly and slowly, then ask patient to repeat all 3 of them. (1st repeat determines score. Make sure they can repeat all three): object 1, object 2 and object 3 Attention & Calculation (CHOOSE ONE) Spell WORLD backwards (DLROW): 5 letters Recall Ask patient to repeat the 3 items from question #3.: object 1, object 2 and object 3 Language Show patient a wristwatch & ask what it is. Repeat for pencil.: watch and pencil Ask the patient to repeat the phrase 'No ifs, ands, or buts' after you.: correct Ask the patient to 'take a piece of paper with their right hand' 'fold paper in half' 'place paper on floor': take paper in right hand, fold paper in half and place paper on floor Print the sentence 'CLOSE YOUR EYES' on a piece. If patient actually closes eyes then score.: followed written direction Give patient a blank piece of paper & ask to write a sentence. Score if it contains a noun & verb.: sentence contains subject and verb Ask patient to copy figure of intersecting pentagons exactly. Score if all 10 angles & 2 intersects are included.: all 10 angles present & 2 are intersected Score Score: 30 Activity of Daily Living Bathing - sponge bath, tub bath or shower: receives no assistance (gets in/out by self, if usual bathing means Dressing - getting clothes from closets & drawers, including inner/outer garments & fasteners.: gets clothes & gets dressed without help, except for help tying shoes Toileting - going to the 'toilet room' for urine/bowel elimination & cleaning self/arranging clothes: goes to toilet room, cleans self, arranges clothes without help Transfer: moves in & out of bed and chair without help (may use support object) Continence: has occasional 'accidents' Feeding: feeds self without help Total Score: 0 Information obtained from: patient Using telephone: independent Traveling: independent Shopping: needs assistance Preparing meals: needs assistance Housework: needs assistance Taking medicine: independent Managing money: independent PHQ-9 Over the last 2 weeks, how often have you been bothered by any of the following problems? 1. Little interest or pleasure in doing things: more than half the days 2. Feeling down, depressed, or hopeless: several days 3. Trouble falling or staying asleep, or sleeping too much: not at all 4. Feeling tired or having little energy: nearly every day 5. Poor appetite or overeating: nearly every day 6. Feeling bad about yourself - or that you are a failure or have let yourself or your family down: several days 7. Trouble concentrating on things, such as reading the newspaper or watching television: not at all 8. Moving or speaking so slowly that other people could have noticed. Or the opposite - being so fidgety or restless that you have been moving around a lot more than usual: not at all 9. Thoughts that you would be better off or of hurting yourself in some way: not at all Total score: 10 Depression Screening Interpretation: Positive Depression Screening Follow-up: Existing condition, In treatment, Community Mental Health Worker F/U and Follow-up Visit Requested Depression Screening Done: Yes 98193 - PHQ-9 Billing: Yes Source: Developed by Drs. Matt Diehl, Harriet Cardona, Kulwinder Martin and colleagues, with an educational giovanna from [employer]. PHQ-2/PHQ-9 PHQ-2 Over the last 2 weeks, how often have you been bothered by any of the following problems? 1. Little interest or pleasure in doing things: more than half the days 2. Feeling down, depressed, or hopeless: several days Total score: 3 If score is 3 or greater, continue 3. Trouble falling or staying asleep, or sleeping too much: not at all 4. Feeling tired or having little energy: nearly every day 5. Poor appetite or overeating: nearly every day 6. Feeling bad about yourself - or that you are a failure or have let yourself or your family down: several days 7. Trouble concentrating on things, such as reading the newspaper or watching television: not at all 8. Moving or speaking so slowly that other people could have noticed. Or the opposite - being so fidgety or restless that you have been moving around a lot more than usual: not at all 9. Thoughts that you would be better off or of hurting yourself in some way: not at all Total score: 10 0-4 None-Minimal, 5-9 Mild, 10-14 Moderate, 15-19 Moderately Severe, 20-27 Severe Source: Developed by Drs. Matt Diehl, Harriet Cardona, Kulwinder Martin and colleagues, with an educational giovanna from [employer]. Thrive Questionnaire Date Thrive assessed: 11/20/24 I am a: Patient What is your living situation today?: I have a steady place to live Within the past 12 months, did the food you bought not last and you didn't have the money to get more?: Never true Within the past 12 months, did you worry whether your food would run out before you got money to buy more?: Never true Do you have trouble paying for medicines?: No Do you have trouble getting transportation to medical appointments?: No Do you have trouble paying your heating and electricity bill?: No Do you have trouble taking care of your child, family member or friend?: No Do you have trouble with day-to-day activities such as bathing, preparing meals, shopping, managing finances, etc.?: No Are you currently unemployed and looking for a job?: No Are you interested in more education?: No Please select the resources that you would like help with: None Currently or been in a relationship where the following occur: No concerns reported THRIVE Score: 0 VIOLETA-7 AMB Questionnaire VIOLETA-7 Date VIOLETA - 7 assessed: 11/20/24 Feeling nervous, anxious, or on edge: 1 = Several days Not being able to stop or control worryin = Several days Worrying too much about different things: 1 = Several days Trouble relaxin = Several days Being so restless that it is hard to sit still: 0 = Not at all Becoming easily annoyed or irritable: 1 = Several days Feeling afraid as if something awful might happen: 1 = Several days Total VIOLETA-7 score (0-4 normal; 5-9 mild; 10-14 moderate; 15-21 severe): 6 Source: Developed by Drs. Matt Diehl, Harriet Cardona, Kulwinder Martin and colleagues, with an educational giovanna from [employer]. VIOLETA-7 Assessment Billing VIOLETA-7 Assessment Tool: VIOLETA-7 Assessment 33318 Review of Systems Const All systems reviewed & are unremarkable except as noted in HPI and below Card Denies chest pain at rest, Denies chest pain with activity, Denies edema, Denies irregular heart rhythm, Denies claudication, Denies dyspnea, Denies dyspnea on exertion, Denies orthopnea, Denies paroxysmal nocturnal dyspnea and Denies slow heart rate Resp Denies cough, Denies dyspnea and Denies dyspnea on exertion Skin/Breast Denies bleeding lesions, Denies changing lesions and Denies rash Physical Exam Vital Signs: Last Vital Signs Pulse 95 11/20/24 08:38 BP 124/80 11/20/24 08:38 Pulse Ox 99 11/20/24 08:38 Oxygen Delivery Method Room Air 11/20/24 08:38 BMI result Body Mass Index 27.5 Resp Effort & Inspection: normal respiratory effort Auscultation: clear to auscultation bilaterally Cardio Jugular venous distension: no JVD Rate: regular rate Rhythm: regular rhythm Heart sounds: S1 normal heart sound present and S2 normal heart sound present Extrem General: Yes full ROM Assessment & Plan Assessment & Plan (1) Encounter for Medicare annual wellness exam: Code(s): Z00.00 - Encounter for general adult medical examination without abnormal findings (2) Mild recurrent major depression: Code(s): F33.0 - Major depressive disorder, recurrent, mild (3) Mood disorder: Comment: ptsd, lonely, -no S/ H I- support offered. Details-lifes struggles-has live-in partner, who works-feels isolated at times Code(s): F39 - Unspecified mood [affective] disorder (4) Lumbar radiculopathy: Comment: Pain management contract signed 11/20/2024 Code(s): M54.16 - Radiculopathy, lumbar region (5) Anemia: Code(s): D64.9 - Anemia, unspecified (6) Hypovitaminosis D: Code(s): E55.9 - Vitamin D deficiency, unspecified Plan The patient will continue with her current pain management regimen, including the use of the Butrans patch, which has been effective without exacerbating her depression. She is advised to follow up with her psychiatrist for ongoing management of her depression and to continue her current medications, including bupropion and Pristiq. For her anemia, the patient is referred to a bookkeeping clerks supervisor to evaluate potential absorption issues related to her gastric bypass surgery. She is also advised to take ferrous sulfate with a vitamin C source to enhance absorption. The patient is prescribed vitamin D supplementation at 50 mcg daily to address her deficiency and is encouraged to increase dietary intake of vitamin D-rich foods. Preventative care measures include scheduling a mammogram, ensuring follow-up for her bone density test in 2025, and maintaining regular colonoscopy screenings. Patient was informed and verbally consented to the use of an ambient scribe for clinic note documentation during this visit. Orders: Orders IRON PROFILE 6 Months D64.9 - Anemia, unspecified MM tomosynthesis screening BI Today Z12.31 - Encounter for screening mammogram for malignant neoplasm of breast Vitamin D 25-OH Total 6 Months E55.9 - Vitamin D deficiency, unspecified Complete Blood Count Auto Diff 6 Months D64.9 - Anemia, unspecified Referrals Gastroenterology Referral D64.9 - Anemia, unspecified Medications: New cholecalciferol (vitamin D3) 50 mcg PO DAILY 90 caps 1RF 90 days ferrous sulfate 325 mg PO DAILY 90 tabs 1RF 90 days Quality Reporting (2019) Depression/Bipolar (159/160/161/177) PHQ-9: Total score: 10 Coding Level of Care Code Medicare Subsequent (G0439) Est Pt Level 4 (02346) Diagnoses Encounter for Medicare annual wellness exam Z00.00 Mild recurrent major depression F33.0 Mood disorder F39 Lumbar radiculopathy M54.16 Anemia D64.9 Hypovitaminosis D E55.9 Additional Codes VIOLETA-7 Assessment Billing - VIOLETA-7 Assessment Tool: VIOLETA-7 Assessment 57684 ([id number]) PHQ-9 - 03662 - PHQ-9 Billing: Yes ([id number]) Time Spent (min) 39
--- OUTSIDE RECORDS SUMMARY | 2024-11-20 09:13 | XMS_ITS | Encounter Summary ---
Author Organization Located Within [facility] Address [address] [facility] [address] [place] [address] Phone Care Team Providers Care Iron Molder Helper Name Role Phone Rabia Sim MD Primary Care Provid er Encounter Details Date Type Department Care Team (Late st Contact Info) Description 08/25/2021 Procedure Pass [address] [place] [address] Social History Tobacco Use Types Packs/Day Years [...] Description 01/08/2026 10:10 AM EDT Office Visit [facility] Rheumatology [address] [place] [address] Zeina Perales MD, MPH [address] [facility], [address] [place] [address] [email or web address] documented as of this encounter Visit Diagnoses Not on filedocumented in this encounter Additional Health Concerns Infection Onset Date Last Indicated Resolved Time CoV-Risk 01/01/2023 01/01/2023 01/12/2023 1:22 AM EDT documented as of this encounter Care Teams Iron Molder Helper Relationship Specialty Start Date End Date Rabia Sim MD [address] [place] [address] PCP - General 01/17/17 documented as of this encounter Additional Source Comments The information contained in this document represents components of the legal health record. It is not the complete legal health record.[facility]
--- OUTSIDE RECORDS SUMMARY | 2024-11-20 09:13 | XMS_ITS | Clinical Summary ---
Author Organization [facility] Address [address] [place] [address] Care Team Providers Care Machinist General Name Role Phone Rabia Grider MD Primary Care Provider [phone] Surgical History Surgery Date Site/Laterality Comments BREAST LUMPECTOMY Bilateral PROCEDURE: HISTORICAL BREAST LUMPECTOMY OTHER SURGICAL HISTORY PROCEDURE: WI LAPS GSTR RSTCV PX W/BYP DARRELL-EN-Y LIMB <150 CM CHOLECYSTECTOMY N/A PROCEDURE: WI CHOLECYSTECTOMY HIP ARTHROPLASTY 12/01/2020 Left PROCEDURE: HISTORICAL [...] Documents on File Type Date Recorded Patient Cotton Stripper Expl anation Health Care Decision (hx) 12/02/2020 AD STARR DIRECTIVE Health Care Decision (hx) 12/02/2020 AD STARR DIRECTIVE Health Care Decision (hx) 12/02/2020 AD STARR DIRECTIVE Health Care Decision (hx) 12/02/2020 AD STARR DIRECTIVE Care Teams Machinist General Relationship Specialty Start Date End Date Rabia Grider MD [address] [place] [address] , [address] [facility] D/B/A: [facility] CRICKET Howe PCP - General Internal Medicine 10/20/20
== END 2024-11-20 10:47 | disposition home or self-care (01) ==
LOC: HO.HMCH 08:31
PROVIDERS: PCP Internal Medicine; Visit Provider Internal Medicine
DX: Z00.00 Encounter for general adult medical examination without abnormal findings (principal); M54.16 Radiculopathy, lumbar region; F33.0 Major depressive disorder, recurrent, mild; F39 Unspecified mood [affective] disorder; D64.9 Anemia, unspecified; E55.9 Vitamin D deficiency, unspecified

== ENCOUNTER → 2024-11-20 08:31 | Outpatient (BNVA) | payer MEDICARE, MEDICAID, SELFPAY | PROVIDERS: PCP Internal Medicine; Visit Provider Internal Medicine | DX: Z00.00 Encounter for general adult medical examination without abnormal findings (principal); F33.0 Major depressive disorder, recurrent, mild; F39 Unspecified mood [affective] disorder; M54.16 Radiculopathy, lumbar region; D64.9 Anemia, unspecified; E55.9 Vitamin D deficiency, unspecified | CPT/HCPCS: 96127; 99212 ==

== ENCOUNTER 2024-12-03 11:59 | Outpatient (REF) | payer MEDICARE, MEDICAID, SELFPAY ==
--- NOTE | ~2024-12-03 | MM_ITS ---
EXAMINATION: MM SCREENING DIGITAL BREAST TOMOSYNTHESIS, BILATERAL CLINICAL INFORMATION: Screening. Asymptomatic. COMPARISON: Mammography: Comparison is made with available priors TECHNIQUE: Digital breast mammography with tomosynthesis is performed in both the craniocaudal and mediolateral oblique views along with computer-aided detection (CAD). FINDINGS: There are scattered areas of fibroglandular density (ACR BI-RADS breast composition Category b). Bilateral postsurgical changes. There are no significant masses, abnormal calcifications, or other abnormalities. MM/MM tomosynthesis screening BI IMPRESSION: No mammographic evidence of malignancy. ASSESSMENT: BI-RADS BI-RADS 2 - Benign Findings RECOMMENDATION: Routine annual mammography screening. 1 year F/U This examination should not preclude the clinical evaluation of a suspicious palpable abnormality. This patient's information was entered into a reminder system with a target due date for their next mammogram. Electronically signed by: Lee Ann Mcintosh DO 12/03/2024 01:43 PM EDT
--- OUTSIDE RECORDS SUMMARY | 2024-12-03 13:22 | XMS_ITS | Encounter Summary ---
Author Organization [facility] Address [address] [facility] [address] [place] [address] Phone Care Team Providers Care Stable Manager Name Role Phone Rabia Sim MD Primary Care Provid er Encounter Details Date Type Department Care Team (Late st Contact Info) Description 07/24/2021 Procedure Pass [facility], Ct Scan - [address] [address] Social History Tobacco Use Types Packs/Day Years [...] AM EDT documented as of this encounter Functional Status * Calculated C-SSRS Risk Score (Lifetime/Recent) Answer Date of Assessment Author No Risk Indicated 07/24/2021 7:50 AM EDT Heather Winkler RN * [place] Suicide Severity Rating Scale (Screener/Recent Self-Report) Question Answer Date of Assessment Author 1. Wish to be (Past 1 Month) No 07/24/2021 7:50 AM EDT Heather Winkler RN 2. Non-Specific Active Suici joseph Thoughts (Past 1 Month) No 07/24/2021 7:50 AM EDT Heather Winkler, RN 6. Suicidal Behavior (Lifetime) No 7:50 AM EDT Heather Winkler RN documented as of this encounter Plan of Treatment Upcoming Encounters Date Type Department Care Team (Late st Contact Info) Description 01/08/2026 10:10 AM EDT Office Visit [facility] Rheumatology [address] [place] [address] Zeina Perales MD, MPH [address] [facility], [address] [place] [address] [email or web address] documented as of this encounter Visit Diagnoses Not on filedocumented in this encounter Additional Health Concerns Infection Onset Date Last Indicated Resolved Time CoV-Risk 07/24/2021 07/24/2021 08/04/2021 1:23 AM EDT CoV-Risk 01/01/2023 01/01/2023 01/12/2023 1:22 AM EDT documented as of this encounter Care Teams Stable Manager Relationship Specialty Start Date End Date Rabia Sim MD [address] [place] [address] PCP - General 01/17/17 documented as of this encounter Additional Source Comments The information contained in this document represents components of the legal health record. It is not the complete legal health record.[facility]
--- OUTSIDE RECORDS SUMMARY | 2024-12-03 13:22 | XMS_ITS | Encounter Summary ---
Author Organization [facility] Address [address] [place] [phone] Phone Care Team Providers Care Stable Hand Name Role Phone Rabia Sim MD Primary Care Provid er Encounter Details Date Type Department Care Team (Late st Contact Info) Description 10/05/2021 Procedure Pass [facility], Ct Scan - [address] [address] Social History Tobacco Use Types Packs/Day Years [...] Date of Assessment Author No Risk Indicated 10/05/2021 8:30 AM EDT Doreen Mike RN * [place] Suicide Severity Rating Scale (Screener/Recent Self-Report) Question Answer Date of Assessment Author 1. Wish to be (Past 1 Month) No 022 8:30 AM EDT Carissa Mike, CEDRICK 2. Non-Specific Active Suici joseph Thoughts (Past 1 Month) No 10/05/2021 8:30 AM EDT Carissa Mike , RN 6. Suicidal Behavior (Lifetime) No 2 8:30 AM EDT Carissa Mike RN documented as of this encounter Plan of Treatment Upcoming Encounters Date Type Department Care Team ([facility] st Contact Info) Description 01/08/2026 10:10 AM EDT Office Visit [facility] Rheumatology [address] [place] [address] Zeina Perales MD, MPH [address] [facility], [address] [place] [address] [email or web address] documented as of this encounter Visit Diagnoses Not on filedocumented in this encounter Additional Health Concerns Infection Onset Date Last Indicated Resolved Time CoV-Risk 01/01/2023 01/01/2023 01/12/2023 1:22 AM EDT documented as of this encounter Care Teams Stable Hand Relationship Specialty Start Date End Date Rabia Sim MD [address] [place] [address] PCP - General 01/17/17 documented as of this encounter Additional Source Comments The information contained in this document represents components of the legal health record. It is not the complete legal health record.[facility]
--- OUTSIDE RECORDS SUMMARY | 2024-12-03 13:22 | XMS_ITS | Encounter Summary ---
Author Organization [facility] Address [address] [facility] [address] [place] [phone] Phone Care Team Providers Care Controller Repairer And Tester Name Role Phone Rabia Sim MD Primary Care Provid er Encounter Details Date Type Department Care Team (Late st Contact Info) Description 07/29/2021 Ancillary Orders [facility],Outside Imaging [address] [place] [address] System, Provider Not In, [facility] [address] [address] Social History Tobacco Use Types Packs/Day Years [...] Description 01/08/2026 10:10 AM EDT Office Visit [facility] Rheumatology [address] [place] [address] Zeina Perales MD, MPH [address] [facility], [address] [place] [address] documented as of this encounter Results * XR Pelvis Outside (No Interpretation) (10/15/2020 12:00 AM EDT) Narrative SYSTEMGENERATED, DOCUMENTATION - 07/29/2021 3:53 PM EDT This study is for PACS storage only and not for interpretation. us Provider Not In System PhD IMG OUTSIDE IMAGING W /OUT INTERPRETATION Final Result documented in this encounter Visit Diagnoses Not on filedocumented in this encounter Additional Health Concerns Infection Onset Date Last Indicated Resolved Time CoV-Risk 07/24/2021 07/24/2021 08/04/2021 1:23 AM EDT CoV-Risk 01/01/2023 01/01/2023 01/12/2023 1:22 AM EDT documented as of this encounter Care Teams Controller Repairer And Tester Relationship Specialty Start Date End Date Rabia Sim MD [address] [place] [address] PCP - General 01/17/17 documented as of this encounter Additional Source Comments The information contained in this document represents components of the legal health record. It is not the complete legal health record.[facility]
--- OUTSIDE RECORDS SUMMARY | 2024-12-03 13:22 | XMS_ITS | Encounter Summary ---
Author Organization [facility] Address [address] [facility] [address] [place] [phone] Phone Care Team Providers Care Metal Treater Name Role Phone Rabia Sim MD Primary Care Provid er Encounter Details Date Type Department Care Team (Late st Contact Info) Description 08/25/2021 Procedure Pass [address] [place] [address] Social History Tobacco Use Types Packs/Day Years [...] Description 01/08/2026 10:10 AM EDT Office Visit [facility] Rheumatology [address] [place] [address] Zeina Perales MD, MPH [address] [facility], [address] [place] [address] [email or web address] documented as of this encounter Visit Diagnoses Not on filedocumented in this encounter Additional Health Concerns Infection Onset Date Last Indicated Resolved Time CoV-Risk 01/01/2023 01/01/2023 01/12/2023 1:22 AM EDT documented as of this encounter Care Teams Metal Treater Relationship Specialty Start Date End Date Rabia Sim MD [address] [place] [address] PCP - General 01/17/17 documented as of this encounter Additional Source Comments The information contained in this document represents components of the legal health record. It is not the complete legal health record.[facility]
--- OUTSIDE RECORDS SUMMARY | 2024-12-03 13:22 | XMS_ITS | Encounter Summary ---
Author Organization [facility] Address [address] [facility] [address] [place] [address] Phone Care Team Providers Care Dry Color Tester Name Role Phone Rabia Sim MD Primary Care Provid er Reason for Referral * MRI/CAT Scan - Closed Specialty Diagnoses / Procedures Referred By Ximena thompson Referred To Contact Radiology Diagnoses LLQ pain Bloating Procedures CT Abdomen/Pelvis Pankaj Ross MD Phone: tel: fax: [email or web address] Referral ID Status Reason Start Date Expiration Date Visits Re quested Visits Authorized [id number] Closed 04/08/2022 04/08/2023 1 1 Encounter Details Date Type Department Care Team (Latest Contact Info) Description 04/08/2022 Transcribe Orders Virtual Department [address] [place] [address] Pankaj Ross MD [address] [place] [phone] [email or web address] LLQ pain (Primary Dx); Bloating Social History Tobacco Use Types Packs/Day Years [...] Description 01/08/2026 10:10 AM EDT Office Visit [facility] Rheumatology [address] [place] [address] Zeina Perales MD, MPH [address] [facility], [address] [place] [address] [email or web address] documented as of this encounter Results * CT ABDOMEN/PELVIS WITH CONTRAST (04/21/2022 10:42 AM EST) Anatomical Region Laterality Modality Abdomen, Pelvis Computed Tomogra phy 04/22/2022 5:00 PM EST Impressions 04/22/2022 7:40 PM EST Colonic diverticulosis. The pelvis is partially obscured by metallic streak artifact from left hip arthroplasty, though there is no convincing evidence of diverticulitis. No other cause for the reported symptoms identified. Narrative 04/22/2022 7:[address] ABDOMEN/PELVIS WITH CONTRAST TECHNIQUE: Multidetector-row CT of the abdomen and pelvis was performed after administration of intravenous contrast using tailored dose modulation techniques. Images were reconstructed in the axial, coronal, and sagittal planes. COMPARISON: CT abdomen/pelvis 10/05/2021. FINDINGS: Lower Chest: Normal. No consolidation or pleural effusions. Liver: No suspicious focal lesion. Biliary: Prior cholecystomy. No biliary ductal dilatation. Spleen: Normal. No splenomegaly or focal lesions. Pancreas: Normal. No masses or ductal dilatation. Adrenal Glands: Normal. No nodules. Kidneys/Ureters: Benign left lower pole cyst. Focal left lower pole cortical scarring. No solid masses, stones, or hydronephrosis. Bowel: Colonic diverticulosis. Prior Lashay-en-Y gastric bypass. No distention or wall thickening. Peritoneum/Retroperitoneum: Normal. No masses, pneumoperitoneum, or fluid. Lymph Nodes: Normal. No lymphadenopathy. Pelvic Organs/Bladder: Partially distorted by metallic streak artifact. Vessels: Normal. No abdominal aortic aneurysm. Bones/Soft Tissues: Prior left hip arthroplasty. No destructive osseous lesions. Procedure Note Trevor Fritz MD - 04/22/2022 CT ABDOMEN/PELVIS WITH CONTRAST TECHNIQUE: Multidetector-row CT of the abdomen and pelvis was performedafter administration of intravenous contrast using tailored dosemodulation techniques. Images were reconstructed in the axial, coronal,and sagittal planes. COMPARISON: CT abdomen/pelvis 10/05/2021. FINDINGS: Lower Chest: Normal. No consolidation or pleural effusions. Liver: No suspicious focal lesion. Biliary: Prior cholecystomy. No biliary ductal dilatation. Spleen: Normal. No splenomegaly or focal lesions. Pancreas: Normal. No masses or ductal dilatation. Adrenal Glands: Normal. No nodules. Kidneys/Ureters: Benign left lower pole cyst. Focal left lower polecortical scarring. No solid masses, stones, or hydronephrosis. Bowel: Colonic diverticulosis. Prior Lashay-en-Y gastric bypass. Nodistention or wall thickening. Peritoneum/Retroperitoneum: Normal. No masses, pneumoperitoneum, orfluid. Lymph Nodes: Normal. No lymphadenopathy. Pelvic Organs/Bladder: Partially distorted by metallic streak artifact. Vessels: Normal. No abdominal aortic aneurysm. Bones/Soft Tissues: Prior left hip arthroplasty. No destructive osseouslesions. IMPRESSION: Colonic diverticulosis. The pelvis is partially obscured by metallicstreak artifact from left hip arthroplasty, though there is no convincingevidence of diverticulitis. No other cause for the reported symptomsidentified. Pankaj Ross MD IMG CT ABD/PELVIS Final Re sult documented in this encounter Visit Diagnoses Diagnosis LLQ pain- Primary Abdominal pain, left lower quadrant Bloating Flatulence, eructation, and gas pain LLQ pain Abdominal pain, left lower quadrant Bloating Flatulence, eructation, and gas pain documented in this encounter Additional Health Concerns Infection Onset Date Last Indicated Resolved Time CoV-Risk 01/01/2023 01/01/2023 01/12/2023 1:22 AM EDT documented as of this encounter Care Teams Dry Color Tester Relationship Specialty Start Date End Date Rabia Sim MD [address] [place] [address] PCP - General 01/17/17 documented as of this encounter Additional Source Comments The information contained in this document represents components of the legal health record. It is not the complete legal health record.[facility]
--- OUTSIDE RECORDS SUMMARY | 2024-12-03 13:22 | XMS_ITS | Encounter Summary ---
Author Organization [facility] Address [address] [facility] [address] [place] [phone] Phone Care Team Providers Care Cellophane Tester Name Role Phone Rabia Sim MD Primary Care Provid er Encounter Details Date Type Department Care Team (Late st Contact Info) Description 04/08/2022 Procedure Pass [facility], Ct Scan - [address] [address] Social History Tobacco Use Types Packs/Day Years [...] Description 01/08/2026 10:10 AM EDT Office Visit [facility] Rheumatology [address] [place] [address] Zeina Perales MD, MPH [address] [facility], [address] [place] [address] documented as of this encounter Visit Diagnoses Not on filedocumented in this encounter Additional Health Concerns Infection Onset Date Last Indicated Resolved Time CoV-Risk 01/01/2023 01/01/2023 01/12/2023 1:22 AM EDT documented as of this encounter Care Teams Cellophane Tester Relationship Specialty Start Date End Date Rabia Sim MD [address] [place] [address] PCP - General 01/17/17 documented as of this encounter Additional Source Comments The information contained in this document represents components of the legal health record. It is not the complete legal health record.[facility]
--- OUTSIDE RECORDS SUMMARY | 2024-12-03 13:22 | XMS_ITS | Clinical Summary ---
Author Organization [facility] Address [address] [place] [address] Care Team Providers Care Juvenile Justice Specialist Name Role Phone Rabia Grider MD Primary Care Provider Surgical History Surgery Date Site/Laterality Comments BREAST LUMPECTOMY Bilateral PROCEDURE: HISTORICAL BREAST LUMPECTOMY OTHER SURGICAL HISTORY PROCEDURE: NM LAPS GSTR RSTCV PX W/BYP DARRELL-EN-Y LIMB <150 CM CHOLECYSTECTOMY N/A PROCEDURE: NM CHOLECYSTECTOMY HIP ARTHROPLASTY 12/01/2020 Left PROCEDURE: HISTORICAL [...] Documents on File Type Date Recorded Patient Tetryl Blender Operator Expl anation Health Care Decision (hx) 12/02/2020 AD STARR DIRECTIVE Health Care Decision (hx) 12/02/2020 AD STARR DIRECTIVE Health Care Decision (hx) 12/02/2020 AD STARR DIRECTIVE Health Care Decision (hx) 12/02/2020 AD STARR DIRECTIVE Care Teams Juvenile Justice Specialist Relationship Specialty Start Date End Date Rabia Grider MD [address] [place] [address] , [address] [facility] D/B/A: Shyam Toddatisimón In Internal Medicine CRICKET Howe PCP - General Internal Medicine 10/20/20
--- OUTSIDE RECORDS SUMMARY | 2024-12-03 13:22 | XMS_ITS | Clinical Summary ---
Author Organization [facility] Address [address] [employer] [facility] [address] [place] [address] Phone Care Team Providers Care Dry Ice Maker Name Role Phone Rabia Sim MD Primary Care Provid er Allergies Active Allergy Reactions Criticality Noted Date Comments Clindamycin Hcl 07/13/2021 Pt reports ALL of the '-mycins,' but has tolerated it with benadryl Hydrocortisone 07/13/2021 Venlafaxine 07/13/2021 Levothyroxine Nausea and/or Vomiting 04/26/2022 Metformin Nausea and/or Vomiting 07/10/2014 Penicillins 07/13/2021 Prednisone 07/13/2021 Sulfa (Sulfonamide Antibiotics) 07/13/2021 Vancomycin 04/26/2022 Medications LAMOTRIGINE (LAMICTAL ORAL) Take 150 mg by mouth 2 (two) times a day. Active ALPRAZolam (XANAX) 0.5 MG tablet Take 0.5 mg by mouth 2 (two) times a day. 06/12/19 22 Active desvenlafaxine succinate (PRISTIQ) 100 MG 24 hr tablet 06/12/19 22 Active traZODone (DESYREL) 50 MG tablet Take 50 mg by mouth nightly at bedtime. 1-2 tabs at hs prn 06/12/19 Active gabapentin (NEURONTIN) 100 MG capsule Take 300 mg by mouth 3 (three) times a day. 02/14/20 22 Active methocarbamoL (ROBAXIN) 500 MG tablet Take 500 mg by mouth every 8 (eight) hours as needed. 03/13/20 Active oxyCODONE HCl 10 mg Tab Take 10 mg by mouth every 6 (six) hours as needed. 04/25/19 23 Active buPROPion (WELLBUTRIN XL) 150 MG ER 24 hr tablet 04/21/19 Active acetaminophen (TYLENOL) 500 MG tablet Take 1,000 mg by mouth every 6 (six) hours as needed for pain (specific location in comments). Active omeprazole (PRILOSEC) 20 MG tablet Take 20 mg by mouth daily. Active nystatin cream 10/21/19 Active ondansetron (ZOFRAN-ODT) 4 MG disintegrating tablet (To-Go) Take 1-2 tablet(s) by mouth every 8 hours as needed for nausea/vomiting 6 tablet 10/21/19 23 Active Additional Information Patient not taking.Reported on 02/08/2023 sucralfate (CARAFATE) 1 gram tablet Take 1 tablet (1 g total) by mouth 4 (four) times a day. 40 tablet 10/21/19 23 Active metroNIDAZOLE (FLAGYL) 500 MG tablet 02/02/20 23 Active ciprofloxacin HCl (CIPRO) 500 MG tablet 02/02/20 23 Active zinc oxide-cod liver oil (DESITIN) 40 % Pste Apply 1 Application topically as needed. 28 g 02/14/20 23 Active Active Problems Problem Noted Date Diagnosed Date Hx of total hip arthroplasty, left 07/13/2021 Overview (07/13/2021): Direct anterior approach, left, 11/21, Dr. 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 Not on tamar e 07/29/2022 Are you concerned about learning? Not on file 07/29/2022 No 07/29/2022 No 07/29/2022 Digital Access Answer Date Recorded No 08/29/2022 No 08/29/2022 Reliable internet access at home? Not on file 08/29/2022 Device with a working camera? Not on file Intimate Partner Violence Answer Date R ecorded Are you denied basic needs s uch as food, clothing, or medical care? No 02/13/2023 In the past 12 months have y ou been in a relationship with a person who hurts, threatens, or tries to control you? No 02/13/2023 Are you denied basic needs s uch as food, clothing, or medical care? No 02/13/2023 In the past 12 months have y ou been in a relationship with a person who hurts, threatens, or tries to control you? No 02/13/2023 Comments No Sex and Gender Information Value Date Recorded Sex Assigned at Female 07/24/2021 7:56 AM EDT Legal Sex Female 10:35 PM EDT Gender Identity Female 07/24/2021 7:56 AM EDT Sexual Orientation Straight 07/24/2021 7: 56 AM EDT Last Filed Vital Signs Vital Sign Reading Time Taken Comments Blood Pressure 150/82 02/13/2023 2:45 PM EST Pulse 79 02/13/2023 2:25 PM EST Temperature 36.8 C (98.2 F) 02/13/2023 2:45 PM EST Respiratory Rate 18 02/13/2023 2:25 PM EST Oxygen Saturation 97% 02/13/2023 2:45 PM EST Inhaled Oxygen Concentration - - Weight 67.1 kg (148 lb) 02/13/2023 10:44 AM EST Height 160 cm (5' 3 ) 02/13/2023 10:44 AM EST Body Mass Index 26.22 02/13/2023 10:44 AM EST Plan of Treatment Upcoming Encounters Date Type Department Care Team (Late st Contact Info) Description 01/08/2026 10:10 AM EDT Office Visit [facility] Rheumatology [address] [place] [address] Zeina Perales MD, MPH [address] [place] [address], [address] [place] [address] [email or web address] Health Maintenance Due Date Last Done Comments LIPID PANEL 1956 DEPRESSION SCREENING 1968 HEPATITIS C SCREENING 1974 COLOGUARD 2001 FIT TEST 2001 FOBT 2001 SIGMOIDOSCOPY 2001 VIRTUAL COLONOSCOPY 2001 PNEUMOCOCCAL VACCINES (50+ years) (1 of 1 - PCV) 2006 ZOSTER VACCINES (1 of 2) 2006 Adult Td,Tdap Booster 11/20/2021 11/21/2011 OSTEOPOROSIS SCREENING INITIAL (ONE-TIME) 2021 INFLUENZA VACCINE (#1) 2024 02/09/2010 COVID-19 VACCINE (3 - season) 2024 03/29/2021, 07/11/2020 MAMMOGRAM 02/15/2025 02/15/2023, 07/02, 07/15/2020, Additional history exists SCREENING FOR DIABETES 02/13/2026 02/13/2023 RSV VACCINE (1 - 1-dose 75+ series) 12/17/2031 COLONOSCOPY 08/02/2032 08/02/2022 COLORECTAL CANCER SCREENING 08/02/2032 SMOKING STATUS SCREENING (Once After 26 Yrs) Completed 02/15/2023 HEPATITIS A VACCINES Aged Out No long er eligible based on patient's age to complete this topic HIB VACCINES Aged Out No longer eligi ble based on patient's age to complete this topic MENINGOCOCCAL VACCINES (ACWY) Aged Out No longer eligible based on patient's age to complete this topic MENINGOCOCCAL VACCINES (B) Aged Out N o longer eligible based on patient's age to complete this topic Medical Devices Implanted Type Area Grades 1 Thru 6 Home Teacher Device Identifier Shelf Expiration Date Model / Serial / Lot Left Total Hip Procedures Procedure Name Priority Date/Time Associated Diagnosis Comments BI MAMMOGRAM SCREENING WITH TOMOSYNTHESIS WITH CAD (BILATERAL) Routine 02/15/2023 1:52 PM EST Breast screening ENDOSCOPY, COLON 08/02/2022 9:53 AM EDT from Last 3 Months or Most Recently Relevant to Health Maintenance Results * BI MAMMOGRAM SCREENING WITH TOMOSYNTHESIS WITH CAD (BILATERAL) (02/15/2023 1:52 PM EST) Anatomical Region Laterality Modality Breast Left, Breast Right, Breast Bilateral Bila teral Mammography 02/16/2023 1:14 PM EST Impressions 02/16/2023 1:17 PM EST No mammographic evidence of malignancy in either breast. Annual screening mammography is recommended. BI-RADS CATEGORY: 2 - Benign finding. The patient will be notified of the results and recommendations. Narrative 02/16/2023 1:17 PM EST BI MAMMOGRAM SCREENING WITH TOMOSYNTHESIS WITH CAD (BILATERAL) Additional patient information: Screening. COMPARISON: Comparison is made with relevant prior imaging. Breast composition: There are scattered fibroglandular densities. FINDINGS: Post-treatment changes are present in both breasts. There has been no change in the mammographic findings since previous examination. No abnormal masses, suspicious calcifications, or other significant findings are identified mammographically in either breast. Procedure Note Yessenia Estrella MD - 02/16/2023 BI MAMMOGRAM SCREENING WITH TOMOSYNTHESIS WITH CAD (BILATERAL) Additional patient information: Screening. COMPARISON: Comparison is made with relevant prior imaging. Breast composition: There are scattered fibroglandular densities. FINDINGS: Post-treatment changes are present in both breasts. There has been nochange in the mammographic findings since previous examination. No abnormal masses, suspicious calcifications, or other significantfindings are identified mammographically in either breast. IMPRESSION: No mammographic evidence of malignancy in either breast. Annual screening mammography is recommended. BI-RADS CATEGORY: 2 - Benign finding. The patient will be notified of the results and recommendations. Rabia Grider MD IMG MG EXAMS Cielo l Result * ENDOSCOPY, COLON (08/02/2022 9:53 AM EDT) Narrative Transcriptions Arti Ross MD - 08/02/2022 9:53 AM EDT [facility] Patient Name: Nancy Connellramona Attending MD:: ARTI ROSS MD, Procedure Date: 08/02/2022 9:53 AM Date of : 1955 Age: 66 Admit Type: Outpatient Gender: Female Room: [place] [address] Referring MD: Rabia Grider Exam Type: Colonoscopy Indications: Screening for colorectal malignant neoplasm, BRC(+), Last colonoscopy: June 2018 Medications: Propofol per Anesthesia Procedure: Informed consent was obtained from the patientafter discussion of the indications, limitations, alternatives, benefits, and risks of the procedure. Risks specifically discussed include but are not limited to medication reactions, missed lesions, bleeding, perforation, or the need for emergent surgery. Throughout the procedure, the patient's blood pressure, pulse, end-tidal CO2, and oxygensaturations were monitored continuously. The Olympus adult variable colonoscope [id number] #4 was introduced through the anus and advanced to the terminal ileum, with identification of theappendiceal orifice and IC valve. The terminal ileum, ileocecal valve, appendiceal orifice, and rectum were photographed. The colonoscopy was performed without difficulty. The patient tolerated the procedurewell. The quality of the bowel preparation was excellent. The bowel preparation used was GoLYTELY via splitdose instruction. Complications: No immediate complications. Estimated blood loss:None. Findings: The perianal and digital rectal examinations were normal. Pertinent negatives include no palpablerectal lesions. Internal hemorrhoids were found duringretroflexion. The hemorrhoids were small. The colon (entire examined portion) was mildly redundant. A few small-mouthed diverticula were found in the sigmoid colon. The exam was otherwise without abnormality. The terminal ileum appeared normal. Retroflexion in the right colon was performed. Impression: - Internal hemorrhoids. - Redundant colon. - Diverticulosis in the sigmoid colon. - The examination was otherwise normal. - The examined portion of the ileum was normal. - No specimens collected. Recommendation: - Repeat colonoscopy in 5 years for screeningpurposes. ARTI ROSS MD 08/02/2022 10:19:17 AM This report has been signed electronically. Number of Addenda: 0 Note Initiated On: 08/02/2022 9:53 AM Procedure Code(s): --- Professional --- 71462, Colonoscopy, flexible; diagnostic, including collection of specimen(s) by brushing or washing, when performed (separateprocedure) --- Technical --- 50781, Colonoscopy, flexible; diagnostic, including collection of specimen(s) by brushing or washing, when performed (separateprocedure) Diagnosis Code(s): --- Professional --- Z12.11, Encounter for screening for malignantneoplasm of colon K64.8, Other hemorrhoids K57.30, Diverticulosis of large intestine without perforation or abscess without bleeding Q43.8, Other specified congenital malformations of intestine --- Technical --- Z12.11, Encounter for screening for malignantneoplasm of colon K64.8, Other hemorrhoids K57.30, Diverticulosis of large intestine without perforation or abscess without bleeding Q43.8, Other specified congenital malformations of intestine CPT copyright 2021 [employer]. All rights reserved. The codes documented in this report are preliminary and upon net applications developer reviewmay be revised to meet current compliance requirements. Procedure Date: 08/02/2022 9:53:[address] [place] [address] Rabia Grider MD GI PROCEDURE ORDERAB LES Final Result from Last 3 Months or Most Recently Relevant to Health Maintenance [facility] & [place] B Care Teams Dry Ice Maker Relationship Specialty Start Date End Date Rabia Sim MD [address] [place] [address] PCP - General 01/17/17 Additional Source Comments The information contained in this document represents components of the legal health record. It is not the complete legal health record.[facility]
--- OUTSIDE RECORDS SUMMARY | 2024-12-03 13:22 | XMS_ITS | Encounter Summary ---
Author Organization [facility] Address [address] [facility] [address] [place] [address] Phone Care Team Providers Care 911 Emergency Dispatcher Name Role Phone Rabia Sim MD Primary Care Provid er Encounter Details Date Type Department Care Team (Late Contact Info) Description 04/27/2022 Procedure Pass [facility] Endoscopy Admitting Dept Virtual Department [address] [place] [address] Social History Tobacco Use Types Packs/Day Years [...] Description 01/08/2026 10:10 AM EDT Office Visit [facility] Rheumatology [address] [place] [address] Zeina Perales MD, MPH [address] [facility], [address] [place] [address] documented as of this encounter Visit Diagnoses Not on filedocumented in this encounter Additional Health Concerns Infection Onset Date Last Indicated Resolved Time CoV-Risk 01/01/2023 01/01/2023 01/12/2023 1:22 AM EDT documented as of this encounter Care Teams 911 Emergency Dispatcher Relationship Specialty Start Date End Date Rabia Sim MD [address] [place] [address] PCP - General 01/17/17 documented as of this encounter Additional Source Comments The information contained in this document represents components of the legal health record. It is not the complete legal health record.[facility]
--- OUTSIDE RECORDS SUMMARY | 2024-12-03 13:22 | XMS_ITS | Encounter Summary ---
Author Organization [facility] Address [address] [place] [address] Phone Care Team Providers Care Sewer Pipe Cleaner Name Role Phone Rabia Sim MD Primary Care Provid er Encounter Details Date Type Department Care Team (Late st Contact Info) Description 02/08/2023 Procedure Pass [facility], Ct Scan - [facility] [address] [place] [address] Social History Tobacco Use Types Packs/Day Years [...] with a working camera? Not on file Comments No Sex and Gender Information Value Date Recorded Sex Assigned at Female 07/24/2021 7:56 AM EDT Legal Sex Female 10:35 PM EDT Gender Identity Female 07/24/2021 7:56 AM EDT Sexual Orientation Straight 07/24/2021 7: 56 AM EDT documented as of this encounter Functional Status * Calculated C-SSRS Risk Score (Lifetime/Recent) Answer Date of Assessment Author No Risk Indicated 02/08/2023 1:35 PM John Zaldivar RN * [place] Suicide Severity Rating Scale (Screener/Recent Self-Report) Question Answer Date of Assessment Author 1. Wish to be (Past 1 Month) No 023 1:35 PM Iliana Zaldivar RN 2. Non-Specific Active Suici joseph Thoughts (Past 1 Month) No 02/08/2023 1:35 PM Iliana Zaldivar RN 6. Suicidal Behavior (Lifetime) No 3 1:35 PM Iliana Zaldivar RN documented as of this encounter Plan of Treatment Upcoming Encounters Date Type Department Care Team (Late st Contact Info) Description 01/08/2026 10:10 AM EDT Office Visit [facility] Rheumatology [address] [place] [address] Zeina Perales MD, MPH 22 [facility], [address] [place] [address] [email or web address] documented as of this encounter Visit Diagnoses Not on filedocumented in this encounter Care Teams Sewer Pipe Cleaner Relationship Specialty Start Date End Date Rabia Sim MD [address] [place] [address] PCP - General 01/17/17 documented as of this encounter Additional Source Comments The information contained in this document represents components of the legal health record. It is not the complete legal health record.[facility]
--- OUTSIDE RECORDS SUMMARY | 2024-12-03 13:22 | XMS_ITS | Encounter Summary ---
Author Organization [facility] Address [address] [facility] [address] [place] [address] Phone Care Team Providers Care Automotive Technician Name Role Phone Rabia Sim MD Primary Care Provid er Encounter Details Date Type Department Care Team (Late Contact Info) Description 08/02/2022 Procedure Pass [facility] Endoscopy Admitting Dept Virtual Department [address] [place], [place] [id number] Social History Tobacco Use Types Packs/Day Years Used Date Smoking Tobacco: Never Smokeless Tobacco: Never Alcohol Use Standard Drinks/Week Comments Not Currently 0 (1 standard drink = 0.6 oz pur e alcohol) Education Answer Date Recorded Are you interested in more education? Not on tamar e 07/29/2022 Are you concerned about learning? Not on file 07/29/2022 No 07/29/2022 No 07/29/2022 Comments No Sex and Gender Information Value Date Recorded Sex Assigned at Female 07/24/2021 7:56 AM EDT Legal Sex Female 10:35 PM EDT Gender Identity Female 07/24/2021 7:56 AM EDT Sexual Orientation Straight 07/24/2021 7: 56 AM EDT documented as of this encounter Plan of Treatment Upcoming Encounters Date Type Department Care Team (Late Contact Info) Description 01/08/2026 10:10 AM EDT Office Visit [facility] Rheumatology [address] [place] [address] Zeina Perales MD, MPH 22 [facility], [address] [place] [address] [email or web address] documented as of this encounter Visit Diagnoses Not on filedocumented in this encounter Additional Health Concerns Infection Onset Date Last Indicated Resolved Time CoV-Risk 01/01/2023 01/01/2023 01/12/2023 1:22 AM EDT documented as of this encounter Care Teams Automotive Technician Relationship Specialty Start Date End Date Rabia Sim MD [address] [place] [address] PCP - General 01/17/17 documented as of this encounter Additional Source Comments The information contained in this document represents components of the legal health record. It is not the complete legal health record.[facility]
--- OUTSIDE RECORDS SUMMARY | 2024-12-03 13:23 | XMS_ITS | Encounter Summary ---
Author Organization [facility] Address [address] [place] [address] Phone Care Team Providers Care Electric Utility Lineworker Name Role Phone Rabia Sim MD Primary Care Provid er Encounter Details Date Type Department Care Team (Late st Contact Info) Description 11/16/2022 Procedure Pass [facility], [address] [address] Social History Tobacco Use Types Packs/Day Years [...] Description 01/08/2026 10:10 AM EDT Office Visit [facility] Rheumatology [address] [place] [address] Zeina Perales MD, MPH 22 [facility], [address] [place] [address] [email or web address] documented as of this encounter Visit Diagnoses Not on filedocumented in this encounter Additional Health Concerns Infection Onset Date Last Indicated Resolved Time CoV-Risk 01/01/2023 01/01/2023 01/12/2023 1:22 AM EDT documented as of this encounter Care Teams Electric Utility Lineworker Relationship Specialty Start Date End Date Rabia Sim MD [address] [place] [address] PCP - General 01/17/17 documented as of this encounter Additional Source Comments The information contained in this document represents components of the legal health record. It is not the complete legal health record.[facility]
--- OUTSIDE RECORDS SUMMARY | 2024-12-03 13:23 | XMS_ITS | Encounter Summary ---
Author Organization [facility] Address [address] [place] [address] Phone Care Team Providers Care Motion Pictures Cartoonist Name Role Phone Rabia Sim MD Primary Care Provid er Encounter Details Date Type Department Care Team (Late st Contact Info) Description 10/20/2022 Procedure Pass [facility], Ct Scan - [facility] [address] [place] [address] Social History Tobacco Use Types Packs/Day Years [...] Date of Assessment Author No Risk Indicated 10/20/2022 5:58 PM EDT Nancy Jewell RN * [place] Suicide Severity Rating Scale (Screener/Recent Self-Report) Question Answer Date of Assessment Author 1. Wish to be (Past 1 Month) No 10/20/2022 5:58 PM EDT Mellisa Isidro RN 2. Non-Specific Active Suicidal Thoughts (Past 1 Month) No 10/20/2022 5:58 PM EDT Mellisa Isidro RN 6. Suicidal Behavior (Lifetime) No 10/20/2022 5:58 PM EDT Mellisa Isidro RN documented as of this encounter Plan of Treatment Upcoming Encounters Date Type Department Care Team (Late st Contact Info) Description 01/08/2026 10:10 AM EDT Office Visit [facility] Rheumatology [address] [place] [address] Zeina Perales MD, MPH [address] [place] [address], [address] [place] [address] [email or web address] documented as of this encounter Visit Diagnoses Not on filedocumented in this encounter Additional Health Concerns Infection Onset Date Last Indicated Resolved Time CoV-Risk 01/01/2023 01/01/2023 01/12/2023 1:22 AM EDT documented as of this encounter Care Teams Motion Pictures Cartoonist Relationship Specialty Start Date End Date Rabia Sim MD [address] [place] [address] PCP - General 01/17/17 documented as of this encounter Additional Source Comments The information contained in this document represents components of the legal health record. It is not the complete legal health record.[facility]
--- OUTSIDE RECORDS SUMMARY | 2024-12-03 13:23 | XMS_ITS | Encounter Summary ---
Author Organization [facility] Address [address] [place] [address] Phone Care Team Providers Care Dental Equipment Installer And Servicer Name Role Phone Rabia Sim MD Primary Care Provid er Encounter Details Date Type Department Care Team (Latest Contact Info) Description 10/28/2022 Transcribe Orders Virtual Department [address] [place] [address] Jenifer Ardon PA [address] [place] [address] Gastroesophageal reflux disease, unspecified whether esophagitis present (Primary Dx); Esophageal obstruction; Esophageal stricture Social History Tobacco Use Types Packs/Day Years [...] Description 01/08/2026 10:10 AM EDT Office Visit [facility] Rheumatology [address] [place] [address] Zeina Perales MD, MPH 22 [facility], [address] [place] [address] [email or web address] documented as of this encounter Visit Diagnoses Diagnosis Gastroesophageal reflux disease, unspecified whether esophagitis present- Primary Esophageal obstruction Stricture and stenosis of esophagus Esophageal stricture Stricture and stenosis of esophagus documented in this encounter Additional Health Concerns Infection Onset Date Last Indicated Resolved Time CoV-Risk 01/01/2023 01/01/2023 01/12/2023 1:22 AM EDT documented as of this encounter Care Teams Dental Equipment Installer And Servicer Relationship Specialty Start Date End Date Rabia Sim MD [address] [place] [address] PCP - General 01/17/17 documented as of this encounter Additional Source Comments The information contained in this document represents components of the legal health record. It is not the complete legal health record.[facility]
== END 2024-12-03 12:00 | disposition home or self-care (01) ==
LOC: HO.MAMMO 11:59
PROVIDERS: PCP Internal Medicine; Visit Provider Internal Medicine
DX: Z12.31 Encounter for screening mammogram for malignant neoplasm of breast (principal)
CPT/HCPCS: 77063; 77067

== ENCOUNTER → 2024-12-03 12:30 | Outpatient (BNV) | payer MEDICARE, MEDICAID, SELFPAY | PROVIDERS: PCP Internal Medicine; Visit Provider Internal Medicine | DX: Z12.31 Encounter for screening mammogram for malignant neoplasm of breast (principal) | CPT/HCPCS: 77063; 77067 ==

== ENCOUNTER 2025-01-09 09:57 | Outpatient (AMB) | payer MEDICARE, MEDICAID, SELFPAY ==
--- NOTE | 2025-01-09 09:57 | MHC.OFFVIS ---
Vital Signs 01/09/25 10:03 Height 5 ft 3 in Weight 155 lb BMI 27.5 BP 122/72 Intake Visit Reasons: Hormonal Eval Slip Cover Sewer: Slip Cover Sewer Present (Crystal) Accompanied by: Self / Same As Patient Allergies vancomycin (VANCOMYCIN) Allergy (Severe, Verified 11/20/24 08:49) ITCHING SEVERE, pruritus clindamycin (CLINDAMYCIN) Allergy (Intermediate, Verified 11/20/24 08:49) ITCHING ibuprofen Allergy (Intermediate, Verified 11/20/24 08:49) abdominal pain nitrofurantoin Allergy (Intermediate, Verified 11/20/24 08:49) abdominal pain Penicillins (PENICILLINS) Allergy (Intermediate, Verified 11/20/24 08:49) HIVES Sulfa (Sulfonamide Antibiotics) Allergy (Intermediate, Verified 11/20/24 08:49) RASH/SWELLING, rash, swelling erythromycin base Allergy (Mild, Verified 11/20/24 08:49) Unknown venlafaxine (From EFFEXOR) Adverse Reaction (Severe, Verified 11/20/24 08:49) WORSENING DEPRESSION Butrans patch Allergy (Severe, Uncoded 11/20/24 08:49) depression STEROID INJECTIONS Allergy (Severe, Uncoded 11/20/24 08:49) ANGER AND AGGITATION Herbal medicines/teas Allergy (Intermediate, Uncoded 11/20/24 08:49) headaches, stuffiness Medication List - Last Reconciled 01/09/25 by Sherry Powell CNM acetaminophen (Tylenol Extra Strength) 500 mg PO QID PRN alprazolam (Xanax) 0.5 - 1 mg (1 - 2 x 0.5 mg) PO BEDTIME 3 days amlodipine 10 mg PO DAILY 90 days bupropion HCl XL 300 mg PO DAILY cetirizine (All Day Allergy (cetirizine)) 10 mg PO DAILY PRN 90 days cholecalciferol (vitamin D3) 50 mcg PO DAILY 90 days desvenlafaxine succinate ER (Pristiq) 200 mg PO DAILY ferrous sulfate 325 mg PO DAILY 90 days gabapentin 300 mg PO BID 30 days nystatin 1 appl topical DAILY PRN 30 days oxcarbazepine mg PO BID oxycodone 5 mg PO BID PRN 30 days pantoprazole 40 mg PO DAILY 90 days sucralfate (Carafate) 10 mL PO BID 30 days tamsulosin 0.4 mg PO BEDTIME trazodone 50 - 100 mg PO BEDTIME PRN Is last menstrual period known: No Post menopausal: Yes Patient : No HPI HPI Hormonal Eval: Details: Office visit was arranged in the last couple of days and is labeled as hormonal evaluation and another note elsewhere says pelvic pain however neither fully describes the situation patient is a breast cancer survivor and she also had her ovaries removed because she is BRCA positive she has other extensive health concerns and she does have a history of PTSD from early life trauma as well she is postmenopausal for many years especially since removal of her ovaries. She is experiencing a lot of vaginal dryness and discomfort at her vagina that is really troublesome to her. She has not been able to have sex in over year she is for 37 years and she has invested a lot in this relationship and wants to continue having a mutually satisfied relationship with intimacy, so these physical challenges are difficult. She knows that she can not use any hormonal treatment though she wishes she could she has spent a lot of money on the [id number] water-based products and is very sensitive to smells and has a lot of allergies to various herbal things so needs to be very careful what she uses she has been using honey pot brand vaginal cleanser with some success but has been finding that it is expensive to keep up with Replens and the other products and is wondering if there is anything that can be prescribed that is water-based. I am not aware of any thing that is. I discussed with her that other women have shared the even though they are not water-based they sometimes have had some success using a scant amount of coconut oil or olive oil however these need to be used only with extreme care in that they are not water-based and if there was any other issues such as yeast they trap those organisms and create more of a problem. Discussed possibly gently massaging the tissue to help it be pliable with some lubricant on her fingers to aid in stretching of tissue. Exam done with aid of mirror and 1 area that is slightly uncomfortable shows evidence of previous vaginal lacerations from obstetrical tears and repair that is well healed but as the tissue becomes more atrophic in the menopausal years the scars can become more uncomfortable. She will be following up with her other providers. [facility] Medical History (Updated 01/09/25 @ 11:02 by Sherry Powell CNM) Breast cancer Meralgia paraesthetica Obese Obesity Hospital discharge follow-up Dilation of pancreatic duct B12 deficiency Mild recurrent major depression Left hip pain Diarrhea 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 Pre-op evaluation Glossitis Ear discomfort Lumbar radiculopathy Chronic constipation Urine incontinence Left sided sciatica Fatigue Back pain Herniated disc PTSD (post-traumatic stress disorder) History of right breast cancer History of left breast cancer BRCA gene mutation positive Retinal lesion History of bronchitis Depression Irritable bowel syndrome Sciatica Arthritis Chronic GERD Neck pain Surgical History History of sinus surgery History of repair of hiatal hernia History of Lashay-en-Y gastric bypass History of esophagogastroduodenoscopy (EGD) Hx of hernia repair Hx of cholecystectomy Hx of cystostomy Hx of tubal ligation Hx of colonoscopy History of pubovaginal sling Hx of breast lump removal Hx of bilateral oophorectomy Family History Father Heart disease Mother Diabetes mellitus Brother Prostate cancer Pancreatic cancer Sister Breast cancer BRCA positive Son No problems noted. Social History Household Members: Significant Other Housing: House Are you a primary resident care director to a significant other at home: No Do you presently have visiting nurse or other home services: No Alcohol intake: never Patient Tobacco Use Status: Never used Tobacco e-Cigarette/Vaping Use: Never Used Second Hand Smoke Exposure: No Substance Use Type: Marijuana Patient : No service: No Current occupational status: disabled Cognitive needs: No Hearing needs: No Vision needs: Yes Female Reproductive History Menstrual control method: permanent sterilization Total pregnancies: 2 Full term: 1 Date of last pap smear: 08/10/23 (negative pap smear, negative hpv ) Date of Mammogram: 12/03/24 (bi rad 2) Physical Exam Vital Signs: Last Vital Signs BP 122/72 01/09/25 10:03 BMI result Body Mass Index 27.5 Assessment & Plan Assessment & Plan (1) Menopausal vaginal dryness: Code(s): N95.1 - Menopausal and female climacteric states Category: Medical (2) BRCA gene mutation positive: Code(s): Z15.01 - Genetic susceptibility to malignant neoplasm of breast; Z15.09 - Genetic susceptibility to other malignant neoplasm Category: Medical (3) History of left breast cancer: Comment: DCIS-lumpectomy and radiation 2004 Code(s): Z85.3 - Personal history of malignant neoplasm of breast Category: Medical (4) History of right breast cancer: Comment: Lumpectomy and radiation 2012 Code(s): Z85.3 - Personal history of malignant neoplasm of breast Category: Medical Plan Office visit was arranged in the last couple of days and is labeled as hormonal evaluation and another note elsewhere says pelvic pain however neither fully describes the situation patient is a breast cancer survivor and she also had her ovaries removed because she is BRCA positive she has other extensive health concerns and she does have a history of PTSD from early life trauma as well she is postmenopausal for many years especially since removal of her ovaries. She is experiencing a lot of vaginal dryness and discomfort at her vagina that is really troublesome to her. She has not been able to have sex in over year she is for 37 years and she has invested a lot in this relationship and wants to continue having a mutually satisfied relationship with intimacy, so these physical challenges are difficult. She knows that she can not use any hormonal treatment though she wishes she could she has spent a lot of money on the [id number] water-based products and is very sensitive to smells and has a lot of allergies to various herbal things so needs to be very careful what she uses she has been using honey pot brand vaginal cleanser with some success but has been finding that it is expensive to keep up with Replens and the other products and is wondering if there is anything that can be prescribed that is water-based. I am not aware of any thing that is. I discussed with her that other women have shared the even though they are not water-based they sometimes have had some success using a scant amount of coconut oil or olive oil however these need to be used only with extreme care in that they are not water-based and if there was any other issues such as yeast they trap those organisms and create more of a problem. Discussed possibly gently massaging the tissue to help it be pliable with some lubricant on her fingers to aid in stretching of tissue. Exam done with aid of mirror and 1 area that is slightly uncomfortable shows evidence of previous vaginal lacerations from obstetrical tears and repair that is well healed but as the tissue becomes more atrophic in the menopausal years the scars can become more uncomfortable. She will be following up with her other providers. Coding Level of Care Code Est Pt Level 3 (20744) Diagnoses Menopausal vaginal dryness N95.1 BRCA gene mutation positive Z15.01; Z15.09 History of left breast cancer Z85.3 History of right breast cancer Z85.3
[2025-01-09 10:03] VITALS: BP 122/72; BMI 27.5
== END 2025-01-09 11:05 | disposition home or self-care (01) ==
LOC: HO.HWSM 09:57
PROVIDERS: PCP Internal Medicine; Visit Provider Advanced Practice Midwife
DX: N95.1 Menopausal and female climacteric states (principal); Z15.01 Genetic susceptibility to malignant neoplasm of breast; Z15.09 Genetic susceptibility to other malignant neoplasm; Z85.3 Personal history of malignant neoplasm of breast
CPT/HCPCS: 99213

== ENCOUNTER → 2025-01-09 09:57 | Outpatient (BNVA) | payer MEDICARE, MEDICAID, SELFPAY | PROVIDERS: PCP Internal Medicine; Visit Provider Advanced Practice Midwife | DX: N95.1 Menopausal and female climacteric states (principal); Z15.01 Genetic susceptibility to malignant neoplasm of breast; Z85.3 Personal history of malignant neoplasm of breast | CPT/HCPCS: 99212 ==

== ENCOUNTER 2025-01-27 14:19 | Outpatient (REF) | payer MEDICARE, MEDICAID, SELFPAY ==
[2025-01-27 16:17] LABS: Appearance Urine Cloudy; Glucose Urine UA Negative (Negative); PH 7.5 (5.0-9.0); Specific Gravity - Urine 1.020 (1.005-1.025); UMIC TRIGGER UACC YES
[2025-01-27 16:23] LABS: UACC Culture Trigger YES
--- OUTSIDE RECORDS SUMMARY | 2025-01-27 17:59 | XMS_ITS | Encounter Summary ---
Author Organization [facility] Address [address] [place] [address] Phone Care Team Providers Care Burial Vault Maker Name Role Phone Rabia Sim MD Primary Care Provid er Encounter Details Date Type Department Care Team (Late st Contact Info) Description 07/29/2021 Ancillary Orders [facility],Outside Imaging [address] [place] [address] System, Provider Not In, [facility] [address] [address] Social History Tobacco Use Types Packs/Day Years [...] Care Team (Late st Contact Info) Description 02/06/2025 8:30 AM EST Office Visit [facility] 10 [place] [address] Unknown, Unknown, Ngozi Linares, ELEMENTARY SUMMER SCHOOL TEACHER 10 [place] [address] 01/08/2026 10:10 AM EDT Office Visit [facility] Rheumatology [address] [place] [address] Zeina Perales MD, MPH 22 [facility], [address] [place] [address] [email or web address] documented as of this encounter Results * [...] documented as of this encounter Care Teams Burial Vault Maker Relationship Specialty Start Date End Date Rabia Sim MD 5 [place] [address] PCP - General 01/17/17 documented as of this encounter Additional Source Comments The information contained in this document represents components of the legal health record. It is not the complete legal health record.[facility]
--- OUTSIDE RECORDS SUMMARY | 2025-01-27 17:59 | XMS_ITS | Encounter Summary ---
Author Organization [facility] Address [address] [place] [address] Phone Care Team Providers Care Pan Pusher Name Role Phone Rabia Sim MD Primary Care Provid er Encounter Details Date Type Department Care Team (Late st Contact Info) Description 11/16/2022 Procedure Pass [facility], [address] [address] Social History Tobacco Use Types Packs/Day Years [...] Description 02/06/2025 8:30 AM EST Office Visit [facility] Gastroenterology Clinic 10 [place] [address] Unknown, Unknown, Ngozi Linares, PUBLIC SAFETY POLICE [address] [place] [address] [email or web address] 01/08/2026 10:10 AM EDT Office Visit [facility] Rheumatology 22 [place] [address] Zeina Perales MD, MPH 22 [facility], [address] [place] [address] [email or web address] documented as of this encounter Visit Diagnoses Not on filedocumented in this encounter Additional Health Concerns Infection Onset Date Last Indicated Resolved Time CoV-Risk 01/01/2023 01/01/2023 01/12/2023 1:22 AM EDT documented as of this encounter Care Teams Pan Pusher Relationship Specialty Start Date End Date Rabia Sim MD [address] [place] [address] PCP - General 01/17/17 documented as of this encounter Additional Source Comments The information contained in this document represents components of the legal health record. It is not the complete legal health record.[facility]
--- OUTSIDE RECORDS SUMMARY | 2025-01-27 17:59 | XMS_ITS | Encounter Summary ---
Author Organization [facility] Address [address] [facility] [address] [place] [address] Phone Care Team Providers Care Loading Inspector Name Role Phone Rabia Sim MD Primary Care Provid er Encounter Details Date Type Department Care Team (Late st Contact Info) Description 07/24/2021 Procedure Pass [facility], Ct Scan - [address] [address] Social History Tobacco Use Types Packs/Day Years [...] 7:50 AM EDT Heather Winkler RN * [place] Suicide Severity Rating Scale (Screener/Recent Self-Report) Question Answer Date of Assessment Author 1. Wish to be (Past 1 Month) No 07/24/2021 7:50 AM EDT Heather Winkler RN 2. Non-Specific Active Suici joseph Thoughts (Past 1 Month) No 07/24/2021 7:50 AM EDT Heather Winkler, CEDRICK 6. Suicidal Behavior (Lifetime) No 7:50 AM EDT Heather Winkler RN documented as of this encounter Plan of Treatment Upcoming Encounters Date Type Department Care Team (Late st Contact Info) Description 02/06/2025 8:30 AM EST Office Visit [facility] Gastroenterology Clinic 10 [place] [address] Unknown, Unknown, Ngozi Linares, PAYROLL COORDINATOR 10 [place] [address] 01/08/2026 10:10 AM EDT Office Visit [facility] Rheumatology [address] [place] [address] Zeina Perales MD, MPH 22 [facility], [address] [place] [address] documented as of this encounter Visit Diagnoses Not on filedocumented in this encounter Additional Health Concerns Infection Onset Date Last Indicated Resolved Time CoV-Risk 07/24/2021 07/24/2021 08/04/2021 1:23 AM EDT CoV-Risk 01/01/2023 01/01/2023 01/12/2023 1:22 AM EDT documented as of this encounter Care Teams Loading Inspector Relationship Specialty Start Date End Date Rabia Sim MD [address] [place] [address] PCP - General 01/17/17 documented as of this encounter Additional Source Comments The information contained in this document represents components of the legal health record. It is not the complete legal health record.[facility]
--- OUTSIDE RECORDS SUMMARY | 2025-01-27 17:59 | XMS_ITS | Encounter Summary ---
Author Organization [facility] Address [address] [facility] [address] [place] [address] Phone Care Team Providers Care Youth Liaison Officer Name Role Phone Rabia Sim MD Primary Care Provid er Encounter Details Date Type Department Care Team (Late st Contact Info) Description 08/25/2021 Procedure Pass [address] [place] [address] Social History Tobacco Use Types Packs/Day Years [...] Description 02/06/2025 8:30 AM EST Office Visit [facility] Gastroenterology Clinic [address] [place] [phone] Unknown, Unknown, MD Donaldson, Ngozi Plaza, ACCOUNTING ANALYST 10 [place] [address] 01/08/2026 10:10 AM EDT Office Visit [facility] Rheumatology 22 [place] [address] Zeina Perales MD, MPH 22 [facility], [address] [place] [address] [email or web address] documented as of this encounter Visit Diagnoses Not on filedocumented in this encounter Additional Health Concerns Infection Onset Date Last Indicated Resolved Time CoV-Risk 01/01/2023 01/01/2023 01/12/2023 1:22 AM EDT documented as of this encounter Care Teams Youth Liaison Officer Relationship Specialty Start Date End Date Rabia Sim MD [address] [place] [address] PCP - General 01/17/17 documented as of this encounter Additional Source Comments The information contained in this document represents components of the legal health record. It is not the complete legal health record.[facility]
--- OUTSIDE RECORDS SUMMARY | 2025-01-27 17:59 | XMS_ITS | Encounter Summary ---
Author Organization [facility] Address [address] [place] [address] Phone Care Team Providers Care Green Hide Inspector Name Role Phone Rabia Sim MD Primary Care Provid er Encounter Details Date Type Department Care Team (Late Contact Info) Description 08/02/2022 Procedure Pass [facility]oscopy Admitting Dept Virtual Department [address] [place] [address] Social History Tobacco Use Types Packs/Day Years [...] Department Care Team (Late Contact Info) Description 02/06/2025 8:30 AM EST Office Visit [facility]ology [facility] [address] [place] [phone] Unknown, Unknown, Ngozi Linares, WORM PACKER 10 [place], [place] [phone] 01/08/2026 10:10 AM EDT Office Visit [facility] Rheumatology [address] [place] [address] Zeina Perales MD, MPH 22 [facility], [address] [place] [address] [email or web address] documented as of this encounter Visit Diagnoses Not on filedocumented in this encounter Additional Health Concerns Infection Onset Date Last Indicated Resolved Time CoV-Risk 01/01/2023 01/01/2023 01/12/2023 1:22 AM EDT documented as of this encounter Care Teams Green Hide Inspector Relationship Specialty Start Date End Date Rabia Sim MD [address] [place] [address] PCP - General 01/17/17 documented as of this encounter Additional Source Comments The information contained in this document represents components of the legal health record. It is not the complete legal health record.[facility]
--- OUTSIDE RECORDS SUMMARY | 2025-01-27 17:59 | XMS_ITS | Encounter Summary ---
Author Organization [facility] Address [address] [facility] [address] [place] [address] Phone Care Team Providers Care Cotton Picking Machine Operator Name Role Phone Rabia Sim MD Primary Care Provid er Encounter Details Date Type Department Care Team (Late Contact Info) Description 04/27/2022 Procedure Pass [facility] Endoscopy Admitting Dept Virtual Department [address] [place] [address] Social History Tobacco Use Types Packs/Day Years [...] 02/06/2025 8:30 AM EST Office Visit [facility] [address] [place] [phone] Unknown, Unknown, MD Donaldson, Ngozi Plaza, NUTRITION INTERNSHIP 10 [place] [address] 01/08/2026 10:10 AM EDT Office Visit [facility] Rheumatology 22 [place] [address] Zeina Perales MD, MPH 22 [facility], [address] [place] [address] [email or web address] documented as of this encounter Visit Diagnoses Not on filedocumented in this encounter Additional Health Concerns Infection Onset Date Last Indicated Resolved Time CoV-Risk 01/01/2023 01/01/2023 01/12/2023 1:22 AM EDT documented as of this encounter Care Teams Cotton Picking Machine Operator Relationship Specialty Start Date End Date Rabai Sim MD [address] [place] [address] PCP - General 01/17/17 documented as of this encounter Additional Source Comments The information contained in this document represents components of the legal health record. It is not the complete legal health record.[facility]
--- OUTSIDE RECORDS SUMMARY | 2025-01-27 17:59 | XMS_ITS | Encounter Summary ---
Author Organization [facility] Address [address] [place] [address] Phone Care Team Providers Care Vp & General Counsel Name Role Phone Rabia Sim MD Primary Care Provid er Encounter Details Date Type Department Care Team (Late st Contact Info) Description 10/20/2022 Procedure Pass [facility], Ct Scan - [facility] 30 [place] [address] Social History Tobacco Use Types Packs/Day Years [...] 5:58 PM EDT Nancy Jewell RN * [place] Suicide Severity Rating Scale (Screener/Recent Self-Report) Question [...] Description 02/06/2025 8:30 AM EST Office Visit [facility] Gastroenterology Clinic [address] [place] [phone] Unknown, Unknown, Ngozi Linares, SENIOR QA ENGINEER [address] [place] [phone] [email or web address] 01/08/2026 10:10 AM EDT Office Visit [facility] Rheumatology 22 [place] [address] Zeina Perales MD, MPH 22 [facility], [facility] 203 [place] [address] [email or web address] documented as of this encounter Visit Diagnoses Not on filedocumented in this encounter Additional Health Concerns Infection Onset Date Last Indicated Resolved Time CoV-Risk 01/01/2023 01/01/2023 01/12/2023 1:22 AM EDT documented as of this encounter Care Teams Vp & General Counsel Relationship Specialty Start Date End Date Rabia Sim MD [address] [place] [address] PCP - General 01/17/17 documented as of this encounter Additional Source Comments The information contained in this document represents components of the legal health record. It is not the complete legal health record.[facility]
--- OUTSIDE RECORDS SUMMARY | 2025-01-27 17:59 | XMS_ITS | Encounter Summary ---
Author Organization [facility] Address [address] [place] [address] Phone Care Team Providers Care Hygiene Teacher Name Role Phone Rabia Sim MD Primary Care Provid er Encounter Details Date Type Department Care Team (Latest Contact Info) Description 10/28/2022 Transcribe Orders Virtual Department 30 [place] [address] Jenifer Ardon PA 10 [place] [address] Gastroesophageal reflux disease, unspecified whether esophagitis present [...] Description 02/06/2025 8:30 AM EST Office Visit [facility] Gastroenterology [facility] 10 [place] [address] Unknown, Unknown, Ngozi Linares, 6TH GRADE TEACHER 10 [place] [address] [email or web address] 01/08/2026 10:10 AM EDT Office Visit [facility] Rheumatology 22 [place] [address] Zeina Perales MD, MPH 22 [facility], [address] [place] [address] [email or web address] documented as of this encounter Visit Diagnoses Diagnosis Gastroesophageal reflux disease, unspecified whether esophagitis present- Primary Esophageal obstruction Stricture and stenosis of esophagus Esophageal stricture Stricture and stenosis of esophagus documented in this encounter Additional Health Concerns Infection Onset Date Last Indicated Resolved Time CoV-Risk 01/01/2023 01/01/2023 01/12/2023 1:22 AM EDT documented as of this encounter Care Teams Hygiene Teacher Relationship Specialty Start Date End Date Rabia Sim MD 5 [place] [address] PCP - General 01/17/17 documented as of this encounter Additional Source Comments The information contained in this document represents components of the legal health record. It is not the complete legal health record.[facility]
--- OUTSIDE RECORDS SUMMARY | 2025-01-27 17:59 | XMS_ITS | Clinical Summary ---
Author Organization [facility] Address [address] [facility] [address] [place] [address] Phone Care Team Providers Care Clock And Watch Hands Painter Name Role Phone Rabia Sim MD Primary [...] Description 02/06/2025 8:30 AM EST Office Visit [facility] Gastroenterology [facility] [address] [place] [address] Unknown, Unknown, Ngozi Linares, CONTEMPORARY OR MODERN DANCER 10 [place] [address] 01/08/2026 10:10 AM EDT Office Visit [facility] Rheumatology [address] [place] [address] Zeina Perales MD, MPH 22 [facility], [address] [place] [address] [email or web address] Health Maintenance Due Date Last Done Comments [...] this topic Medical Devices Implanted Type Area Residential Door Unit Installer Device Identifier Shelf Expiration Date Model / [...] be notified of the results and recommendations. us Rabia Grider MD IMG MG EXAMS Cielo l Result * ENDOSCOPY, COLON (08/02/2022 9:53 AM EDT) Narrative Transcriptions Arti Ross MD - 08/02/2022 9:53 AM EDT [facility] Patient Name: Nancy Collins Attending MD:: ARTI ROSS MD, Procedure Date: 08/02/2022 9:53 AM Date of : 1955 Age: 66 Admit Type: Outpatient Gender: Female Room: [place] [address] Referring MD: Rabia Grider Exam Type: Colonoscopy [...] monitored continuously. The Olympus adult variable colonoscope [id number] #[id number] was introduced through the anus and [...] 9:53 AM Procedure Code(s): --- Professional --- 57209, Colonoscopy, flexible; diagnostic, including collection of specimen(s) by brushing or washing, when performed (separateprocedure) --- Technical --- 16933, Colonoscopy, flexible; diagnostic, including collection of specimen(s) [...] congenital malformations of intestine CPT copyright 2021 [employer]. All rights reserved. The codes documented in this report are preliminary and upon business information consultant reviewmay be revised to meet current compliance requirements. Procedure Date: 08/02/2022 9:53:[address] [place] [address] Rabia Grider MD GI PROCEDURE ORDERAB LES Final Result from Last 3 Months or Most Recently Relevant to Health Maintenance Insurance [facility] & B [facility] MEDIC[facility] PART A & B [place] [facility] MEDICARE PART A & [place] & B Care Teams Clock And Watch Hands Painter Relationship Specialty Start Date End Date Rabia Sim MD [address] [place] [address] PCP - General 01/17/17 Additional Source Comments The information contained in this document represents components of the legal health record. It is not the complete legal health record.[facility]
--- OUTSIDE RECORDS SUMMARY | 2025-01-27 17:59 | XMS_ITS | Encounter Summary ---
Author Organization [facility] Address [address] [place] [address] Phone Care Team Providers Care Equipment Driver Name Role Phone Rabia Sim MD Primary Care Provid er Encounter Details Date Type Department Care Team (Late st Contact Info) Description 04/08/2022 Procedure Pass [facility], Ct Scan - [address] [address] Social History Tobacco Use Types Packs/Day Years [...] Description 02/06/2025 8:30 AM EST Office Visit [facility] Gastroenterology Clinic [address] [place] [phone] Unknown, Unknown, MD Donaldson, Ngozi Plaza, MANAGER APPLE 10 [place] [address] 01/08/2026 10:10 AM EDT Office Visit [facility] Rheumatology [address] [place] [address] Zeina Perales MD, MPH 22 [facility], [address] [place] [address] [email or web address] documented as of this encounter Visit Diagnoses Not on filedocumented in this encounter Additional Health Concerns Infection Onset Date Last Indicated Resolved Time CoV-Risk 01/01/2023 01/01/2023 01/12/2023 1:22 AM EDT documented as of this encounter Care Teams Equipment Driver Relationship Specialty Start Date End Date Rabia Sim MD [address] [place] [address] PCP - General 01/17/17 documented as of this encounter Additional Source Comments The information contained in this document represents components of the legal health record. It is not the complete legal health record.[facility]
--- OUTSIDE RECORDS SUMMARY | 2025-01-27 17:59 | XMS_ITS | Encounter Summary ---
Author Organization [facility] Address [address] [place] [address] Phone Care Team Providers Care Stitching Machine Feeder Or Offbearer Name Role Phone Rabia Sim MD Primary Care Provid er Encounter Details Date Type Department Care Team (Late st Contact Info) Description 02/08/[address] [facility], Ct Scan - [facility] 30 [place] [address] Social History Tobacco Use Types Packs/Day Years [...] 02/08/2023 1:35 PM John Zaldivar RN * [place] Suicide Severity Rating Scale (Screener/Recent Self-Report) Question [...] Description 02/06/2025 8:30 AM EST Office Visit [facility] Gastroenterology Clinic [address] [place] [phone] Unknown, Unknown, Ngozi Linares, PODIATRIST 10 [place] [address] 01/08/2026 10:10 AM EDT Office Visit [facility] Rheumatology 22 [place] [address] Zeina Perales MD, MPH 22 [facility], [address] [address] [email or web address] documented as of this encounter Visit Diagnoses Not on filedocumented in this encounter Care Teams Stitching Machine Feeder Or Offbearer Relationship Specialty Start Date End Date Rabia Sim MD 5 [place] [address] PCP - General 01/17/17 documented as of this encounter Additional Source Comments The information contained in this document represents components of the legal health record. It is not the complete legal health record.[facility]
--- OUTSIDE RECORDS SUMMARY | 2025-01-27 17:59 | XMS_ITS | Encounter Summary ---
Author Organization [facility] Address [address] [place] [address] Phone Care Team Providers Care Internet Architect Name Role Phone Rabia Sim MD Primary Care Provid er Encounter Details Date Type Department Care Team (Late st Contact Info) Description 10/05/2021 Procedure Pass [facility], Ct Scan - [address] [address] Social History Tobacco Use Types Packs/Day Years [...] 8:30 AM EDT Doreen Mike RN * [place] Suicide Severity Rating Scale (Screener/Recent Self-Report) Question Answer Date of Assessment Author 1. Wish to be (Past 1 Month) No 022 8:30 AM EDT Carissa Mike, CEDRICK 2. Non-Specific Active Suici joseph Thoughts (Past 1 Month) No 10/05/2021 8:30 AM EDT Carissa Mike , RN 6. Suicidal Behavior (Lifetime) No 2 8:30 AM EDT Carissa Mike, RN documented as of this encounter Plan of Treatment Upcoming Encounters Date Type Department Care Team (Late st Contact Info) Description 02/06/2025 8:30 AM EST Office Visit [facility] Gastroenterology Clinic 10 [place] [address] Unknown, Unknown, Ngozi Linares, WASH HOUSE SUPERVISOR 10 [place] [address] 01/08/2026 10:10 AM EDT Office Visit [facility] Rheumatology [address] [place] [address] Zeina Perales MD, MPH 22 [facility] 203 [place] [address] documented as of this encounter Visit Diagnoses Not on filedocumented in this encounter Additional Health Concerns Infection Onset Date Last Indicated Resolved Time CoV-Risk 01/01/2023 01/01/2023 01/12/2023 1:22 AM EDT documented as of this encounter Care Teams Internet Architect Relationship Specialty Start Date End Date Rabia Sim MD 5 [place] [address] PCP - General 01/17/17 documented as of this encounter Additional Source Comments The information contained in this document represents components of the legal health record. It is not the complete legal health record.[facility]
--- OUTSIDE RECORDS SUMMARY | 2025-01-27 17:59 | XMS_ITS | Clinical Summary ---
Author Organization [facility] Address [address] [place] [address] Care Team Providers Care Asthma Educator Name Role Phone Rabia Grider MD Primary Care Provider [phone] Surgical History Surgery Date Site/Laterality Comments BREAST LUMPECTOMY Bilateral PROCEDURE: HISTORICAL BREAST LUMPECTOMY OTHER SURGICAL HISTORY PROCEDURE: MS LAPS GSTR RSTCV PX W/BYP DARRELL-EN-Y LIMB <150 CM CHOLECYSTECTOMY N/A PROCEDURE: MS CHOLECYSTECTOMY HIP ARTHROPLASTY 12/01/2020 Left PROCEDURE: HISTORICAL [...] 2006 Zoster Vaccines (1 of 2) 2006 Depression Screening 04/03/2024 COVID-19 Vaccine ( - 2023-2 5 season) 2024 Influenza Vaccine (#1) 2024 RSV Immunization Adult [...] Documents on File Type Date Recorded Patient Wax Pattern Repairer Expl anation Health Care Decision (hx) 12/02/2020 AD STARR DIRECTIVE Health Care Decision (hx) 12/02/2020 AD STARR DIRECTIVE Health Care Decision (hx) 12/02/2020 AD STARR DIRECTIVE Health Care Decision (hx) 12/02/2020 AD STARR DIRECTIVE Care Teams Asthma Educator Relationship Specialty Start Date End Date Rabia Grider MD [address] [place] [address] , [address] [facility] D/B/A: [facility] CRICKET [place] PCP - General Internal Medicine 10/20/20
--- OUTSIDE RECORDS SUMMARY | 2025-01-27 17:59 | XMS_ITS | Encounter Summary ---
Author Organization [facility] Address [address] [employer] [address] [facility] [address] [place] [address] Phone Care Team Providers Care Lubrication Equipment Servicer Name Role Phone Rabia Sim MD Primary Care Provid er Reason for Referral * MRI/CAT Scan - Closed Specialty Diagnoses / Procedures Referred By Ximena thompson Referred To Contact Radiology Diagnoses LLQ pain Bloating Procedures CT Abdomen/Pelvis Pankaj Ross MD Phone: tel: fax: [email or web address] Referral ID Status Reason Start Date Expiration Date Visits Re quested Visits Authorized [id number] Closed 04/08/2022 04/08/2023 1 1 Encounter Details Date Type Department Care Team (Latest Contact Info) Description 04/08/2022 Transcribe Orders Virtual Department 30 [place] [address] Pankaj Ross MD [address] [place] [phone] [email or web address] LLQ pain (Primary Dx); Bloating Social History [...] Description 02/06/2025 8:30 AM EST Office Visit [facility] Gastroenterology Clinic 10 [place] [address] Unknown, Unknown, Ngozi Linares, WIG STYLIST 10 [place] [address] 01/08/2026 10:10 AM EDT Office Visit [facility] Rheumatology [address] [place] [address] [place] [address] Zeina Perales MD, MPH [address] [place] [address], [address] [place] [address] documented as of this encounter Results * [...] documented as of this encounter Care Teams Lubrication Equipment Servicer Relationship Specialty Start Date End Date Rabia Sim MD [address] [place] [address] PCP - General 01/17/17 documented as of this encounter Additional Source Comments The information contained in this document represents components of the legal health record. It is not the complete legal health record.[facility]
== END 2025-01-27 14:20 | disposition home or self-care (01) ==
LOC: HO.HMGCLDS 14:19
PROVIDERS: PCP Internal Medicine; Visit Provider Internal Medicine
DX: R30.0 Dysuria (principal)
CPT/HCPCS: 81001; 81003; 87086; 87088; 87186

== ENCOUNTER 2025-02-09 09:34 | Emergency (ER) | payer MEDICARE, MEDICAID, SELFPAY ==
--- NOTE | 2025-02-09 | ECG_ITS ---
Test Reason : FALL Blood Pressure : */* mmHG Vent. Rate : 73 BPM Atrial Rate : 73 BPM P-R Int : 138 ms QRS Dur : 76 ms QT Int : 416 ms P-R-T Axes : 39 -2 7 degrees QTcB Int : 458 ms Normal sinus rhythm Minimal voltage criteria for LVH, may be normal variant ( R in aVL ) Borderline ECG When compared with ECG of 08-Oct-2023 14:47, T wave inversion now evident in Inferior leads Referred By: Generic ED Physician Electronically Signed By: ELENITA SHELLEY MD
--- NOTE | ~2025-02-09 | CT_ITS ---
CLINICAL HISTORY: fall, head strike, pain CT cervical spine without contrast Comparison: None provided Findings: Normal vertebral body alignment. There is degenerative disc disease at the at the C5-6 level. Endplate productive changes and uncinate joint arthropathy are noted at this level associated with mild bilateral neural foraminal narrowing. No acute fractures or dislocations. Visualized intracranial contents are unremarkable. No cervical fluid collections or masses. Lung apices are clear. IMPRESSION: No acute findings. Degenerative changes as above. This document has been electronically signed by: Ashvin Faye MD on 02/09/2025 12:11:59
--- NOTE | ~2025-02-09 | CT_ITS ---
CLINICAL HISTORY: fall, head strike, pain CT head without contrast Comparison: CT/REG/SR - CT HEAD/BRAIN WO IV CON - 10/08/23 14:18 EDT Findings: No intra-axial mass, midline shift, hydrocephalus, or acute hemorrhage. No significant atrophy-like change or white matter disease. There is chronic left maxillary sinusitis. The orbits are unremarkable. No skull fracture. There is a mild left frontal scalp hematoma. IMPRESSION: 1. No acute intracranial findings. This document has been electronically signed by: Ashvin Faye MD on 02/09/2025 12:12:40
--- NOTE | ~2025-02-09 | CT_ITS ---
CLINICAL HISTORY: fall, head strike, pain CT maxillofacial without contrast Comparison: CT/REG/SR - CT HEAD/BRAIN WO IV CON - 10/08/23 14:18 EDT Findings: No acute fractures. No dislocations. Temporomandibular joints are intact. There is chronic left maxillary sinusitis. Orbits normal. Visualized intracranial contents are within normal limits. No foreign bodies. IMPRESSION: No acute traumatic findings. Chronic left maxillary sinusitis. This document has been electronically signed by: Ashvin Faye MD on 02/09/2025 12:08:45
[2025-02-09 09:44] VITALS: BP 167/99; PULSE 90; PULSE 93; RESP 16; TEMP 37.1; O2SAT 95; O2SAT 97; BMI 25.9
[2025-02-09 09:55] VITALS: BP 142/77; PULSE 93; RESP 16; TEMP 37.1; O2SAT 95
--- NOTE | 2025-02-09 09:57 | PC.NURSE ---
Patient presents to ED after fall with headstrike. Patient rolled out of bed. Denies LOC, numbness, tingling, thinners, SOB, CP, vision changes. Eyes PERRLA Pain noted in left side of head (bruise noted) and back. Patient now c/o LYONS, dizziness (felt off balance) was nauseous but it has resolved. Patient in c collar from EMS VSS and up to date Provider in to see patient Plan of care on going
--- NOTE | 2025-02-09 10:03 | ED_ITS ---
HPI - General Adult General Chief complaint: Fall Stated complaint: HEAD CONTUSION S/P FALL,-LOC,LYONS,DIZZY PER EMS Time Seen by Provider: 02/09/25 10:02 Source: patient and EMS Mode of arrival: EMS Limitations: no limitations History of Present Illness ED Provider: Jennifer Merino PA-C HPI narrative: This is a 69yo female who was BIBA to the ED for mechanical fall. She has a history of HTN, osteoarthritis, cervical spondylosis with radiculitis, lumbar radiculopathy, GERD, anxiety, and depression. She reports that she was trying to get out of bed to pee around 5:30AM and misjudged the distance to the edge of the bed and fell out, landing on her left side. Endorses head strike to the left jainism without loss of consciousness. Ehrhardt nauseous after falling, but it has since resolved. She went back to sleep and woke up headache and swelling in the area of the left frontal/parietal bone. Swelling went down with ice. She tried taking tylenol for the headache without relief. Called EMS because she felt dizzy with standing/ambulating. Headache still present, she describes it as 7/10 constant, diffuse headache. Endorses taking her insomnia medications around 12AM last night. Denies taking her prescribed pain medications last night. Denies chest pain, shortness of breath, vision changes. Denies blood thinners. Onset (ago): hour(s) Related Data Home Medications ?Medication ?Instructions ?Recorded ?Confirmed trazodone 50 mg tablet 50 - 100 mg PO BEDTIME PRN I nsomnia 03/09/20 01/09/25 acetaminophen 500 mg tablet 500 mg PO QID PRN fever or pain 01/06/21 01/09/25 (Tylenol Extra Strength) bupropion HCl 300 mg 24 hr tablet, 300 mg PO DAILY 01/09/25 extended release desvenlafaxine succinate 100 mg 200 mg PO DAILY 01/09/25 tablet,extended release 24 hr (Pristiq) oxcarbazepine 300 mg tablet mg PO BID 08/14/24 5 Previous Rx's ?Medication ?Instructions ?Recorded alprazolam 0.5 mg tablet (Xanax) 0.5 - 1 mg (1 - 2 x 0 .5 mg) PO 02/19/23 BEDTIME Insomnia 3 days #6 tabs nystatin 100,000 unit/gram topical 1 appl topical CHERY Y PRN rash 30 04/04/23 cream days #30 grams sucralfate 100 mg/mL oral 10 ml PO BID 30 days #600 mL 06/16/24 suspension (Carafate) amlodipine 10 mg tablet 10 mg PO DAILY 90 days #90 t abs 10/26/24 cetirizine 10 mg tablet (All Day 10 mg PO DAILY PRN al lergy 11/03/24 Allergy (cetirizine)) symptoms 90 days #90 tabs cholecalciferol (vitamin D3) 50 50 mcg PO DAILY 90 day s #90 caps 11/20/24 mcg (2,000 unit) capsule ferrous sulfate 325 mg (65 mg 325 mg PO DAILY 90 days #90 tabs 11/20/24 iron) tablet pantoprazole 40 mg tablet,delayed 40 mg PO DAILY 90 da ys #90 tabs 12/03/24 release tamsulosin 0.4 mg capsule 0.4 mg PO BEDTIME #30 caps 1 oxycodone 5 mg tablet 5 mg PO BID PRN pain 30 days #60 01/23/25 tabs ciprofloxacin HCl 250 mg tablet 250 mg PO BID 3 days # 6 tabs 01/28/25 (Cipro) fluconazole 150 mg tablet 150 mg PO Q3D 2 doses #2 tab s 01/31/25 gabapentin 300 mg capsule 300 mg PO BID 30 days #60 ca ps 01/31/25 ibuprofen 400 mg tablet 400 mg PO Q6H 3 days #12 tab s 02/09/25 Allergies Allergy/AdvReac Type Severity Reaction Status Date / Time vancomycin (VANCOMYCIN) Allergy Severe ITCHING Verified 02/09/25 09:45 SEVERE, pruritus clindamycin (CLINDAMYCIN) Allergy Intermediate ITCHING Verified 02/09/25 09:45 ibuprofen Allergy Intermediate abdominal Verified 02/09/25 09:45 pain nitrofurantoin Allergy Intermediate abdominal Verified 02/09/25 09:45 pain Penicillins (PENICILLINS) Allergy Intermediate HIVES Verified 02/09/25 09:45 Sulfa (Sulfonamide Allergy Intermediate RASH/SWELLING, Verified 02/09/25 09:45 Antibiotics) rash, swelling erythromycin base Allergy Mild Unknown Verified 02/09/25 09:45 venlafaxine (From EFFEXOR) AdvReac Severe WORSENING Verified 02/09/25 09:45 DEPRESSION Butrans patch Allergy Severe depression Uncoded 02/09/25 09:45 STEROID INJECTIONS Allergy Severe ANGER AND Uncoded 02/09/25 09:45 AGGITATION Herbal medicines/teas Allergy Intermediate headaches, Uncoded 02/09/25 09:45 stuffiness Review of Systems 2 Constitutional: Constitutional: Reports as per HPI Eyes: Eyes: Reports as per HPI ENT: Reports as per HPI Cardiovascular: Cardiovascular: Reports as per HPI Respiratory: Respiratory: Reports as per HPI Gastrointestinal: Gastrointestinal: Reports as per HPI Genitourinary: Genitourinary: Reports as per HPI Musculoskeletal: Musculoskeletal: Reports as per HPI Integumentary/Breasts: Skin/Breast: Reports as per HPI Neurologic: Reports as per HPI Psychiatric: Psychiatric: Reports as per HPI Endocrine: Endocrine: Reports as per HPI Hematologic/Lymphatic: Hematologic/Lymphatic: Reports as per HPI Allergic/Immunologic: Allergic/Immunologic: Reports as per HPI PMF Past Medical History Attestation statement: The following information was validated with the patient. Source: old records reviewed and nursing notes reviewed Medical History Breast cancer Meralgia paraesthetica Obese Obesity Hospital discharge follow-up Dilation of pancreatic duct B12 deficiency Mild recurrent major depression Left hip pain Diarrhea 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 Pre-op evaluation Glossitis Ear discomfort Lumbar radiculopathy Chronic constipation Urine incontinence Left sided sciatica Fatigue Back pain Herniated disc PTSD (post-traumatic stress disorder) History of right breast cancer History of left breast cancer BRCA gene mutation positive Retinal lesion History of bronchitis Depression Irritable bowel syndrome Sciatica Arthritis Chronic GERD Neck pain Surgical History History of sinus surgery History of repair of hiatal hernia History of Lashay-en-Y gastric bypass History of esophagogastroduodenoscopy (EGD) Hx of hernia repair Hx of cholecystectomy Hx of cystostomy Hx of tubal ligation Hx of colonoscopy History of pubovaginal sling Hx of breast lump removal Hx of bilateral oophorectomy Family History Family History Father Heart disease Mother Diabetes mellitus Brother Prostate cancer Pancreatic cancer Sister Breast cancer BRCA positive Son No problems noted. Social History Social History Household Members: Significant Other Housing: House Are you a primary urgent care physician assistant to a significant other at home: No Do you presently have visiting nurse or other home services: No Alcohol intake: never Patient Tobacco Use Status: Never used Tobacco Smoked in Last 30 Days: No e-Cigarette/Vaping Use: Never Used Second Hand Smoke Exposure: No Use of substances other than those prescribed or required for medical reasons: No Substance Use Type: Marijuana Advance Directives: No Advance Directives Information Provided: No Do you have a plan to hurt others: No Plan service: No Current occupational status: disabled Cognitive needs: No Hearing needs: No Vision needs: Yes Physical Exam ED Vital Signs: Vital Signs - 24 hr 02/09/25 09:44 02/09/25 09:55 02/09/25 09:55 Temperature 98.8 F 98.8 F 98.8 F Pulse Rate 93 93 93 Respiratory Rate 16 16 16 Blood Pressure 142/77 H Pulse Oximetry 95 95 95 Oxygen Delivery Method Room Air Room Air 02/09/25 12:15 02/09/25 12:36 Temperature 98.5 F 98.5 F Pulse Rate 74 74 Respiratory Rate 14 14 Blood Pressure 159/84 H 159/84 H Pulse Oximetry 95 95 Oxygen Delivery Method Room Air Room Air BMI result Body Mass Index 25.9 Const General: no acute distress, alert and awake Nutritional Appearance: well nourished Orientation/consciousness: patient oriented x3 HENMT Head: Yes normal to inspection and Yes atraumatic Ears: hearing grossly normal bilaterally and external ears normal General nose exam: Normal external nose present, no nasal discharge noted and no epistaxis Face and sinus: Yes normal facial exam, No abrasion and No laceration Mouth: Normal oral and palatal mucosa present, no drooling and no muffled voice Eyes General: appearance normal, both eyes and all related structures Periorbital: periorbital findings normal Eyelids: Yes eyelids normal Conjunctivae: conjunctivae normal Pupils: Equal, round and reactive pupils present EOM: EOMs intact bilaterally Resp Effort & Inspection: normal respiratory effort and able to speak in complete sentences Neuro General: patient oriented x3 Cranial nerves: Yes Equal, round and reactive pupils present Cognition (Neuro): normal cognition Extrem General: Yes normal to inspection, Yes full ROM and Yes capillary refill normal Psych Appearance: grossly normal Mental Status: mental status grossly normal Affect: normal affect Attitude: cooperative Thought process: Normal thought process present Thought content: Normal thought content present Insight: Good insight present (Psych) Medications Administered Discontinued Medications Generic Name Dose Route Start Last Admin Trade Name Maya PRN Reason Stop Dose Admin Ketorolac Tromethamine 15 mg 02/09/25 11:50 02/09/25 11:58 Ketorolac Tromethamine 15 Mg/Ml Vial IM 02/09/25 11:51 15 mg ONCE ONE Administration Medical Decision Making Medical Decision Making MDM Narrative: Patient is a 69 year old assigned female at with a history of HTN, osteoarthritis, cervical spondylosis with radiculitis, lumbar radiculopathy, GERD, anxiety, and depression presenting to the emergency department today with a headache after a fall. Patient's physical exam was as noted in the physical exam portion of this note. Patient's blood work was unremarkable. Patient's EKG was unremarkable. Patient's head CT, c-spine CT, and face CT showed no acute process. Patient requested ibuprofen to be prescribed. I explained my physical exam findings as well as all test results to the patient. I answered all questions asked by the patient. I stressed the importance of the patient taking her medication as directed (either prescribed or as the over the counter packaging recommends). I stressed the importance of the patient following up with her primary care provider. I stressed the importance of the patient returning to the emergency department immediately if her symptoms were to worsen or if she were to develop any dizziness, shortness of breath, difficulty breathing, chest pain, blurry vision, loss of vision, nausea, vomiting, abdominal pain, fever, chills, back pain, or any other complaints. Patient verbalized agreement and understanding with this treatment plan and discharge. Differential Diagnosis Differential Diagnoses: The differential diagnosis associated with the presentation includes Fall Concussion Intracranial hemorrhage Skull fracture Headache Admission/Observation Consideration of admission/observation: Escalation of care including admission/observation considered Patient would have been admitted to the hospital had her work up had any findings where hospital admission was appropriate and her clinical presentation warranted hospital admission. Lab Data [facility] Lab Attestation statement: I reviewed the patient's lab results. My interpretation of these results are in the MDM Rationale portion of this note. 02/09/25 11:00 02/09/25 11:00 Labs: Lab Results 02/09/25 02/09/25 Range/Units 11:00 Unknown WBC 4.8 (4.8-10.8) X10*3/uL RBC 4.23 (4.20-5.50) X10*6/uL Hgb 12.1 (12.0-16.0) g/dl Hct 38.9 (37.0-47.0) % MCV 92.0 (80.0-98.0) fL MCH 28.6 (27.0-33.0) pg MCHC 31.1 (31.0-35.0) g/dl RDW 15.0 (11.0-16.0) % Plt Count 228 (160-400) X10*3/uL MPV 10.2 (9.4-12.3) fL Immature Gran % (Auto) 0.2 (0.0-0.4) % Neut % (Auto) 78.2 H (45-73) % Lymph % (Auto) 12.8 L (20-40) % [place] % (Auto) 6.9 (2-11) % Eos % (Auto) 1.1 (0-4) % Baso % (Auto) 0.8 (0-2) % Lymph # (Auto) 0.6 L (1.2-4.9) X10*3/uL [place] # (Auto) 0.3 (0.1-1.2) X10*3/uL Eos # (Auto) 0.1 (0.0-0.4) X10*3/uL Baso # (Auto) 0.0 (0.0-0.2) X10*3/uL Abs Immat Gran (auto) 0.01 (0.00-0.03) X10*3/uL Absolute Neuts (auto) 3.7 (2.0-8.3) x10*3/uL Absolute Nucleated RBC 0.000 (0.0-0.012) X10*3/uL Nucleated RBC % (auto) 0.0 (0.0-0.2) /100WBC Sodium 140 (135-145) mmol/L Potassium 4.1 (3.3-5.1) mmol/L Chloride 108 (96-108) mmol/L Carbon Dioxide 23 (22-29) mmol/L Anion Gap 13 (12-20) BUN 12 (9-16) mg/dL Creatinine 0.69 (0.5-1.4) mg/dL Estim Creat Clear Calc 79.6 Estimated GFR > 60 Random Glucose 96 (60-115) mg/dL Calcium 8.7 (8.4-10.2) mg/dL Total Bilirubin 0.3 (0.0-1.0) mg/dL AST 28 (5-31) U/L ALT 18 (0-31) U/L Alkaline Phosphatase 83 (39-117) U/L Troponin I High Sens < 2.7 (<3.5-17.0) ng/L Total Protein 6.7 (6.5-8.0) g/dL Albumin 4.0 (3.5-5.0) g/dL Independent Interpretation I performed an independent interpretation of an: CT Scan Interpretation: My interpretation is in agreement with the radiologist's impression of these imaging studies. L Report Number: [id number]: Total DLP = 0.00 mGy-cm Reason for Exam: fall, head strike, pain CLINICAL HISTORY: fall, head strike, pain CT head without contrast Comparison: CT/REG/SR - CT HEAD/BRAIN WO IV CON - 10/08/23 14:18 EDT Findings: No intra-axial mass, midline shift, hydrocephalus, or acute hemorrhage. No significant atrophy-like change or white matter disease. There is chronic left maxillary sinusitis. The orbits are unremarkable. No skull fracture. There is a mild left frontal scalp hematoma. IMPRESSION: 1. No acute intracranial findings. This document has been electronically signed by: Ashvin Faye MD on 02/09/2025 12:12:40 Dictated By: Ashvin Faye MD Signed By: Electronically signed by Ashvin Faye MD 02/09/25 1213 Report Number: [id number]: Total DLP = 0.00 mGy-cm Reason for Exam: fall, head strike, pain CLINICAL HISTORY: fall, head strike, pain CT cervical spine without contrast Comparison: None provided Findings: Normal vertebral body alignment. There is degenerative disc disease at the at the C5-6 level. Endplate productive changes and uncinate joint arthropathy are noted at this level associated with mild bilateral neural foraminal narrowing. No acute fractures or dislocations. Visualized intracranial contents are unremarkable. No cervical fluid collections or masses. Lung apices are clear. IMPRESSION: No acute findings. Degenerative changes as above. This document has been electronically signed by: Ashvin Faye MD on 02/09/2025 12:11:59 Dictated By: Ashvin Faye MD Signed By: Electronically signed by Ashvin Faye MD 02/09/25 1212 Report Number: [id number]: Total DLP = 1185.00 mGy-cm Reason for Exam: fall, head strike, pain CLINICAL HISTORY: fall, head strike, pain CT maxillofacial without contrast Comparison: CT/REG/SR - CT HEAD/BRAIN WO IV CON - 10/08/23 14:18 EDT Findings: No acute fractures. No dislocations. Temporomandibular joints are intact. There is chronic left maxillary sinusitis. Orbits normal. Visualized intracranial contents are within normal limits. No foreign bodies. IMPRESSION: No acute traumatic findings. Chronic left maxillary sinusitis. This document has been electronically signed by: Ashvin Faye MD on 02/09/2025 12:08:45 Dictated By: Ashvin Faye MD Signed By: Electronically signed by Ashvin Faye MD 02/09/25 1209 I independently interpreted this EKG and am in agreement with the below findings: Vent. Rate: 73 BPM Atrial Rate: 73 BPM P-R Int: 138 ms QRS Dur: 76 ms QT Int: 416 ms P-R-T Axes: 39 -2 7 degrees QTcB Int: 458 ms Normal sinus rhythm Minimal voltage criteria for LVH, may be normal variant (R in aVL) DD/ 1107 Radiology Impression Discussion of test interpretation with radiology: I have reviewed the radiologist's reading. Independent Historian Clinical information obtained from an independent historian. History obtained from or confirmed by: EMS (EMS provided additional history and confirmed the history provided by the patient. ) Prescription Management I considered prescription management with: Pain Medication (patient prescribed ibuprofen per her request.) Discharge Plan Discharge Clinical Impression: Fall, Headache Patient Disposition: Home, Self-Care Instructions: Fall Prevention for Older Adults (ED), Acute Headache (ED) Additional Instructions: Your lab work and CT scans of the head, c-spine, and face were all reassuring there is no EMERGENT process. You will be sore after this fall - this is normal. IF you are prescribed home medications and/or you are taking over the counter medications at home - it is very important you continue to do so as prescribed / directed unless told otherwise. Follow up with your primary care provider. Return to the emergency department immediately if your symptoms worsen or if you develop any unsteady gait, numbness, tingling, dizziness, shortness of breath, difficulty breathing, chest pain, blurry vision, loss of vision, nausea, vomiting, abdominal pain, fever, chills, back pain, or any other complaints. Please see the information below about our Patient Portal. If you are not yet enrolled in the [facility] Patient Portal, you will receive an enrollment email invitation following your visit to any [facility] care setting. You may also self-enroll in the Patient Portal by visiting our website: [email or web address] The following information is required to access the Patient Portal: - Your [facility] Medical Record Number - Your personal home email address (must match what is in your electronic medical record, Registration staff can assist with this) - Name - Date of Capabilities of the Patient Portal: - Message some providers - View upcoming appointments - Access your health summary, medical history, and visit history - View current conditions and allergies - View procedure and lab results - View your medications, including guidelines, side effects, and precautions - Complete pre-appointment questionnaires requested by your provider - Ready summary reports of your office visits and procedures To access the Patient Portal Mobile [employer], follow these directions: - Search ticketstreet in the [employer] Store or [employer] Store - Download the Liya - Search for [facility] - Enter your login/password Prescriptions: New ibuprofen 400 mg tablet 400 mg PO Q6H 3 Days Qty: 12 0RF No Action alprazolam [Xanax] 0.5 mg tablet 0.5 - 1 mg PO BEDTIME 3 Days Qty: 6 0RF Rx Instructions: Xanax 1-2 tabs at HS PRN nystatin 100,000 unit/gram cream 1 appl topical DAILY PRN (Reason: rash) 30 Days Qty: 30 1RF sucralfate [Carafate] 100 mg/mL suspension 10 ml PO BID 30 Days Qty: 600 0RF amlodipine 10 mg tablet 10 mg PO DAILY 90 Days Qty: 90 0RF cetirizine [All Day Allergy (cetirizine)] 10 mg tablet 10 mg PO DAILY PRN (Reason: allergy symptoms) 90 Days Qty: 90 1RF pantoprazole 40 mg tablet,delayed release (DR/EC) 40 mg PO DAILY 90 Days Qty: 90 0RF tamsulosin 0.4 mg capsule 0.4 mg PO BEDTIME Qty: 30 1RF oxycodone 5 mg tablet 5 mg PO BID PRN (Reason: pain) 30 Days Qty: 60 0RF Rx Instructions: Partial Fill upon patient request. ciprofloxacin HCl [Cipro] 250 mg tablet 250 mg PO BID 3 Days Qty: 6 0RF fluconazole 150 mg tablet 150 mg PO Q3D Qty: 2 0RF gabapentin 300 mg capsule 300 mg PO BID 30 Days Qty: 60 1RF trazodone 50 mg tablet 50 - 100 mg PO BEDTIME PRN (Reason: Insomnia) Rx Instructions: take 1-2 tabs at HS PRN insomnia desvenlafaxine succinate [Pristiq] 100 mg tablet extended release 24 hr 200 mg PO DAILY acetaminophen [Tylenol Extra Strength] 500 mg tablet 500 mg PO QID PRN (Reason: fever or pain) bupropion HCl 300 mg tablet extended release 24 hr 300 mg PO DAILY cholecalciferol (vitamin D3) 50 mcg (2,000 unit) capsule 50 mcg PO DAILY 90 Days Qty: 90 1RF ferrous sulfate 325 mg (65 mg iron) tablet 325 mg PO DAILY 90 Days Qty: 90 1RF oxcarbazepine 300 mg tablet PO BID Referrals: Rabia Sim MD [Primary Care Provider, Internal Medicine] Interventions: ED Discharge Assessment Last Done: 02/09/25 12:36 Discharge Date/Time: 02/09/25 12:36 Print Language: Czech
--- OUTSIDE RECORDS SUMMARY | 2025-02-09 10:13 | XMS_ITS | Encounter Summary ---
Author Organization [facility] Address [address] [place] [phone] Phone Care Team Providers Care Hot Die Press Operator Name Role Phone Rabia Sim MD Primary Care Provid er Encounter Details Date Type Department Care Team (Late st Contact Info) Description 11/16/2022 Procedure Pass [facility], [address] [address] Social History Tobacco Use Types Packs/Day Years [...] Care Team (Late st Contact Info) Description 02/10/2025 9:00 AM EST Office Visit [facility] [address] [place] [address] Martine Askew MD [address] [facility], [address] [place] [address] 01/08/2026 10:10 AM EDT Office Visit [facility] [address] [place] [address] Zeina Perales MD, MPH [address] [facility], [address] [place] [address] [email or web address] documented as of this encounter Visit Diagnoses Not on filedocumented in this encounter Additional Health Concerns Infection Onset Date Last Indicated Resolved Time CoV-Risk 01/01/2023 01/01/2023 01/12/2023 1:22 AM EDT documented as of this encounter Care Teams Hot Die Press Operator Relationship Specialty Start Date End Date Rabia Sim MD [address] [place] [address] PCP - General 01/17/17 documented as of this encounter Additional Source Comments The information contained in this document represents components of the legal health record. It is not the complete legal health record.[facility]
--- OUTSIDE RECORDS SUMMARY | 2025-02-09 10:13 | XMS_ITS | Encounter Summary ---
Author Organization [facility] Address [address] [place] [phone] Phone Care Team Providers Care Fisher Seal Name Role Phone Rabia Sim MD Primary Care Provid er Encounter Details Date Type Department Care Team (Late st Contact Info) Description 02/08/2023 Procedure Pass [facility], Ct Scan - [facility] [place] [address] [place] [address] Social History Tobacco Use Types Packs/Day Years [...] 02/08/2023 1:35 PM John Zaldivar RN * [place] Suicide Severity Rating Scale (Screener/Recent Self-Report) Question [...] Description 02/10/2025 9:00 AM EST Office Visit [facility] [address] [place] [id number] Martine Askew MD [address] [place] [address], [address] [place] [address] [email or web address] 01/08/2026 10:10 AM EDT Office Visit [facility] [address] [place] [address] Zeina Perales MD, MPH [address] [place] [address], [address] [place] [address] [email or web address] documented as of this encounter Visit Diagnoses Not on filedocumented in this encounter Care Teams Fisher Seal Relationship Specialty Start Date End Date Rabia Sim MD [address] [place] [address] PCP - General 01/17/17 documented as of this encounter Additional Source Comments The information contained in this document represents components of the legal health record. It is not the complete legal health record.[facility]
--- OUTSIDE RECORDS SUMMARY | 2025-02-09 10:13 | XMS_ITS | Encounter Summary ---
Author Organization [facility] Address [address] [facility] [address] [place] [address] Phone Care Team Providers Care Underpresser Hand Name Role Phone Rabia Sim MD Primary Care Provid er Encounter Details Date Type Department Care Team (Late st Contact Info) Description 08/25/2021 Procedure Pass [address] [place] [address] Social History Tobacco Use Types Packs/Day Years [...] Office Visit [facility] [address] [place] [address] [place] [address] Martine Askew MD 22 [facility], [address] [place] [address] 01/08/2026 10:10 AM EDT Office Visit [facility] Rheumatology [address] [place] [address] Zeina Perales MD, MPH 22 [facility], [address] [place] [address] [email or web address] documented as of this encounter Visit Diagnoses Not on filedocumented in this encounter Additional Health Concerns Infection Onset Date Last Indicated Resolved Time CoV-Risk 01/01/2023 01/01/2023 01/12/2023 1:22 AM EDT documented as of this encounter Care Teams Underpresser Hand Relationship Specialty Start Date End Date Rabia Sim MD [address] [place] [address] PCP - General 01/17/17 documented as of this encounter Additional Source Comments The information contained in this document represents components of the legal health record. It is not the complete legal health record.[facility]
--- OUTSIDE RECORDS SUMMARY | 2025-02-09 10:13 | XMS_ITS | Clinical Summary ---
Author Organization [facility] Address [address] [facility] [address] [place] [address] Phone Care Team Providers Care Skin Pass Operator Name Role Phone Rabia Sim MD [...] every 6 (six) hours as needed. 04/25/19 Active buPROPion (WELLBUTRIN XL) 150 MG ER [...] as needed for nausea/vomiting 6 tablet 10/21/19 Active Additional Information Patient not taking.Reported on 02/08/2023 sucralfate (CARAFATE) 1 gram tablet Take 1 tablet (1 g total) by mouth 4 (four) times a day. 40 tablet 10/21/19 Active metroNIDAZOLE (FLAGYL) 500 MG tablet 02/02/20 Active ciprofloxacin HCl (CIPRO) 500 MG tablet 02/02/20 23 Active zinc oxide-cod liver oil (DESITIN) 40 % Pste Apply 1 Application topically as needed. 28 g 02/14/20 23 Active Active Problems Problem Noted Date Diagnosed Date Hx of total hip arthroplasty, left 07/13/2021 Overview (07/13/2021): Direct anterior approach, left, 11/21, Dr. Herson Rosas Infection of left prosthetic hip joint 2 Encounters Date Type Department Care Team Description 02/04/2025 Transcribe Orders [facility] [address] [place] [address] Clayton Grider, Rabia Hill MD Encounter for rehabilitation (Primary Dx) from Last 3 Months Family History Medical History Relation Comments Bone [...] Office Visit [facility] [address] [place] [address] Martine Askew MD 22 [facility], [address] [place] [address] [email or web address] 01/08/2026 10:10 AM EDT Office Visit [facility] Rhe[facility]ology [address] [place] [address] Zeina Perales MD, MPH 22 [facility], [address] [place] [address] [email or web address] Health Maintenance Due Date Last Done Comments LIPID PANEL 1955 DEPRESSION SCREENING 1968 HEPATITIS C SCREENING 1974 PNEUMOCOCCAL VACCINES (50+ years) (1 of 2 - PCV) 12/17/1975 COLOGUARD 2001 FIT TEST 2001 FOBT 2001 SIGMOIDOSCOPY 2001 VIRTUAL COLONOSCOPY 2001 ZOSTER VACCINES (1 of 2) 2006 Adult Td,Tdap Booster 11/20/2021 11/21/2011 OSTEOPOROSIS SCREENING INITIAL (ONE-TIME) 2021 INFLUENZA VACCINE (#1) 2024 02/09/2010 COVID-19 VACCINE ( season) 2024 03/29/2021, 07/11/2020 MAMMOGRAM 02/15/2025 02/15/2023, [...] this topic Medical Devices Implanted Type Area Racing Car Driver Device Identifier Shelf Expiration Date Model / [...] Ross MD - 08/02/2022 9:53 AM EDT [facility] Patient Name: Nancy Collins Attending MD:: ARTI ROSS MD, Procedure Date: 08/02/2022 9:53 AM Date of : 1955 Age: 66 Admit Type: Outpatient Gender: Female Room: [place] [address] Referring MD: Rabia Grider Exam Type: Colonoscopy [...] monitored continuously. The Olympus adult variable colonoscope [id number] #4 was introduced through the anus and [...] 9:53 AM Procedure Code(s): --- Professional --- 71041, Colonoscopy, flexible; diagnostic, including collection of specimen(s) by brushing or washing, when performed (separateprocedure) --- Technical --- 27103, Colonoscopy, flexible; diagnostic, including collection of specimen(s) [...] congenital malformations of intestine CPT copyright 2021 [employer]. All rights reserved. The codes documented in this report are preliminary and upon professional model reviewmay be revised to meet current compliance requirements. Procedure Date: 08/02/2022 9:53:49 AM [address] [place] [address] Rabia Grider MD GI PROCEDURE ORDERAB LES Final Result from Last 3 Months or Most Recently Relevant to Health Maintenance Insurance [facility] MEDICARE PART A & B [facility] MEDICARE PART A & B [facility] MEDICARE PART A & B [place] PART [place] & B [facility] MEDICARE PART A & B Care Teams Skin Pass Operator Relationship Specialty Start Date End Date Rabia Sim MD [address] [place] [address] PCP - General 10/17/17 Additional Source Comments The information contained in this document represents components of the legal health record. It is not the complete legal health record.[facility]
--- OUTSIDE RECORDS SUMMARY | 2025-02-09 10:13 | XMS_ITS | Encounter Summary ---
Author Organization [facility] Address [address] [place] [address] Phone Care Team Providers Care Brand Marketing Coordinator Name Role Phone Rabia Sim MD Primary Care Provid er Encounter Details Date Type Department Care Team (Latest Contact Info) Description 10/28/2022 Transcribe Orders Virtual Department [address] [place] [address] Jenifer Ardon PA 10 [place] [address] Gastroesophageal reflux disease, unspecified whether esophagitis present [...] Visit [facility] [address] [place] [address] Martine Askew MD 22 [facility], [address] [place] [address] 01/08/2026 10:10 AM EDT Office Visit [facility] Rhe[facility] [address] [place] [address] Zeina Perales MD, MPH 22 [facility], [address] [place] [address] [email or web address] documented [...] documented as of this encounter Care Teams Brand Marketing Coordinator Relationship Specialty Start Date End Date Rabia Sim MD [address] [place] [address] PCP - General 01/17/17 documented as of this encounter Additional Source Comments The information contained in this document represents components of the legal health record. It is not the complete legal health record.[facility]
--- OUTSIDE RECORDS SUMMARY | 2025-02-09 10:13 | XMS_ITS | Encounter Summary ---
Author Organization [facility] Address [address] [place] [address] Phone Care Team Providers Care Feather Boner Name Role Phone Rabia Sim MD Primary Care Provid er Encounter Details Date Type Department Care Team (Late st Contact Info) Description 10/20/2022 Procedure Pass [facility], Ct Scan - [facility] [address] [place] [address] Social History Tobacco Use Types Packs/Day Years [...] 7:56 AM EDT Sexual Orientation Straight 07/24/2021 7 :56 AM EDT documented as of this encounter Functional Status * Calculated C-SSRS Risk Score (Lifetime/Recent) Answer Date of Assessment Author No Risk Indicated 10/20/2022 5:58 PM EDT Nancy Jewell RN * [place] Suicide Severity Rating Scale (Screener/Recent Self-Report) Question [...] Office Visit [facility] [address] [place] [address] [place] [address] Martine Askew MD [address] [place] [address], [address] [address] [email or web address] 01/08/2026 10:10 AM EDT Office Visit [facility] [address] [place] [address] [place] [address] Zeina Perales MD, MPH [address] [place] [address], [address] [address] [email or web address] documented as of this encounter Visit Diagnoses Not on filedocumented in this encounter Additional Health Concerns Infection Onset Date Last Indicated Resolved Time CoV-Risk 01/01/2023 01/01/2023 01/12/2023 1:22 AM EDT documented as of this encounter Care Teams Feather Boner Relationship Specialty Start Date End Date Rabia Sim MD [address] [place] [address] PCP - General 01/17/17 documented as of this encounter Additional Source Comments The information contained in this document represents components of the legal health record. It is not the complete legal health record.[facility]
--- OUTSIDE RECORDS SUMMARY | 2025-02-09 10:13 | XMS_ITS | Encounter Summary ---
Author Organization [facility] Address [address] [facility] [address] [place] [address] Phone Care Team Providers Care Test Boring Crew Chief Name Role Phone Rabia Sim MD Primary Care Provid er Encounter Details Date Type Department Care Team (Late st Contact Info) Description 04/08/2022 Procedure Pass [facility], Ct Scan - [address] [address] Social History Tobacco Use Types Packs/Day Years [...] Description 02/10/2025 9:00 AM EST Office Visit [facility] [address] [place] [address] Martine Askew MD 22 [facility], [address] [place] [address] 01/08/2026 10:10 AM EDT Office Visit [facility] Rheumatology [address] [place] [address] Zeina Perales MD, MPH 22 [facility], [address] [place] [address] [email or web address] documented as of this encounter Visit Diagnoses Not on filedocumented in this encounter Additional Health Concerns Infection Onset Date Last Indicated Resolved Time CoV-Risk 01/01/2023 01/01/2023 01/12/2023 1:22 AM EDT documented as of this encounter Care Teams Test Boring Crew Chief Relationship Specialty Start Date End Date Rabia Sim MD 5 [place] [address] PCP - General 01/17/17 documented as of this encounter Additional Source Comments The information contained in this document represents components of the legal health record. It is not the complete legal health record.[facility]
--- OUTSIDE RECORDS SUMMARY | 2025-02-09 10:13 | XMS_ITS | Encounter Summary ---
Author Organization [facility] Address [address] [facility] [address] [place] [address] Phone Care Team Providers Care Drivability Technician Name Role Phone Rabia Sim MD Primary Care Provid er Encounter Details Date Type Department Care Team (Late Contact Info) Description 04/27/2022 Procedure Pass [facility] Endoscopy Admitting Dept Virtual Department [address] [place] [address] Social History Tobacco Use Types Packs/Day Years [...] Department Care Team (Late Contact Info) Description 02/10/2025 9:00 AM EST Office Visit [facility] [address] [place] [address] [place] [address] Martine Askew MD 22 [facility], [address] [place] [address] 01/08/2026 10:10 AM EDT Office Visit [facility] Rhe[facility] [address] [place] [address] Zeina Perales MD, MPH 22 [facility], [address] [place] [address] [email or web address] documented as of this encounter Visit Diagnoses Not on filedocumented in this encounter Additional Health Concerns Infection Onset Date Last Indicated Resolved Time CoV-Risk 01/01/2023 01/01/2023 01/12/2023 1:22 AM EDT documented as of this encounter Care Teams Drivability Technician Relationship Specialty Start Date End Date Rabia Sim MD [address] [place] [address] PCP - General 01/17/17 documented as of this encounter Additional Source Comments The information contained in this document represents components of the legal health record. It is not the complete legal health record.[facility]
--- OUTSIDE RECORDS SUMMARY | 2025-02-09 10:13 | XMS_ITS | Encounter Summary ---
Author Organization [facility] Address [address] [employer] [address] [address] Phone Care Team Providers Care Sociocultural Anthropology Professor Name Role Phone Rabia Sim MD Primary Care Provid er Reason for Referral * Physical Therapy (Routine) - New Request Specialty Diagnoses / Procedures Referred By Ximena thompson Referred To Contact Physical Therapy Diagnoses Encounter for rehabilitation Rabia Sim MD [address] [place] [address] Phone: tel: fax: [address] [address] Phone: tel: Referral ID Status Reason Start Date Expiration Date V isits Requested Visits Authorized [id number] New Request 02/04/2025 02/04/2026 1 1 Encounter Details Date Type Department Care Team (Latest Contact Info) Description 02/04/2025 Transcribe Orders [facility] [address] [place] [address] Rabia Sim MD [address] [place], [place] [id number] Encounter for rehabilitation (Primary Dx) Social History Tobacco Use Types Packs/Day Years [...] Office Visit [facility] [address] [place] [address] [place] [address] Martine Askew MD [address] [place] [address], [address] [place] [address] [email or web address] 01/08/2026 10:10 AM EDT Office Visit [facility] Rhe[facility] [address] [place] [address] Zeina Perales MD, MPH [address] [place] [address], [address] [place] [address] [email or web address] Scheduled Referrals Name Type Priority Associated Diagnoses Orde r Schedule Ambulatory referral to [facility] Physical Therapy Outpatient Referral Routine Encounter for rehabilitation Ordered: 02/04/2025 documented as of this encounter Visit Diagnoses Diagnosis Encounter for rehabilitation- Primary documented in this encounter Care Teams Sociocultural Anthropology Professor Relationship Specialty Start Date End Date Rabia Sim MD [address] [place] [address] PCP - General 01/17/17 documented as of this encounter Additional Source Comments The information contained in this document represents components of the legal health record. It is not the complete legal health record.[facility]
--- OUTSIDE RECORDS SUMMARY | 2025-02-09 10:13 | XMS_ITS | Encounter Summary ---
Author Organization [facility] Address [address] [employer] [facility] [address] [place] [address] Phone Care Team Providers Care Firestopper Technician Name Role Phone Rabia Sim MD Primary Care Provid er Reason for Referral * MRI/CAT Scan - Closed Specialty Diagnoses / Procedures Referred By Ximena thompson Referred To Contact Radiology Diagnoses LLQ pain Bloating Procedures CT Abdomen/Pelvis Pankaj Ross MD Phone: tel: fax: [email or web address] Referral ID Status Reason Start Date Expiration Date Visits Re quested Visits Authorized [id number] Closed 04/08/2022 04/08/2023 1 1 Encounter Details Date Type Department Care Team (Latest Contact Info) Description 04/08/2022 Transcribe Orders Virtual Department [address] [place] [address] Pankaj Ross MD [address] [place] [address] [email or web address] LLQ pain (Primary Dx); Bloating Social History [...] Visit [facility] [address] [place] [address] Martine Askew MD 22 [facility], [address] [place] [address] [email or web address] 01/08/2026 10:10 AM EDT Office Visit [facility] Rhe[facility] [address] [place] [address] Zeina Perales MD, MPH 22 [facility], [address] [place] [address] [email or web address] documented as of this encounter Results * [...] documented as of this encounter Care Teams Firestopper Technician Relationship Specialty Start Date End Date Rabia Sim MD [address] [place] [address] PCP - General 01/17/17 documented as of this encounter Additional Source Comments The information contained in this document represents components of the legal health record. It is not the complete legal health record.[facility]
--- OUTSIDE RECORDS SUMMARY | 2025-02-09 10:13 | XMS_ITS | Encounter Summary ---
Author Organization [facility] Address [address] [facility] [address] [place] [address] Phone Care Team Providers Care Product Representative Name Role Phone Rabia Sim MD Primary Care Provid er Encounter Details Date Type Department Care Team (Late Contact Info) Description 08/02/2022 Procedure Pass [facility] Endoscopy Admitting Dept Virtual Department [address] [place] [address] Social History Tobacco Use Types Packs/Day Years [...] Visit [facility] [address] [place] [address] Martine Askew MD 22 [facility], [address] [place] [address] 01/08/2026 10:10 AM EDT Office Visit [facility] Rheumatology [address] [place] [address] Zeina Perales MD, MPH 22 [facility], [address] [place] [address] [email or web address] documented as of this encounter Visit Diagnoses Not on filedocumented in this encounter Additional Health Concerns Infection Onset Date Last Indicated Resolved Time CoV-Risk 01/01/2023 01/01/2023 01/12/2023 1:22 AM EDT documented as of this encounter Care Teams Product Representative Relationship Specialty Start Date End Date Rabia Sim MD 5 [place] [address] PCP - General 01/17/17 documented as of this encounter Additional Source Comments The information contained in this document represents components of the legal health record. It is not the complete legal health record.[facility]
--- OUTSIDE RECORDS SUMMARY | 2025-02-09 10:13 | XMS_ITS | Encounter Summary ---
Author Organization [facility] Address [address] [place] [address] Phone Care Team Providers Care Shredder Tender Name Role Phone Rabia Sim MD Primary Care Provid er Encounter Details Date Type Department Care Team (Late st Contact Info) Description 10/05/2021 Procedure Pass [facility], Ct Scan - [address] [address] Social History Tobacco Use Types Packs/Day Years [...] 8:30 AM EDT Doreen Mike RN * [place] Suicide Severity Rating Scale (Screener/Recent Self-Report) Question Answer Date of Assessment Author 1. Wish to be (Past 1 Month) No 022 8:30 AM EDT Carissa Mike, CEDRICK 2. Non-Specific Active Suici joseph Thoughts (Past 1 Month) No 10/05/2021 8:30 AM EDT Carissa Mike RN 6. Suicidal Behavior (Lifetime) No 8:30 AM EDT Carissa Mike RN documented as of this encounter Plan of Treatment Upcoming Encounters Date Type Department Care Team (Late st Contact Info) Description 02/10/2025 9:00 AM EST Office Visit [facility] [address] [place] [address] [place] [address] Martine Askew MD 22 [facility], [address] [place] [address] 01/08/2026 10:10 AM EDT Office Visit [facility] Rheumatology [address] [place] [address] Zeina Perales MD, MPH 22 [facility], [facility] [address] [place] [address] documented as of this encounter Visit Diagnoses Not on filedocumented in this encounter Additional Health Concerns Infection Onset Date Last Indicated Resolved Time CoV-Risk 01/01/2023 01/01/2023 01/12/2023 1:22 AM EDT documented as of this encounter Care Teams Shredder Tender Relationship Specialty Start Date End Date Rabia Sim MD [address] [place] [address] PCP - General 01/17/17 documented as of this encounter Additional Source Comments The information contained in this document represents components of the legal health record. It is not the complete legal health record.[facility]
--- OUTSIDE RECORDS SUMMARY | 2025-02-09 10:13 | XMS_ITS | Encounter Summary ---
Author Organization [facility] Address [address] [facility] [address] [place] [address] Phone Care Team Providers Care Motorcycle Builder Name Role Phone Rabia Sim MD Primary Care Provid er Encounter Details Date Type Department Care Team (Late st Contact Info) Description 07/29/2021 Ancillary Orders [facility],Outside Imaging [address] [place] [address] System, Provider Not In, [facility] [address] [address] Social History Tobacco Use Types Packs/Day Years [...] Description 02/10/2025 9:00 AM EST Office Visit [facility] [address] [place] [address] [place] [address] Martine Askew MD 22 [facility], [address] [place] [address] 01/08/2026 10:10 AM EDT [facility] [address] [place] [address] Zeina Perales MD, MPH 22 [facility], [address] [place] [address] [email or web address] documented as of this encounter Results * [...] documented as of this encounter Care Teams Motorcycle Builder Relationship Specialty Start Date End Date Rabia Sim MD [address] [place] [address] PCP - General 01/17/17 documented as of this encounter Additional Source Comments The information contained in this document represents components of the legal health record. It is not the complete legal health record.[facility]
--- OUTSIDE RECORDS SUMMARY | 2025-02-09 10:13 | XMS_ITS | Encounter Summary ---
Author Organization [facility] Address [address] [facility] [address] [place] [phone] Phone Care Team Providers Care Facing Baster Jumpbasting Name Role Phone Rabia Sim MD Primary Care Provid er Encounter Details Date Type Department Care Team (Late st Contact Info) Description 07/24/2021 Procedure Pass [facility], Ct Scan - [address] [address] Social History Tobacco Use Types Packs/Day Years [...] Risk Indicated 07/24/2021 7:50 AM EDT Heather Wiknler RN * [place] Suicide Severity Rating Scale (Screener/Recent Self-Report) Question Answer Date of Assessment Author 1. Wish to be (Past 1 Month) No 07/24/2021 7:50 AM EDT Heather Winkler RN 2. Non-Specific Active Suici joseph Thoughts (Past 1 Month) No 07/24/2021 7:50 AM EDT Heather Winkler RN 6. Suicidal Behavior (Lifetime) No 7:50 AM EDT Heather Winkler RN documented as of this encounter Plan of Treatment Upcoming Encounters Date Type Department Care Team (Late st Contact Info) Description 02/10/2025 9:00 AM EST Office Visit [facility] [address] [place] [address] Martine Askew MD [address] [facility], [address] [place] [address] 01/08/2026 10:10 AM EDT Office Visit [facility] [address] [place] [address] Zeina Perales MD, MPH [address] [facility], [facility] [address] [place] [address] documented as of this encounter Visit Diagnoses Not on filedocumented in this encounter Additional Health Concerns Infection Onset Date Last Indicated Resolved Time CoV-Risk 07/24/2021 07/24/2021 08/04/2021 1:23 AM EDT CoV-Risk 01/01/2023 01/01/2023 01/12/2023 1:22 AM EDT documented as of this encounter Care Teams Facing Baster Jumpbasting Relationship Specialty Start Date End Date Rabia Sim MD [address] [place] [address] PCP - General 01/17/17 documented as of this encounter Additional Source Comments The information contained in this document represents components of the legal health record. It is not the complete legal health record.[facility]
--- OUTSIDE RECORDS SUMMARY | 2025-02-09 10:13 | XMS_ITS | Clinical Summary ---
Author Organization [facility] Address [address] [place] [address] Care Team Providers Care Senior Master Scheduler Name Role Phone Rabia Grider MD Primary Care Provider [phone] Surgical History Surgery Date Site/Laterality Comments BREAST LUMPECTOMY Bilateral PROCEDURE: HISTORICAL BREAST LUMPECTOMY OTHER SURGICAL HISTORY PROCEDURE: SD LAPS GSTR RSTCV PX W/BYP DARRELL-EN-Y LIMB <150 CM CHOLECYSTECTOMY N/A PROCEDURE: SD CHOLECYSTECTOMY HIP ARTHROPLASTY 12/01/2020 Left PROCEDURE: HISTORICAL [...] Documents on File Type Date Recorded Patient Tier Lift Truck Operator Expl anation Health Care Decision (hx) 12/02/2020 AD STARR DIRECTIVE Health Care Decision (hx) 12/02/2020 AD STARR DIRECTIVE Health Care Decision (hx) 12/02/2020 AD STARR DIRECTIVE Health Care Decision (hx) 12/02/2020 AD STARR DIRECTIVE Care Teams Senior Master Scheduler Relationship Specialty Start Date End Date Rabia Grider MD [address] [place] [address] , [address] [facility] D/B/A: [facility] PCP - General Internal Medicine 10/20/20
[2025-02-09 11:06] LABS: Hematocrit 38.9 % (37.0-47.0); Hemoglobin 12.1 g/dl (12.0-16.0); Imm Gran Abs Auto 0.01 X10*3/uL (0.00-0.03); Imm Gran Pct Auto 0.2 % (0.0-0.4); Lymphocytes Absolute Auto 0.6 X10*3/uL (1.2-4.9); MANUAL DIFF FLAG NO; Mean Corpuscular HGB Conc 31.1 g/dl (31.0-35.0); Mean Corpuscular Hemoglobin 28.6 pg (27.0-33.0); Mean Corpuscular Volume 92.0 fL (80.0-98.0); NRBC Abs Auto 0.000 X10*3/uL (0.0-0.012); NRBC Pct Auto 0.0 /100WBC (0.0-0.2); Platelet Count 228 X10*3/uL (160-400); Red Blood Count 4.23 X10*6/uL (4.20-5.50); White Blood Count 4.8 X10*3/uL (4.8-10.8)
[2025-02-09 11:22] LABS: Troponin-I High Sensitivity < 2.7 ng/L (<3.5-17.0)
[2025-02-09 11:24] LABS: Alanine Aminotransferase 18 U/L (0-31); Albumin Level 4.0 g/dL (3.5-5.0); Alkaline Phosphatase 83 U/L (39-117); Anion Gap 13 (12-20); Aspartate Amino Transferase 28 U/L (5-31); Blood Urea Nitrogen 12 mg/dL (9-16); Calcium 8.7 mg/dL (8.4-10.2); Carbon Dioxide 23 mmol/L (22-29); Chloride 108 mmol/L (96-108); Creatinine Clr Calc Pharmacy 79.6; Estimated Glomerular Filt Rate > 60; Potassium 4.1 mmol/L (3.3-5.1); Sodium 140 mmol/L (135-145); Total Protein 6.7 g/dL (6.5-8.0)
--- NOTE | 2025-02-09 11:29 | MHC.EDTECH ---
delay on ekg due to patient being in ct.nurse aware
[2025-02-09 12:15] VITALS: BP 159/84; PULSE 74; RESP 14; TEMP 36.9; O2SAT 95
[2025-02-09 12:36] VITALS: BP 159/84; PULSE 74; RESP 14; TEMP 36.9; O2SAT 95
== END 2025-02-09 12:36 | disposition home or self-care (01) ==
PROVIDERS: Emergency Provider Emergency Medicine Emergency Medical Services; PCP Internal Medicine
DX: S00.93XA Contusion of unspecified part of head, initial encounter (principal); R51.9 Headache, unspecified; R42 Dizziness and giddiness; M54.2 Cervicalgia; W06.XXXA Fall from bed, initial encounter; Y93.9 Activity, unspecified; Y92.003 Bedroom of unspecified non-institutional (private) residence as the place of occurrence of the external cause; Y99.8 Other external cause status; Z79.899 Other long term (current) drug therapy
CPT/HCPCS: 36415; 70450; 70486; 72125; 80053; 84484; 85025; 93005; 96372; 99284; 99285; J1885

== ENCOUNTER → 2025-02-09 11:07 | Outpatient (BNV) | payer MEDICARE, MEDICAID, SELFPAY | PROVIDERS: Emergency Provider Emergency Medicine Emergency Medical Services; PCP Internal Medicine; Visit Provider Internal Medicine Cardiovascular Disease | DX: Z04.3 Encounter for examination and observation following other accident (principal) | CPT/HCPCS: 93010 ==